=== PATIENT | female | born 1935 | race Caucasian/White ===

== ENCOUNTER → 2017-08-30 | Outpatient (CLI) | payer OTHER ==
[~2017-08-30] MED LIST: ASPI-232 PO; CARV6.25 PO; CHOL100027 PO; CMD5 PO; FAMO20TA11 PO; FRS/40 PO; POTA10TA PO; PRENTAB89 PO; PROB1CAP41 PO; SYN50 PO; WARF2.5T8 PO
--- NOTE | 2017-08-30 12:17 | DIAGNOSTIC IMAGING REPORT ---
ABDOMEN NO IV/ORAL CONT (CT) CT DOSE: 213.81 mGy.cm HISTORY: Renal cyst PT REFUSING IV CONTRAST TECHNIQUE: Multiaxial CT images of the abdomen was performed without contrast. A dose lowering technique was utilized adhering to the principles of ALARA. Patient declined contrast administration. This severely compromises detail of the exam. COMPARISON STUDY: None. FINDINGS: Cardiomegaly. Prior median sternotomy. Nonspecific interstitial change at both lung bases. Overall configuration of liver spleen and pancreas appear unremarkable. Small fixed hiatal hernia. Kidneys are negative for hydronephrosis. Well-defined renal mass or cyst is not seen within the limitations of an unenhanced scan. Bowel pattern is considered nonobstructive. There are degenerative changes of the lumbar and low thoracic spine. IMPRESSION: 1. Limited exam as the patient declined contrast administration. 2. Cardiac megaly. 3. Mild bibasilar interstitial changes most likely chronic. 4. No acute process of the abdomen within limitations of an unenhanced scan. 5. A major renal mass or cyst is not appreciated within these limitations. The above report was generated using voice recognition software. It may contain grammatical, syntax or spelling errors. Electronically signed by: Peter Patterson M.D. 08/30/2017 12:16 PM Dictated Date/Time: 08/30/2017 12:08 PM
== END | disposition home or self-care (01) ==
LOC: C.CTS 11:52
PROVIDERS: ATTEND Urology
DX: N28.1 Cyst of kidney, acquired (principal); I51.7 Cardiomegaly

== ENCOUNTER 2022-02-14 12:05 | Inpatient (IN) ==
--- NOTE | 2022-02-14 12:07 | Emergency Department Note ---
Impression & Plan Subcapital fracture of left femur, Fall, Hypokalemia ED Provider Note NAME: RAOUL MARTINEZ AGE: 86 SEX: F : 1935 ARRIVES VIA: Ambulance INFORMANT: Patient, ED PROVIDER(S): Matt Neri MD Chief Complaint: Fall, hip pain HPI: Patient presents due to concern for fall and hip pain that occurred earlier this morning. The patient states that her daughter's dog which she is walking had slightly bumped her and that she fell to her left side. Patient states that thereafter she was unable to get up for 45 minutes until EMS arrived. Patient does have pain over the left lateral hip and femur. The patient states she is not had any prior orthopedic surgery. Patient states she is currently watching the daughter while her daughter is at the beach. Patient denies any head neck chest back or abdominal pains. The patient does take Coumadin. The patient denies any LOC or head strike. Patient did take her morning medications. The patient did receive fentanyl in route and her pain is much improved. ROS: See HPI for pertinent positives and negatives. A total of 10 systems were reviewed and otherwise negative. Past medical history: See below Surgical history: See below Social history: See below Physical Exam: GENERAL: NAD, wearing a mask, non-toxic. EYE EXAM: Normal conjunctiva. PERRL, no anisocoria and EOM's grossly intact w/o pain. NECK: Supple, no nuchal rigidity, no adenopathy, non-tender. No signs of meningismus. FROM of the neck with good chin to chest and neck extension. No stridor. LUNGS: Clear to auscultation. Normal chest wall mechanics. HEART: NSR, no MRG. ABDOMEN: Abdomen soft, non-tender, normo-active bowel sounds, no masses, no rebound or guarding. BACK: No CVA TTP. SKIN: Small ulcerations to the distal portion of the right and left shins, clean with no surrounding erythema or fluctuance. No drainage. UPPER EXTREMITIES: Upper extremities are grossly normal. LOWER EXTREMITIES: Pain with associated discomfort over the left hip, no obvious sort of shortening or rotation, decreased range of motion of the left leg secondary to pain, sensate with good DP pulse. NEURO EXAM: A&O x3, cranial nerves II-XII grossly intact, normal speech, moves all 4 extremities. Differential diagnoses: Fracture, dislocation, neurovascular compromise, compartment syndrome, soft tissue injury, as well as other pathologies. Course: Patient was seen and evaluated the bedside. Full history physical exam was performed. EKG interpreted by me V paced rhythm, rate of 73, wide QRS, right axis deviation. Imaging Studies: See Below Cardiac monitoring: An order was placed for continuous cardiac monitoring. The monitor shows a rate of 82 with paced rhythm. MDM: Patient presents due to concern for fall and left hip pain. The patient did have blood work completed and was ordered pain medication as needed and chest and left hip and pelvis films. Blood work shows a normal white count H&H and platelet count. The patient's INR is therapeutic at 2.3. Mild hyponatremia and hypokalemia. Patient is COVID-negative. Patient does have a subcapital left femur fracture. Chest x-ray does not show any evidence of consolidation or pleural effusion. I did speak with Sharlene Ward PA-C and the patient was admitted by Dr. Schultz. I did speak with the on-call orthopedist Dr. Delatorre who will evaluate the patient in consult. Past Med/Surg History Medical History Chronic heart failure with preserved ejection fraction (HFpEF) Chronic hyponatremia CKD (chronic kidney disease) stage 3, GFR 30-59 ml/min H/O: HTN (hypertension) HLD (hyperlipidemia) HTN (hypertension) Hx of cardiac pacemaker Hypothyroid Osteoporosis Spinal stenosis Surgical History Hx of mitral valve replacement Hx of tricuspid valve repair S/P cardiac pacemaker procedure Social History Smoking Status: Never smoker Hx Alcohol Use: No Hx Substance Use: No Preferred Language: Yakut Communication Ability: Effective Overlay Operator Required: No Beliefs That Will Affect Care: None Current Living Situation: Alone Feels Safe at Home: Yes Safety Concerns: Feels Safe At This Time Assistive Devices: Cane, Denture - Upper, Denture - Lower and Glasses Assistive Devices Comment: upper denture, lower partial, Allergies Allergies Allergy/AdvReac Type Severity Reaction Status Date / Time Sulfa (Sulfonamide AdvReac Severe GI Unverified 02/18/21 18:43 Antibiotics) SYMPTOMS;kidney function compromised Home Meds Home Medications Medication Instructions Recorded Confirmed alendronate 70 mg tablet 70 mg PO WK 02/18/21 02/14/22 aspirin 81 mg tablet,delayed 81 mg PO QAM 02/18/21 02/14/22 release carvedilol 12.5 mg tablet 12.5 mg PO AMHS 02/18/21 02/14/22 cholecalciferol (vitamin D3) 25 50 mcg PO DAILY 02/18/21 02/14/22 mcg (1,000 unit) tablet (Vitamin D3) gabapentin 100 mg capsule 200 mg PO 02/18/21 02/14/22 multivitamin (Multiple Vitamins) 1 tab PO QA 02/18/21 02/14/22 simvastatin 10 mg tablet 10 mg PO 02/18/21 02/14/22 spironolactone 25 mg tablet 25 mg PO 02/18/21 02/14/22 warfarin 5 mg tablet 2.5 mg PO MOWEFR@1600 02/18/21 02/14/22 levothyroxine 75 mcg capsule 75 mcg PO DAILY 02/14/22 02/14/22 lifitegrast 5 % eye drops in a 1 drp OPB 02/14/22 02/14/22 dropperette (Xiidra) sennosides 8.6 mg tablet (senna) 25.8 mg PO DAILY 02/14/22 02/14/22 torsemide 20 mg tablet 20 mg PO SUTUTHSA 02/14/22 02/14/22 torsemide 20 mg tablet 40 mg PO MOWEFR 02/14/22 02/14/22 warfarin 5 mg tablet 5 mg PO SUTUTHSA@1600 02/14/22 02/14/22 Results & Data (ED) Vital Signs Vital Signs - 24 hr 02/14/22 12:26 02/14/22 13:00 02/14/22 12:36 Temperature 36.8 C Temperature Source Oral Pulse Rate 71 74 Pulse Rate [Right Finger] 77 Pulse Rate from SpO2 Sensor 70 Pulse Rhythm [Right Finger] Regular Pulse Strength [Right Finger] Normal Respiratory Rate 20 18 15 Respiratory Effort / Characteristics Non-Labored Spontaneous Non-Labored Respiratory Depth Normal Normal Respiratory Pattern Regular Regular Blood Pressure 124/70 Blood Pressure [Right Arm] 131/78 Blood Pressure Mean 88 Blood Pressure Mean [Right Arm] 95 Blood Pressure Position Lying Pulse Oximetry 97 97 98 Oxygen Delivery Method Room Air Room Air Sepsis Recent Fever Within 48 Hours No Sepsis New/Unexplained Change in Mental Status No Sepsis Action Taken by Nursing No Action Required 02/14/22 13:00 02/14/22 13:27 02/14/22 13:30 Temperature Temperature Source Pulse Rate 78 75 76 Pulse Rate [Right Finger] Pulse Rate from SpO2 Sensor 68 68 Pulse Rhythm [Right Finger] Pulse Strength [Right Finger] Respiratory Rate 14 20 17 Respiratory Effort / Characteristics Respiratory Depth Respiratory Pattern Blood Pressure 148/79 H Blood Pressure [Right Arm] Blood Pressure Mean 102 Blood Pressure Mean [Right Arm] Blood Pressure Position Pulse Oximetry 98 93 Oxygen Delivery Method Room Air Room Air Sepsis Recent Fever Within 48 Hours Sepsis New/Unexplained Change in Mental Status Sepsis Action Taken by Nursing 02/14/22 14:00 Temperature Temperature Source Pulse Rate 70 Pulse Rate [Right Finger] Pulse Rate from SpO2 Sensor 70 Pulse Rhythm [Right Finger] Pulse Strength [Right Finger] Respiratory Rate 14 Respiratory Effort / Characteristics Respiratory Depth Respiratory Pattern Blood Pressure 132/72 Blood Pressure [Right Arm] Blood Pressure Mean 92 Blood Pressure Mean [Right Arm] Blood Pressure Position Pulse Oximetry 96 Oxygen Delivery Method Room Air Sepsis Recent Fever Within 48 Hours Sepsis New/Unexplained Change in Mental Status Sepsis Action Taken by [facility] Medications Current Medication List: was personally reviewed by me Laboratory Data Attestation: I reviewed the patient's lab results. Result diagrams: 02/14/22 12:22 02/14/22 12:22 Lab Results 02/14/22 02/14/22 02/14/22 Range/Units 12:17 12:22 12:22 WBC 6.19 (4.8-10.8) K/ul RBC 4.17 (3.93-5.22) M/uL Hgb 12.3 (12.0-16.0) g/dl Hct 36.8 (34.1-44.9) % MCV 88.2 (80.0-100.0) fL MCH 29.5 (25.0-34.0) pg MCHC 33.4 (32.0-36.0) g/dL RDW Std Deviation 46.0 (36.4-46.3) fL RDW Coeff of Fabricio 14.5 (11.5-14.5) % Plt Count 223 (130-400) K/uL MPV 9.5 (9.4-12.3) fL Immature Gran % (Auto) 0.5 % Neut % (Auto) 78.6 % Lymph % (Auto) 11.3 % [place] % (Auto) 7.8 % Eos % (Auto) 0.8 % Baso % (Auto) 1.0 % Neut # (Auto) 4.87 (1.4-6.5) K/uL Lymph # (Auto) 0.70 L (1.2-3.4) K/uL [place] # (Auto) 0.48 (0.24-0.82) K/uL Eos # (Auto) 0.05 (0-0.50) K/uL Baso # (Auto) 0.06 (0-0.2) K/uL Immature Gran # (Auto) 0.03 H (0.00-0.02) K/uL PT (9.0-12.0) Seconds INR (0.9-1.1) APTT (21.0-31.0) Seconds PTT Ratio Sodium (136-145) mmol/L Potassium (3.5-5.1) mmol/L Chloride (98-107) mmol/L Carbon Dioxide (21-32) mmol/L Anion Gap (3-11) BUN (6-23) mg/dl Creatinine (0.6-1.2) mg/dl Est Cr Clr Drug Dosing ml/min Est GFR ( Amer) ml/min Est GFR (Non-Af Amer) ml/min BUN/Creatinine Ratio (10-20) Glucose (70-99(Fasting)) mg/dl Calcium (8.5-10.1) mg/dl Total Bilirubin (0.2-1.0) mg/dl AST (13-39) U/L ALT (7-52) U/L Alkaline Phosphatase (34-104) U/L Total Protein (6.0-8.3) gm/dl Albumin (3.4-5.0) gm/dl Globulin (2.5-4.0) gm/dl Albumin/Globulin Ratio (0.9-2) Urine Color Yellow Urine Appearance Clear (Clear) Urine pH 7.0 (4.5-7.5) Ur Specific [place] 1.005 (1.000-1.030) Urine Protein Negative (Negative) Urine Glucose (UA) Negative (Negative) Urine Ketones Negative (Negative) Urine Blood Negative (Negative) Urine Nitrite Negative (Negative) Urine Bilirubin Negative (Negative) Urine Urobilinogen Negative (Negative) Ur Leukocyte Esterase Negative (Negative) SARS-CoV-2, RNA, NAAT (NEGATIVE) Blood Type A Negative Antibody Screen NEGATIVE 02/14/22 02/14/22 02/14/22 Range/Units 12:22 12:22 13:28 WBC (4.8-10.8) K/ul RBC (3.93-5.22) M/uL Hgb (12.0-16.0) g/dl Hct (34.1-44.9) % MCV (80.0-100.0) fL MCH (25.0-34.0) pg MCHC (32.0-36.0) g/dL RDW Std Deviation (36.4-46.3) fL RDW Coeff of Fabricio (11.5-14.5) % Plt Count (130-400) K/uL MPV (9.4-12.3) fL Immature Gran % (Auto) % Neut % (Auto) % Lymph % (Auto) % [place] % (Auto) % Eos % (Auto) % Baso % (Auto) % Neut # (Auto) (1.4-6.5) K/uL Lymph # (Auto) (1.2-3.4) K/uL [place] # (Auto) (0.24-0.82) K/uL Eos # (Auto) (0-0.50) K/uL Baso # (Auto) (0-0.2) K/uL Immature Gran # (Auto) (0.00-0.02) K/uL PT 23.9 H (9.0-12.0) Seconds INR 2.3 H (0.9-1.1) APTT 31.0 (21.0-31.0) Seconds PTT Ratio 1.1 Sodium 129 L (136-145) mmol/L Potassium 3.3 L (3.5-5.1) mmol/L Chloride 93 L (98-107) mmol/L Carbon Dioxide 29 (21-32) mmol/L Anion Gap 7 (3-11) BUN 26 H (6-23) mg/dl Creatinine 0.94 (0.6-1.2) mg/dl Est Cr Clr Drug Dosing 34.6 ml/min Est GFR ( Amer) 64.1 ml/min Est GFR (Non-Af Amer) 55.3 ml/min BUN/Creatinine Ratio 27.7 H (10-20) Glucose 98 (70-99(Fasting)) mg/dl Calcium 8.9 (8.5-10.1) mg/dl Total Bilirubin 1.3 H (0.2-1.0) mg/dl AST 24 (13-39) U/L ALT 13 (7-52) U/L Alkaline Phosphatase 52 (34-104) U/L Total Protein 6.5 (6.0-8.3) gm/dl Albumin 3.7 (3.4-5.0) gm/dl Globulin 2.8 (2.5-4.0) gm/dl Albumin/Globulin Ratio 1.3 (0.9-2) Urine Color Urine Appearance (Clear) Urine pH (4.5-7.5) Ur Specific [place] (1.000-1.030) Urine Protein (Negative) Urine Glucose (UA) (Negative) Urine Ketones (Negative) Urine Blood (Negative) Urine Nitrite (Negative) Urine Bilirubin (Negative) Urine Urobilinogen (Negative) Ur Leukocyte Esterase (Negative) SARS-CoV-2, RNA, NAAT NEGATIVE (NEGATIVE) Blood Type Antibody Screen Administered Medications Morphine Sulfate (Morphine Sulfate 2 Mg/Ml Carp) 2 mg IV Q3H PRN PRN Reason: breakthrough pain, 8-10 Stop: 02/28/22 16:38 Last Admin: 02/14/22 17:02 Dose: 2 mg Documented By: AMPARO Discontinued Medications Phytonadione 5 mg/ Dextrose 50.5 mls @ 101 mls/hr IV 1530 ONE Stop: 02/14/22 15:59 Last Admin: 02/14/22 16:39 Dose: 101 mls/hr Documented By: AMPARO Morphine Sulfate (Morphine Sulfate 2 Mg/Ml Carp) 2 mg IV Q1H PRN PRN Reason: Moderate Pain (Rating 3,4,5,6) Stop: 02/28/22 12:16 Last Admin: 02/14/22 15:49 Dose: 2 mg Documented By: Admin: 02/14/22 13:24 Dose: 2 mg Documented By: [facility] [place] Admin: 02/14/22 13:00 Dose: 2 mg Documented By: AP Potassium Chloride (Potassium Chloride Crtab 20 Meq Tabcr) 40 meq PO NOW STA Stop: 02/14/22 14:18 Last Admin: 02/14/22 14:44 Dose: 40 meq Documented By: [facility] [place] Imaging Data Radiologist's Impression: Chest X-Ray 02/14/22 00:00 SINGLE VIEW CHEST CLINICAL HISTORY: Trauma. Left hip fracture. FINDINGS: An AP, portable, supine chest radiograph is compared to chest x-ray and chest CT dated 02/18/2021. The examination is degraded by portable technique apical lordotic positioning. A 3-lead cardiac AICD is unchanged in position. The heart is markedly enlarged noting atherosclerotic calcification of the thoracic aorta. The pulmonary vasculature is noncongested. Chronic interstitial thickening is similar to previous. Foci of scarring/atelectasis are seen throughout both lungs. No superimposed airspace consolidation or large pleural effusion is identified. No pneumothorax is seen. The skeletal structures are osteopenic. The bony thorax is grossly intact. IMPRESSION: 1. Marked cardiomegaly and AICD with no radiographic evidence of congestive failure. 2. No airspace consolidation or large pleural effusion is identified. ACT 112: Negative or not required by law. Electronically signed by: John Joseph M.D. 02/14/2022 1:34 PM Hip/Pelvis X-Ray 02/14/22 12:17 SINGLE VIEW PELVIS; 2 VIEWS LEFT HIP CLINICAL HISTORY: Fall with left hip injury. FINDINGS: An AP view of the pelvis with AP and crosstable lateral views of the left hip are correlated with pelvic CT dated 02/18/2021. The skeletal structures are osteopenic. There is an impacted and mildly displaced subcapital fracture of the left proximal femur. Overlying soft tissue edema is noted. No additional acute fracture is seen involving the right hip or the bony pelvis. There are subacute to chronic right pubic ring fractures. Sclerotic change is noted in the sacroiliac joints and pubic symphysis. Lumbosacral spondylosis is partially visualized. No bowel obstruction is seen. IMPRESSION: 1. Acute and mildly displaced subcapital fracture of the left proximal femur as above. 2. There are subacute to chronic right pubic ring fractures. These are new from 02/18/2021. Electronically signed by: John Joseph M.D. 02/14/2022 1:30 PM Discharge Plan Visit Data Chief Complaint: Hip Pain Stated Complaint: FALL, L HIP PAIN ED Provider: Matt Neri Discharge Problem: Subcapital fracture of left femur, Fall, Hypokalemia Patient Disposition: Admitted As Inpatient Discharge Instructions Interventions: ED Discharge Assessment Last Done: 02/14/22 16:10
[2022-02-14 12:30] LABS: Basophils # (auto) 0.06 K/uL (0-0.2); Eosinophils # (auto) 0.05 K/uL (0-0.50); Eosinophils % (auto) 0.8 %; Hematocrit (blood only) 36.8 % (34.1-44.9); Hemoglobin 12.3 g/dl (12.0-16.0); Immature Granulocytes # (auto) 0.03 K/uL (0.00-0.02); Immature Granulocytes % (auto) 0.5 %; Lymphocytes % (auto) 11.3 %; Mean Corpuscular Hemoglobin 29.5 pg (25.0-34.0); Mean Corpuscular Hgb Conc 33.4 g/dL (32.0-36.0); Mean Corpuscular Volume 88.2 fL (80.0-100.0); Mean Platelet Volume 9.5 fL (9.4-12.3); Monocytes # (auto) 0.48 K/uL (0.24-0.82); Monocytes % (auto) 7.8 %; Neutrophils # (auto) 4.87 K/uL (1.4-6.5); Neutrophils % (auto) 78.6 %; Platelet Count 223 K/uL (130-400); RDW Coefficient of Variation 14.5 % (11.5-14.5); Red Blood Count 4.17 M/uL (3.93-5.22); White Blood Count 6.19 K/ul (4.8-10.8)
[2022-02-14 12:31] LABS: Appearance Urine Clear (Clear); Bilirubin Urine Negative (Negative); Blood Urine Negative (Negative); Color Urine Yellow; Glucose Urine UA Negative (Negative); Ketones Urine Negative (Negative); Leukocyte Esterase Urine Negative (Negative); Nitrite Urine Negative (Negative); Protein Urine Negative (Negative); Specific Gravity Urine 1.005 (1.000-1.030); Urobilinogen Urine Negative (Negative)
[2022-02-14 12:41] LABS: INR 2.3 (0.9-1.1); Partial Thromboplastin Ratio 1.1; Prothrombin Time 23.9 Seconds (9.0-12.0)
[2022-02-14 12:52] LABS: Albumin Globulin Ratio 1.3 (0.9-2); Albumin Level 3.7 gm/dl (3.4-5.0); BUN Creatinine Ratio 27.7 (10-20); Bilirubin,Total 1.3 mg/dl (0.2-1.0); Calcium 8.9 mg/dl (8.5-10.1); Creatinine Clr Calc Pharmacy 34.6 ml/min; Est GFR (African American) 64.1 ml/min; Est GFR (Non-African American) 55.3 ml/min; Globulin 2.8 gm/dl (2.5-4.0); Potassium 3.3 mmol/L (3.5-5.1); Total Protein 6.5 gm/dl (6.0-8.3)
[2022-02-14] MEDS: MoRPHine SULFATE 2 MG/ML CARP IV PRN ×5 (13:00→23:41)
--- NOTE | 2022-02-14 13:32 | XRay Report ---
SINGLE VIEW PELVIS; 2 VIEWS LEFT HIP CLINICAL HISTORY: Fall with left hip injury. FINDINGS: An AP view of the pelvis with AP and crosstable lateral views of the left hip are correlate d with pelvic CT dated 02/18/2021. The skeletal structures are osteopenic. There is an impacted and mi ldly displaced subcapital fracture of the left proximal femur. Overlying soft tissue edema is noted. No additional acute fracture is seen involving the right hip or the bony pelvis. There are subacute t o chronic right pubic ring fractures. Sclerotic change is noted in the sacroiliac joints and pubic sy mphysis. Lumbosacral spondylosis is partially visualized. No bowel obstruction is seen. IMPRESSION: 1. Acute and mildly displaced subcapital fracture of the left proximal femur as above. 2. There are subacute to chronic right pubic ring fractures. These are new from 02/18/2021. Electronically signed by: John Joseph M.D. 02/14/2022 1:30 PM
--- NOTE | 2022-02-14 13:36 | XRay Report ---
SINGLE VIEW CHEST CLINICAL HISTORY: Trauma. Left hip fracture. FINDINGS: An AP, portable, supine chest radiograph is compared to chest x-ray and chest CT dated 02/18. The examination is degraded by portable technique apical lordotic positioning. A 3-lead cardia c AICD is unchanged in position. The heart is markedly enlarged noting atherosclerotic calcification of the thoracic aorta. The pulmonary vasculature is noncongested. Chronic interstitial thickening is similar to previous. Foci of scarring/atelectasis are seen throughout both lungs. No superimposed air space consolidation or large pleural effusion is identified. No pneumothorax is seen. The skeletal st ructures are osteopenic. The bony thorax is grossly intact. IMPRESSION: 1. Marked cardiomegaly and AICD with no radiographic evidence of congestive failure. 2. No airspace consolidation or large pleural effusion is identified. ACT 112: Negative or not required by law. Electronically signed by: John Joseph M.D. 02/14/2022 1:34 PM
[2022-02-14] MEDS ORDERED: POTASSIUM CHLORIDE CRTAB 20 MEQ TABCR PO STA (14:17)
--- NOTE | 2022-02-14 14:51 | History & Physical Report ---
Date of Service February 14, 2022 Assessment & Plan (1) Subcapital fracture of left femur: (2) Fall: (3) Hypokalemia: (4) Chronic hyponatremia: (5) Permanent atrial fibrillation: (6) retirement current use of anticoagulant: (7) Chronic heart failure with preserved ejection fraction (HFpEF): (8) CKD (chronic kidney disease) stage 3, GFR 30-59 ml/min: (9) HTN (hypertension): Plan This is an 86-year-old female who has a significant past medical history of nonischemic cardiomyopathy, chronic HFpEF, history of SSS status post PPM with upgrade to AICD, permanent afibrillation anticoagulated on warfarin, aortic valve regurg moderate, history of bioprosthetic Replacement in 2014 and tricuspid valve repair by Dr. Alexander, CKD stage III, history of polio, chronic hyponatremia, lumbar spinal stenosis with chronic ambulatory dysfunction who presents to ED after sustaining a fall prior to arrival. Fall Closed mildly displaced subcapital fracture of proximal left femur Admit to [facility] telemetry Consult orthopedics Dr. Delatorre Discussed case with Dr. Delatorre, likely OR in a.m. Will give 5 mg IV vitamin K for therapeutic INR Repeat PT/INR at 2200 Bedrest N.p.o. 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 dose of torsemide given probable surgery, will need reevaluated postoperatively to resume to prevent decompensation Chronic Hyponatremia CKD 3 na 128-131 monitor, likely in setting of diuretic therapy follow closely baseline cr 1.0, cr stable HLD continue statin Hypothyroidism continue synthroid Dispo: Med telemetry PCP: Janna DNR/DNI Patient was seen and examined in collaboration with, Dr. Schultz, please see addendum History of Present Illness Chief Complaint: Fall prior to arrival. Primary Care Provider: Faith Saldivar This is an 86-year-old female who has a significant past medical history of nonischemic cardiomyopathy, chronic HFpEF, history of SSS status post PPM with upgrade to AICD, permanent afibrillation anticoagulated on warfarin, aortic valve regurg moderate, history of bioprosthetic Replacement in 2015 and tricuspid valve repair by Dr. Alexander, CKD stage III, history of polio, chronic hyponatremia, lumbar spinal stenosis with chronic ambulatory dysfunction who presents to ED after sustaining a fall prior to arrival. She states she is watching her daughter's dog [place] the beach. She was outside with the dog when the dog got tangled around her. When she tried to untangle the dog she lost her balance and fell on her left side. She was unable to get up. A bystander driving by heard her yell for help and came to her side. EMS was summoned and she was brought to ED. She was found to have an acute and mildly displaced subcapital fracture of the left proximal femur. There was also osuna bacute to chronic right pubic ring fractures. Orthopedics was consulted who recommended admit to medicine for cardiac clearance and likely to go to OR tomorrow. She is otherwise been in a good state of health. Her weight has been stable at approximately 125 pounds. She feels her lower extremity swelling is under control. She does have mild right lower extremity swelling which is chronic for her. She denies any orthopnea or PND. She denies any recent weight gain. She actually admits to losing weight. She feels that she would be able to ambulate a flight of steps or 1 city block without getting chest pain or shortness of breath; ever, her ambulatory dysfunction and spinal stenosis prevent her from doing so. She denies any prior joint surgeries or following with orthopedic service. In ED patient remained hemodynamically stable. Her lab work was notable for sodium 129, K3.3, chloride 93, BUN 26, INR 2.3. Surgical history: Left knee scope, cataract surgery, ankle arthrodesis, mitral valve replacement and tricuspid valve [place] [address] Alexander at [facility] [place], pacemaker placement by Dr. Gonzalez which was eventually upgraded to include AICD Social history: Patient lives at home alone with her dog, ambulates with assist of a cane, denies smoking or alcohol use Family history Father diabetes Sister at 55; mother with history of hypertension and COPD Allergies Allergy/AdvReac Type Severity Reaction Status Date / Time Sulfa (Sulfonamide AdvReac Severe GI Unverified 02/18/21 18:43 Antibiotics) SYMPTOMS;kidney function compromised Home Medications Medication Instructions Recorded Confirmed Type alendronate 70 mg tablet 70 mg PO WK 02/18/21 02/14/22 History aspirin 81 mg tablet,delayed 81 mg PO QAM 02/18/21 02/14/22 History release carvedilol 12.5 mg tablet 12.5 mg PO [facility] 02/18/21 02/14/22 History cholecalciferol (vitamin D3) 25 50 mcg PO DAILY 02/18/21 02/14/22 History mcg (1,000 unit) tablet (Vitamin D3) gabapentin 100 mg capsule 200 mg PO HS 02/18/21 02/14/22 History multivitamin (Multiple Vitamins) 1 tab PO QAM 02/18/21 02/14/22 History simvastatin 10 mg tablet 10 mg PO HS 02/18/21 02/14/22 History spironolactone 25 mg tablet 25 mg PO HS 02/18/21 02/14/22 History warfarin 5 mg tablet 2.5 mg PO MOWEFR@1600 02/18/21 02/14/22 History levothyroxine 75 mcg capsule 75 mcg PO DAILY 02/14/22 02/14/22 History lifitegrast 5 % eye drops in a 1 drp OPB 02/14/22 02/14/22 History dropperette (Xiidra) sennosides 8.6 mg tablet (senna) 25.8 mg PO DAILY 02/14/22 02/14/22 History torsemide 20 mg tablet 20 mg PO SUTUTHSA 02/14/22 02/14/22 History torsemide 20 mg tablet 40 mg PO MOWEFR 07/23/22 07/23/22 History warfarin 5 mg tablet 5 mg PO SUTUTHSA@1600 02/14/22 02/14/22 History Past Med/Surg History Medical History Chronic heart failure with preserved ejection fraction (HFpEF) Chronic hyponatremia CKD (chronic kidney disease) stage 3, GFR 30-59 ml/min H/O: HTN (hypertension) HLD (hyperlipidemia) HTN (hypertension) Hx of cardiac pacemaker Hypothyroid Osteoporosis Permanent atrial fibrillation Spinal stenosis Surgical History Hx of mitral valve replacement Hx of tricuspid valve repair S/P cardiac pacemaker procedure Social History Smoking Status: Never smoker Hx Alcohol Use: No Hx Substance Use: No Preferred Language: [place] African Communication Ability: Effective Marketing Project Coordinator Required: No Beliefs That Will Affect Care: None Current Living Situation: Alone Feels Safe at Home: Yes Safety Concerns: Feels Safe At This Time Assistive Devices: Cane, Denture - Upper, Denture - Lower and Glasses Assistive Devices Comment: upper denture, lower partial, Review of Systems Review of Systems: All systems reviewed & are unremarkable except as noted in HPI & below Physical Exam Physical Exam: Constitutional: WD/WN, vitals as above, NAD, sitting up in bed, pleasant, conversing easily Head: Normocephalic, Atraumatic Eyes: PERRL, conjunctivae normal, anicteric sclerae ENMT: external ear and nose normal, oropharynx normal Neck: trachea midline, no thyromegaly normal visual inspection Respiratory: normal respiratory effort, lungs clear to auscultation, no wheeze, rales, rhonchi. Normal insp/exp effort, no accessory muscle use Cardiovascular: Irregular rate, irregular rhythm, 2/6 TIKI noted RUSB, no murmur, no edema, chronic bilateral venous stasis changes vessels: no JVD or carotid bruit Chest: normal inspection of chest Abdomen: normal bowel sounds, soft, nontender, no hepatosplenomegaly Musculoskeletal: no cyanosis or clubbing, active range of motion to bilateral upper extremities, left lower extremity shortened and inverted Skin: no rashes, warm and dry normal turgor Neurologic: PERRL, EOMI, accommodation nl, no face palsy, no dysarthria CN's II-XI intact bilaterally and moves all extremities Psychiatric: A+Ox3, euthymic affect Lymphatic: no cervical or axillary lymphadenopathy : Garcia catheter draining yellow urine Results & Data Results & Data ([facility]) Vital Signs (Past 12 Hours) Vital Signs Temp Pulse Pulse Resp BP BP Pulse Ox 02/14/22 14:30 76 17 90 02/14/22 14:00 70 14 132/72 96 02/14/22 13:30 76 17 93 02/14/22 13:27 75 20 148/79 H 98 02/14/22 13:00 78 14 02/14/22 12:36 74 15 98 02/14/22 13:00 77 18 131/78 97 02/14/22 12:26 36.8 C 71 20 124/70 97 O2 Del Method 02/14/22 14:30 Room Air 02/14/22 14:00 Room Air 02/14/22 13:30 Room Air 02/14/22 13:27 Room Air 02/14/22 13:00 02/14/22 12:36 02/14/22 13:00 Room Air 02/14/22 12:26 Room Air Diagnostic Findings Chest X-Ray 02/14/22 00:00 SINGLE VIEW CHEST CLINICAL HISTORY: Trauma. Left hip fracture. FINDINGS: An AP, portable, supine chest radiograph is compared to chest x-ray and chest CT dated 02/18/2021. The examination is degraded by portable technique apical lordotic positioning. A 3-lead cardiac AICD is unchanged in position. The heart is markedly enlarged noting atherosclerotic calcification of the thoracic aorta. The pulmonary vasculature is noncongested. Chronic interstitial thickening is similar to previous. Foci of scarring/atelectasis are seen throughout both lungs. No superimposed airspace consolidation or large pleural effusion is identified. No pneumothorax is seen. The skeletal structures are osteopenic. The bony thorax is grossly intact. IMPRESSION: 1. Marked cardiomegaly and AICD with no radiographic evidence of congestive failure. 2. No airspace consolidation or large pleural effusion is identified. ACT 112: Negative or not required by law. Electronically signed by: John Joseph M.D. 02/14/2022 1:34 PM Hip/Pelvis X-Ray 02/14/22 12:17 SINGLE VIEW PELVIS; 2 VIEWS LEFT HIP CLINICAL HISTORY: Fall with left hip injury. FINDINGS: An AP view of the pelvis with AP and crosstable lateral views of the left hip are correlated with pelvic CT dated 02/18/2021. The skeletal structures are osteopenic. There is an impacted and mildly displaced subcapital fracture of the left proximal femur. Overlying soft tissue edema is noted. No additional acute fracture is seen involving the right hip or the bony pelvis. There are subacute to chronic right pubic ring fractures. Sclerotic change is noted in the sacroiliac joints and pubic symphysis. Lumbosacral spondylosis is partially visualized. No bowel obstruction is seen. IMPRESSION: 1. Acute and mildly displaced subcapital fracture of the left proximal femur as above. 2. There are subacute to chronic right pubic ring fractures. These are new from 02/18/2021. Electronically signed by: John Joseph M.D. 02/14/2022 1:30 PM Medications Administered Medication List Morphine Sulfate (Morphine Sulfate 2 Mg/Ml Carp) 2 mg IV Q1H PRN PRN Reason: Moderate Pain (Rating 3,4,5,6) Stop: 02/28/22 12:16 Last Admin: 02/14/22 15:49 Dose: 2 mg Documented By: Admin: 02/14/22 13:24 Dose: 2 mg Documented By: [facility] Admin: 02/14/22 13:00 Dose: 2 mg Documented By: AP Discontinued Medications Potassium Chloride (Potassium Chloride Crtab 20 Meq Tabcr) 40 meq PO NOW STA Stop: 02/14/22 14:18 Last Admin: 02/14/22 14:44 Dose: 40 meq Documented By: [facility] ECG Rate (beats per minute): 73 Rhythm: atrial fibrillation and other (vpaced) Findings: + prolonged QT COVID-19 Results Results COVID-19 Adm Lab Results: RBC 4.17 M/uL (3.93-5.22) 02/14/22 WBC 6.19 K/ul (4.8-10.8) 02/14/22 Hgb 12.3 g/dl (12.0-16.0) 02/14/22 Hct 36.8 % (34.1-44.9) 02/14/22 Plt Count 223 K/uL (130-400) 02/14/22 Neutrophils (%) (Auto) 78.6 % 02/14/22 Lymphocytes (%) (Auto) 11.3 % 02/14/22 Monocytes # (Auto) 0.48 K/uL (0.24-0.82) 02/14/22 Eosinophils # (Auto) 0.05 K/uL (0-0.50) 02/14/22 Immature Granulocyte % (Auto) 0.5 % 02/14/22 Neutrophils # (Auto) 4.87 K/uL (1.4-6.5) 02/14/22 Lymphocytes # (Auto) 0.70 K/uL (1.2-3.4) L 02/14/22 Monocytes # (Auto) 0.48 K/uL (0.24-0.82) 02/14/22 Eosinophils # (Auto) 0.05 K/uL (0-0.50) 02/14/22 Basophils # (Auto) 0.06 K/uL (0-0.2) 02/14/22 Immature Granulocyte # (Auto) 0.03 K/uL (0.00-0.02) H 02/14 Na 129 mmol/L (136-145) L 02/14/22 K 3.3 mmol/L (3.5-5.1) L 02/14/22 Cl 93 mmol/L (98-107) L 02/14/22 CO2 29 mmol/L (21-32) 02/14/22 Anion Gap 7 (3-11) 02/14/22 BUN 26 mg/dl (6-23) H 02/14/22 Creatinine 0.94 mg/dl (0.6-1.2) 02/14/22 BUN/Creatinine Ratio 27.7 (10-20) H 02/14/22 Glucose Level 98 mg/dl (70-99(Fasting)) 02/14/22 Ca 8.9 mg/dl (8.5-10.1) 02/14/22 Total Bilirubin 1.3 mg/dl (0.2-1.0) H 02/14/22 AST/SGOT 24 U/L (13-39) 02/14/22 ALT/SGPT 13 U/L (7-52) 02/14/22 Alkaline Phosphatase 52 U/L (34-104) 02/14/22 Total Protein 6.5 gm/dl (6.0-8.3) 02/14/22 Albumin 3.7 gm/dl (3.4-5.0) 02/14/22 Globulin 2.8 gm/dl (2.5-4.0) 02/14/22 Albumin/Globulin Ratio 1.3 (0.9-2) 02/14/22 PTT 31.0 Seconds (21.0-31.0) 02/14/22 INR 2.3 (0.9-1.1) H 02/14/22 SARS-CoV-2, RNA, NAAT NEGATIVE (NEGATIVE) 02/14/22 Chest X-Ray 02/14/22 Code Status & VTE Plan Code Status DNR/DNI VTE Prophylaxis Plan VTE Prophylaxis will be ordered: No Supervising Physician Co-Signing Physician Notes Attending addendum: The patient was seen and examined in medical telemetry unit She is a status post fall with subcapital fracture of left femur She complains to have pain in the left hip with movement but denies any other symptoms No chest pain, palpitation or shortness of breath On examination No apparent distress at rest Hemodynamically stable Chest-clear to auscultate bilaterally Heart-S1, S2, 2/6 ESM over precordium Abdomen-benign Extremities-negative for any edema Movement of the left lower extremity produces pain at the hip Her admission labs, EKG and imaging studies reviewed Subcapital fracture of left femur with significant comorbid conditions including significant heart disease and chronic kidney disease Orthopedic consulted and possible surgery tomorrow Cardiology has been consulted for preop evaluation given the significant cardiac history Agree with assessment and plan as outlined above by Sharlene Schultz
[2022-02-14] MEDS ORDERED: PHYTONADIONE 5 MG in DEXTROSE 5% 50 ML IV ONE (15:30)
[2022-02-14] MEDS ORDERED: POLYETHYLENE (MIRALAX) 17 GM PACK PO PRN (16:39)
[2022-02-14] MEDS ORDERED: ALUMINUM/MAGNESIUM SUSP 30 ML UDC PO PRN (16:39)
[2022-02-14] MEDS ORDERED: oxyCODONE HCL IR 5 MG TAB (IMMEDIATE RELEASE) PO PRN (16:39)
[2022-02-14] MEDS ORDERED: bisacodyL 10 MG SUPP PR PRN (16:39)
[2022-02-14] MEDS ORDERED: PROMETHAZINE HCL 6.25 MG in SODIUM CHLORIDE 0.9% 50 ML IV PRN (16:39)
[2022-02-14] MEDS ORDERED: NALOXONE HCL 0.4 MG/1 ML VIAL/CARP IV PRN (16:39)
--- NOTE | 2022-02-14 17:39 | Anesthesiology Consultation ---
Date of Service February 14, 2022 Assessment & Plan (1) Encounter for pre-operative examination: Chart Review Chart Review: Acceptable Risk for Surgery (when INR acceptable) History Surgery Operation Date: 02/15/22 10:00 Proposed Procedures p Bipolar Hip Prosthesis - Octaviano Delatorre MD Height/Weight Height: 5 ft 2 in Weight: 58.9 kg Allergies Allergy/AdvReac Type Severity Reaction Status Date / Time Sulfa (Sulfonamide AdvReac Severe GI Unverified 02/18/21 18:43 Antibiotics) SYMPTOMS;kidney function compromised Medications Home Medications Medication Instructions Recorded Confirmed Last Taken alendronate 70 mg tablet 70 mg PO WK 02/18/21 02/14/22 Unknown aspirin 81 mg tablet,delayed 81 mg PO QAM 02/18/21 02/14/22 Unknown release carvedilol 12.5 mg tablet 12.5 mg PO [facility] 02/18/21 02/14/22 Unknown cholecalciferol (vitamin D3) 25 50 mcg PO DAILY 02/18/21 02/14/22 Unknown mcg (1,000 unit) tablet (Vitamin D3) gabapentin 100 mg capsule 200 mg PO 02/18/21 02/14/22 Unknown multivitamin (Multiple Vitamins) 1 tab PO QAM 02/18/21 02/14/22 Unknown simvastatin 10 mg tablet 10 mg PO 02/18/21 02/14/22 Unknown spironolactone 25 mg tablet 25 mg PO 02/18/21 02/14/22 Unknown warfarin 5 mg tablet 2.5 mg PO MOWEFR@1600 02/18/21 02/14/22 Unknown levothyroxine 75 mcg capsule 75 mcg PO DAILY 02/14/22 02/14/22 Unknown lifitegrast 5 % eye drops in a 1 drp OPB 02/14/22 02/14/22 Unknown dropperette (Xiidra) sennosides 8.6 mg tablet (senna) 25.8 mg PO DAILY 02/14/22 02/14/22 Unknown torsemide 20 mg tablet 20 mg PO SUTUTHSA 02/14/22 02/14/22 Unknown torsemide 20 mg tablet 40 mg PO MOWEFR 02/14/22 02/14/22 Unknown warfarin 5 mg tablet 5 mg PO SUTUTHSA@1600 02/14/22 02/14/22 Unknown Active Medications Generic Name Dose Route Start Last Admin Trade Name Ino PRN Reason Stop Dose Admin Morphine Sulfate 2 mg 02/14/22 16:39 02/14/22 17:02 Morphine Sulfate 2 Mg/Ml Carp IV 02/28/22 16:38 2 mg Q3H PRN Administration breakthrough pain, 8-10 Past Medical History Medical History (Updated 02/14/22 @ 17:39 by Conrad Mahoney MD) Chronic heart failure with preserved ejection fraction (HFpEF) Chronic hyponatremia CKD (chronic kidney disease) stage 3, GFR 30-59 ml/min H/O: HTN (hypertension) HLD (hyperlipidemia) HTN (hypertension) Hx of cardiac pacemaker Hypothyroid Osteoporosis Permanent atrial fibrillation Spinal stenosis Past Surgical History Surgical History Hx of mitral valve replacement Hx of tricuspid valve repair S/P cardiac pacemaker procedure Social History Smoking Status: Never smoker Hx Alcohol Use: No Hx Substance Use: No Physical Exam Vital Signs Last Vital Signs Temp 36.6 C 02/14/22 16:45 Pulse 76 02/14/22 17:07 Resp 20 02/14/22 16:45 BP 142/63 H 02/14/22 16:45 Pulse Ox 93 02/14/22 16:45 O2 Del Method 02/14/22 16:45 Testing Laboratory Results 02/14/22 12:22 02/14/22 12:22 PT 23.9 Seconds (9.0-12.0) H 02/14/22 12:22 INR 2.3 (0.9-1.1) H 02/14/22 12:22 APTT 31.0 Seconds (21.0-31.0) 02/14/22 12:22 Urine Color Yellow 02/14/22 12:17 Urine Appearance Clear (Clear) 02/14/22 12:17 Urine pH 7.0 (4.5-7.5) 02/14/22 12:17 Ur Specific [place] 1.005 (1.000-1.030) 02/14/22 12:17 Urine Protein Negative (Negative) 02/14/22 12:17 Urine Glucose (UA) Negative (Negative) 02/14/22 12:17 Urine Ketones Negative (Negative) 02/14/22 12:17 Urine Nitrite Negative (Negative) 02/14/22 12:17 Ur Leukocyte Esterase Negative (Negative) 02/14/22 12:17 Blood Type A Negative 02/14/22 12:22 Antibody Screen NEGATIVE 02/14/22 12:22 Electrocardiogram Date: 02/14/22 paced at 73 Chest X-Ray Date: 02/14/22 Findings: + cardiomegaly
[2022-02-14] MEDS ORDERED: NSS + 20MEQ KCL 20 MEQ/1,000 ML BAG IV SCH (18:30)
--- NOTE | 2022-02-14 18:32 | Orthopedic Consultation ---
Date of Service February 14, 2022 Assessment & Plan (1) Subcapital fracture of left femur: She has been admitted by the medicine service. Her INR is at 2.3 and will need to give her some vitamin K to reverse that. We talked about treatment options she like to have her hip fixed. We will plan to taken the operating to a left cemented bipolar hip arthroplasty. The risk meant this procedure explained the patient in depth include but not limited to DVT PE infection neurological and vascular bleeding palm pain limb range of motion of the severity of symptoms incomplete relief of symptoms need for further surgery in future fracture leg length inequality nerve palsy etc. Patient understands and desires to proceed. Informed consent was obtained. Will plan DVT prophylax include thigh teds SCDs. She is going to have her Coumadin reversed with 5 mg of vitamin K tonight. We will recheck the INR. She may need additional vitamin K. We will start her on Coumadin postoperatively. She will might need a Lovenox bridge put postoperatively as well. We will hold off on the heparin and Lovenox for now. History of Present Illness Reason for Consultation: . Left hip fracture Requesting Physician: . Attending Physician: Lashell Schultz MD . Patient is an 86-year-old female with multiple medical comorbidities most significant some underlying cardiac disease who presents for evaluation and treatment of her left hip injury. Sustained a fall earlier today. No pre- existing hip pain. She apparently was to take care of her dog and got tangled in the leash and fell on her left side. She had the cute onset of hip pain. She was brought to emergency room where x-rays revealed a displaced femoral neck fracture. She was admitted by the medicine service and were consulted for evaluation. Denies any pre-existing hip pain. He does have a significant cardiac history but 8 currently asymptomatic. Denies any other injuries. Allergies Allergy/AdvReac Type Severity Reaction Status Date / Time Sulfa (Sulfonamide AdvReac Severe GI Unverified 02/18/21 18:43 Antibiotics) SYMPTOMS;kidney function compromised Home Medications Medication Instructions Recorded Confirmed Type alendronate 70 mg tablet 70 mg PO WK 02/18/21 02/14/22 History aspirin 81 mg tablet,delayed 81 mg PO QAM 02/18/21 02/14/22 History release carvedilol 12.5 mg tablet 12.5 mg PO [facility] 02/18/21 02/14/22 History cholecalciferol (vitamin D3) 25 50 mcg PO DAILY 02/18/21 02/14/22 History mcg (1,000 unit) tablet (Vitamin D3) gabapentin 100 mg capsule 200 mg PO HS 02/18/21 02/14/22 History multivitamin (Multiple Vitamins) 1 tab PO QAM 02/18/21 02/14/22 History simvastatin 10 mg tablet 10 mg PO HS 02/18/21 02/14/22 History spironolactone 25 mg tablet 25 mg PO HS 02/18/21 02/14/22 History warfarin 5 mg tablet 2.5 mg PO MOWEFR@1600 02/18/21 02/14/22 History levothyroxine 75 mcg capsule 75 mcg PO DAILY 02/14/22 02/14/22 History lifitegrast 5 % eye drops in a 1 drp OPB 02/14/22 02/14/22 History dropperette (Xiidra) sennosides 8.6 mg tablet (senna) 25.8 mg PO DAILY 02/14/22 02/14/22 History torsemide 20 mg tablet 20 mg PO SUTUTHSA 02/14/22 02/14/22 History torsemide 20 mg tablet 40 mg PO MOWEFR 02/14/22 02/14/22 History warfarin 5 mg tablet 5 mg PO SUTUTHSA@1600 02/14/22 02/14/22 History Past Med/Surg History Medical History Chronic heart failure with preserved ejection fraction (HFpEF) Chronic hyponatremia CKD (chronic kidney disease) stage 3, GFR 30-59 ml/min H/O: HTN (hypertension) HLD (hyperlipidemia) HTN (hypertension) Hx of cardiac pacemaker Hypothyroid Osteoporosis Permanent atrial fibrillation Spinal stenosis Surgical History Hx of mitral valve replacement Hx of tricuspid valve repair S/P cardiac pacemaker procedure Social History Smoking Status: Never smoker Hx Alcohol Use: No Hx Substance Use: No Preferred Language: Guinean Communication Ability: Effective Technology Integration Specialist Required: No Beliefs That Will Affect Care: None Current Living Situation: Alone Feels Safe at Home: Yes Safety Concerns: Feels Safe At This Time Assistive Devices: Cane, Denture - Upper, Denture - Lower and Glasses Assistive Devices Comment: upper denture, lower partial, Review of Systems All systems reviewed & are unremarkable except as noted in HPI & below. Physical Exam . Physical examination reveals a pleasant elderly female. She has she is lying in bed sitting up and was talking on the phone when I visited her initially. Examination left hip reveals to be slightly shortened and externally rotated. She has no knee effusion. Moderate soft tissue envelope. The skin is all intact. She has marked pain with any type of hip motion. She cannot do a straight leg raise. Results & Data Results & Data Laboratory Results . Diagnostic Findings . X-rays of the left hip and pelvis reveal displaced femoral neck fracture. No significant underlying hip arthritis. She looks like she is got healed right the superior and inferior pubic ramus fracture on the right side. PG Care Time/CCT Total # of Minutes Spent Total Time Spent with Patient: Total time spent is greater than 50% in coordination of care (as documented) at patient's floor/unit and/or counseling patient: Coding Level of Care Code 22836 Inpt Consult Level 5 Diagnoses Subcapital fracture of left femur S72.012A
[2022-02-14] MEDS: SPIRONOLACTONE 25 MG TAB PO SCH (20:38)
[2022-02-14] MEDS: GABAPENTIN 100 MG CAP PO SCH (20:39)
[2022-02-14] MEDS: SIMVASTATIN 10 MG TAB PO SCH (20:39)
[2022-02-14] MEDS: carvediloL 12.5 MG TAB PO SCH (20:40)
[2022-02-14 22:12] LABS: INR 1.7 (0.9-1.1)
[2022-02-14] MEDS ORDERED: PHYTONADIONE 2.5 MG in DEXTROSE 5% 50 ML IV STA (22:51)
[2022-02-15] MEDS: oxyCODONE HCL IR 5 MG TAB (IMMEDIATE RELEASE) PO PRN (05:07)
[2022-02-15] MEDS: LEVOTHYROXINE SODIUM 75 MCG TABLET PO SCH (05:08)
[2022-02-15] MEDS ORDERED: ceFAZolin 2000MG 2,000 MG/15 ML SYR IV SCH (06:00)
[2022-02-15 06:02] LABS: Basophils # (auto) 0.06 K/uL (0-0.2); Basophils % (auto) 0.9 %; Eosinophils # (auto) 0.14 K/uL (0-0.50); Eosinophils % (auto) 2.1 %; Hematocrit (blood only) 36.1 % (34.1-44.9); Hemoglobin 11.9 g/dl (12.0-16.0); Immature Granulocytes # (auto) 0.04 K/uL (0.00-0.02); Immature Granulocytes % (auto) 0.6 %; Lymphocytes # (auto) 0.76 K/uL (1.2-3.4); Lymphocytes % (auto) 11.2 %; Mean Corpuscular Hemoglobin 29.2 pg (25.0-34.0); Mean Corpuscular Volume 88.7 fL (80.0-100.0); Mean Platelet Volume 9.9 fL (9.4-12.3); Monocytes # (auto) 0.54 K/uL (0.24-0.82); Neutrophils # (auto) 5.23 K/uL (1.4-6.5); Neutrophils % (auto) 77.2 %; Platelet Count 196 K/uL (130-400); RDW Coefficient of Variation 14.5 % (11.5-14.5); RDW Standard Deviation 46.4 fL (36.4-46.3); Red Blood Count 4.07 M/uL (3.93-5.22); White Blood Count 6.77 K/ul (4.8-10.8)
[2022-02-15 06:12] LABS: INR 1.3 (0.9-1.1); Prothrombin Time 13.9 Seconds (9.0-12.0)
[2022-02-15 06:39] LABS: Albumin Globulin Ratio 1.4 (0.9-2); Albumin Level 3.6 gm/dl (3.4-5.0); BUN Creatinine Ratio 22.6 (10-20); Bilirubin,Total 1.9 mg/dl (0.2-1.0); Calcium 8.6 mg/dl (8.5-10.1); Creatinine Clr Calc Pharmacy 41.8 ml/min; Est GFR (African American) 73.5 ml/min; Est GFR (Non-African American) 63.4 ml/min; Globulin 2.6 gm/dl (2.5-4.0); Magnesium 1.8 mg/dl (1.7-2.4); Potassium 4.2 mmol/L (3.5-5.1); Total Protein 6.2 gm/dl (6.0-8.3)
--- NOTE | 2022-02-15 07:08 | History & Physical Bridge Note ---
Date of Service February 15, 2022 History & Physical Bridge Note I have examined the patient, reviewed the History & Physical and in the interval since the performance of the History & Physical I have noted the following changes of clinical significance: no changes noted
[2022-02-15] MEDS: CHOLECALCIFEROL 1,000 UNITS 25 MCG TAB PO SCH (08:40)
[2022-02-15] MEDS: MULTIVITAMIN TAB PO SCH (08:40)
[2022-02-15] MEDS: SENNA 8.6 MG TAB PO SCH (08:40)
[2022-02-15] MEDS: carvediloL 12.5 MG TAB PO SCH (08:40)
[2022-02-15] MEDS: ASPIRIN 81 MG ECTAB PO SCH (08:40)
[2022-02-15] MEDS: MoRPHine SULFATE 2 MG/ML CARP IV PRN (08:42)
[2022-02-15] MEDS ORDERED: BUPIVACAINE 0.5 % 5 MG/1 ML MPF 30ML VIAL ONE ×2 (09:27→10:28)
[2022-02-15] MEDS ORDERED: BUPIVACAINE/EPINEPHRINE 0.25% 1:200,000 30 ML VIAL ONE (09:27)
[2022-02-15] MEDS ORDERED: THROMBIN FOR SOLN 20000 UNIT KIT ONE (09:27)
[2022-02-15] MEDS ORDERED: EPINEPHrine INJ 1 MG/ML AMP ONE (09:27)
[2022-02-15] MEDS ORDERED: HYDROmorphone INJ 1 MG/ML SYRINGE IV PRN (10:07)
[2022-02-15] MEDS ORDERED: ATROPINE SULFATE 0.1 MG/ML 10ML SYR IV PRN (10:07)
[2022-02-15] MEDS ORDERED: ONDANSETRON INJ 2 MG/ML 2 ML VIAL IV PRN (10:07)
[2022-02-15] MEDS ORDERED: fentaNYL citrate 100 MCG/2 ML VIAL ONE (10:16)
[2022-02-15] MEDS ORDERED: ceFAZolin 330 MG/ML 1 GM VIAL ONE (11:03)
--- NOTE | 2022-02-15 11:28 | Electrocardiogram Report ---
Test Reason : Blood Pressure : / mmHG Vent. Rate : 073 BPM Atrial Rate : 064 BPM P-R Int : 000 ms QRS Dur : 162 ms QT Int : 494 ms P-R-T Axes : 000 086 -56 degrees QTc Int : 544 ms Atrial fibrillation Ventricular-paced rhythm with occasional Premature ventricular complexes Abnormal ECG When compared with ECG of 18-FEB-2021 18:29, Electronic ventricular pacemaker has replaced Atrial flutter Confirmed by Davi Martin ([id number]) on 02/15/2022 11:28:28 AM Referred By: REFERRED SELF Confirmed By:Davi Martin
--- NOTE | 2022-02-15 12:00 | Cardiology Consultation ---
Date of Consultation February 15, 2022 Assessment & Plan (1) Subcapital fracture of left femur: (2) Fall: (3) Permanent atrial fibrillation: (4) HTN (hypertension): (5) CKD (chronic kidney disease) stage 3, GFR 30-59 ml/min: (6) NICM (nonischemic cardiomyopathy): (7) History of mitral valve replacement with bioprosthetic valve: (8) AICD (automatic cardioverter/defibrillator) present: (9) Hx of atrioventricular node ablation: Plan It was my pleasure to see Mrs. Kay in cardiac consultation today. Her INR was reversed prior to surgical intervention and Coumadin should be restarted once bleeding risk is acceptable from Ortho. At her most recent outpatient follow-up her carvedilol was changed to metoprolol succinate to facilitate biventricular pacing Will follow her volume status clinically postoperatively and restart oral spironolactone and torsemide as necessary. Continue to monitor on telemetry History of Present Illness Attending Physician: Harris Taylor MD History of Present Illness It was my pleasure to see Mrs. Kay in cardiac consultation today February 15, 2022. She is a very pleasant 86-year-old woman who follows with Dr. Gamboa and Shobha of our cardiology practice for history of nonischemic cardiomyopathy. She presented to [facility] on 02/14/2022 after mechanical fall after she was tripped by her dog. She was found to have a left femur fracture and was taken to the operating room today for arthroplasty. Currently, she is just returned to her room from the operating theater. She is drowsy and slow to respond to questioning but denies any chest pain or shortness of breath. Problem List: 1. Nonischemic cardiomyopathy, left ventricular ejection fraction of 25-30% per echo in [place] in January,, improved to 45-49% after cardiac resynchronization therapy based on repeat echocardiogram a isinger July,, and then 55-59% in 03/2018, 50% 12/2019 2. History of minimally invasive mitral valve replacement utilizing a [address] Jun Epic bioprosthesis and TV repair with 30 mm Triad ring, 05/27/15 at [facility], Dr Alexander 3. Residual moderate aortic valve regurgitation 4. History of permanent atrial fibrillation, AV junction ablation 2007 5. Permanent pacemaker initially placed in 2006, generator change 2010, upgrade to biventricular AICD May, 6. Stage IIIchronic kidney disease 7. Hypothyroidism Allergies Allergy/AdvReac Type Severity Reaction Status Date / Time Sulfa (Sulfonamide AdvReac Severe GI Unverified 02/18/21 18:43 Antibiotics) SYMPTOMS;kidney function compromised Home Medications Medication Instructions Recorded Confirmed Type alendronate 70 mg tablet 70 mg PO WK 02/18/21 02/14/22 History aspirin 81 mg tablet,delayed 81 mg PO QAM 02/18/21 02/14/22 History release carvedilol 12.5 mg tablet 12.5 mg PO AMHS 02/18/21 02/14/22 History cholecalciferol (vitamin D3) 25 50 mcg PO DAILY 02/18/21 02/14/22 History mcg (1,000 unit) tablet (Vitamin D3) gabapentin 100 mg capsule 200 mg PO HS 02/18/21 02/14/22 History multivitamin (Multiple Vitamins) 1 tab PO QAM 02/18/21 02/14/22 History simvastatin 10 mg tablet 10 mg PO HS 02/18/21 02/14/22 History spironolactone 25 mg tablet 25 mg PO HS 02/18/21 02/14/22 History warfarin 5 mg tablet 2.5 mg PO MOWEFR@1600 02/18/21 02/14/22 History levothyroxine 75 mcg capsule 75 mcg PO DAILY 02/14/22 02/14/22 History lifitegrast 5 % eye drops in a 1 drp OPB 02/14/22 02/14/22 History dropperette (Xiidra) sennosides 8.6 mg tablet (senna) 25.8 mg PO DAILY 02/14/22 02/14/22 History torsemide 20 mg tablet 20 mg PO SUTUTHSA 02/14/22 02/14/22 History torsemide 20 mg tablet 40 mg PO MOWEFR 02/14/22 02/14/22 History warfarin 5 mg tablet 5 mg PO SUTUTHSA@1600 02/14/22 02/14/22 History Patient History Medical History Chronic heart failure with preserved ejection fraction (HFpEF) Chronic hyponatremia CKD (chronic kidney disease) stage 3, GFR 30-59 ml/min H/O: HTN (hypertension) HLD (hyperlipidemia) HTN (hypertension) Hx of cardiac pacemaker Hypothyroid Osteoporosis Permanent atrial fibrillation Spinal stenosis Surgical History Hx of mitral valve replacement Hx of tricuspid valve repair S/P cardiac pacemaker procedure Social History Smoking Status: Never smoker Hx Alcohol Use: No Hx Substance Use: No Preferred Language: Gabonese Communication Ability: Effective Cell Support Operator Required: No Beliefs That Will Affect Care: None Current Living Situation: Alone Feels Safe at Home: Yes Safety Concerns: Feels Safe At This Time Assistive Devices: Cane, Denture - Upper, Denture - Lower and Glasses Assistive Devices Comment: upper denture, lower partial, Review of Systems Review of Systems: Unobtainable due to reduced consciousness Physical Exam Physical Exam: General: Awake, alert and oriented x 3. No acute distress. HEENT: Normocephalic, atraumatic. Pupils equal, round and reactive to light and accommodation. Extraocular muscles are intact. Anicteric sclera. Moist mucous membranes. Neck: No JVD. No bruit. Cardiovascular: Regular. Positive S-4. Normal S-1 and S-2. No S-3. No murmurs or rubs. Pulmonary: Clear to auscultation B/L. No rales, rhonchi or wheezing Abdomen: Bowel sounds x 4, soft. No rebound, guarding or tenderness. No organomegaly. Extremities: No clubbing, cyanosis or edema. +2 pedal pulses bilaterally. Skin: Warm and dry. Results & Data ([facility]) Vital Signs (Past 12 Hours) Vital Signs Temp Pulse Pulse Resp BP Pulse Ox O2 Del Method 02/15/22 08:31 37.1 C 71 18 119/68 90 Room Air 02/15/22 08:00 70 02/15/22 03:09 36.9 C 71 16 130/63 96 Room Air
[2022-02-15] MEDS ORDERED: ONDANSETRON INJ 2 MG/ML 2 ML VIAL ONE (12:28)
[2022-02-15] MEDS ORDERED: ROCURONIUM BROMIDE 10 MG/ML 5 ML VIAL IV ONE (12:29)
[2022-02-15] MEDS ORDERED: NEOSTIGMINE METHYLSULFATE 1 MG/ML 10ML VIAL ONE (12:29)
[2022-02-15] MEDS ORDERED: GLYCOPYRROLATE 0.2 MG/ML VIAL ONE (12:29)
[2022-02-15] MEDS ORDERED: PHENYLEPHRINE 100MCG/ML 5ML SYR ONE (12:29)
[2022-02-15] MEDS ORDERED: PROPOFOL IV EMULSION 10 MG/ML 20 ML VIAL IV ONE (12:29)
--- NOTE | 2022-02-15 12:54 | Operative Report ---
PG Post Operative Report Pre & Post Diagnosis Operation Date: 02/15/22 10:00 Pre-Op Diagnosis: Displaced subcapital fracture of left femur/hip Post-Op Diagnosis: Displaced subcapital fracture of left femur/hip I identified the patient and participated in the time-out.: Yes Procedure Operation Date: 02/15/22 10:00 Actual Procedures p Left cemented bipolar Hip Prosthesis(Left) - Octaviano Delatorre MD Surgeon Octaviano Delatorre MD Surgical Instrument Maker Chin Orta PA-C Estimated Blood Loss 100 Findings Consistent with Post-Op Diagnosis Specimens Left femoral head sent for pathology Anesthesia Type General Complications none Disposition Accompanied Patient To Recovery: No Indications Patient is an 86-year-old frail female who sustained a fall yesterday. She was brought to emergency room where x-rays revealed displaced femoral neck fracture. She has been admitted by the medicine service, medically optimized, and indicated for surgery. She had no pre-existing hip pain. Description of Procedure Operative implants consist of: 1 Kev size 12 LD/fracture hip fracture femoral stem. 2. +3.5/28 mm metal articular ball. 3. 45 mm bipolar shell and liner. 4. Size 11 distal centralizer. 5. Small cement restrictor. The patient was taken the operating, identified, and placed on the operating table supine position protectors were properly padded. IV antibiotics tried by anesthesia team. A general anesthetic was implemented. The patient was then placed in the right lateral decubitus position. An axillary roll was placed. A Stulberg hip positioner was used for positioning. Left hip and leg were then prepped and draped in usual sterile fashion after being scrubbed with Hibiclens. A posterior lateral approach of the left hip was then performed through a curvilinear incision centered over the greater trochanter. Sharp dissection Through subcutaneous tissue down to level the IT band gluteal fascia the IT band gluteal fascia incised longitudinally in line with skin incision. The underlying greater bursa was excised. The piriformis and external rotators were tagged and taken off the posterior aspect hip joint capsule. Great care was taken throughout the procedure protect the sciatic nerve at all times. The hip was internally rotated. Femoral neck osteotomy cut was made just at the base of the fracture site. The femoral neck was removed. The femur was retracted anteriorly. The femoral head was removed. The acetabular was sized to a size 45. Attention drawn the femur. The proximal femur was entered with a cookie cutter followed by canal finder and lateralizing reamer. Then broached begin with size 10 progressing up to a 13. 13 gave a good fit. We then trialed the hip and the +3.5 head seem to create optimal stability and soft tissue tension and it was fully stable in full extension and external rotation and flexion to 9 degrees internal Tatian over [address] I elect to place these implants. All trial implants were removed. A small cement restrictor was placed. A double batch Palacos G cement was mixed and then injected in the canal. A size 12 LD/fracture femoral stem was placed with a distal centralizer. It was held in place until the cement hardened. Final cement check was performed. A +3.5/28 mm metal ball and a 45 mm bipolar shell and liner were placed. Hip was located once again found to be stable. Attention drawn toward closing. The wound was irrigated with copious also pulsatile lavage solution. I did inject locally with 50 cc of half percent Marcaine with epinephrine. The posterior capsule was then repaired with #2 Tycron suture. The external rotators were repaired to the posterior aspect the hip abductors with #2 Tycron suture. The IT band gluteal fascia then closed in 1 PDS suture running fashion for subcutaneous tissues then closed with 2 layers of the deep layer #1 Vicryl suture and subcutaneous tissues with 2-0 Dexon suture in a buried interrupted fashion the skin was closed skin miley. Leg was then cleaned and dried and a sterile dressing was Xeroform, 4 x 4's, sterile ABD pad, foam tape was applied. The patient was then brought out of general esthesia and transferred to the [facility] o[facility] room in stable condition. The patient tolerated procedure well and there were no complications. Chin Whyte, my physician tax assistant, was present for the entire procedure. His assistance was required for proper patient positioning, prepping and draping, surgical exposure, retraction, perform the technical details the operation, placement of the implants, closure of the wound, placement of sterile bandage. I attest to the content of the Intraoperative Record and any orders documented therein. Any exceptions are noted below.
[2022-02-15] MEDS ORDERED: WARFARIN SOD 7.5 MG TAB PO ONE (13:15)
[2022-02-15] MEDS ORDERED: HYDROmorphone INJ 1 MG/ML SYRINGE ONE (13:25)
[2022-02-15] MEDS ORDERED: COUGH DROP (SUGAR FREE) LOZ 24 LOZ/1 BOX BUCCAL PRN (14:13)
[2022-02-15] MEDS: SODIUM CHLORIDE 0.9% 1000ML 1,000 ML IV SCH (14:28)
--- NOTE | 2022-02-15 14:46 | Anesthesiology Progress Note ---
Date of Service February 15, 2022 Anesthesia Post Procedure Vital Signs Vital Signs: Temp Pulse Pulse Pulse Resp BP BP 02/15/22 14:37 36.6 C 72 18 119/69 02/15/22 14:17 36.5 C 79 20 145/75 H 02/15/22 14:02 36.4 C L 75 20 117/66 02/15/22 13:50 70 14 104/57 L 02/15/22 13:40 36.7 C 76 13 134/59 L 02/15/22 13:30 70 14 124/84 02/15/22 13:20 70 15 137/59 L 02/15/22 13:10 76 17 129/83 02/15/22 13:00 73 15 134/70 02/15/22 12:51 36.1 C L 70 16 130/71 02/15/22 08:31 37.1 C 71 18 119/68 02/15/22 08:00 70 02/15/22 03:09 36.9 C 71 16 130/63 02/14/22 22:30 70 02/14/22 23:58 37.0 C 76 18 133/79 02/14/22 23:39 36.4 C L 75 18 148/78 H 02/14/22 23:14 36.5 C 71 16 124/61 02/14/22 19:55 36.9 C 71 16 156/68 H 02/14/22 17:07 76 02/14/22 16:45 36.6 C 87 20 142/63 H 02/14/22 15:30 77 21 02/14/22 15:00 79 14 02/14/22 15:00 159/72 H Pulse Ox O2 Del Method O2 Flow Rate 02/15/22 14:37 94 Nasal Cannula 2 02/15/22 14:17 93 Nasal Cannula 2 02/15/22 14:02 97 Nasal Cannula 2 02/15/22 13:50 93 Nasal Cannula 2 02/15/22 13:40 95 Nasal Cannula 2 02/15/22 13:30 92 Oxymask 2 02/15/22 13:20 99 Oxymask 3 02/15/22 13:10 99 Oxymask 5 02/15/22 13:00 96 Oxymask 9 02/15/22 12:51 96 Oxymask 9 02/15/22 08:31 90 Room Air 02/15/22 08:00 02/15/22 03:09 96 Room Air 02/14/22 22:30 02/14/22 23:58 91 Room Air 02/14/22 23:39 94 Room Air 02/14/22 23:14 93 Room Air 02/14/22 19:55 95 Room Air 02/14/22 17:07 02/14/22 16:45 93 Room Air 02/14/22 15:30 95 02/14/22 15:00 94 02/14/22 15:00 Pain Intensity Left Hip: Pain Intensity: 4 Transfer of Care Handoff Completed per policy Notes Mental Status: alert / awake / arousable Patient Amnestic to Procedure: Yes Nausea / Vomiting: adequately controlled Pain: adequately controlled Airway Patency, RR, SpO2: stable & adequate BP & HR: stable & adequate Hydration State: stable & adequate Anesthetic Complications: no major complications apparent
--- NOTE | 2022-02-15 15:39 | XRay Report ---
XR hip LT min 2V CLINICAL HISTORY: Post-Operative implant position COMPARISON: Pelvis and left hip radiographs February 14, 2022. FINDINGS: Alignment of the left hip arthroplasty is anatomic. No periprosthetic fracture or unexpect ed radiopaque foreign bodies are present. There are skin miley. Soft tissue gas, as expected. IMPRESSION: Expected findings following left hip arthroplasty. ACT 112: Negative or not required by law. Electronically signed by: Philip Huitron M.D. 02/15/2022 3:38 PM
--- NOTE | 2022-02-15 17:56 | Hospitalist Progress Note ---
Date of Service February 15, 2022 Assessment & Plan (1) Subcapital fracture of left femur: (2) Fall: (3) Hypokalemia: (4) Chronic hyponatremia: (5) Permanent atrial fibrillation: (6) residential current use of anticoagulant: (7) Chronic heart failure with preserved ejection fraction (HFpEF): (8) CKD (chronic kidney disease) stage 3, GFR 30-59 ml/min: (9) HTN (hypertension): Plan Per admitting service notes with addendum This is an 86-year-old female who has a significant past medical history of nonischemic cardiomyopathy, chronic HFpEF, history of SSS status post PPM with upgrade to AICD, permanent afibrillation anticoagulated on warfarin, aortic valve regurg moderate, history of bioprosthetic Replacement in 2014 and tricuspid valve repair by Dr. Alexander, CKD stage III, history of polio, chronic hyponatremia, lumbar spinal stenosis with chronic ambulatory dysfunction who presents to ED after sustaining a fall prior to arrival. Fall Closed mildly displaced subcapital fracture of proximal left femur Admit to [facility] telemetry Consult orthopedics Dr. Delatorre Discussed case with Dr. Delatorre, likely OR in a.m. Will give 5 mg IV vitamin K for therapeutic INR Repeat PT/INR at 2200 Bedrest N.p.o. after midnight Garcia catheter in place Oxycodone 2.5 mg for mod pain, 5 mg for severe pain; IV morphine for breakthrough pain Patient with chronic constipation, takes 3 senna tablets daily -will continue 02/15 INR 1.3 Cardiology service consulted No contraindications for orthopedic procedure, patient high risk for cardiopulmonary complications, will monitor closely Hypokalemia Replaced Permanent atrial fibrillation Long-term anticoagulation History of SSS status post PPM with upgrade to AICD/pacer INR 2.3, will give 5 mg IV vitamin K x1 now Repeat INR at 2200 [id number], will bridge with IV heparin with INR < 2 Patient had pacer interrogated on 01/06/2022 which revealed 100% atrial fibrillation burden 02/15 Heart rate control INR reversed with vitamin K, now 1.3 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 dose of torsemide given probable surgery, will need reevaluated postoperatively to resume to prevent decompensation 02/15 Euvolemic Will resume torsemide postsurgery Chronic Hyponatremia CKD 3 na 128-131 monitor, likely in setting of diuretic therapy follow closely baseline cr 1.0, cr stable 02/15 Sodium 128 Creatinine 0.8 HLD continue statin Hypothyroidism continue synthroid Dispo: Pending Will likely need acute rehab versus care home facility PCP: Janna DNR/DNI Admission and Anticipated Discharge Date Admission Date: February 14, 2022 Subjective Follow-up for left hip fracture, etc. Seen resting bed, comfortable Has left hip pain, relieved with pain medications no chest pain, dyspnea, palpitations, dizziness Abdominal pain, nausea vomiting, fevers or chills No other symptoms Review of Systems Review of Systems: all noted and negative except for above Physical Exam Physical Exam: General- oriented x 3, not in distress, speaks in sentences with no effort or accessory muscle use Head- atraumatic Eyes- PERRL, EOMI, anicteric ENT- oropharynx clear Neck- supple, no JVD, no adenopathy, no thyromegaly; carotids +2/2, no bruits appreciated Lungs- clear to auscultation bilaterally, no rales/wheezes Heart- normal rate, regular rhythm; no murmur, no gallop, no rub appreciated Abdomen- normal bowel sounds, nondistended, soft, nontender, no masses or hepatosplenomegaly Extremities- no pretibial edema, no calf tenderness; peripheral pulses intact Left hip, mild tenderness Neuro- alert, oriented x 3; CN 2-12 grossly intact; motor 5/5 bilaterally;sensation 100% on all extremities; no other gross focal neurologic deficits Skin- warm & dry Results & Data Results & Data ([facility]) Vital Signs (Past 12 Hours) Vital Signs Temp Pulse Pulse Pulse Resp BP Pulse Ox 02/15/22 16:30 36.5 C 72 18 124/72 96 02/15/22 15:31 36.7 C 70 18 123/70 97 02/15/22 15:05 73 02/15/22 14:37 36.6 C 72 18 119/69 94 02/15/22 14:17 36.5 C 79 20 145/75 H 93 02/15/22 14:02 36.4 C L 75 20 117/66 97 02/15/22 13:50 70 14 104/57 L 93 02/15/22 13:40 36.7 C 76 13 134/59 L 95 02/15/22 13:30 70 14 124/84 92 02/15/22 13:20 70 15 137/59 L 99 02/15/22 13:10 76 17 129/83 99 02/15/22 13:00 73 15 134/70 96 02/15/22 12:51 36.1 C L 70 16 130/71 96 02/15/22 08:31 37.1 C 71 18 119/68 90 02/15/22 08:00 70 O2 Del Method O2 Flow Rate 02/15/22 16:30 Room Air 02/15/22 15:31 Nasal Cannula 1 02/15/22 15:05 02/15/22 14:37 Nasal Cannula 2 02/15/22 14:17 Nasal Cannula 2 02/15/22 14:02 Nasal Cannula 2 02/15/22 13:50 Nasal Cannula 2 02/15/22 13:40 Nasal Cannula 2 02/15/22 13:30 Oxymask 2 02/15/22 13:20 Oxymask 3 02/15/22 13:10 Oxymask 5 02/15/22 13:00 Oxymask 9 02/15/22 12:51 Oxymask 9 02/15/22 08:31 Room Air 02/15/22 08:00
[2022-02-15] MEDS: GABAPENTIN 100 MG CAP PO SCH (20:28)
[2022-02-15] MEDS: SIMVASTATIN 10 MG TAB PO SCH (20:28)
[2022-02-15] MEDS: ACETAMINOPHEN 325 MG TAB PO PRN (20:28)
[2022-02-15] MEDS: SPIRONOLACTONE 25 MG TAB PO SCH (20:29)
[2022-02-16] MEDS: SODIUM CHLORIDE 0.9% 1000ML 1,000 ML IV SCH (02:48)
[2022-02-16] MEDS: LEVOTHYROXINE SODIUM 75 MCG TABLET PO SCH (05:36)
[2022-02-16] MEDS: oxyCODONE HCL IR 5 MG TAB (IMMEDIATE RELEASE) PO PRN (05:36)
[2022-02-16 07:11] LABS: Basophils # (auto) 0.06 K/uL (0-0.2); Basophils % (auto) 0.6 %; Eosinophils # (auto) 0.03 K/uL (0-0.50); Eosinophils % (auto) 0.3 %; Hematocrit (blood only) 34.3 % (34.1-44.9); Immature Granulocytes # (auto) 0.05 K/uL (0.00-0.02); Immature Granulocytes % (auto) 0.5 %; Lymphocytes # (auto) 0.48 K/uL (1.2-3.4); Mean Corpuscular Hemoglobin 29.3 pg (25.0-34.0); Mean Corpuscular Hgb Conc 32.1 g/dL (32.0-36.0); Mean Corpuscular Volume 91.5 fL (80.0-100.0); Mean Platelet Volume 9.9 fL (9.4-12.3); Monocytes # (auto) 0.74 K/uL (0.24-0.82); Monocytes % (auto) 7.7 %; Neutrophils % (auto) 85.9 %; Platelet Count 166 K/uL (130-400); RDW Coefficient of Variation 14.7 % (11.5-14.5); RDW Standard Deviation 49.7 fL (36.4-46.3); Red Blood Count 3.75 M/uL (3.93-5.22); White Blood Count 9.56 K/ul (4.8-10.8)
[2022-02-16 07:23] LABS: INR 1.5 (0.9-1.1); Prothrombin Time 15.6 Seconds (9.0-12.0)
[2022-02-16 07:46] LABS: Albumin Globulin Ratio 1.3 (0.9-2); Albumin Level 3.2 gm/dl (3.4-5.0); BUN Creatinine Ratio 20.4 (10-20); Bilirubin,Total 1.7 mg/dl (0.2-1.0); Calcium 8.5 mg/dl (8.5-10.1); Globulin 2.5 gm/dl (2.5-4.0); Magnesium 1.9 mg/dl (1.7-2.4); Potassium 4.3 mmol/L (3.5-5.1); Total Protein 5.7 gm/dl (6.0-8.3)
[2022-02-16] MEDS: MULTIVITAMIN TAB PO SCH (10:31)
[2022-02-16] MEDS: SENNA 8.6 MG TAB PO SCH (10:31)
[2022-02-16] MEDS: ASPIRIN 81 MG ECTAB PO SCH (10:33)
[2022-02-16] MEDS: CHOLECALCIFEROL 1,000 UNITS 25 MCG TAB PO SCH (10:33)
[2022-02-16] MEDS: METOPROLOL SUCC 50MG EXT REL TAB PO SCH (10:40)
[2022-02-16 13:53] LABS: BUN Creatinine Ratio 19.4 (10-20); Calcium 8.3 mg/dl (8.5-10.1); Creatinine Clr Calc Pharmacy 33.2 ml/min; Est GFR (Non-African American) 52.6 ml/min; Potassium 4.3 mmol/L (3.5-5.1)
--- NOTE | 2022-02-16 14:33 | Progress Notes ---
DATE OF SERVICE: 02/16/2022. SUBJECTIVE: An 86-year-old female postoperative day 1 from a left cemented bipolar hip arthroplasty for fracture. She is doing pretty well. She not have much pain. She feels like she has been drugge d and sedated. PHYSICAL EXAMINATION: GENERAL: Shows a pleasant, frail, elderly female, sitting up in bed, and looks comfortable. She is awake and alert and oriented, but does seem a bit sedated. EXTREMITIES: Examination of the left hip reveals the dressing to be clean, dry and intact. Leg sanjuanita ths were equal. She can dorsiflex and plantarflex her foot appropriately. She is neurologically int act. LABORATORY DATA: Hemoglobin 11.0. Hematocrit 34.3. Electrolytes are stable. INR 1.5. Her sodium is a bit low. ASSESSMENT: An 86-year-old female postoperative day 1 from a left cemented bipolar hip arthroplasty. Orthopedically, doing well. Pain seems controlled. Hip is located. She is neurologically intact. PLAN: 1. DVT prophylaxis includes thigh-high TEDs, SCDs and back on her Coumadin. I dosed her yesterday. Would prefer the medicine as doctors resume her anticoagulation. Goal will be to keep her INR betwee n 2 and 3. 2. PT, OT, weightbear as tolerated. Left total hip protocol. Does need to obey hip precautions. 3. Pain control. We will try and limit narcotics. I would recommend using Tylenol around the clock . Supplement with tramadol if absolutely necessary, but try and avoid this to avoid sedation. 4. Disposition: She is orthopedically okay for discharge any time if medically stable. She is like ly going to need a rehab or custodial facility stay. I need to see her back two to three weeks out from surgery date. Any orthopedic questions can be directed to me at [phone]. Job ID: [id number]
--- NOTE | 2022-02-16 16:06 | Cardiology Progress Note ---
Date of Service February 16, 2022 Assessment & Plan (1) Subcapital fracture of left femur: (2) Fall: (3) Permanent atrial fibrillation: (4) HTN (hypertension): (5) CKD (chronic kidney disease) stage 3, GFR 30-59 ml/min: (6) NICM (nonischemic cardiomyopathy): (7) History of mitral valve replacement with bioprosthetic valve: (8) AICD (automatic cardioverter/defibrillator) present: (9) Hx of atrioventricular node ablation: Plan It was my pleasure to see Mrs. Kay in cardiac consultation today. Her INR was reversed prior to surgical intervention and Coumadin should be restarted once bleeding risk is acceptable from Ortho. At her most recent outpatient follow-up her carvedilol was changed to metoprolol succinate to facilitate biventricular pacing Will follow her volume status clinically postoperatively and restart oral spironolactone and torsemide as necessary. Continue to monitor on telemetry Admission and Anticipated Discharge Date Admission Date: February 14, 2022 Subjective Patient seen and examined, chart reviewed. States that she feels well today but a little loopy from pain medication. Denies any cardiac complaints of chest pain, shortness of breath, palpitations, lightheadedness, dizziness or syncope. There was some confusion about her beta-erica dose and she did not take her a.m. metoprolol but I reassured her that Dr. Gamboa made that change from carvedilol at her last visit. Telemetry reviewed: Ventricularly paced rhythm Review of Systems Review of Systems: All systems reviewed & are unremarkable except as noted in HPI & below Physical Exam Physical Exam: General: Awake, alert and oriented x 3. No acute distress. HEENT: Normocephalic, atraumatic. Pupils equal, round and reactive to light and accommodation. Extraocular muscles are intact. Anicteric sclera. Moist mucous membranes. Neck: No JVD. No bruit. Cardiovascular: Regular. Positive S-4. Normal S-1 and S-2. No S-3. No murmurs or rubs. Pulmonary: Clear to auscultation B/L. No rales, rhonchi or wheezing Abdomen: Bowel sounds x 4, soft. No rebound, guarding or tenderness. No organomegaly. Extremities: No clubbing, cyanosis or edema. +2 pedal pulses bilaterally. Skin: Warm and dry. Results & Data ([facility]) Vital Signs (Past 12 Hours) Vital Signs Temp Pulse Pulse Resp BP Pulse Ox Pulse Ox 02/16/22 08:00 02/16/22 15:20 73 02/16/22 11:41 94 02/16/22 11:10 36.7 C 66 18 129/75 94 02/16/22 10:59 95 02/16/22 07:43 73 02/16/22 07:00 36.9 C 76 18 107/63 96 Pulse Ox Pulse Ox O2 Del Method O2 Flow Rate O2 Flow Rate O2 Flow Rate O2 Flow Rate 02/16/22 08:00 Nasal Cannula 1 02/16/22 15:20 02/16/22 11:41 02/16/22 11:10 Nasal Cannula 1 02/16/22 10:59 90 88 L 2 0 0 02/16/22 07:43 02/16/22 07:00 Nasal Cannula 1
[2022-02-16] MEDS: ACETAMINOPHEN 325 MG TAB PO PRN (16:18)
[2022-02-16] MEDS: WARFARIN SOD 7.5 MG TAB PO SCH (16:18)
--- NOTE | 2022-02-16 18:05 | Nephrology Consultation ---
Date of Consultation February 16, 2022 Assessment & Plan (1) Chronic hyponatremia: hypervolemic hyponatremia which has worsened w/ holding loop diuretics perioperatively -40 mg torsemide ordered for now; then as per cardiology orders for am pending am labs -recheck bmp 2200 ordered > if sNa continues to decline would give IV lasix low dose and replete K -encourage protein intake History of Present Illness Reason for Consultation: hyponatremia Requesting Physician: Dr Taylor Attending Physician: Harris Taylor MD History of Present Illness 86 y/o F w/ complex medical hx whom I'm asked to see for hyponatremia was admitted here 02/14 with a L femur fracture after a fall. Admission sodium 128; this am 126 adn to 123 by midday today. Femur fracture surgically repaired yesterday. PMH includes nonischemic cardiomyopathy, chronic HFpEF, SSS s/p PPM / AICD, permanent atrial fibrillation on warfarin, history of bioprosthetic mitral valve Replacement in 2014 and tricuspid valve repair by Dr. Alexander, CKD stage III, history of polio, chronic hyponatremia, lumbar spinal stenosis with chronic ambulatory dysfunction, hypothyroid, CKD 3. She takes torsemide most days as OP as below and spironolactone. has had 2 doses spironolactone since arrival. Since arrival she has had no loop diuretics and was receiving NS while NPO for procedure. Torsemide is ordered but she has not yet started/resumed this medication. Pt's postoperative pain is well controlled. She is not particularly hungry / still poor appetite but eating. no sob, no palpitations, some mild LE edema. no voiding sx. Allergies Allergy/AdvReac Type Severity Reaction Status Date / Time Sulfa (Sulfonamide AdvReac Severe GI Unverified 02/18/21 18:43 Antibiotics) SYMPTOMS;kidney function compromised Home Medications Medication Instructions Recorded Confirmed Type alendronate 70 mg tablet 70 mg PO WK 02/18/21 02/14/22 History aspirin 81 mg tablet,delayed 81 mg PO QAM 02/18/21 02/14/22 History release carvedilol 12.5 mg tablet 12.5 mg PO AMHS 02/18/21 02/14/22 History cholecalciferol (vitamin D3) 25 50 mcg PO DAILY 02/18/21 02/14/22 History mcg (1,000 unit) tablet (Vitamin D3) gabapentin 100 mg capsule 200 mg PO HS 02/18/21 02/14/22 History multivitamin (Multiple Vitamins) 1 tab PO QAM 02/18/21 02/14/22 History simvastatin 10 mg tablet 10 mg PO HS 02/18/21 02/14/22 History spironolactone 25 mg tablet 25 mg PO HS 02/18/21 02/14/22 History warfarin 5 mg tablet 2.5 mg PO MOWEFR@1600 02/18/21 02/14/22 History levothyroxine 75 mcg capsule 75 mcg PO DAILY 02/14/22 02/14/22 History lifitegrast 5 % eye drops in a 1 drp OPB 02/14/22 02/14/22 History dropperette (Xiidra) sennosides 8.6 mg tablet (senna) 25.8 mg PO DAILY 02/14/22 02/14/22 History torsemide 20 mg tablet 20 mg PO SUTUTHSA 02/14/22 02/14/22 History torsemide 20 mg tablet 40 mg PO MOWEFR 02/14/22 02/14/22 History warfarin 5 mg tablet 5 mg PO SUTUTHSA@1600 02/14/22 02/14/22 History Patient History Medical History Chronic heart failure with preserved ejection fraction (HFpEF) Chronic hyponatremia CKD (chronic kidney disease) stage 3, GFR 30-59 ml/min H/O: HTN (hypertension) HLD (hyperlipidemia) HTN (hypertension) Hx of cardiac pacemaker Hypothyroid Osteoporosis Permanent atrial fibrillation Spinal stenosis Surgical History Hx of mitral valve replacement Hx of tricuspid valve repair S/P cardiac pacemaker procedure Social History Smoking Status: Never smoker Hx Alcohol Use: No Hx Substance Use: No Preferred Language: Monegasque Communication Ability: Effective Manager Industrial Required: No Beliefs That Will Affect Care: None Current Living Situation: Alone Feels Safe at Home: Yes Safety Concerns: Feels Safe At This Time Assistive Devices: Cane and Glasses Assistive Devices Comment: upper denture, lower partial, Review of Systems Review of Systems: All systems reviewed & are unremarkable except as noted in HPI & below Physical Exam Constitutional: well developed, well nourished and + frail appearing Eyes: EOM intact bilaterally ENMT: Ears: no external ear abnormality Nose: no external nose abnormality Mouth: + dry oral mucous membranes Neck: no nuchal rigidity Respiratory: normal respiratory effort; no respiratory distress and no labored breathing Auscultation: + diminished lung sounds and + crackles (bibasilar) Cardiovascular: Rate/Rhythm: regular rate and regular rhythm Heart Sounds: + murmur Extremities: + edema (trace dependent) Gastrointestinal (Abdomen): Inspection/Auscultation: normal bowel sounds Percussion/Palpation: abdomen soft; abdomen nontender Musculoskeletal: Extremities: strength 5/5 throughout Skin: no rashes, warm and dry Neurologic: palacio, fluent speech, no tremor Psychiatric: Orientation: oriented x 3 Genitourinary: up w/ ample yellow urine Results & Data ([facility]) Vital Signs (Past 12 Hours) Vital Signs Temp Pulse Pulse Resp BP Pulse Ox Pulse Ox 02/16/22 16:08 37.2 C 78 18 125/73 95 02/16/22 08:00 02/16/22 15:20 73 02/16/22 11:41 94 02/16/22 11:10 36.7 C 66 18 129/75 94 02/16/22 10:59 95 02/16/22 07:43 73 02/16/22 07:00 36.9 C 76 18 107/63 96 Pulse Ox Pulse Ox O2 Del Method O2 Flow Rate O2 Flow Rate O2 Flow Rate O2 Flow Rate 02/16/22 16:08 Nasal Cannula 1 02/16/22 08:00 Nasal Cannula 1 02/16/22 15:20 02/16/22 11:41 02/16/22 11:10 Nasal Cannula 1 02/16/22 10:59 90 88 L 2 0 0 02/16/22 07:43 02/16/22 07:00 Nasal Cannula 1 Laboratory Results 02/16/22 06:27 02/16/22 12:33
[2022-02-16] MEDS ORDERED: TORSEMIDE 10 MG TAB PO ONE (18:15)
--- NOTE | 2022-02-16 18:41 | Hospitalist Progress Note ---
Date of Service February 16, 2022 Assessment & Plan (1) Subcapital fracture of left femur: (2) Fall: (3) Hypokalemia: (4) Chronic hyponatremia: (5) Permanent atrial fibrillation: (6) [facility] current use of anticoagulant: (7) Chronic heart failure with preserved ejection fraction (HFpEF): (8) CKD (chronic kidney disease) stage 3, GFR 30-59 ml/min: (9) HTN (hypertension): Plan Per admitting service notes with addendum This is an 86-year-old female who has a significant past medical history of nonischemic cardiomyopathy, chronic HFpEF, history of SSS status post PPM with upgrade to AICD, permanent afibrillation anticoagulated on warfarin, aortic valve regurg moderate, history of bioprosthetic Replacement in 2014 and tricuspid valve repair by Dr. Alexander, CKD stage III, history of polio, chronic hyponatremia, lumbar spinal stenosis with chronic ambulatory dysfunction who presents to ED after sustaining a fall prior to arrival. Fall Closed mildly displaced subcapital fracture of proximal left femur Admit to [facility] telemetry Consult orthopedics Dr. Delatorre Discussed case with Dr. Delatorre, likely OR in a.m. Will give 5 mg IV vitamin K for therapeutic INR Repeat PT/INR at 2200 Bedrest N.p.o. after midnight Garcia catheter in place Oxycodone 2.5 mg for mod pain, 5 mg for severe pain; IV morphine for breakthrough pain Patient with chronic constipation, takes 3 senna tablets daily -will continue 02/16 Positive volume overload, hyponatremia, management per below On Coumadin, INR 1.5 Appreciate Ortho service recommendations Hypokalemia Replaced Permanent atrial fibrillation Long-term anticoagulation History of SSS status post PPM with upgrade to AICD/pacer INR 2.3, will give 5 mg IV vitamin K x1 now Repeat INR at 2200 [id number], will bridge with IV heparin with INR < 2 Patient had pacer interrogated on 01/06/2022 which revealed 100% atrial fibrillation burden 02/16 Heart rate controlled INR reversed with vitamin K, INR 1.5, Coumadin 7.5 mg today 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 dose of torsemide given probable surgery, will need reevaluated postoperatively to resume to prevent decompensation 02/16 Hyponatremic, 123, hypervolemic DC IV fluids Torsemide 40 mg p.o. given today Repeat sodium at 10 PM IV Lasix if sodium continues to trend down Chronic Hyponatremia CKD 3 na 128-131 monitor, likely in setting of diuretic therapy follow closely baseline cr 1.0, cr stable 02/15 Creatinine stable HLD continue statin Hypothyroidism continue synthroid Dispo: Pending Will likely need acute rehab versus longterm facility PCP: Janna DNR/DNI Admission and Anticipated Discharge Date Admission Date: February 14, 2022 Subjective Follow-up for status post hip fracture repair, etc. Seen sitting up in bed, comfortable, not in distress States she feels fine overall Mild left hip discomfort No chest pain, shortness of breath, palpitation, dizziness No other symptoms Review of Systems Review of Systems: all noted and negative except for above Physical Exam Physical Exam: General- oriented x 3, not in distress, speaks in sentences with no effort or accessory muscle use Eyes- anicteric Neck- no JVD Lungs-mild rales at the bases, no wheezing Heart- normal rate, regular rhythm; no murmurs Abdomen- normal bowel sounds, nondistended, soft, nontender Extremities-mild pretibial edema, no calf tenderness Left hip, heavy dressing in place No bleeding or discharge Neuro- alert, oriented x 3; no gross focal neurologic deficits Skin- warm & dry Results & Data Results & Data ([facility]) Vital Signs (Past 12 Hours) Vital Signs Temp Pulse Pulse Resp BP Pulse Ox Pulse Ox 02/16/22 16:08 37.2 C 78 18 125/73 95 02/16/22 08:00 02/16/22 15:20 73 02/16/22 11:41 94 02/16/22 11:10 36.7 C 66 18 129/75 94 02/16/22 10:59 95 02/16/22 07:43 73 02/16/22 07:00 36.9 C 76 18 107/63 96 Pulse Ox Pulse Ox O2 Del Method O2 Flow Rate O2 Flow Rate O2 Flow Rate O2 Flow Rate 02/16/22 16:08 Nasal Cannula 1 02/16/22 08:00 Nasal Cannula 1 02/16/22 15:20 02/16/22 11:41 02/16/22 11:10 Nasal Cannula 1 02/16/22 10:59 90 88 L 2 0 0 02/16/22 07:43 02/16/22 07:00 Nasal Cannula 1
[2022-02-16] MEDS: SIMVASTATIN 10 MG TAB PO SCH (20:37)
[2022-02-16] MEDS: GABAPENTIN 100 MG CAP PO SCH (20:37)
[2022-02-16 23:06] LABS: BUN Creatinine Ratio 21.1 (10-20); Calcium 8.3 mg/dl (8.5-10.1); Creatinine Clr Calc Pharmacy 36.1 ml/min; Est GFR (African American) 67.6 ml/min; Est GFR (Non-African American) 58.3 ml/min; Potassium 4.4 mmol/L (3.5-5.1)
[2022-02-17] MEDS: LEVOTHYROXINE SODIUM 75 MCG TABLET PO SCH (06:30)
[2022-02-17 07:56] LABS: Basophils # (auto) 0.02 K/uL (0-0.2); Basophils % (auto) 0.2 %; Eosinophils # (auto) 0.01 K/uL (0-0.50); Eosinophils % (auto) 0.1 %; Hematocrit (blood only) 32.2 % (34.1-44.9); Hemoglobin 10.7 g/dl (12.0-16.0); Immature Granulocytes # (auto) 0.04 K/uL (0.00-0.02); Immature Granulocytes % (auto) 0.4 %; Lymphocytes # (auto) 0.57 K/uL (1.2-3.4); Lymphocytes % (auto) 5.7 %; Mean Corpuscular Hemoglobin 29.6 pg (25.0-34.0); Mean Corpuscular Hgb Conc 33.2 g/dL (32.0-36.0); Mean Platelet Volume 10.4 fL (9.4-12.3); Monocytes # (auto) 0.95 K/uL (0.24-0.82); Monocytes % (auto) 9.5 %; Neutrophils # (auto) 8.39 K/uL (1.4-6.5); Neutrophils % (auto) 84.1 %; Platelet Count 141 K/uL (130-400); RDW Coefficient of Variation 14.5 % (11.5-14.5); RDW Standard Deviation 47.4 fL (36.4-46.3); Red Blood Count 3.62 M/uL (3.93-5.22); White Blood Count 9.98 K/ul (4.8-10.8)
[2022-02-17] MEDS: SENNA 8.6 MG TAB PO SCH ×2 (08:11→13:19)
[2022-02-17] MEDS: MULTIVITAMIN TAB PO SCH (08:11)
[2022-02-17] MEDS: CHOLECALCIFEROL 1,000 UNITS 25 MCG TAB PO SCH (08:12)
[2022-02-17] MEDS: METOPROLOL SUCC 50MG EXT REL TAB PO SCH (08:12)
[2022-02-17] MEDS: ASPIRIN 81 MG ECTAB PO SCH (08:12)
[2022-02-17] MEDS: ACETAMINOPHEN 325 MG TAB PO PRN (08:13)
[2022-02-17 08:24] LABS: INR 2.4 (0.9-1.1); Prothrombin Time 24.6 Seconds (9.0-12.0)
[2022-02-17 08:26] LABS: Albumin Globulin Ratio 1.1 (0.9-2); BUN Creatinine Ratio 19.8 (10-20); Bilirubin,Total 1.2 mg/dl (0.2-1.0); Calcium 8.1 mg/dl (8.5-10.1); Creatinine Clr Calc Pharmacy 38.7 ml/min; Est GFR (African American) 66.7 ml/min; Est GFR (Non-African American) 57.5 ml/min; Globulin 2.7 gm/dl (2.5-4.0); Magnesium 1.8 mg/dl (1.7-2.4); Potassium 3.9 mmol/L (3.5-5.1); Total Protein 5.7 gm/dl (6.0-8.3)
[2022-02-17] MEDS ORDERED: TORSEMIDE 10 MG TAB PO SCH (09:00)
[2022-02-17] MEDS ORDERED: ARTIFICIAL TEARS OPB PRN (09:30)
--- NOTE | 2022-02-17 10:16 | Progress Notes ---
SUBJECTIVE: An 86-year-old white female postoperative day 2 from a left cemented bipolar hip arthrop lasty for fracture. She is doing reasonably well. Not having really any pain while lying in bed. S till feeling kind of tired, rundown, and sedated. Denies any chest pain or shortness of breath. No other complaints. OBJECTIVE: VITAL SIGNS: Temperature 36.7. Vital signs are stable. GENERAL: Physical examination shows a frail, elderly female. She is sitting up in bed and just fini shed her breakfast. She is awake, alert, and oriented. EXTREMITIES: Examination of the left hip reveals her dressing to be clean, dry and intact. Leg sanjuanita ths are equal. Thigh is soft and supple. She is neurologically intact. LABORATORY DATA: Hemoglobin is 10.7. Hematocrit 32.2. Electrolytes are stable. Still hyponatremic , but slightly improved. ASSESSMENT: An 86-year-old white female postoperative day 2 from a left cemented bipolar hip arthrop lasty for fracture. Orthopedically, she is doing fine. Pain is reasonably controlled. Hip is locat ed. She is neurologically intact. She has been hyponatremic since admission and is slowly improving . PLAN: 1. DVT prophylaxis includes thigh-high TEDs, SCDs, and back on her Coumadin. Medicine is going to m anage her Coumadin dose. 2. PT/OT, weightbear as tolerated. Left total hip protocol. 3. Pain control, doing okay with current pain regimen. I would really avoid narcotics and try and s tick to Tylenol to avoid further confusion. 4. Medical management as per the medicine service. They are managing her hyponatremia. 5. Disposition: She is orthopedically okay for discharge any time medically stable. I need to see her back two to three weeks out from surgery date. Any orthopedic questions can be directed to me at [phone]. Job ID: [id number]
--- NOTE | 2022-02-17 11:06 | Nephrology Progress Note ---
Date of Service February 17, 2022 Assessment & Plan (1) Chronic hyponatremia: Plan: hypervolemic hyponatremia which has worsened w/ holding loop diuretics perioperatively and a bit improved from 123 > 126 after 40 mg torsemide last evening -will give total 40 mg torsemide today this am -will give K 40 mEq po x 1 as well -recheck bmp 1700 and consider another 20 mg torsemide depending on result >goal sNa for am is 132 ->>>OK from kidney standpoint to d/c up -encourage protein intake Admission and Anticipated Discharge Date Admission Date: February 14, 2022 Subjective tired; no uncontrolled musculoskeletal pain or n/v or worsenign dyspnea Review of Systems Review of Systems: All systems reviewed & are unremarkable except as noted in Subjective Physical Exam Constitutional: well developed, well nourished and + frail appearing Eyes: EOM intact bilaterally ENMT: Ears: no external ear abnormality Nose: no external nose abnormality Mouth: + dry oral mucous membranes Neck: no nuchal rigidity Respiratory: normal respiratory effort; no respiratory distress and no labored breathing Auscultation: + diminished lung sounds Cardiovascular: Rate/Rhythm: regular rate and regular rhythm Heart Sounds: + murmur Extremities: + edema (trace dependent) Gastrointestinal (Abdomen): Inspection/Auscultation: normal bowel sounds Percussion/Palpation: abdomen soft; abdomen nontender Musculoskeletal: Extremities: strength 5/5 throughout Skin: no rashes, warm and dry Psychiatric: Orientation: oriented x 3 Genitourinary: up w/ ample light yellow urine Results & Data ([facility]) Vital Signs (Past 12 Hours) Vital Signs Temp Pulse Pulse Resp BP Pulse Ox O2 Del Method 02/17/22 09:00 Nasal Cannula 02/17/22 07:52 73 02/17/22 07:35 36.7 C 75 20 113/68 98 Nasal Cannula 02/17/22 03:47 36.7 C 78 20 115/73 100 02/16/22 23:52 37.0 C 77 20 123/74 99 O2 Flow Rate 02/17/22 09:00 1 02/17/22 07:52 02/17/22 07:35 1 02/17/22 03:47 2 02/16/22 23:52 1 Laboratory Results 02/17/22 07:39 02/17/22 07:39
[2022-02-17] MEDS ORDERED: TORSEMIDE 20 MG TAB PO ONE (11:15)
[2022-02-17] MEDS ORDERED: POTASSIUM CHLORIDE CRTAB 20 MEQ TABCR PO ONE (11:15)
[2022-02-17] MEDS: WARFARIN SOD 7.5 MG TAB PO SCH (16:52)
[2022-02-17] MEDS: POLYETHYLENE (MIRALAX) 17 GM PACK PO SCH ×2 (16:57→23:31)
[2022-02-17 17:46] LABS: BUN Creatinine Ratio 23.4 (10-20); Calcium 8.2 mg/dl (8.5-10.1); Est GFR (African American) 54.8 ml/min; Est GFR (Non-African American) 47.3 ml/min; Potassium 4.3 mmol/L (3.5-5.1)
--- NOTE | 2022-02-17 19:39 | Hospitalist Progress Note ---
Date of Service February 17, 2022 Assessment & Plan (1) Subcapital fracture of left femur: (2) Fall: (3) Hypokalemia: (4) Chronic hyponatremia: (5) Permanent atrial fibrillation: (6) jail current use of anticoagulant: (7) Chronic heart failure with preserved ejection fraction (HFpEF): (8) CKD (chronic kidney disease) stage 3, GFR 30-59 ml/min: (9) HTN (hypertension): Plan Per admitting service notes with addendum This is an 86-year-old female who has a significant past medical history of nonischemic cardiomyopathy, chronic HFpEF, history of SSS status post PPM with upgrade to AICD, permanent afibrillation anticoagulated on warfarin, aortic valve regurg moderate, history of bioprosthetic Replacement in 2014 and tricuspid valve repair by Dr. Alexander, CKD stage III, history of polio, chronic hyponatremia, lumbar spinal stenosis with chronic ambulatory dysfunction who presents to ED after sustaining a fall prior to arrival. Fall Closed mildly displaced subcapital fracture of proximal left femur 02/15: Left cemented bipolar Hip Prosthesis(Left) - Octaviano Delatorre MD 02/17 Postoperatively, patient having mild volume overload, hyponatremia, management per below On Coumadin, INR 2.4 Appreciate Ortho service recommendations Hypokalemia Replaced Permanent atrial fibrillation Long-term anticoagulation History of SSS status post PPM with upgrade to AICD/pacer Patient had pacer interrogated on 01/06/2022 which revealed 100% atrial fibrillation burden 02/17 Heart rate controlled INR reversed with vitamin K, INR 1.5, Coumadin resumed Usually Coumadin 5 mg Wednesday, 2.5 mg Wednesdays Monitor INR 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 given today Continue torsemide 20 mg p.o. daily Sodium improving from 08 17-08 19 Chronic Hyponatremia CKD 3 na 128-131 Management per above 02/15 Creatinine stable HLD continue statin Hypothyroidism continue synthroid Dispo: Pending Will likely need acute rehab versus fdc facility PCP: Janna DNR/DNI Admission and Anticipated Discharge Date Admission Date: February 14, 2022 Subjective Follow-up for left hip fracture, status post surgery, etc. Seen sitting up in bed, eating, in good spirits, alert, oriented x3 States she feels fine overall No shortness of breath, chest pain, dizziness, palpitations Minimal hip discomfort No other symptom Review of Systems Review of Systems: all noted and negative except for above Physical Exam Physical Exam: General- oriented x 3, not in distress, speaks in sentences with no effort or accessory muscle use Eyes- anicteric Neck- no JVD Lungs- clear breath sounds bilaterally, no rales/wheezes Heart- normal rate, irregularly irregular rhythm; no murmurs Abdomen- normal bowel sounds, nondistended, soft, nontender Extremities- no pretibial edema, no calf tenderness Neuro- alert, oriented x 3; no gross focal neurologic deficits Skin- warm & dry Results & Data Results & Data ([facility]) Vital Signs (Past 12 Hours) Vital Signs Temp Pulse Pulse Resp BP Pulse Ox O2 Del Method 02/17/22 16:10 73 02/17/22 11:00 36.6 C 74 18 91/58 L 98 Nasal Cannula 02/17/22 09:00 Nasal Cannula 02/17/22 07:52 73 O2 Flow Rate 02/17/22 16:10 02/17/22 11:00 1 02/17/22 09:00 1 02/17/22 07:52 all noted and reviewed including below
[2022-02-17] MEDS: GABAPENTIN 100 MG CAP PO SCH (20:19)
[2022-02-17] MEDS: SIMVASTATIN 10 MG TAB PO SCH (20:19)
[2022-02-17] MEDS ORDERED: LACTULOSE SYRUP 20 GM/30 ML UDC PO STA (20:31)
[2022-02-17] MEDS: DOCUSATE SODIUM/SENNA 50/8.6MG TAB PO SCH (21:24)
[2022-02-18] MEDS: LEVOTHYROXINE SODIUM 75 MCG TABLET PO SCH (06:07)
[2022-02-18] MEDS: POLYETHYLENE (MIRALAX) 17 GM PACK PO SCH ×4 (06:15→22:44)
[2022-02-18] MEDS: MULTIVITAMIN TAB PO SCH (08:36)
[2022-02-18] MEDS: ASPIRIN 81 MG ECTAB PO SCH (08:37)
[2022-02-18] MEDS: DOCUSATE SODIUM/SENNA 50/8.6MG TAB PO SCH ×2 (08:37→20:29)
[2022-02-18] MEDS: CHOLECALCIFEROL 1,000 UNITS 25 MCG TAB PO SCH (08:37)
[2022-02-18] MEDS: METOPROLOL SUCC 50MG EXT REL TAB PO SCH (08:37)
[2022-02-18] MEDS: MAGNESIUM HYDROXIDE SUSP 30 ML UDC PO PRN (12:10)
[2022-02-18] MEDS: ACETAMINOPHEN 325 MG TAB PO PRN (12:10)
[2022-02-18 13:04] LABS: BUN Creatinine Ratio 28.6 (10-20); Calcium 8.7 mg/dl (8.5-10.1); Creatinine Clr Calc Pharmacy 35.7 ml/min; Est GFR (African American) 66.7 ml/min; Est GFR (Non-African American) 57.5 ml/min; Potassium 4.5 mmol/L (3.5-5.1)
[2022-02-18] MEDS: WARFARIN SOD 2.5 MG TAB PO SCH (15:42)
[2022-02-18] MEDS ORDERED: POTASSIUM CHLORIDE CRTAB 20 MEQ TABCR PO STA (16:39)
--- NOTE | 2022-02-18 16:40 | Nephrology Progress Note ---
Date of Service February 18, 2022 Assessment & Plan (1) Chronic hyponatremia: Plan: hypervolemic hyponatremia which has worsened w/ holding loop diuretics perioperatively and a bit improved from 123 > 34181 after 40 mg torsemide last evening -will give total 40 mg torsemide today this pm -will give K 20 mEq po x 1 as well >goal sNa for am is 132 -encourage protein intake -treat constipation so she can eat Admission and Anticipated Discharge Date Admission Date: February 14, 2022 Subjective c/o dry mouth and can't swallow food/too dry; no sob; pain controlled; c/o constipation Review of Systems Review of Systems: All systems reviewed & are unremarkable except as noted in Subjective Physical Exam Constitutional: well developed, well nourished and + frail appearing Eyes: EOM intact bilaterally ENMT: Ears: no external ear abnormality Nose: no external nose abnormality Mouth: + dry oral mucous membranes Neck: no nuchal rigidity Respiratory: normal respiratory effort; no respiratory distress and no labored breathing Auscultation: + diminished lung sounds and + crackles (1/2 way up posteriorly) Cardiovascular: Rate/Rhythm: regular rate and regular rhythm Heart Sounds: + murmur Extremities: + edema (trace dependent) Gastrointestinal (Abdomen): Inspection/Auscultation: normal bowel sounds Percussion/Palpation: abdomen soft; abdomen nontender Musculoskeletal: Extremities: strength 5/5 throughout Skin: no rashes, warm and dry Neurologic: palacio, fluent speech, no tremor Psychiatric: Orientation: oriented x 3 Results & Data ([facility]) Vital Signs (Past 12 Hours) Vital Signs Temp Pulse Pulse Pulse Resp BP Pulse Ox 02/18/22 16:08 36.5 C 73 18 122/76 95 02/18/22 14:10 73 02/18/22 11:50 36.6 C 73 22 114/63 96 02/18/22 06:11 76 02/18/22 08:05 36.7 C 76 22 104/62 93 O2 Del Method 02/18/22 16:08 Room Air 02/18/22 14:10 02/18/22 11:50 Room Air 02/18/22 06:11 02/18/22 08:05 Room Air Laboratory Results 02/17/22 07:39 02/18/22 12:29
[2022-02-18] MEDS ORDERED: TORSEMIDE 10 MG TAB PO SCH (16:45)
--- NOTE | 2022-02-18 16:51 | Hospitalist Progress Note ---
Date of Service February 18, 2022 Assessment & Plan (1) Subcapital fracture of left femur: (2) Fall: (3) Hypokalemia: (4) Chronic hyponatremia: (5) Permanent atrial fibrillation: (6) skilled nursing current use of anticoagulant: (7) Chronic heart failure with preserved ejection fraction (HFpEF): (8) CKD (chronic kidney disease) stage 3, GFR 30-59 ml/min: (9) HTN (hypertension): Plan 86-year-old female who has a significant past medical history of nonischemic cardiomyopathy, chronic HFpEF, history of SSS status post PPM with upgrade to AICD, permanent afibrillation anticoagulated on warfarin, aortic valve regurg moderate, history of bioprosthetic Replacement in 2014 and tricuspid valve repair by Dr. Alexander, CKD stage III, history of polio, chronic hyponatremia, lumbar spinal stenosis with chronic ambulatory dysfunction who presents to ED 02/14 after sustaining a fall prior to arrival. Fall Closed mildly displaced subcapital fracture of proximal left femur 02/15: Left cemented bipolar Hip Prosthesis(Left) - Octaviano Delatorre MD 02/17-->Postoperatively, patient having mild volume overload, hyponatremia, management per below On Coumadin, INR 2.4 Appreciate Ortho service recommendations, left total hip protocol. Weightbearing as tolerated. Follow-up in 2 to 3 weeks from surgery date. Avoid narcotics, Tylenol for pain management. Permanent atrial fibrillation Long-term anticoagulation History of SSS status post PPM with upgrade to AICD/pacer Patient had pacer interrogated on 01/06/2022 which revealed 100% atrial fibrillation burden Rate controlled, on A. fib. Postoperatively patient received 7.5 MG daily Coumadin for 02/16 and 02/17. 02/17 INR 2.4, will resume home dose of warfarin 02/18. Monitor PT/INR daily. Acute on chronic Hyponatremia CKD 3 Baseline sodium around 128-131 Sodium level down trended likely secondary to mild volume overload postoperatively Nephrology on board, patient receiving diuresis, sodium level improving, NA 126 today. Increase protein intake. 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 Other chronic medical conditions: HLD, hypothyroidism ---> continue with/resume home meds as and when able. Disposition: PT/OT, CM to assist with DC planning, will likely need rehab pending sodium level improvement. PCP: Janna DNR/DNI Admission and Anticipated Discharge Date Admission Date: February 14, 2022 Subjective Patient seen and examined at bedside as a follow-up of fall/closed mildly displaced subcapital fracture of proximal left femur and chronic hyponatremia. Patient was lying in bed, on room air, NAD, no new acute events overnight. Patient reports some pain with movements/physical therapy but under control and gets better quickly with rest. Patient reports having decreased appetite secondary to dry mouth especially during this hospital stay, will order slippery diet. Patient denies bowel movement but moving gas. Patient denies any headache/dizziness/sore throat/cough/belly pain/other review of symptoms. Physical Exam Physical Exam: GENERAL: Alert and oriented x3. NAD, on RA. HEENT: No pallor, no icterus. Pupils equal, round and reactive to light. Oral mucosa moist. NECK: No JVD, no neck masses. HEART: S1 and S2 heard. No murmur, no gallop. RESPIRATORY SYSTEM: Normal AP diameter. No accessory muscle use. No wheezing, no crackles. ABDOMEN: Soft, bowel sounds present, nontender, no distention. CENTRAL NERVOUS SYSTEM: No facial droop. Speech is clear. Obeys simple commands. Moves extremities. EXTREMITIES: No edema, no erythema seen. Left hip with clean dressing without soakage. Results & Data Results & Data ([facility]) Vital Signs (Past 12 Hours) Vital Signs Temp Pulse Pulse Pulse Resp BP Pulse Ox 02/18/22 16:08 36.5 C 73 18 122/76 95 02/18/22 14:10 73 02/18/22 11:50 36.6 C 73 22 114/63 96 02/18/22 06:11 76 02/18/22 08:05 36.7 C 76 22 104/62 93 O2 Del Method 02/18/22 16:08 Room Air 02/18/22 14:10 02/18/22 11:50 Room Air 02/18/22 06:11 02/18/22 08:05 Room Air
[2022-02-18] MEDS ORDERED: TORSEMIDE 20 MG TAB PO ONE (17:00)
[2022-02-18] MEDS: DOCUSATE SODIUM 100 MG CAP PO SCH ×2 (18:13→20:29)
[2022-02-18] MEDS: bisacodyL 10 MG SUPP PR SCH (18:41)
[2022-02-18] MEDS: SIMVASTATIN 10 MG TAB PO SCH (20:29)
[2022-02-18] MEDS: GABAPENTIN 100 MG CAP PO SCH (20:29)
[2022-02-19] MEDS: POLYETHYLENE (MIRALAX) 17 GM PACK PO SCH ×3 (05:05→17:23)
[2022-02-19] MEDS: LEVOTHYROXINE SODIUM 75 MCG TABLET PO SCH (05:05)
[2022-02-19 07:10] LABS: INR 2.8 (0.9-1.1); Prothrombin Time 28.5 Seconds (9.0-12.0)
[2022-02-19 07:16] LABS: BUN Creatinine Ratio 36.1 (10-20); Calcium 8.4 mg/dl (8.5-10.1); Creatinine Clr Calc Pharmacy 39.2 ml/min; Est GFR (African American) 74.5 ml/min; Est GFR (Non-African American) 64.3 ml/min; Potassium 4.3 mmol/L (3.5-5.1)
[2022-02-19] MEDS: TORSEMIDE 10 MG TAB PO SCH (08:56)
[2022-02-19] MEDS: DOCUSATE SODIUM 100 MG CAP PO SCH (08:57)
[2022-02-19] MEDS: ASPIRIN 81 MG ECTAB PO SCH (08:58)
[2022-02-19] MEDS: MULTIVITAMIN TAB PO SCH (08:58)
[2022-02-19] MEDS: DOCUSATE SODIUM/SENNA 50/8.6MG TAB PO SCH ×2 (08:58→22:01)
[2022-02-19] MEDS: CHOLECALCIFEROL 1,000 UNITS 25 MCG TAB PO SCH (08:59)
[2022-02-19] MEDS: bisacodyL 10 MG SUPP PR SCH (08:59)
[2022-02-19] MEDS: METOPROLOL SUCC 50MG EXT REL TAB PO SCH (08:59)
[2022-02-19] MEDS ORDERED: POLYETHYLENE (MIRALAX) 17 GM PACK PO SCH (09:00)
[2022-02-19] MEDS ORDERED: UREA (UREA-NA) 15 GM PACK PO SCH (09:00)
[2022-02-19] MEDS: MAGNESIUM HYDROXIDE SUSP 30 ML UDC PO PRN (09:02)
--- NOTE | 2022-02-19 14:25 | Progress Notes ---
DATE OF SERVICE: 02/19/2022. SUBJECTIVE: An 86-year-old female now postop day 4 from left cemented bipolar hip arthroplasty for f racture. She is doing okay, pain hopkins. Just feels wiped out and tired. Just waiting for placement. No chest pain or shortness of breath. OBJECTIVE: VITAL SIGNS: Temperature 36.7. Vital signs are stable. PHYSICAL EXAMINATION: GENERAL: Shows a pleasant, elderly female. She is sitting up in bed and looks quite comfortable. D oes look a little worn out. EXTREMITIES: Examination of the left hip reveals dressing to be clean, dry and intact. Leg lengths are equal. She can dorsiflex and plantarflex her foot appropriately. ASSESSMENT: An 86-year-old female, now 4 days out from a left bipolar hip arthroplasty for fracture, doing reasonably well. feel tired or wiped out from the surgery and the injury. She appears stable. Pain is controlled. She is neurologically intact. Hip is located. PLAN: 1. DVT prophylaxis includes thigh-high TEDs, SCDs and back on her Coumadin. Medicine is to manage h er Coumadin. 2. PT, OT, weightbear as tolerated. Left total hip protocol. Does need to obey hip precautions. 3. Pain control, doing okay with current pain regimen. 4. Disposition: She is orthopedically okay for discharge any time, arrangements can be made. Penny grace to see her back two to three weeks out from surgery date. Any orthopedic questions can be directed to me at [phone]. Job ID: [id number]
[2022-02-19] MEDS: WARFARIN SOD 5 MG TAB PO SCH (16:09)
[2022-02-19 16:47] LABS: BUN Creatinine Ratio 52.1 (10-20); Calcium 8.7 mg/dl (8.5-10.1); Creatinine Clr Calc Pharmacy 33.9 ml/min; Est GFR (African American) 62.5 ml/min; Est GFR (Non-African American) 53.9 ml/min; Potassium 3.8 mmol/L (3.5-5.1)
--- NOTE | 2022-02-19 17:37 | Nephrology Progress Note ---
Date of Service February 19, 2022 Assessment & Plan (1) Chronic hyponatremia: Plan: hypervolemic hyponatremia which has worsened w/ holding loop diuretics perioperatively and a bit improved from 123 > 126 after 40 mg torsemide this AM for sNa 125, gave 40 mg torsemide this am and started bid urea > sNa to 127; but she dislikes this medication so will use salt tabs instead 1 gm tid -BP on lower side and will lower toprol dose for tomorrow -will give another 20 mg torsemide this evening -will start K 20 mEq po bid as well >goal sNa for am is 131 -continue FR 1.2L -encourage protein intake -treat constipation so she can eat> note senna started Admission and Anticipated Discharge Date Admission Date: February 14, 2022 Subjective had one dose this am urea and really disliked it; wants to try other med if possible. no pain, no n/v, no sob Review of Systems Review of Systems: All systems reviewed & are unremarkable except as noted in Subjective Physical Exam Constitutional: well developed, well nourished and + frail appearing Eyes: EOM intact bilaterally ENMT: Ears: no external ear abnormality Nose: no external nose abnormality Mouth: + dry oral mucous membranes Neck: no nuchal rigidity Respiratory: normal respiratory effort; no respiratory distress and no labored breathing Auscultation: + diminished lung sounds Cardiovascular: Rate/Rhythm: regular rate and regular rhythm Heart Sounds: + murmur Extremities: + edema (trace dependent) Gastrointestinal (Abdomen): Inspection/Auscultation: normal bowel sounds Percussion/Palpation: abdomen soft; abdomen nontender Musculoskeletal: Extremities: strength 5/5 throughout Skin: no rashes, warm and dry Neurologic: palacio, fluent speech/appropriate, no tremor Psychiatric: Orientation: oriented x 3 Results & Data ([facility]) Vital Signs (Past 12 Hours) Vital Signs Temp Pulse Pulse Pulse Resp BP Pulse Ox 02/19/22 15:35 75 02/19/22 15:12 36.8 C 76 18 97/60 L 96 02/19/22 11:00 36.7 C 75 20 107/69 90 02/19/22 07:00 36.9 C 71 18 119/71 95 02/19/22 07:21 74 O2 Del Method 02/19/22 15:35 02/19/22 15:12 Room Air 02/19/22 11:00 Room Air 02/19/22 07:00 Room Air 02/19/22 07:21 Laboratory Results 02/17/22 07:39 02/19/22 15:42
[2022-02-19] MEDS ORDERED: TORSEMIDE 10 MG TAB PO ONE (18:00)
[2022-02-19] MEDS: POTASSIUM CHLORIDE CRTAB 20 MEQ TABCR PO SCH ×2 (18:15→22:02)
--- NOTE | 2022-02-19 19:26 | Hospitalist Progress Note ---
Date of Service February 19, 2022 Assessment & Plan (1) Subcapital fracture of left femur: (2) Fall: (3) Hypokalemia: (4) Chronic hyponatremia: (5) Permanent atrial fibrillation: (6) correction current use of anticoagulant: (7) Chronic heart failure with preserved ejection fraction (HFpEF): (8) CKD (chronic kidney disease) stage 3, GFR 30-59 ml/min: (9) HTN (hypertension): Plan 86-year-old female who has a significant past medical history of nonischemic cardiomyopathy, chronic HFpEF, history of SSS status post PPM with upgrade to AICD, permanent afibrillation anticoagulated on warfarin, aortic valve regurg moderate, history of bioprosthetic Replacement in 2014 and tricuspid valve repair by Dr. Alexander, CKD stage III, history of polio, chronic hyponatremia, lumbar spinal stenosis with chronic ambulatory dysfunction who presents to ED 02/14 after sustaining a fall prior to arrival. Fall Closed mildly displaced subcapital fracture of proximal left femur 02/15: Left cemented bipolar Hip Prosthesis(Left) - Octaviano Delatorre MD 02/17-->Postoperatively, patient having mild volume overload, hyponatremia, management per below On Coumadin, INR 2.4 Appreciate Ortho service recommendations, left total hip protocol. Weightbearing as tolerated. Follow-up in 2 to 3 weeks from surgery date. Avoid narcotics, Tylenol for pain management. Permanent atrial fibrillation Long-term anticoagulation History of SSS status post PPM with upgrade to AICD/pacer Patient had pacer interrogated on 01/06/2022 which revealed 100% atrial fibrillation burden Rate controlled, on A. fib. Postoperatively patient received 7.5 MG daily Coumadin for 02/16 and 02/17. 02/17 INR 2.4, resumed home dose of warfarin 02/18. Monitor PT/INR daily. INR 2.8 today. Acute on chronic Hyponatremia CKD 3 Baseline sodium around 128-131 Sodium level down trended likely secondary to mild volume overload postoperatively Nephrology on board, patient receiving diuresis, sodium level improving, NA 127 today. Increase protein intake. Pt declined urea, on sodium tablet per nephro. Hypokalemia: Monitor and replete. 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 Other chronic medical conditions: HLD, hypothyroidism ---> continue with/resume home meds as and when able. Disposition: PT/OT, CM to assist with DC planning, will likely need rehab pending sodium level improvement. PCP: Janna DNR/DNI Admission and Anticipated Discharge Date Admission Date: February 14, 2022 Subjective Patient seen and examined at bedside as a follow-up of fall/closed mildly displaced subcapital fracture of proximal left femur and chronic hyponatremia. Patient was lying in bed, on room air, NAD, no new acute events overnight. Patient moved bowel yesterday evening, has been refusing multiple bowel regimens, reports taking 3 tablets of senna at home in the night, will make senna/docusate 2 tabs twice daily for now. Patient got urea in the morning as a part of her hyponatremia management but she really disliked it. Per RN patient is eating better. Patient denies any headache/dizziness/sore throat/cough/belly pain/other review of symptoms. Physical Exam Physical Exam: GENERAL: Alert and oriented x3. NAD, on RA. HEENT: No pallor, no icterus. Pupils equal, round and reactive to light. Oral mucosa moist. NECK: No JVD, no neck masses. HEART: S1 and S2 heard. No murmur, no gallop. RESPIRATORY SYSTEM: Normal AP diameter. No accessory muscle use. No wheezing, no crackles. ABDOMEN: Soft, bowel sounds present, nontender, no distention. CENTRAL NERVOUS SYSTEM: No facial droop. Speech is clear. Obeys simple commands. Moves extremities. EXTREMITIES: No edema, no erythema seen. Left hip with clean dressing without soakage. Results & Data Results & Data ([facility]) Vital Signs (Past 12 Hours) Vital Signs Temp Pulse Pulse Pulse Resp BP Pulse Ox 02/19/22 15:35 75 02/19/22 15:12 36.8 C 76 18 97/60 L 96 02/19/22 11:00 36.7 C 75 20 107/69 90 02/19/22 07:21 74 O2 Del Method 02/19/22 15:35 02/19/22 15:12 Room Air 02/19/22 11:00 Room Air 02/19/22 07:21
--- NOTE | 2022-02-19 20:17 | XRay Report ---
XR chest 1V portable CLINICAL HISTORY: check for congestive heart failure/vascular congestion. COMPARISON STUDY: 02/14/2022 TECHNIQUE: 1 view of the chest FINDINGS: Single frontal view of the chest demonstrates the heart to again be grossly enlarged with permanent c ardiac pacer in place. There is no evidence for vascular congestion on the current study. The lungs a re clear of alveolar opacities. There is no evidence for pleural effusion. There is no evidence for v ascular congestion. There is no acute osseous pathology. IMPRESSION: 1. Cardiomegaly and pacer with no evidence for vascular congestion. ACT 112: Negative or not required by law. Electronically signed by: Dru Mora M.D. 02/19/2022 8:15 PM
[2022-02-19] MEDS: GABAPENTIN 100 MG CAP PO SCH (22:00)
[2022-02-19] MEDS: SIMVASTATIN 10 MG TAB PO SCH (22:01)
[2022-02-19] MEDS: SODIUM CHLORIDE 1 GM TABLET PO SCH ×2 (22:02→22:08)
[2022-02-20] MEDS: POLYETHYLENE (MIRALAX) 17 GM PACK PO SCH ×5 (00:31→20:52)
[2022-02-20] MEDS: LEVOTHYROXINE SODIUM 75 MCG TABLET PO SCH (06:17)
[2022-02-20] MEDS: DOCUSATE SODIUM/SENNA 50/8.6MG TAB PO SCH ×2 (07:03→20:49)
[2022-02-20] MEDS: bisacodyL 10 MG SUPP PR SCH (07:03)
[2022-02-20 07:25] LABS: INR 2.2 (0.9-1.1); Prothrombin Time 22.9 Seconds (9.0-12.0)
--- NOTE | 2022-02-20 08:30 | Progress Notes ---
DATE OF SERVICE: 02/20/2022. SUBJECTIVE: An 86-year-old white female now postop day 5 from a left cemented bipolar hip arthroplas ty for fracture. Orthopedically, she is doing well. Denies any significant pain. Still feeling tir ed. OBJECTIVE: VITAL SIGNS: Temperature 36.7. Vital signs are stable. GENERAL: Physical examination shows a pleasant, elderly female. She is sitting up in bed, looks com fortable. EXTREMITIES: Examination of the left hip reveals dressing to be clean, dry and intact. Leg lengths were equal. She is neurologically intact. ASSESSMENT: An 86-year-old white female, 5 days out from a left cemented bipolar hip arthroplasty fo r fracture, doing well. Orthopedically, she is stable. PLAN: 1. DVT prophylaxis includes thigh-high TEDs, SCDs, and back on her Coumadin. 2. PT, OT, weightbear as tolerated. Left total hip protocol. 3. Pain control, doing okay with current pain regimen. 4. Disposition: She is orthopedically okay for discharge any time medically stable. I need to see her back 2-3 weeks out from surgery date. Any orthopedic questions can be directed to me at . Job ID: [id number]
[2022-02-20] MEDS: SODIUM CHLORIDE 1 GM TABLET PO SCH ×3 (09:16→20:48)
[2022-02-20] MEDS: POTASSIUM CHLORIDE CRTAB 20 MEQ TABCR PO SCH ×2 (09:16→20:49)
[2022-02-20] MEDS: TORSEMIDE 10 MG TAB PO SCH (09:16)
[2022-02-20] MEDS: CHOLECALCIFEROL 1,000 UNITS 25 MCG TAB PO SCH (09:17)
[2022-02-20] MEDS: ASPIRIN 81 MG ECTAB PO SCH (09:17)
[2022-02-20] MEDS: METOPROLOL SUCC 25MG EXT REL TAB PO SCH (09:17)
[2022-02-20] MEDS: MULTIVITAMIN TAB PO SCH (09:17)
[2022-02-20 09:24] LABS: BUN Creatinine Ratio 41.8 (10-20); Calcium 9.1 mg/dl (8.5-10.1); Creatinine Clr Calc Pharmacy 33.2 ml/min; Est GFR (Non-African American) 52.6 ml/min; Magnesium 2.4 mg/dl (1.7-2.4); Potassium 4.2 mmol/L (3.5-5.1)
--- NOTE | 2022-02-20 11:55 | Nephrology Progress Note ---
Date of Service February 20, 2022 Assessment & Plan (1) Chronic hyponatremia: Plan: hypervolemic hyponatremia which has worsened w/ holding loop diuretics perioperatively and a bit improved from 123 > 126 after 40 mg torsemide this AM for sNa 131. -will continue torsemide and K 20 mEq po bid -continue FR 1.2L -encourage protein intake -treat constipation so she can eat> note senna started Admission and Anticipated Discharge Date Admission Date: February 14, 2022 Subjective Seen for hyponatremia. No shortness of breath. Main complaint is weakness and exercise intolerance. Was working with PT this morning. Review of Systems Review of Systems: All other systems were reviewed and negative except as noted in HPI Physical Exam Physical Exam: General exam: Appears comfortable, no acute distress HEENT: Pupils are equal and reactive to light Neck: No JVD, neck is supple trachea is midline Respiratory system: Clear breath sounds bilaterally. Gastrointestinal: Abdomen is soft, non distended, non tender, bowel sounds are present CVS: Regular rate and rhythm. No murmurs, rubs or gallops Musculoskeletal: No joint or muscle tenderness Extremities: Non tender, no edema, peripheral pulses are present Neuro: Oriented, no tremors, no focal neurological deficits Skin: No rashes Results & Data ([facility]) Vital Signs (Past 12 Hours) Vital Signs Temp Pulse Pulse Resp BP Pulse Ox O2 Del Method 02/20/22 11:20 36.7 C 75 18 131/73 96 Room Air 02/20/22 08:00 37.2 C 74 18 100/58 L 95 Room Air 02/20/22 07:01 76 02/20/22 03:11 36.7 C 69 18 123/72 95 Room Air 02/20/22 00:43 78 02/20/22 00:10 36.7 C 87 18 129/73 95 Room Air Laboratory Results 02/20/22 06:35
[2022-02-20] MEDS: WARFARIN SOD 2.5 MG TAB PO SCH (15:54)
--- NOTE | 2022-02-20 17:48 | Hospitalist Progress Note ---
Date of Service February 20, 2022 Assessment & Plan (1) Subcapital fracture of left femur: (2) Fall: (3) Hypokalemia: (4) Chronic hyponatremia: (5) Permanent atrial fibrillation: (6) skilled nursing current use of anticoagulant: (7) Chronic heart failure with preserved ejection fraction (HFpEF): (8) CKD (chronic kidney disease) stage 3, GFR 30-59 ml/min: (9) HTN (hypertension): Plan 86-year-old female who has a significant past medical history of nonischemic cardiomyopathy, chronic HFpEF, history of SSS status post PPM with upgrade to AICD, permanent afibrillation anticoagulated on warfarin, aortic valve regurg moderate, history of bioprosthetic Replacement in 2014 and tricuspid valve repair by Dr. Alexander, CKD stage III, history of polio, chronic hyponatremia, lumbar spinal stenosis with chronic ambulatory dysfunction who presents to ED 02/14 after sustaining a fall prior to arrival. She is being managed for the following: Fall Closed mildly displaced subcapital fracture of proximal left femur 02/15: Left cemented bipolar Hip Prosthesis(Left) - Octaviano Delatorre MD 02/17-->Postoperatively, patient having mild volume overload, hyponatremia, management per below On Coumadin, INR 2.4 Appreciate Ortho service recommendations, left total hip protocol. Weightbearing as tolerated. Follow-up in 2 to 3 weeks from surgery date. Avoid narcotics, Tylenol for pain management. Permanent atrial fibrillation Long-term anticoagulation History of SSS status post PPM with upgrade to AICD/pacer Patient had pacer interrogated on 01/06/2022 which revealed 100% atrial fibrillation burden Rate controlled, on A. fib. Postoperatively patient received 7.5 MG daily Coumadin for 02/16 and 02/17. 02/17 INR 2.4, resumed home dose of warfarin 02/18. Monitor PT/INR daily. INR 2.2 today. Acute on chronic Hyponatremia CKD 3 Baseline sodium around 128-131 Sodium level down trended likely secondary to mild volume overload postoperatively Nephrology on board, torsemide 40 mg daily and KCl 20 mEq twice daily, FR 1.2 L, sodium tablet, sodium level improving, NA 131 today. Increase protein intake. Pt declined urea, on sodium tablet per nephro. Hypokalemia: Monitor and replete. 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 Other chronic medical conditions: HLD, hypothyroidism ---> continue with/resume home meds as and when able. Disposition: PT/OT, CM to assist with DC planning. Sodium level back to baseline. Stable for discharge. PCP: Janna DNR/DNI Admission and Anticipated Discharge Date Admission Date: February 14, 2022 Subjective Patient seen and examined at bedside as a follow-up of fall/closed mildly displaced subcapital fracture of proximal left femur and chronic hyponatremia. Patient was lying in bed, on room air, NAD, no new acute events overnight. Patient now moving bowels okay, and reports eating better. Patient reports taking 3 tablets of senna at home in the night. Patient reports feeling little bit better compared to yesterday. Patient denies any headache/dizziness/sore throat/cough/belly pain/other review of symptoms. Physical Exam Physical Exam: GENERAL: Alert and oriented x3. NAD, on RA. HEENT: No pallor, no icterus. Pupils equal, round and reactive to light. Oral mucosa moist. NECK: No JVD, no neck masses. HEART: S1 and S2 heard. No murmur, no gallop. RESPIRATORY SYSTEM: Normal AP diameter. No accessory muscle use. No wheezing, no crackles. ABDOMEN: Soft, bowel sounds present, nontender, no distention. CENTRAL NERVOUS SYSTEM: No facial droop. Speech is clear. Obeys simple commands. Moves extremities. EXTREMITIES: No edema, no erythema seen. Left hip with clean dressing without soakage. Results & Data Results & Data ([facility]) Vital Signs (Past 12 Hours) Vital Signs Temp Pulse Pulse Resp BP Pulse Ox O2 Del Method 02/20/22 15:29 36.6 C 74 18 103/59 L 95 Room Air 02/20/22 14:55 72 02/20/22 11:20 36.7 C 75 18 131/73 96 Room Air 02/20/22 08:00 37.2 C 74 18 100/58 L 95 Room Air 02/20/22 07:01 76
[2022-02-20] MEDS: GABAPENTIN 100 MG CAP PO SCH (20:49)
[2022-02-20] MEDS: SIMVASTATIN 10 MG TAB PO SCH (20:49)
[2022-02-21] MEDS: LEVOTHYROXINE SODIUM 75 MCG TABLET PO SCH (06:36)
[2022-02-21 07:06] LABS: INR 2.2 (0.9-1.1)
[2022-02-21 07:14] LABS: BUN Creatinine Ratio 48.4 (10-20); Calcium 8.7 mg/dl (8.5-10.1); Creatinine Clr Calc Pharmacy 34.2 ml/min; Est GFR (African American) 63.3 ml/min; Est GFR (Non-African American) 54.6 ml/min; Potassium 4.1 mmol/L (3.5-5.1)
[2022-02-21] MEDS: POTASSIUM CHLORIDE CRTAB 20 MEQ TABCR PO SCH ×2 (08:18→21:11)
[2022-02-21] MEDS: METOPROLOL SUCC 25MG EXT REL TAB PO SCH (08:19)
[2022-02-21] MEDS: ASPIRIN 81 MG ECTAB PO SCH (08:19)
[2022-02-21] MEDS: TORSEMIDE 10 MG TAB PO SCH (08:20)
[2022-02-21] MEDS: CHOLECALCIFEROL 1,000 UNITS 25 MCG TAB PO SCH (08:20)
[2022-02-21] MEDS: MULTIVITAMIN TAB PO SCH (08:20)
[2022-02-21] MEDS: DOCUSATE SODIUM/SENNA 50/8.6MG TAB PO SCH (08:21)
[2022-02-21] MEDS: SODIUM CHLORIDE 1 GM TABLET PO SCH ×3 (10:00→21:13)
[2022-02-21] MEDS: POLYETHYLENE (MIRALAX) 17 GM PACK PO SCH (12:30)
--- NOTE | 2022-02-21 14:18 | Nephrology Progress Note ---
Date of Service February 21, 2022 Assessment & Plan (1) Chronic hyponatremia: Plan: SIADH/euvolemic hyponatremia which worsened w/ holding loop diuretics perioperatively and now improved from 123 > 126 after 40 mg torsemide > 131 -will continue torsemide 40 mg daily and K 20 mEq po bid -liveralize FR 1.5L -will d/c up -encourage protein intake -lowered salt tabs to bid -stopped senna as she has multiple bm daily > made it prn Admission and Anticipated Discharge Date Admission Date: February 14, 2022 Subjective no interval events. still w/ such a dry mouth she can't swallow. working at po. no sob ; a bit more pain today; c/o feelign cold - no rigors some chills Review of Systems Review of Systems: All systems reviewed & are unremarkable except as noted in Subjective Physical Exam Constitutional: well developed, well nourished and + frail appearing Eyes: EOM intact bilaterally ENMT: Ears: no external ear abnormality Nose: no external nose abnormality Mouth: + dry oral mucous membranes Neck: no nuchal rigidity Respiratory: normal respiratory effort; no respiratory distress and no labored breathing Auscultation: + diminished lung sounds and + crackles (fine bibasilar) Cardiovascular: Rate/Rhythm: regular rate and regular rhythm Heart Sounds: + murmur Extremities: + edema (trace dependent) Gastrointestinal (Abdomen): Inspection/Auscultation: normal bowel sounds Percussion/Palpation: abdomen soft; abdomen nontender Musculoskeletal: Extremities: strength 5/5 throughout Skin: no rashes, warm and dry Psychiatric: Orientation: oriented x 3 Genitourinary: up w/ ample urine Results & Data ([facility]) Vital Signs (Past 12 Hours) Vital Signs Temp Pulse Resp BP Pulse Ox O2 Del Method 02/21/22 11:57 36.6 C 75 18 103/67 92 Room Air 02/21/22 08:00 36.5 C 74 18 107/70 95 Room Air 02/21/22 06:00 Room Air Laboratory Results 02/17/22 07:39 02/21/22 06:34
[2022-02-21] MEDS ORDERED: POLYETHYLENE (MIRALAX) 17 GM PACK PO PRN (15:40)
--- NOTE | 2022-02-21 15:40 | Hospitalist Progress Note ---
Date of Service February 21, 2022 Assessment & Plan (1) Subcapital fracture of left femur: (2) Fall: (3) Hypokalemia: (4) Chronic hyponatremia: (5) Permanent atrial fibrillation: (6) USP current use of anticoagulant: (7) Chronic heart failure with preserved ejection fraction (HFpEF): (8) CKD (chronic kidney disease) stage 3, GFR 30-59 ml/min: (9) HTN (hypertension): Plan 86-year-old female who has a significant past medical history of nonischemic cardiomyopathy, chronic HFpEF, history of SSS status post PPM with upgrade to AICD, permanent afibrillation anticoagulated on warfarin, aortic valve regurg moderate, history of bioprosthetic Replacement in 2014 and tricuspid valve repair by Dr. Alexander, CKD stage III, history of polio, chronic hyponatremia, lumbar spinal stenosis with chronic ambulatory dysfunction who presents to ED 02/14 after sustaining a fall prior to arrival. She is being managed for the following: Fall Closed mildly displaced subcapital fracture of proximal left femur 02/15: Left cemented bipolar Hip Prosthesis(Left) - Octaviano Delatorre MD 02/17-->Postoperatively, patient having mild volume overload, hyponatremia, management per below On Coumadin, INR 2.4 Appreciate Ortho service recommendations, left total hip protocol. Weightbearing as tolerated. Follow-up in 2 to 3 weeks from surgery date. Avoid narcotics, Tylenol for pain management. Permanent atrial fibrillation Long-term anticoagulation History of SSS status post PPM with upgrade to AICD/pacer Patient had pacer interrogated on 01/06/2022 which revealed 100% atrial fibrillation burden Rate controlled, on A. fib. Postoperatively patient received 7.5 MG daily Coumadin for 02/16 and 02/17. 02/17 INR 2.4, resumed home dose of warfarin 02/18. Monitor PT/INR daily. INR 2.2 today. Acute on chronic Hyponatremia CKD 3 Baseline sodium around 128-131 Sodium level down trended likely secondary to mild volume overload postoperatively Nephrology on board, torsemide 40 mg daily and KCl 20 mEq twice daily, FR 1.5 L, sodium tablet, sodium level improving, NA maintained at 131 today. Increase protein intake. Pt declined urea, on sodium tablet per nephro. Hypokalemia: Monitor and replete. 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 Other chronic medical conditions: HLD, hypothyroidism ---> continue with/resume home meds as and when able. Disposition: PT/OT, CM to assist with DC planning. Sodium level back to baseline. Stable for discharge. Pt to f/u w/ nephro and PCP and Ortho upon DC. PCP: Janna DNR/DNI Admission and Anticipated Discharge Date Admission Date: February 14, 2022 Subjective Patient seen and examined at bedside as a follow-up of fall/closed mildly displaced subcapital fracture of proximal left femur and chronic hyponatremia. Patient was lying in bed, on room air, NAD, no new acute events overnight. Patient now moving bowels okay, and reports eating better.Will make laxatives prn. Patient reports taking 3 tablets of senna at home in the night on regular basis. Patient denies any headache/dizziness/sore throat/cough/belly pain/other review of symptoms. Physical Exam Physical Exam: GENERAL: Alert and oriented x3. NAD, on RA. HEENT: No pallor, no icterus. Pupils equal, round and reactive to light. Oral mucosa moist. NECK: No JVD, no neck masses. HEART: S1 and S2 heard. No murmur, no gallop. RESPIRATORY SYSTEM: Normal AP diameter. No accessory muscle use. No wheezing, no crackles. ABDOMEN: Soft, bowel sounds present, nontender, no distention. CENTRAL NERVOUS SYSTEM: No facial droop. Speech is clear. Obeys simple commands. Moves extremities. EXTREMITIES: No edema, no erythema seen. Left hip with clean dressing without soakage. Results & Data Results & Data ([facility]) Vital Signs (Past 12 Hours) Vital Signs Temp Pulse Resp BP Pulse Ox O2 Del Method 02/21/22 11:57 36.6 C 75 18 103/67 92 Room Air 02/21/22 08:00 36.5 C 74 18 107/70 95 Room Air 02/21/22 06:00 Room Air
[2022-02-21] MEDS: WARFARIN SOD 5 MG TAB PO SCH (16:28)
[2022-02-21] MEDS: ceFAZolin 2000MG 2,000 MG/15 ML SYR IV SCH (19:05)
[2022-02-21] MEDS: GABAPENTIN 100 MG CAP PO SCH (21:11)
[2022-02-21] MEDS: SIMVASTATIN 10 MG TAB PO SCH (21:12)
[2022-02-21] MEDS: ACETAMINOPHEN 325 MG TAB PO PRN (22:17)
[2022-02-22] MEDS: ceFAZolin 2000MG 2,000 MG/15 ML SYR IV SCH ×3 (01:36→17:13)
[2022-02-22] MEDS: LEVOTHYROXINE SODIUM 75 MCG TABLET PO SCH (06:39)
[2022-02-22 07:36] LABS: Hematocrit (blood only) 32.7 % (34.1-44.9); Hemoglobin 10.7 g/dl (12.0-16.0); Mean Corpuscular Hgb Conc 32.7 g/dL (32.0-36.0); Mean Corpuscular Volume 88.6 fL (80.0-100.0); Mean Platelet Volume 10.2 fL (9.4-12.3); Platelet Count 292 K/uL (130-400); RDW Coefficient of Variation 14.4 % (11.5-14.5); RDW Standard Deviation 46.6 fL (36.4-46.3); Red Blood Count 3.69 M/uL (3.93-5.22)
[2022-02-22 07:46] LABS: Prothrombin Time 20.3 Seconds (9.0-12.0)
[2022-02-22 08:04] LABS: BUN Creatinine Ratio 55.3 (10-20); Calcium 8.8 mg/dl (8.5-10.1); Creatinine Clr Calc Pharmacy 34.6 ml/min; Est GFR (African American) 64.1 ml/min; Est GFR (Non-African American) 55.3 ml/min; Magnesium 2.4 mg/dl (1.7-2.4); Potassium 3.5 mmol/L (3.5-5.1)
[2022-02-22] MEDS: POTASSIUM CHLORIDE CRTAB 20 MEQ TABCR PO SCH ×2 (08:09→20:04)
[2022-02-22] MEDS: SODIUM CHLORIDE 1 GM TABLET PO SCH (08:09)
[2022-02-22] MEDS: METOPROLOL SUCC 25MG EXT REL TAB PO SCH (08:10)
[2022-02-22] MEDS: CHOLECALCIFEROL 1,000 UNITS 25 MCG TAB PO SCH (08:10)
[2022-02-22] MEDS: ASPIRIN 81 MG ECTAB PO SCH (08:11)
[2022-02-22] MEDS: TORSEMIDE 20 MG TAB PO SCH (08:11)
[2022-02-22] MEDS: ADVANCED PROBIOTIC 1250 MG CAPSULE PO SCH (08:14)
[2022-02-22] MEDS: MULTIVITAMIN TAB PO SCH (08:14)
[2022-02-22] MEDS: ACETAMINOPHEN 325 MG TAB PO PRN ×2 (08:20→17:13)
[2022-02-22] MEDS ORDERED: POTASSIUM CHLORIDE CRTAB 20 MEQ TABCR PO ONE (10:06)
--- NOTE | 2022-02-22 16:01 | Nephrology Progress Note ---
Date of Service February 22, 2022 Assessment & Plan (1) Chronic hyponatremia: Plan: SIADH/euvolemic hyponatremia which worsened w/ holding loop diuretics perioperatively and now improved from 123 > 126 after 40 mg torsemide > 131; normal sodium today. doubt salt tabs > volume OL/hpyoxia since she is > 5 L negative past 72 hr -will continue torsemide 40 mg daily and K 20 mEq po bid ; gave extra K dose today -liberalize FR 1.5L -ok to d/c up -encourage protein intake -stopped salt tabs -stopped senna as she has multiple bm daily > made it prn will sign off; recommedn checking bmp q Mon/Th x 2 wks at rehab; if ongoing sodium issues pls have her get appt in CKD clinic; else no formal neph follow up Admission and Anticipated Discharge Date Admission Date: February 14, 2022 Subjective sats dropped and on 02nc; no pain, no n/v; still thirsty w/dry mouth Review of Systems Review of Systems: All systems reviewed & are unremarkable except as noted in Subjective Physical Exam Constitutional: well developed, well nourished and + frail appearing Eyes: EOM intact bilaterally ENMT: Ears: no external ear abnormality Nose: no external nose abnormality Mouth: + dry oral mucous membranes Neck: no nuchal rigidity Respiratory: normal respiratory effort; no respiratory distress and no labored breathing Auscultation: + diminished lung sounds and + crackles (L base) Cardiovascular: Rate/Rhythm: regular rate and regular rhythm Heart Sounds: + murmur Extremities: + edema (trace dependent) Gastrointestinal (Abdomen): Inspection/Auscultation: normal bowel sounds Percussion/Palpation: abdomen soft; abdomen nontender Musculoskeletal: Extremities: strength 5/5 throughout Skin: no rashes, warm and dry Psychiatric: Orientation: oriented x 3 Results & Data ([facility]) Vital Signs (Past 12 Hours) Vital Signs Temp Pulse Resp BP Pulse Ox O2 Del Method 02/22/22 08:00 36.6 C 92 H 18 104/61 87 L Room Air 02/22/22 05:26 Room Air Laboratory Results 02/22/22 07:20 02/22/22 07:20
--- NOTE | 2022-02-22 16:28 | Hospitalist Progress Note ---
Date of Service February 22, 2022 Assessment & Plan (1) Subcapital fracture of left femur: (2) Fall: (3) Hypokalemia: (4) Chronic hyponatremia: (5) Permanent atrial fibrillation: (6) MCC current use of anticoagulant: (7) Chronic heart failure with preserved ejection fraction (HFpEF): (8) CKD (chronic kidney disease) stage 3, GFR 30-59 ml/min: (9) HTN (hypertension): Plan 86-year-old female who has a significant past medical history of nonischemic cardiomyopathy, chronic HFpEF, history of SSS status post PPM with upgrade to AICD, permanent afibrillation anticoagulated on warfarin, aortic valve regurg moderate, history of bioprosthetic Replacement in 2014 and tricuspid valve repair by Dr. Alexander, CKD stage III, history of polio, chronic hyponatremia, lumbar spinal stenosis with chronic ambulatory dysfunction who presents to ED 02/14 after sustaining a fall prior to arrival. She is being managed for the following: Fall Closed mildly displaced subcapital fracture of proximal left femur 02/15: Left cemented bipolar Hip Prosthesis(Left) - Octaviano Delatorre MD 02/17-->Postoperatively, patient having mild volume overload, hyponatremia, management per below On Coumadin, INR 2.4 Appreciate Ortho service recommendations, left total hip protocol. Weightbearing as tolerated. Follow-up in 2 to 3 weeks from surgery date. Avoid narcotics, Tylenol for pain management. Permanent atrial fibrillation Long-term anticoagulation History of SSS status post PPM with upgrade to AICD/pacer Patient had pacer interrogated on 01/06/2022 which revealed 100% atrial fibrillation burden Rate controlled, on A. fib. Postoperatively patient received 7.5 MG daily Coumadin for 02/16 and 02/17. 02/17 INR 2.4, resumed home dose of warfarin 02/18. Monitor PT/INR daily. INR 2.0 today. Acute on chronic Hyponatremia CKD 3 Baseline sodium around 128-131 Sodium level down trended likely secondary to mild volume overload postoperatively Nephrology on board, torsemide 40 mg daily and KCl 20 mEq twice daily, FR 1.5 L, sodium tablet --> dc'd, sodium level nl, Na at 136 today. Increase protein intake. Hypokalemia: Monitor and replete. 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 Other chronic medical conditions: HLD, hypothyroidism ---> continue with/resume home meds as and when able. Disposition: PT/OT, CM to assist with DC planning. Sodium level back to baseline. Stable for discharge. Pt to f/u w/ nephro and PCP and Ortho upon DC. PCP: Janna DNR/DNI Admission and Anticipated Discharge Date Admission Date: February 14, 2022 Subjective Patient seen and examined at bedside as a follow-up of fall/closed mildly displaced subcapital fracture of proximal left femur and chronic hyponatremia. Patient was lying in bed, on 2L NC O2, NAD, no new acute events overnight. Patient now moving bowels okay, and reports eating better. laxatives prn. Patient reports taking 3 tablets of senna at home in the night on regular basis. Patient denies any headache/dizziness/sore throat/cough/belly pain/other review of symptoms. Physical Exam Physical Exam: GENERAL: Alert and oriented x3. NAD, on 2L NC O2 HEENT: No pallor, no icterus. Pupils equal, round and reactive to light. Oral mucosa moist. NECK: No JVD, no neck masses. HEART: S1 and S2 heard. No murmur, no gallop. RESPIRATORY SYSTEM: Normal AP diameter. No accessory muscle use. No wheezing, no crackles. ABDOMEN: Soft, bowel sounds present, nontender, no distention. CENTRAL NERVOUS SYSTEM: No facial droop. Speech is clear. Obeys simple commands. Moves extremities. EXTREMITIES: No edema, no erythema seen. Left hip with clean dressing without soakage. Results & Data Results & Data ([facility]) Vital Signs (Past 12 Hours) Vital Signs Temp Pulse Resp BP BP Pulse Ox O2 Del Method 02/22/22 16:00 36.7 C 73 18 123/69 97 Nasal Cannula 02/22/22 08:00 36.6 C 92 H 18 104/61 87 L Room Air 02/22/22 05:26 Room Air O2 Flow Rate 02/22/22 16:00 2 02/22/22 08:00 02/22/22 05:26
[2022-02-22] MEDS: WARFARIN SOD 5 MG TAB PO SCH (17:14)
[2022-02-22] MEDS: SIMVASTATIN 10 MG TAB PO SCH (20:04)
[2022-02-22] MEDS: GABAPENTIN 100 MG CAP PO SCH (20:04)
[2022-02-23] MEDS: ACETAMINOPHEN 325 MG TAB PO PRN (00:30)
[2022-02-23] MEDS: ceFAZolin 2000MG 2,000 MG/15 ML SYR IV SCH ×3 (01:06→18:59)
[2022-02-23] MEDS: LEVOTHYROXINE SODIUM 75 MCG TABLET PO SCH (05:34)
[2022-02-23 06:45] LABS: Hematocrit (blood only) 34.8 % (34.1-44.9); Hemoglobin 11.2 g/dl (12.0-16.0); Mean Corpuscular Hemoglobin 29.8 pg (25.0-34.0); Mean Corpuscular Hgb Conc 32.2 g/dL (32.0-36.0); Mean Corpuscular Volume 92.6 fL (80.0-100.0); Mean Platelet Volume 10.5 fL (9.4-12.3); Platelet Count 351 K/uL (130-400); RDW Coefficient of Variation 14.7 % (11.5-14.5); RDW Standard Deviation 50.1 fL (36.4-46.3); Red Blood Count 3.76 M/uL (3.93-5.22); White Blood Count 8.66 K/ul (4.8-10.8)
[2022-02-23 07:20] LABS: BUN Creatinine Ratio 51.7 (10-20); Calcium 9.2 mg/dl (8.5-10.1); Est GFR (African American) 49.7 ml/min; Est GFR (Non-African American) 42.9 ml/min; Magnesium 2.4 mg/dl (1.7-2.4); Phosphorus 3.7 mg/dl (2.5-4.9); Potassium 4.4 mmol/L (3.5-5.1)
[2022-02-23 07:35] LABS: INR 2.3 (0.9-1.1); Prothrombin Time 23.7 Seconds (9.0-12.0)
[2022-02-23] MEDS: METOPROLOL SUCC 25MG EXT REL TAB PO SCH (08:24)
[2022-02-23] MEDS: ASPIRIN 81 MG ECTAB PO SCH (08:24)
[2022-02-23] MEDS: CHOLECALCIFEROL 1,000 UNITS 25 MCG TAB PO SCH (08:24)
[2022-02-23] MEDS: MULTIVITAMIN TAB PO SCH (08:24)
[2022-02-23] MEDS: ADVANCED PROBIOTIC 1250 MG CAPSULE PO SCH (08:24)
[2022-02-23] MEDS: POTASSIUM CHLORIDE CRTAB 20 MEQ TABCR PO SCH ×2 (08:25→21:19)
[2022-02-23] MEDS: TORSEMIDE 20 MG TAB PO SCH (08:25)
[2022-02-23] MEDS: WARFARIN SOD 2.5 MG TAB PO SCH (16:58)
--- NOTE | 2022-02-23 17:12 | Hospitalist Progress Note ---
Date of Service February 23, 2022 Assessment & Plan (1) Subcapital fracture of left femur: (2) Fall: (3) Hypokalemia: (4) Chronic hyponatremia: (5) Permanent atrial fibrillation: (6) assisted current use of anticoagulant: (7) Chronic heart failure with preserved ejection fraction (HFpEF): (8) CKD (chronic kidney disease) stage 3, GFR 30-59 ml/min: (9) HTN (hypertension): Plan 86-year-old female who has a significant past medical history of nonischemic cardiomyopathy, chronic HFpEF, history of SSS status post PPM with upgrade to AICD, permanent afibrillation anticoagulated on warfarin, aortic valve regurg moderate, history of bioprosthetic Replacement in 2014 and tricuspid valve repair by Dr. Alexander, CKD stage III, history of polio, chronic hyponatremia, lumbar spinal stenosis with chronic ambulatory dysfunction who presents to ED 02/14 after sustaining a fall prior to arrival. She is being managed for the following: Fall Closed mildly displaced subcapital fracture of proximal left femur 02/15: Left cemented bipolar Hip Prosthesis(Left) - Octaviano Delatorre MD 02/17-->Postoperatively, patient having mild volume overload, hyponatremia, management per below On Coumadin, INR 2.4 Appreciate Ortho service recommendations, left total hip protocol. Weightbearing as tolerated. Follow-up in 2 to 3 weeks from surgery date. Avoid narcotics, Tylenol for pain management. Permanent atrial fibrillation Long-term anticoagulation History of SSS status post PPM with upgrade to AICD/pacer Patient had pacer interrogated on 01/06/2022 which revealed 100% atrial fibrillation burden Rate controlled, on A. fib. on home dose warfarin Rt Foot cellulitis: on Cefazolin 02/23, improving erythema, can transition to PO on DC. Acute on chronic Hyponatremia CKD 3 Baseline sodium around 128-131 Sodium level down trended likely secondary to mild volume overload postoperatively Nephrology evaluated, torsemide 40 mg daily and KCl 20 mEq twice daily, FR 1.5 L, sodium tablet --> dc'd, sodium level nl Increase protein intake. Hypokalemia: Monitor and replete. 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 Other chronic medical conditions: HLD, hypothyroidism ---> continue with/resume home meds as and when able. Disposition: PT/OT, CM to assist with DC planning. Sodium level back to baseline. Stable for discharge. BMP in 1 week, Pt to f/u w/ nephro and PCP and Ortho upon DC. PCP: Janna DNR/DNI Admission and Anticipated Discharge Date Admission Date: February 14, 2022 Subjective Patient seen and examined at bedside as a follow-up of fall/closed mildly displaced subcapital fracture of proximal left femur and chronic hyponatremia. Patient was lying in bed, on 2L NC O2, pt is on diuresis, NAD, no new acute events overnight. Patient now moving bowels okay, and reports eating better. laxatives prn. Patient reports taking 3 tablets of senna at home in the night on regular basis. Garcia is out, pt reports not having urge to pass urine, pt advised to regularly try to pass urine every 3-4 hours. Patient denies any headache/dizziness/sore throat/cough/belly pain/other review of symptoms. Physical Exam Physical Exam: GENERAL: Alert and oriented x3. NAD, on 2L NC O2 HEENT: No pallor, no icterus. Pupils equal, round and reactive to light. Oral mucosa moist. NECK: No JVD, no neck masses. HEART: S1 and S2 heard. No murmur, no gallop. RESPIRATORY SYSTEM: Normal AP diameter. No accessory muscle use. No wheezing, no crackles. ABDOMEN: Soft, bowel sounds present, nontender, no distention. CENTRAL NERVOUS SYSTEM: No facial droop. Speech is clear. Obeys simple commands. Moves extremities. EXTREMITIES: No edema, no erythema seen. Left hip with clean dressing without soakage. Rt foot erythema + Results & Data Results & Data ([facility]) Vital Signs (Past 12 Hours) Vital Signs Temp Pulse Resp BP Pulse Ox O2 Del Method O2 Flow Rate 02/23/22 16:01 36.8 C 71 18 116/71 100 Room Air 2 02/23/22 12:30 Room Air 2 02/23/22 07:56 36.5 C 82 19 107/56 L
[2022-02-23] MEDS: GABAPENTIN 100 MG CAP PO SCH (21:20)
[2022-02-23] MEDS: SIMVASTATIN 10 MG TAB PO SCH (21:21)
[2022-02-24] MEDS: ceFAZolin 2000MG 2,000 MG/15 ML SYR IV SCH ×2 (01:12→14:04)
[2022-02-24] MEDS: LEVOTHYROXINE SODIUM 75 MCG TABLET PO SCH (05:37)
[2022-02-24 07:01] LABS: INR 2.5 (0.9-1.1); Prothrombin Time 25.2 Seconds (9.0-12.0)
[2022-02-24] MEDS: CHOLECALCIFEROL 1,000 UNITS 25 MCG TAB PO SCH (08:31)
[2022-02-24] MEDS: MULTIVITAMIN TAB PO SCH (08:31)
[2022-02-24] MEDS: ASPIRIN 81 MG ECTAB PO SCH (08:31)
[2022-02-24] MEDS: ADVANCED PROBIOTIC 1250 MG CAPSULE PO SCH (08:31)
[2022-02-24] MEDS: METOPROLOL SUCC 25MG EXT REL TAB PO SCH (08:31)
[2022-02-24] MEDS: POTASSIUM CHLORIDE CRTAB 20 MEQ TABCR PO SCH ×2 (08:32→20:51)
[2022-02-24] MEDS: TORSEMIDE 20 MG TAB PO SCH (08:32)
[2022-02-24] MEDS: DOCUSATE SODIUM/SENNA 50/8.6MG TAB PO PRN (08:49)
--- NOTE | 2022-02-24 12:27 | Progress Notes ---
DATE OF SERVICE: 02/24/2022. SUBJECTIVE: An 86-year-old female now 7 days out from left cemented bipolar hip arthroplasty for fra cture. She seems to be doing quite a bit better. Currently, we are just waiting for placement. Den ies much in the way of hip pain. No other real complaints. OBJECTIVE: VITAL SIGNS: Temperature 36.7. Vital signs are stable. GENERAL: Shows a frail, elderly female. She is sitting up in bed and looks comfortable. She seems m ore awake, alert today. EXTREMITIES: Examination of the left hip reveals dressing to be clean, dry and intact. Leg lengths are equal. Minimal swelling. She can dorsiflex and plantarflex her foot appropriately. LABORATORY DATA: INR is 2.5. No other labs today. ASSESSMENT: An 86-year-old white female postoperative day 7 from a left cemented bipolar hip arthrop lasty for fracture. Orthopedically, she is doing well. She is to be recovering appropriately. PLAN: 1. DVT prophylaxis includes thigh-high TEDs, SCDs and back on her Coumadin in a therapeutic level. 2. PT/OT. She can fully weightbear on this left leg. Does need to obey hip precautions. 3. Pain control, doing okay with current pain regimen. I will stick to Tylenol as much as possible to avoid side effects of narcotics. 4. Medical management as per the medicine service. 5. Disposition: She is orthopedically okay for discharge any time medically stable. I need to see her back two to three weeks out from surgery date. Any orthopedic questions can be directed to me at [phone]. Job ID: [id number]
[2022-02-24] MEDS ORDERED: COVID-19 VACC, TRIS(PFIZER)/PF 30 MCG/0.3 ML VIAL IM ONE (15:00)
[2022-02-24] MEDS: WARFARIN SOD 5 MG TAB PO SCH (16:06)
[2022-02-24] MEDS: ACETAMINOPHEN 325 MG TAB PO PRN (16:17)
--- NOTE | 2022-02-24 18:23 | Hospitalist Progress Note ---
Date of Service February 24, 2022 Assessment & Plan (1) Subcapital fracture of left femur: (2) Fall: (3) Hypokalemia: (4) Chronic hyponatremia: (5) Permanent atrial fibrillation: (6) snf current use of anticoagulant: (7) Chronic heart failure with preserved ejection fraction (HFpEF): (8) CKD (chronic kidney disease) stage 3, GFR 30-59 ml/min: (9) HTN (hypertension): Plan 86-year-old female who has a significant past medical history of nonischemic cardiomyopathy, chronic HFpEF, history of SSS status post PPM with upgrade to AICD, permanent afibrillation anticoagulated on warfarin, aortic valve regurg moderate, history of bioprosthetic Replacement in 2014 and tricuspid valve repair by Dr. Alexander, CKD stage III, history of polio, chronic hyponatremia, lumbar spinal stenosis with chronic ambulatory dysfunction who presents to ED 02/14 after sustaining a fall prior to arrival. She is being managed for the following: Fall Closed mildly displaced subcapital fracture of proximal left femur 02/15: Left cemented bipolar Hip Prosthesis(Left) - Octaviano Delatorre MD 02/17-->Postoperatively, patient having mild volume overload, hyponatremia, management per below On Coumadin, INR 2.4 Appreciate Ortho service recommendations, left total hip protocol. Weightbearing as tolerated. Follow-up in 2 to 3 weeks from surgery date. Avoid narcotics, Tylenol for pain management. Permanent atrial fibrillation Long-term anticoagulation History of SSS status post PPM with upgrade to AICD/pacer Patient had pacer interrogated on 01/06/2022 which revealed 100% atrial fibrillation burden Rate controlled, on A. fib. on home dose warfarin Rt Foot cellulitis: on Cefazolin 02/23, improving erythema, can transition to PO on DC. Acute on chronic Hyponatremia CKD 3 Baseline sodium around 128-131 Sodium level down trended likely secondary to mild volume overload postoperatively Nephrology evaluated, torsemide 40 mg daily and KCl 20 mEq twice daily, FR 1.5 L, sodium tablet --> dc'd, sodium level nl Increase protein intake. Hypokalemia: Monitor and replete. 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 Other chronic medical conditions: HLD, hypothyroidism ---> continue with/resume home meds as and when able. Disposition: PT/OT, CM to assist with DC planning. Sodium level back to baseline. Stable for discharge. BMP in 1 week, Pt to f/u w/ nephro and PCP and Ortho upon DC. PCP: Janna DNR/DNI Admission and Anticipated Discharge Date Admission Date: February 14, 2022 Subjective Patient seen and examined at bedside as a follow-up of fall/closed mildly displaced subcapital fracture of proximal left femur and chronic hyponatremia. Patient was lying in bed, on RA, NAD, no new acute events overnight. Patient now moving bowels okay, and reports eating better. laxatives prn. Patient reports taking 3 tablets of senna at home in the night on regular basis. Patient denies any headache/dizziness/sore throat/cough/belly pain/other review of symptoms. Physical Exam Physical Exam: GENERAL: Alert and oriented x3. NAD, on RA HEENT: No pallor, no icterus. Pupils equal, round and reactive to light. Oral mucosa moist. NECK: No JVD, no neck masses. HEART: S1 and S2 heard. No murmur, no gallop. RESPIRATORY SYSTEM: Normal AP diameter. No accessory muscle use. No wheezing, no crackles. ABDOMEN: Soft, bowel sounds present, nontender, no distention. CENTRAL NERVOUS SYSTEM: No facial droop. Speech is clear. Obeys simple commands. Moves extremities. EXTREMITIES: No edema, no erythema seen. Left hip with clean dressing without soakage. Rt foot erythema + ---> improving Results & Data Results & Data ([place]) Vital Signs (Past 12 Hours) Vital Signs Temp Pulse Resp BP Pulse Ox O2 Del Method 02/24/22 16:21 36.4 C L 74 18 92/54 L 94 Room Air 02/24/22 06:51 36.7 C 71 18 113/70 91 Room Air
[2022-02-24] MEDS: SIMVASTATIN 10 MG TAB PO SCH (20:51)
[2022-02-24] MEDS: GABAPENTIN 100 MG CAP PO SCH (20:51)
[2022-02-25] MEDS: ceFAZolin 2000MG 2,000 MG/15 ML SYR IV SCH ×2 (02:23→13:44)
[2022-02-25] MEDS: LEVOTHYROXINE SODIUM 75 MCG TABLET PO SCH (05:38)
[2022-02-25 06:30] LABS: INR 2.5 (0.9-1.1); Prothrombin Time 25.8 Seconds (9.0-12.0)
[2022-02-25 06:46] LABS: Creatinine Clr Calc Pharmacy 28.5 ml/min; Est GFR (African American) 50.8 ml/min; Est GFR (Non-African American) 43.8 ml/min
[2022-02-25] MEDS: MULTIVITAMIN TAB PO SCH (07:58)
[2022-02-25] MEDS: TORSEMIDE 20 MG TAB PO SCH (07:58)
[2022-02-25] MEDS: CHOLECALCIFEROL 1,000 UNITS 25 MCG TAB PO SCH (07:58)
[2022-02-25] MEDS: ASPIRIN 81 MG ECTAB PO SCH (07:58)
[2022-02-25] MEDS: METOPROLOL SUCC 25MG EXT REL TAB PO SCH (07:58)
[2022-02-25] MEDS: ADVANCED PROBIOTIC 1250 MG CAPSULE PO SCH (07:59)
[2022-02-25] MEDS: DOCUSATE SODIUM/SENNA 50/8.6MG TAB PO PRN (08:00)
[2022-02-25] MEDS: POTASSIUM CHLORIDE CRTAB 20 MEQ TABCR PO SCH (08:00)
--- NOTE | 2022-02-25 12:09 | Progress Notes ---
DATE OF NOTE: 02/25/2022. SUBJECTIVE: An 86-year-old female, now 8 days out from a left cemented bipolar hip arthroplasty for fracture. Orthopedically, she is doing well. Really denies any significant pain. She is hoping to get out of the hospital. OBJECTIVE: VITAL SIGNS: Temperature 36.6. Vital signs are stable. PHYSICAL EXAMINATION: GENERAL: A frail, elderly female. She is lying in bed, looks pretty comfortable. EXTREMITIES: Examination of the left hip reveals the dressing to be clean, dry and intact. Leg sanjuanita ths were equal. Thigh is soft and supple. She is neurologically intact. LABORATORY DATA: INR 2.5. ASSESSMENT: An 86-year-old female, now 8 days out from a left cemented bipolar hip arthroplasty for fracture. Orthopedically, she is doing well. PLAN: 1. DVT prophylaxis includes thigh-high TEDs, SCDs and back on her Coumadin. She has had a therapeut ic dose. 2. PT, OT, weightbear as tolerated. Left total hip protocol. She does need to obey hip precautions . 3. Pain control, doing okay with current pain regimen. 4. Medical management as per the medicine service. 5. Disposition: She is orthopedically okay for discharge any time medically stable. I need to see her back 2-3 weeks out from surgery date. Any orthopedic questions can be directed to me at . Job ID: [id number]
[2022-02-25] MEDS: MAGNESIUM HYDROXIDE SUSP 30 ML UDC PO PRN (13:52)
--- NOTE | 2022-02-25 16:40 | Discharge Summary ---
Date of Service February 25, 2022 Admission HPI Per Admitting Provider This is an 86-year-old female who has a significant past medical history of nonischemic cardiomyopathy, chronic HFpEF, history of SSS status post PPM with upgrade to AICD, permanent afibrillation anticoagulated on warfarin, aortic valve regurg moderate, history of bioprosthetic Replacement in 2015 and tricuspid valve repair by Dr. Alexander, CKD stage III, history of polio, chronic hyponatremia, lumbar spinal stenosis with chronic ambulatory dysfunction who presents to ED after sustaining a fall prior to arrival. She states she is watching her daughter's dog while [place] the beach. She was outside with the dog when the dog got tangled around her. When she tried to untangle the dog she lost her balance and fell on her left side. She was unable to get up. A bystander driving by heard her yell for help and came to her side. EMS was summoned and she was brought to ED. She was found to have an acute and mildly displaced subcapital fracture of the left proximal femur. There was also subacute to chronic right pubic ring fractures. Orthopedics was consulted who recommended admit to medicine for cardiac clearance and likely to go to OR tomorrow. She is otherwise been in a good state of health. Her weight has been stable at approximately 125 pounds. She feels her lower extremity swelling is under control. She does have mild right lower extremity swelling which is chronic for her. She denies any orthopnea or PND. She denies any recent weight gain. She actually admits to losing weight. She feels that she would be able to ambulate a flight of steps or 1 city block without getting chest pain or shortness of breath; ever, her ambulatory dysfunction and spinal stenosis prevent her from doing so. She denies any prior joint surgeries or following with orthopedic service. In ED patient remained hemodynamically stable. Her lab work was notable for sodium 129, K3.3, chloride 93, BUN 26, INR 2.3. Surgical history: Left knee scope, cataract surgery, ankle arthrodesis, mitral valve replacement and tricuspid valve repair [place] [address] Alexander at [facility], pacemaker placement by Dr. Gonzalez which was eventually upgraded to include AICD Social history: Patient lives at home alone with her dog, ambulates with assist of a cane, denies smoking or alcohol use Family history Father diabetes Sister at 55; mother with history of hypertension and COPD Admission Exam Per Admitting Provider Constitutional: WD/WN, vitals as above, NAD, sitting up in bed, pleasant, conversing easily Head: Normocephalic, Atraumatic Eyes: PERRL, conjunctivae normal, anicteric sclerae ENMT: external ear and nose normal, oropharynx normal Neck: trachea midline, no thyromegaly normal visual inspection Respiratory: normal respiratory effort, lungs clear to auscultation, no wheeze, rales, rhonchi. Normal insp/exp effort, no accessory muscle use Cardiovascular: Irregular rate, irregular rhythm, 2/6 TIKI noted RUSB, no murmur, no edema, chronic bilateral venous stasis changes vessels: no JVD or carotid bruit Chest: normal inspection of chest Abdomen: normal bowel sounds, soft, nontender, no hepatosplenomegaly Musculoskeletal: no cyanosis or clubbing, active range of motion to bilateral upper extremities, left lower extremity shortened and inverted Skin: no rashes, warm and dry normal turgor Neurologic: PERRL, EOMI, accommodation nl, no face palsy, no dysarthria CN's II-XI intact bilaterally and moves all extremities Psychiatric: A+Ox3, euthymic affect Lymphatic: no cervical or axillary lymphadenopathy : Garcia catheter draining yellow urine Principal Diagnosis Closed mildly displaced subcapital fracture of proximal left femur Discharge Exam GENERAL: Alert and oriented x3. NAD, on RA HEENT: No pallor, no icterus. Pupils equal, round and reactive to light. Oral mucosa moist. NECK: No JVD, no neck masses. HEART: S1 and S2 heard. No murmur, no gallop. RESPIRATORY SYSTEM: Normal AP diameter. No accessory muscle use. No wheezing, no crackles. ABDOMEN: Soft, bowel sounds present, nontender, no distention. CENTRAL NERVOUS SYSTEM: No facial droop. Speech is clear. Obeys simple commands. Moves extremities. EXTREMITIES: No edema, no erythema seen. Left hip with clean dressing without soakage. Rt foot erythema + ---> improving Discharge Data Allergies Allergy/AdvReac Type Severity Reaction Status Date / Time Sulfa (Sulfonamide AdvReac Severe GI Unverified 02/18/21 18:43 Antibiotics) SYMPTOMS;kidney function compromised Consultations 02/14/22 13:36 ED Decision to Admit Stat 02/14/22 14:16 Consult Anesthesiology Routine Consult Orthopedic Surgery Routine 02/14/22 14:40 Consult Cardiology Routine 02/16/22 14:34 Consult Nephrology Routine Procedures Performed Operation Date: 02/15/22 10:00 Actual Procedures p Left Bipolar Hip Prosthesis(Left) - Octaviano Delatorre MD Hospital Course (1) Subcapital fracture of left femur: (2) Fall: (3) Hypokalemia: (4) Chronic hyponatremia: (5) Permanent atrial fibrillation: (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 Alexander, CKD stage III, history of polio, chronic hyponatremia, lumbar spinal stenosis with chronic ambulatory dysfunction who presents to ED 02/14 after sustaining a fall prior to arrival. She is being managed for the following: Fall Closed mildly displaced subcapital fracture of proximal left femur 02/15: Left cemented bipolar Hip Prosthesis(Left) - Octaviano Delatorre MD 02/17-->Postoperatively, patient having mild volume overload, hyponatremia, management per below On Coumadin, INR 2.4 Appreciate Ortho service recommendations, left total hip protocol. Weightbearing as tolerated. Follow-up in 2 to 3 weeks from surgery date. Avoid narcotics, Tylenol for pain management. Ok for dc to SNF. Permanent atrial fibrillation Long-term anticoagulation History of SSS status post PPM with upgrade to AICD/pacer Patient had pacer interrogated on 01/06/2022 which revealed 100% atrial fibrillation burden Rate controlled, on A. fib. on home dose warfarin Rt Foot cellulitis: on Cefazolin 02/23, improving erythema, can transition to PO on DC. Acute on chronic Hyponatremia CKD 3 Baseline sodium around 128-131 Sodium level down trended likely secondary to mild volume overload postoperatively Nephrology evaluated, torsemide 40 mg daily and KCl 20 mEq twice daily, FR 1.5 L, sodium tablet --> dc'd, sodium level nl Increase protein intake. Hypokalemia: Monitor and replete. 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 Other chronic medical conditions: HLD, hypothyroidism ---> continue with/resume home meds as and when able. Disposition: PT/OT, CM to assist with DC planning. Sodium level back to baseline. Stable for discharge. BMP in 1 week, Pt to f/u w/ nephro and PCP and Ortho upon DC. PCP: Janna DNR/DNI Total Time Total Time Spent Total Time Spent (In Minutes): 20 Total Time Includes: Examination of the Patient, Discharge Planning and Medication Reconciliation Discharge Plan Discharge Items Patient Disposition: Transfer [facility] Reason For Visit: FALL, L HIP FX, AFIB, CHF Discharge Diagnosis: Left Hip Replacement for Fracture Activity: Per Instructions section Activity Comment: Follow/obey hip precautions at all times. Weightbearing: Full weightbearing Weightbearing Comment: Weightbear as tolerated obeying hip precautions at all times. Non-emergency contact: Primary Care Provider and Surgeon Call non-emergency contact if: you have any medication questions, your symptoms worsen and your pain is worsening Follow-up/Referrals: Faith Saldivar [Primary Care Provider] - Octaviano Delatorre MD [Physician] - (Orthopedic follow-up 2-3 weeks from surgery date.) Diet: Heart Healthy Addtl Attending Provider Instructions: ACTIVITY RECOMMENDATIONS: Physical Therapy: * Aggressive physical therapy is not usually needed. You will learn to take care of yourself safely and walk. * Follow the "Hip Precautions Instructions." * In some cases, the social worker school at the hospital will arrange to have a therapist come to your house for the first couple of weeks to help you learn these s kills. * You need to practice on your own or with the help of a family member as needed. * When you learn these skills, most of the therapy can be done on your own. Home Exercise: * You were shown a series of exercises in the hospital. Do these exercises three to four times each day including the exercises you were shown in physical therapy. Walking: * Get up and walk several times each day. For the first four weeks, try not to stand or walk for more than one hour at a time. If you do stand or walk for more than one hour, you will not hurt anything, but your leg will likely swell. * As you feel comfortable, you may change from the walker or crutches to a cane and then to independent walking. MEDICATIONS: "VERY IMPORTANT TO READ AND REVIEW" Pain: * The immediate post-operative period after hip replacement surgery is often quite painful. * You are given a prescription for pain medicine. You should take it, as directed, when you need it, especially before physical therapy and before going to bed. Pain that interferes with sleep is very common and can last several months. * You will likely need pain medicine for the first two to four weeks. It will not stop all of the pain. The pain will lessen and as you feel better, you may change to milder pain medicine such as Tylenol. * The most common side effects of pain medicine are nausea and constipation, so don't take more than you need. SPECIAL CARE INSTRUCTIONS: TEDs/Elastic Stockings: * The white elastic stockings help limit swelling and prevent blood clots from forming in your legs. The more you wear them, the more they work. * Wear them for six weeks. Incision Site Care: * Remove dressing postoperative day 2 and then shower. Keep direct shower pressure off the incision site. * After showering, cover miley with dry gauze and change daily or more frequently if the dressing is getting saturated with drainage. * May completely stop using bandage if wound is dry and no drainage * Pryor are removed between 2 and 3 weeks post-op. If your follow-up appointment is made before 2 weeks, please have your appointment re- scheduled. It is too early to remove the miley. Prevention of Infection: * Take antibiotics one hour before any dental cleaning, dental work, urological procedure, gastrointestinal procedure or any invasive surgery in order to prevent your new joint from getting infected. * You may get the antibiotics from the doctor performing the procedure or you may call our office at before and we will call in a prescription to the pharmacy of your choice. Things to Watch For: * Drainage from the incision site that occurs more than one week after your surgery. * Severely increased leg pain or swelling. * Increased redness at the incision site. * Fever above 102 degrees Fahrenheit. * Unusual chest pain or shortness of breath. * Unusual pain or burning with urination. Call [facility] at with any of the above problems or if you have any questions about your medicines or recovery. FOLLOW UP VISIT: Make an appointment to see your doctor for approximately two weeks after surgery for a progress check and staple removal by calling the office at . Pending Studies at Discharge: No Stand-Alone Forms: My [facility] Skilled Items Patient informed of condition?: Yes DNR: Yes Discharge Level of Care: Skilled Communicable Disease: No Discharge Prognosis: Stable Lines: None Urinary Catheter: No Medications and DC Order Prescriptions: New acetaminophen 325 mg Tablet 650 mg PO Q4H PRN (Reason: fever or pain) Qty: 30 0RF polyethylene glycol 3350 [Miralax] 17 gram Powder In Packet 17 g PO Q6 PRN (Reason: constipation) Qty: 30 0RF metoprolol succinate 25 mg Tablet Extended Release 24 Hr 25 mg PO QAM Qty: 30 0RF Advanced Probiotic 625 mg (10 billion cell) Capsule 2 cap PO DAILY Qty: 30 0RF Continued alendronate 70 mg tablet 70 mg PO WK warfarin 5 mg tablet 2.5 mg PO MOWEFR@1600 carvedilol 12.5 mg tablet 12.5 mg PO AMHS simvastatin 10 mg tablet 10 mg PO HS aspirin 81 mg Tablet,Delayed Release (Dr/Ec) 81 mg PO QAM spironolactone 25 mg tablet 25 mg PO HS gabapentin 100 mg capsule 200 mg PO HS multivitamin [Multiple Vitamins] Tablet 1 tab PO QAM cholecalciferol (vitamin D3) [Vitamin D3] 25 mcg (1,000 unit) Tablet 50 mcg PO DAILY torsemide 20 mg tablet 20 mg PO SUTUTHSA torsemide 20 mg tablet 40 mg PO MOWEFR levothyroxine 75 mcg capsule 75 mcg PO DAILY Xiidra 5 % dropperette 1 drp OPB HS sennosides [senna] 8.6 mg Tablet 25.8 mg PO DAILY warfarin 5 mg tablet 5 mg PO [id number]@1600 Discharge Orders: Discharge Order (Routine); Ordered 02/25/22 Ordered By: Júnior Thurston Admission Data Admit Date/Time: 02/14/22 14:16 Attending Provider: Júnior Thurston Admit Provider: Lashell Schultz Primary Care Provider: Faith Saldivar Other Providers: Sharlene Ward ; [facility] ; [facility] ; Lashell Schultz ; Conrad Mahoney ; Octaviano Delatorre ; Sebas Merritt Other Interventions: Discharge Summary Assessment (RN) Last Done: 02/25/22 10:14
== END 2022-02-25 15:43 | DRG 522 ==
LOC: ED 12:05 → SUATTDRO 14:16 → 2N 14:16
DX: Z79.890 Hormone replacement therapy; I48.21 Permanent atrial fibrillation; S72.012A Unspecified intracapsular fracture of left femur, initial encounter for closed fracture; L03.115 Cellulitis of right lower limb; Y93.K1 Activity, walking an animal; Z79.01 Long term (current) use of anticoagulants; I13.0 Hypertensive heart and chronic kidney disease with heart failure and stage 1 through stage 4 chronic kidney disease, or unspecified chronic kidney disease; Z66 Do not resuscitate; I50.32 Chronic diastolic (congestive) heart failure; Z79.82 Long term (current) use of aspirin; M81.0 Age-related osteoporosis without current pathological fracture; Z88.2 Allergy status to sulfonamides; N18.30 Chronic kidney disease, stage 3 unspecified; Y92.89 Other specified places as the place of occurrence of the external cause; I42.8 Other cardiomyopathies; Z95.2 Presence of prosthetic heart valve; Z95.810 Presence of automatic (implantable) cardiac defibrillator; E87.1 Hypo-osmolality and hyponatremia; E03.9 Hypothyroidism, unspecified; E87.6 Hypokalemia; E78.5 Hyperlipidemia, unspecified; W18.09XA Striking against other object with subsequent fall, initial encounter

== ENCOUNTER 2023-01-21 22:16 | Inpatient (IN) ==
[2023-01-21] MEDS ORDERED: ACETAMINOPHEN 1,000 MG/100 ML VIAL IV STA (22:26)
--- NOTE | 2023-01-21 22:31 | Emergency Department Note ---
History of Present Illness General Chief complaint: Hip Pain Stated complaint: FALL, HIP PAIN, SHORTENING AND ROTATED History of Present Illness Maximum Pain Intensity: 2 This 87-year-old female presents to the ER complaining of right hip pain after she tripped and fell. She had a left hip replacement. She is on Coumadin. Patient denies head injury, neck pain, chest pain, abdominal pain, numbness, tingling, localized weakness. Tetanus is reported as current. She has an abrasion to the right knee. Home Medications Medication Instructions Recorded Confirmed Type alendronate 70 mg tablet 70 mg PO WK 02/18/21 01/21/23 History aspirin 81 mg tablet,delayed 81 mg PO QAM 02/18/21 01/21/23 History release carvedilol 12.5 mg tablet 12.5 mg PO AMHS 02/18/21 01/21/23 History cholecalciferol (vitamin D3) 25 50 mcg PO DAILY 02/18/21 01/21/23 History mcg (1,000 unit) tablet (Vitamin D3) gabapentin 100 mg capsule 200 mg PO HS 02/18/21 01/21/23 History multivitamin (Multiple Vitamins 1 tab PO QAM 02/18/21 01/21/23 History tablet) simvastatin 10 mg tablet 10 mg PO HS 02/18/21 01/21/23 History spironolactone 25 mg tablet 25 mg PO HS 02/18/21 01/21/23 History warfarin 5 mg tablet 2.5 mg PO SUTUTHSA 02/18/21 01/21/23 History levothyroxine 75 mcg capsule 75 mcg PO DAILY 02/14/22 01/21/23 History lifitegrast 5 % eye drops in a 1 drp OPB 02/14/22 01/21/23 History dropperette (Xiidra) sennosides 8.6 mg tablet (senna) 25.8 mg PO DAILY 02/14/22 01/21/23 History torsemide 20 mg tablet 40 mg PO DAILY 02/14/22 01/21/23 History warfarin 5 mg tablet 5 mg PO MOWEFR 02/14/22 01/21/23 History acetaminophen 325 mg tablet 650 mg PO Q4H PRN fever or pain 02/25/22 01/21/23 Rx #30 tabs polyethylene glycol 3350 17 gram 17 g PO Q6 PRN constipation #30 ea 02/25/22 01/21/23 Rx oral powder packet (Miralax) Allergies Allergy/AdvReac Type Severity Reaction Status Date / Time Sulfa (Sulfonamide AdvReac Severe GI Unverified 01/21/23 23:07 Antibiotics) SYMPTOMS;kidney function compromised ciprofloxacin [From Cipro] AdvReac nausea/vomi Verified 01/21/23 23:07 ting Past Med/Surg History Medical History Chronic heart failure with preserved ejection fraction (HFpEF) Chronic hyponatremia CKD (chronic kidney disease) stage 3, GFR 30-59 ml/min Fall H/O: HTN (hypertension) HLD (hyperlipidemia) HTN (hypertension) Hx of cardiac pacemaker Hypokalemia Hypothyroid Osteoporosis Permanent atrial fibrillation Spinal stenosis Subcapital fracture of left femur Surgical History Hx of atrioventricular node ablation Hx of mitral valve replacement Hx of tricuspid valve repair S/P cardiac pacemaker procedure Social History Smoking Status: Never smoker Hx Alcohol Use: No Hx Substance Use: No Preferred Language: Wallisian Communication Ability: Effective 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 Beliefs That Will Affect Care: None Current Living Situation: Alone Feels Safe at Home: Yes Assistive Devices: Cane and Glasses Review of Systems A total of 10 systems reviewed and were otherwise negative Physical Exam Vital Signs Vital Signs - 24 hr 01/21/23 22:21 01/21/23 22:26 01/21/23 22:32 Temperature 36.8 C Temperature Source Oral Pulse Rate 70 73 70 Pulse Rate from SpO2 Sensor 71 Respiratory Rate 18 25 H Respiratory Effort / Characteristics Non-Labored Spontaneous Respiratory Depth Normal Blood Pressure 170/99 H 174/94 H Blood Pressure Mean 122 120 Blood Pressure Position Lying Pulse Oximetry 98 99 Oxygen Delivery Method Room Air Room Air Sepsis Recent Fever Within 48 Hours No Sepsis New/Unexplained Change in Mental Status No Sepsis Action Taken by Nursing No Action Required 01/21/23 22:45 01/21/23 23:00 01/21/23 23:30 Temperature Temperature Source Pulse Rate 72 71 73 Pulse Rate from SpO2 Sensor 69 70 72 Respiratory Rate 22 23 19 Respiratory Effort / Characteristics Respiratory Depth Blood Pressure 172/97 H 158/112 H Blood Pressure Mean 122 127 Blood Pressure Position Pulse Oximetry 98 99 97 Oxygen Delivery Method Room Air Room Air Room Air Sepsis Recent Fever Within 48 Hours Sepsis New/Unexplained Change in Mental Status Sepsis Action Taken by Nursing PHYSICAL EXAM: VITALS: Vitals are noted on the nurse's note and reviewed by myself. Vital signs stable. GENERAL: Pleasant elderly female, in no acute distress, nondiaphoretic, well-developed well-nourished. SKIN: Abrasion to the right knee, the rest of the skin was without obvious lac erations or abrasions. Capillary reflex less than 2 seconds. HEAD: Normocephalic atraumatic. EARS: External auditory canals clear, tympanic membranes pearly savage without erythema or effusion bilaterally. No hemotympanums. No fuller sign. No mastoid tenderness. EYES: Pupils equal round and reactive to light and accommodation. Conjunctivae without injection, sclerae without icterus. Extraocular movements intact. NOSE: Patent, turbinates without inflammation or discharge. No sinus tendern ess. No septal hematoma or bleeding. FACE: No facial bone tenderness. Full range of motion of the jaw without tenderness. MOUTH: Mucous membranes moist. Pharynx without erythema or exudate. Uvula midline. Airway patent. Tongue does not deviate. NECK: Supple without nuchal rigidity. Cervical spine is nontender. Full range of motion of the neck without tenderness. No JVD. HEART: Regular rate and rhythm LUNGS: Clear to auscultation bilaterally without wheezes, rales or rhonchi. No dullness to percussion. No retractions or accessory muscle use. No chest wall tenderness. ABDOMEN: Positive bowel sounds x 4. Normal tympanic percussion. Soft, nontender, without masses or organomegaly. No guarding or rebound tenderness. MUSCULOSKELETAL: No tenderness of the thoracic or lumbar spine. Right hip tender to palpation shortened and externally rotated concerning for fracture, no pelvis instability. Full range of motion without tenderness to palpation in all other extremities. Peripheral pulses 2+. NEURO: Patient was alert and oriented to person place and time. Normal Mini-Men vick status exam. Normal sensation to light and sharp touch. No focal neurological deficits. Course Administered Medications Discontinued Medications Acetaminophen (Ofirmev) 1,000 mg in 100 mls @ 400 mls/hr IV NOW STA Stop: 01/21/23 22:40 Last Infusion: 01/21/23 22:56 Dose: 0 mls/hr Documented By: Admin: 01/21/23 22:41 Dose: 400 mls/hr Documented By: EVELIN Medical Decision Making Medical Records Attestation: I reviewed the patient's medical records. Home Medications Current Medication List: was personally reviewed by me Laboratory Data Attestation: I reviewed the patient's lab results. 01/21/23 22:47 01/21/23 22:47 Lab Results 01/21/23 01/21/23 01/21/23 Range/Units 22:33 22:47 22:47 WBC 6.93 (4.8-10.8) K/ul RBC 4.10 L (4.20-5.40) M/uL Hgb 12.1 (12.0-16.0) g/dl Hct 36.6 L (37.0-47.0) % MCV 89.3 (80.0-100.0) fL MCH 29.5 (25.0-34.0) pg MCHC 33.1 (32.0-36.0) g/dL RDW Std Deviation 42.8 (36.4-46.3) fL RDW Coeff of Fabricio 13.2 (11.5-14.5) % Plt Count 223 (130-400) K/uL MPV 9.9 (9.4-12.4) fL Immature Gran % (Auto) 0.7 % Neut % (Auto) 86.4 % Lymph % (Auto) 7.1 % [place] % (Auto) 5.5 % Eos % (Auto) 0.0 % Baso % (Auto) 0.3 % Neut # (Auto) 5.99 (1.40-6.50) K/uL Lymph # (Auto) 0.49 L (1.2-3.4) K/uL [place] # (Auto) 0.38 (0.11-0.59) K/uL Eos # (Auto) 0.00 (0-0.50) K/uL Baso # (Auto) 0.02 (0-0.2) K/uL Immature Gran # (Auto) 0.05 (0.01-0.20) K/uL Sodium 131 L (136-145) mmol/L Potassium 3.6 (3.5-5.1) mmol/L Chloride 95 L (98-107) mmol/L Carbon Dioxide 29 (21-32) mmol/L Anion Gap 7 (3-11) BUN 30 H (6-23) mg/dl Creatinine 1.16 (0.6-1.2) mg/dl Est Cr Clr Drug Dosing 28.6 ml/min Est GFR ( Amer) 49.4 ml/min Est GFR (Non-Af Amer) 42.6 ml/min BUN/Creatinine Ratio 25.9 H (10-20) Glucose 144 H (70-99(Fasting)) mg/dl Calcium 9.8 (8.6-10.3) mg/dl Total Bilirubin 0.6 (0.2-1.0) mg/dl AST 25 (13-39) U/L ALT 13 (7-52) U/L Alkaline Phosphatase 71 (34-104) U/L Total Protein 6.9 (6.0-8.3) gm/dl Albumin 4.3 (3.4-5.0) gm/dl Globulin 2.6 (2.5-4.0) gm/dl Albumin/Globulin Ratio 1.7 (0.9-2) Urine Color Urine Appearance (Clear) Urine pH (4.5-7.5) Ur Specific [place] (1.000-1.030) Urine Protein (Negative) Urine Glucose (UA) (Negative) Urine Ketones (Negative) Urine Blood (Negative) Urine Nitrite (Negative) Urine Bilirubin (Negative) Urine Urobilinogen (Negative) Ur Leukocyte Esterase (Negative) SARS-CoV-2, RNA, NAAT NEGATIVE (NEGATIVE) 01/21/23 Range/Units 23:19 WBC (4.8-10.8) K/ul RBC (4.20-5.40) M/uL Hgb (12.0-16.0) g/dl Hct (37.0-47.0) % MCV (80.0-100.0) fL MCH (25.0-34.0) pg MCHC (32.0-36.0) g/dL RDW Std Deviation (36.4-46.3) fL RDW Coeff of Fabricio (11.5-14.5) % Plt Count (130-400) K/uL MPV (9.4-12.4) fL Immature Gran % (Auto) % Neut % (Auto) % Lymph % (Auto) % [place] % (Auto) % Eos % (Auto) % Baso % (Auto) % Neut # (Auto) (1.40-6.50) K/uL Lymph # (Auto) (1.2-3.4) K/uL [place] # (Auto) (0.11-0.59) K/uL Eos # (Auto) (0-0.50) K/uL Baso # (Auto) (0-0.2) K/uL Immature Gran # (Auto) (0.01-0.20) K/uL Sodium (136-145) mmol/L Potassium (3.5-5.1) mmol/L Chloride (98-107) mmol/L Carbon Dioxide (21-32) mmol/L Anion Gap (3-11) BUN (6-23) mg/dl Creatinine (0.6-1.2) mg/dl Est Cr Clr Drug Dosing ml/min Est GFR ( Amer) ml/min Est GFR (Non-Af Amer) ml/min BUN/Creatinine Ratio (10-20) Glucose (70-99(Fasting)) mg/dl Calcium (8.6-10.3) mg/dl Total Bilirubin (0.2-1.0) mg/dl AST (13-39) U/L ALT (7-52) U/L Alkaline Phosphatase (34-104) U/L Total Protein (6.0-8.3) gm/dl Albumin (3.4-5.0) gm/dl Globulin (2.5-4.0) gm/dl Albumin/Globulin Ratio (0.9-2) Urine Color Yellow Urine Appearance Clear (Clear) Urine pH 6.0 (4.5-7.5) Ur Specific [place] 1.011 (1.000-1.030) Urine Protein Negative (Negative) Urine Glucose (UA) Negative (Negative) Urine Ketones Negative (Negative) Urine Blood Negative (Negative) Urine Nitrite Negative (Negative) Urine Bilirubin Negative (Negative) Urine Urobilinogen Negative (Negative) Ur Leukocyte Esterase Negative (Negative) SARS-CoV-2, RNA, NAAT (NEGATIVE) Imaging Data Attestation: I personally reviewed and interpreted this imaging study as follows: MDM Narrative Prior records reviewed and summarized above. Triage Nursing notes reviewed. Additional history obtained from nursing. The patient's history was concerning for hip pain. Differential diagnosis: Etiologies such as fracture, dislocation, neurovascular compromise, compartment syndrome, soft tissue injury, as well as others were entertained. Physical examination: Consistent with an isolated hip injury. ER treatment provided: IV lock Tylenol Garcia catheter ordered, morphine was ordered NPO Bedrest On reassessment the patient felt better. Diagnostics interpreted by me: ECG: Ordered for preop EKG: Paced rhythm with no Sgarbossa. Rate of 70. Impression paced ventricular rhythm rate of 70 independent interpreted by myself The labs Independently Interpreted by myself revealed no worrisome leukocytosis, stable H&H, mild hyperglycemia without DKA. Negative COVID Imaging studies: Xrays of the hip concerning for hip fracture per my independent interpretation Chest x-ray with no acute consolidation, pneumothorax or free air per my independent interpretation The patient has an isolated hip fracture and will need admission to the hospital. Labs and diagnostics were independently interpreted by myself. Medicine is consulted and the case is discussed. Patient was admitted to the medical service for hip fracture. Consultation: A consultation was placed with the hospitalist. The case was discussed and diagnostics were reviewed. The patient was evaluated in the ER for further treatment. The chart was completed utilizing [employer] voice recognition software. Grammatical errors, random word insertions, pronoun errors, and incomplete sentences are an occassional consequence of this system due to software limitations, ambient noise, and hardware issues. Any formal questions or concerns about the content, text, or information contained within the body of this dictation should be directly addressed to the physician fiscal assistant for clarification. Impression & Plan Hip fracture Discharge Plan Visit Data Chief Complaint: Hip Pain Stated Complaint: FALL, HIP PAIN, SHORTENING AND ROTATED ED Provider: Jonathon Swift ED Midlevel Provider: Mitzi Martínez Discharge Problem: Hip fracture Patient Disposition: Admitted As Inpatient Condition: Good Forms Stand Alone Forms: My [employer] Prescriptions Prescriptions: No Action alendronate 70 mg tablet 70 mg PO WK warfarin 5 mg tablet 2.5 mg PO SUTUTHSA carvedilol 12.5 mg tablet 12.5 mg PO AMHS simvastatin 10 mg tablet 10 mg PO HS aspirin 81 mg Tablet,Delayed Release (Dr/Ec) 81 mg PO QAM spironolactone 25 mg tablet 25 mg PO HS gabapentin 100 mg capsule 200 mg PO HS multivitamin [Multiple Vitamins] Tablet 1 tab PO QAM cholecalciferol (vitamin D3) [Vitamin D3] 25 mcg (1,000 unit) Tablet 50 mcg PO DAILY torsemide 20 mg tablet 40 mg PO DAILY Rx Instructions: This dose was stated by patient levothyroxine 75 mcg capsule 75 mcg PO DAILY Xiidra 5 % dropperette 1 drp OPB HS sennosides [senna] 8.6 mg Tablet 25.8 mg PO DAILY warfarin 5 mg tablet 5 mg PO MOWEFR acetaminophen 325 mg Tablet 650 mg PO Q4H PRN (Reason: fever or pain) Qty: 30 0RF polyethylene glycol 3350 [Miralax] 17 gram Powder In Packet 17 g PO Q6 PRN (Reason: constipation) Qty: 30 0RF Referrals Referrals: Faith Saldivar [Primary Care Provider] - Hip fracture Qualifiers: Encounter type: initial encounter Fracture type: closed Laterality: right Qualified Code(s): S72.001A - Fracture of unspecified part of neck of right femur, initial encounter for closed fracture
[2023-01-21 23:05] LABS: Basophils # (auto) 0.02 K/uL (0-0.2); Basophils % (auto) 0.3 %; Hematocrit (blood only) 36.6 % (37.0-47.0); Hemoglobin 12.1 g/dl (12.0-16.0); Immature Granulocytes # (auto) 0.05 K/uL (0.01-0.20); Immature Granulocytes % (auto) 0.7 %; Lymphocytes # (auto) 0.49 K/uL (1.2-3.4); Lymphocytes % (auto) 7.1 %; Mean Corpuscular Hemoglobin 29.5 pg (25.0-34.0); Mean Corpuscular Hgb Conc 33.1 g/dL (32.0-36.0); Mean Corpuscular Volume 89.3 fL (80.0-100.0); Mean Platelet Volume 9.9 fL (9.4-12.4); Monocytes # (auto) 0.38 K/uL (0.11-0.59); Monocytes % (auto) 5.5 %; Neutrophils # (auto) 5.99 K/uL (1.40-6.50); Neutrophils % (auto) 86.4 %; Platelet Count 223 K/uL (130-400); RDW Coefficient of Variation 13.2 % (11.5-14.5); RDW Standard Deviation 42.8 fL (36.4-46.3); White Blood Count 6.93 K/ul (4.8-10.8)
[2023-01-21 23:15] LABS: Albumin Globulin Ratio 1.7 (0.9-2); Albumin Level 4.3 gm/dl (3.4-5.0); BUN Creatinine Ratio 25.9 (10-20); Bilirubin,Total 0.6 mg/dl (0.2-1.0); Calcium 9.8 mg/dl (8.6-10.3); Creatinine Clr Calc Pharmacy 28.6 ml/min; Est GFR (African American) 49.4 ml/min; Est GFR (Non-African American) 42.6 ml/min; Globulin 2.6 gm/dl (2.5-4.0); Potassium 3.6 mmol/L (3.5-5.1); Total Protein 6.9 gm/dl (6.0-8.3)
[2023-01-21 23:29] LABS: Appearance Urine Clear (Clear); Bilirubin Urine Negative (Negative); Blood Urine Negative (Negative); Color Urine Yellow; Glucose Urine UA Negative (Negative); Ketones Urine Negative (Negative); Leukocyte Esterase Urine Negative (Negative); Nitrite Urine Negative (Negative); Protein Urine Negative (Negative); Specific Gravity Urine 1.011 (1.000-1.030); Urobilinogen Urine Negative (Negative)
[2023-01-21] MEDS ORDERED: ALBUMIN 25% 25 GM/100 ML VIAL IV STA (23:34)
[2023-01-21] MEDS ORDERED: MoRPHine SULFATE 4 MG/ML 1 ML CARP\\VIAL IV STA (23:35)
[2023-01-21 23:48] LABS: INR 2.3 (0.9-1.1); Partial Thromboplastin Ratio 1.2; Partial Thromboplastin Time 33.6 Seconds (21.0-31.0); Prothrombin Time 23.9 Seconds (9.0-12.0)
[2023-01-21 23:54] LABS: Magnesium 2.2 mg/dl (1.7-2.4)
[2023-01-22] MEDS ORDERED: carvediloL 3.125 MG TAB PO STA (00:25)
[2023-01-22] MEDS ORDERED: PHYTONADIONE 5 MG TAB PO STA (00:25)
--- NOTE | 2023-01-22 00:28 | History & Physical Report ---
Date of Service January 22, 2023 Assessment & Plan (1) Hip fracture: Plan: Traumatic right hip fracture chronic diastolic heart failure (EF 50-54%, TTE 2020), some congestion on CXR although patient without SOB complaints hx nonischemic cardiomyopathy status post [employer]T WORK[employer] SSS sp PPM/ICD upgrade on Coumadin, INR therapeutic valvular heart disease (moderate AR, mild TR) history of bioprosthetic MVR/TR repair pulmonary hypertension hypertension, slightly elevated hyperlipidemia on statin Rx hx PVD CRI, creatinine at baseline chronic hyponatremia hypothyroidism, euthyroid as of today's TSH Hyperglycemia likely prediabetes with A1c of 5.8 from 2017 Medical telemetry given hyponatremia and cardiac issues Orthopedics consult Re: Traumatic right hip fracture (Patient known to [facility] N.p.o. until patient seen by orthopedics in a.m. Patient agreeable to surgery if recommended. Hold Coumadin, Vitamin K 1 dose now to reverse Coumadin coagulopathy in anticipation of procedure. Cardiology consult Re: Preop eval Monitor sodium inpatient, patient averse to fluid restriction. Adamantly does not want to see [facility] nephrology if need arises due to unpleasant experience as per patient account. Update hemoglobin A1c DVT prophylaxis. SCDs while Coumadin on hold if INR less than 2 DNR Patient daughter requesting updates providers. Ms. Allie Ramachandran, contact #[phone]. Text document was generated using [employer] voice recognition software. It may contain grammatical or spelling errors. Kindly contact undersigned for clarification of any documentation item in question. History of Present Illness Chief Complaint: Right hip pain, fall Primary Care Provider: Faith Saldivar History obtained from patient, family, and records. 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 Last confinement February 2022 for left femoral fracture status post surgery. Mild volume overload postop. Worsening hyponatremia during confinement. Patient unhappy with nephrology recommendations for fluid restrictions. Patient tripped at home last night. Achy right hip pain, patient unable to get up. No head trauma. No headache, no syncope, no LOC, no chest pain, no SOB. Patient brought to the ER for evaluation. 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 Allergies Allergy/AdvReac Type Severity Reaction Status Date / Time Sulfa (Sulfonamide AdvReac Severe GI Unverified 01/21/23 23:07 Antibiotics) SYMPTOMS;kidney function compromised ciprofloxacin [From Cipro] AdvReac nausea/vomi Verified 01/21/23 23:07 ting Home Medications Medication Instructions Recorded Confirmed Type alendronate 70 mg tablet 70 mg PO WK 02/18/21 01/21/23 History aspirin 81 mg tablet,delayed 81 mg PO QA 02/18/21 01/21/23 History release carvedilol 12.5 mg tablet 12.5 mg PO [facility] 02/18/21 01/21/23 History cholecalciferol (vitamin D3) 25 50 mcg PO DAILY 02/18/21 01/21/23 History mcg (1,000 unit) tablet (Vitamin D3) gabapentin 100 mg capsule 200 mg PO 02/18/21 01/21/23 History multivitamin (Multiple Vitamins 1 tab PO QAM 02/18/21 01/21/23 History tablet) simvastatin 10 mg tablet 10 mg PO 02/18/21 01/21/23 History spironolactone 25 mg tablet 25 mg PO 02/18/21 01/21/23 History warfarin 5 mg tablet 2.5 mg PO SUTUTHSA 02/18/21 01/21/23 History levothyroxine 75 mcg capsule 75 mcg PO DAILY 02/14/22 01/21/23 History lifitegrast 5 % eye drops in a 1 drp OPB 02/14/22 01/21/23 History dropperette (Xiidra) sennosides 8.6 mg tablet (senna) 25.8 mg PO DAILY 02/14/22 01/21/23 History torsemide 20 mg tablet 40 mg PO DAILY 02/14/22 01/21/23 History warfarin 5 mg tablet 5 mg PO MOWEFR 02/14/22 01/21/23 History acetaminophen 325 mg tablet 650 mg PO Q4H PRN fever or pain 02/25/22 01/21/23 Rx #30 tabs polyethylene glycol 3350 17 gram 17 g PO Q6 PRN constipation #30 ea 02/25/22 01/21/23 Rx oral powder packet (Miralax) Past Med/Surg History Medical History Chronic heart failure with preserved ejection fraction (HFpEF) Chronic hyponatremia CKD (chronic kidney disease) stage 3, GFR 30-59 ml/min Fall H/O: HTN (hypertension) HLD (hyperlipidemia) HTN (hypertension) Hx of cardiac pacemaker Hypokalemia Hypothyroid Osteoporosis Permanent atrial fibrillation Spinal stenosis Subcapital fracture of left femur Surgical History Hx of atrioventricular node ablation Hx of mitral valve replacement Hx of tricuspid valve repair S/P cardiac pacemaker procedure Social History Smoking Status: Never smoker Hx Alcohol Use: No Hx Substance Use: No Preferred Language: Malay Communication Ability: Effective Photo Intern Required: No Beliefs That Will Affect Care: None Current Living Situation: Alone Feels Safe at Home: Yes Safety Concerns: Feels Safe At This Time Assistive Devices: Cane, Denture - Upper, Denture - Lower and Hearing Aid - Bilateral Review of Systems Review of Systems: As per HPI, all other systems reviewed and negative Physical Exam Physical Exam: GENERAL: Comfortable, slightly anxious, looks younger than stated age, no respiratory distress SKIN: Normal color, warm HEENT: [place] palpebral conjunctivae, no ptosis, dry buccal mucosa NECK : Supple, no tenderness CHEST : CTA, no tenderness HEART : RRR, systolic murmur ABDOMEN: Some distention, nontender EXTREMITIES : RLE swelling (chronic as per patient, right hip tenderness, no other conspicuous deformities noted NEUROLOGIC : Coherent, no facial asymmetry, gait and stance not assessed Results & Data Results & Data Vital Signs (Past 12 Hours) Vital Signs Temp Pulse Pulse Resp BP BP Pulse Ox 01/22/23 00:00 69 18 157/76 H 98 01/21/23 23:50 71 21 160/103 H 97 01/21/23 23:30 163/77 H 01/21/23 23:50 36.6 C 70 18 160/103 H 94 01/21/23 23:30 73 19 97 01/21/23 23:00 71 23 158/112 H 99 01/21/23 22:45 72 22 172/97 H 98 01/21/23 22:32 70 25 H 174/94 H 99 01/21/23 22:26 73 01/21/23 22:21 36.8 C 70 18 170/99 H 98 O2 Del Method 01/22/23 00:00 Room Air 01/21/23 23:50 Room Air 01/21/23 23:30 01/21/23 23:50 Room Air 01/21/23 23:30 Room Air 01/21/23 23:00 Room Air 01/21/23 22:45 Room Air 01/21/23 22:32 Room Air 01/21/23 22:26 01/21/23 22:21 Room Air Laboratory Results Laboratory Results WBC 6.93 K/ul (4.8-10.8) 01/21/23 22:47 RBC 4.10 M/uL (4.20-5.40) L 01/21/23 22:47 Hgb 12.1 g/dl (12.0-16.0) 01/21/23 22:47 Hct 36.6 % (37.0-47.0) L 01/21/23 22:47 MCV 89.3 fL (80.0-100.0) 01/21/23 22:47 MCH 29.5 pg (25.0-34.0) 01/21/23 22:47 MCHC 33.1 g/dL (32.0-36.0) 01/21/23 22:47 RDW Std Deviation 42.8 fL (36.4-46.3) 01/21/23 22:47 RDW Coeff of Fabricio 13.2 % (11.5-14.5) 01/21/23 22:47 Plt Count 223 K/uL (130-400) 01/21/23 22:47 MPV 9.9 fL (9.4-12.4) 01/21/23 22:47 Immature Gran % (Auto) 0.7 % 01/21/23 22:47 Neut % (Auto) 86.4 % 01/21/23 22:47 Lymph % (Auto) 7.1 % 01/21/23 22:47 [place] % (Auto) 5.5 % 01/21/23 22:47 Eos % (Auto) 0.0 % 01/21/23 22:47 Baso % (Auto) 0.3 % 01/21/23 22:47 Neut # (Auto) 5.99 K/uL (1.40-6.50) 01/21/23 22:47 Lymph # (Auto) 0.49 K/uL (1.2-3.4) L 01/21/23 22:47 [place] # (Auto) 0.38 K/uL (0.11-0.59) 01/21/23 22:47 Eos # (Auto) 0.00 K/uL (0-0.50) 01/21/23 22:47 Baso # (Auto) 0.02 K/uL (0-0.2) 01/21/23 22:47 Immature Gran # (Auto) 0.05 K/uL (0.01-0.20) 01/21/23 22:47 PT 23.9 Seconds (9.0-12.0) H 01/21/23 22:47 INR 2.3 (0.9-1.1) H 01/21/23 22:47 APTT 33.6 Seconds (21.0-31.0) H 01/21/23 22:47 PTT Ratio 1.2 01/21/23 22:47 Sodium 131 mmol/L (136-145) L 01/21/23 22:47 Potassium 3.6 mmol/L (3.5-5.1) 01/21/23 22:47 Chloride 95 mmol/L (98-107) L 01/21/23 22:47 Carbon Dioxide 29 mmol/L (21-32) 01/21/23 22:47 Anion Gap 7 (3-11) 01/21/23 22:47 BUN 30 mg/dl (6-23) H 01/21/23 22:47 Creatinine 1.16 mg/dl (0.6-1.2) 01/21/23 22:47 Est Cr Clr Drug Dosing 28.6 ml/min 01/21/23 22:47 Est GFR ( Amer) 49.4 ml/min 01/21/23 22:47 Est GFR (Non-Af Amer) 42.6 ml/min 01/21/23 22:47 BUN/Creatinine Ratio 25.9 (10-20) H 01/21/23 22:47 Glucose 144 mg/dl (70-99(Fasting)) H 01/21/23 22:47 Osmolality 287 mOsm/kg (280-300) 01/21/23 23:33 Calcium 9.8 mg/dl (8.6-10.3) 01/21/23 22:47 Magnesium 2.2 mg/dl (1.7-2.4) 01/21/23 22:47 Total Bilirubin 0.6 mg/dl (0.2-1.0) 01/21/23 22:47 AST 25 U/L (13-39) 01/21/23 22:47 ALT 13 U/L (7-52) 01/21/23 22:47 Alkaline Phosphatase 71 U/L (34-104) 01/21/23 22:47 Total Protein 6.9 gm/dl (6.0-8.3) 01/21/23 22:47 Albumin 4.3 gm/dl (3.4-5.0) 01/21/23 22:47 Globulin 2.6 gm/dl (2.5-4.0) 01/21/23 22:47 Albumin/Globulin Ratio 1.7 (0.9-2) 01/21/23 22:47 TSH 2.227 uIu/ml (0.300-4.500) 01/21/23 23:33 Urine Color Yellow 01/21/23 23:19 Urine Appearance Clear (Clear) 01/21/23 23:19 Urine pH 6.0 (4.5-7.5) 01/21/23 23:19 Ur Specific [place] 1.011 (1.000-1.030) 01/21/23 23:19 Urine Protein Negative (Negative) 01/21/23 23:19 Urine Glucose (UA) Negative (Negative) 01/21/23 23:19 Urine Ketones Negative (Negative) 01/21/23 23:19 Urine Blood Negative (Negative) 01/21/23 23:19 Urine Nitrite Negative (Negative) 01/21/23 23:19 Urine Bilirubin Negative (Negative) 01/21/23 23:19 Urine Urobilinogen Negative (Negative) 01/21/23 23:19 Ur Leukocyte Esterase Negative (Negative) 01/21/23 23:19 SARS-CoV-2, RNA, NAAT NEGATIVE (NEGATIVE) 01/21/23 22:33 Blood Type A Negative 01/21/23 22:47 Antibody Screen NEGATIVE 01/21/23 22:47 Diagnostic Findings Chest x-ray as per them interpretation cardiomegaly, congestion, ICD Right hip x-ray as per my interpretation displaced right femoral fracture EKG as per my interpretation : Rate 70, paced rhythm (1) Hip fracture Encounter type: initial encounter Fracture type: closed Laterality: right Qualified Code(s): S72.001A - Fracture of unspecified part of neck of right femur, initial encounter for closed fracture
[2023-01-22] MEDS ORDERED: PHYTONADIONE 5 MG in DEXTROSE 5% 50 ML IV STA (00:30)
[2023-01-22] MEDS ORDERED: MoRPHine SULFATE 2 MG/ML CARP IV PRN (00:35)
[2023-01-22] MEDS ORDERED: PROMETHAZINE HCL 6.25 MG in SODIUM CHLORIDE 0.9% 50 ML IV PRN (00:35)
[2023-01-22] MEDS ORDERED: NALOXONE HCL 0.4 MG/1 ML VIAL/CARP IV PRN (01:39)
[2023-01-22] MEDS ORDERED: carvediloL 3.125 MG TAB PO ONE (02:45)
[2023-01-22] MEDS: SIMVASTATIN 10 MG TAB PO SCH ×2 (03:02→20:20)
[2023-01-22] MEDS: LEVOTHYROXINE SODIUM 75 MCG TABLET PO SCH (05:38)
--- NOTE | 2023-01-22 06:47 | XRay Report ---
XR chest 1V portable CLINICAL HISTORY: Preoperative evaluation. COMPARISON STUDY: Chest CT February 18, 2021 chest radiograph May 17, 2022. FINDINGS: A left subclavian biventricular pacer/AICD is in place. Linear right midlung opacity favors scarring or atelectasis. Cardiomegaly is unchanged. Mild interstitial thickening remains unchanged. There is no consolidation to suggest pneumonia. There is no pneumothorax or pleural effusion. IMPRESSION: Cardiomegaly with pulmonary vascular congestion, similar to prior study. ACT 112: Negative or not required by law. Electronically signed by: Philip Huitron M.D. 01/22/2023 6:45 AM
--- NOTE | 2023-01-22 06:48 | XRay Report ---
XR hip RT 2V w pelvis CLINICAL HISTORY: fall, pain COMPARISON: Pelvis radiograph February 14, 2022. FINDINGS: There is an acute comminuted mildly displaced intertrochanteric fracture of the right femu r with slight subtrochanteric extension. Old right pubic ring fractures are incidentally noted. Left hip arthroplasty appears intact. Sacroiliac joints and symphysis pubis are intact. IMPRESSION: Acute comminuted mildly displaced intertrochanteric fracture of the right femur with slig ht subtrochanteric extension. ACT 112: Negative or not required by law. Electronically signed by: Philip Huitron M.D. 01/22/2023 6:47 AM
[2023-01-22 07:27] LABS: Estimated Average Glucose 117 mg/dl; Hemoglobin A1C 5.7 % (4.5-5.6)
[2023-01-22 07:46] LABS: Basophils # (auto) 0.01 K/uL (0-0.2); Basophils % (auto) 0.1 %; Hematocrit (blood only) 30.4 % (37.0-47.0); Hemoglobin 10.1 g/dl (12.0-16.0); Immature Granulocytes # (auto) 0.06 K/uL (0.01-0.20); Immature Granulocytes % (auto) 0.6 %; Lymphocytes # (auto) 0.51 K/uL (1.2-3.4); Lymphocytes % (auto) 5.5 %; Mean Corpuscular Hemoglobin 29.7 pg (25.0-34.0); Mean Corpuscular Hgb Conc 33.2 g/dL (32.0-36.0); Mean Corpuscular Volume 89.4 fL (80.0-100.0); Monocytes % (auto) 6.5 %; Neutrophils # (auto) 8.08 K/uL (1.40-6.50); Neutrophils % (auto) 87.3 %; Platelet Count 195 K/uL (130-400); RDW Coefficient of Variation 13.3 % (11.5-14.5); RDW Standard Deviation 43.3 fL (36.4-46.3); White Blood Count 9.26 K/ul (4.8-10.8)
[2023-01-22 08:00] LABS: BUN Creatinine Ratio 27.8 (10-20); Calcium 9.3 mg/dl (8.6-10.3); Creatinine Clr Calc Pharmacy 34.5 ml/min; Est GFR (African American) 61.3 ml/min; Est GFR (Non-African American) 52.9 ml/min; Potassium 3.8 mmol/L (3.5-5.1)
[2023-01-22 08:06] LABS: INR 1.8 (0.9-1.1); Prothrombin Time 19.3 Seconds (9.0-12.0)
[2023-01-22] MEDS: ASPIRIN 81 MG ECTAB PO SCH (08:10)
[2023-01-22] MEDS: MULTIVITAMIN TAB PO SCH (08:10)
[2023-01-22] MEDS: carvediloL 12.5 MG TAB PO SCH ×2 (08:10→20:19)
[2023-01-22] MEDS: SENNA 8.6 MG TAB PO SCH (08:11)
[2023-01-22] MEDS: CHOLECALCIFEROL 1,000 UNITS 25 MCG TAB PO SCH (08:11)
--- NOTE | 2023-01-22 08:25 | Cardiology Consultation ---
Date of Consultation January 22, 2023 Assessment & Plan (1) NICM (nonischemic cardiomyopathy): (2) Biventricular cardiac pacemaker in situ: (3) AICD (automatic cardioverter/defibrillator) present: (4) Permanent atrial fibrillation: (5) Encounter for pre-operative examination: Plan IMPRESSION: Medically complex 87-year-old female with history of nonischemic cardiomyopathy status post biventricular ICD in 2015, most recent LVEF 50 to 54 cm per echo 03/2021, normally invasive mitral valve replacement and tricuspid repair 2014. She also has a history of permanent atrial fibrillation and is anticoagulated with Coumadin. Unfortunately patient suffered a fall last evening and fractured her right hip. Preop risk stratification being requested. PLAN: Patient was educated that she would be placed at an elevated risk for surgery given her underlying cardiac comorbidities. However, she appears well compensated from a cardiac standpoint. Okay to proceed with right hip repair from a cardiac standpoint. Patient verbalized understanding of the risks and wishes to proceed. Currently Coumadin is on hold- recommend resuming once clinically stable from a surgical standpoint. As an FYI- During her last surgery on the left femur she did experience some mild hypervolemia post op. Caution IV fluid use. Case discussed with Dr. Gomez. Supervising Physician Co-Signing Physician Notes Patient was seen and examined, chart and medications reviewed. Full assessment and plan as above 87-year-old female with complex but stable cardiac history who suffered a mechan ical fall and subsequent right hip fracture. No cardiac contraindications to proceeding with indicated surgery. Anticoagulation has been reversed. Agree with prompt intervention History of Present Illness Reason for Consultation: Preop Requesting Physician: [facility] Attending Physician: Gutierrez Trevino MD History of Present Illness Medically complex 87-year-old female who suffered a mechanical fall yesterday evening and fractured her right hip. Past medical history as stated below under problem list. Patient anticoagulated on Coumadin and was reversed with x1 dose of vitamin K. INR this morning was 1.8. Last confinement in February 2022 for left femoral fracture status post surgery. Patient experiencing ongoing postop. Upon entrance into the room patient resting supine in bed. Having pain in the right leg. Denies cardiac complaints. No chest pain, shortness of breath, lightheadedness. No orthopnea or PND. No increased lower extremity edema. Compression socks in place. Problem List: 1. Nonischemic cardiomyopathy, left ventricular ejection fraction of 25-30% per echo in [place] in January,, improved to 45-49% after cardiac resynchronization therapy based on repeat echocardiogram a [facility] July,, and then 55-59% in 03/2018, 50% 12/2019, 50% 2020 2. History of minimally invasive mitral valve replacement utilizing a [address] Jun Epic bioprosthesis and TV repair with 30 mm Triad ring, 05/27/15 at [facility] [place] [facility], Dr Alexander 3. Residual moderate aortic valve regurgitation 4. History of permanent atrial fibrillation, AV junction ablation 2007 5. Permanent pacemaker initially placed in 2006, generator change 2010, upgrade to biventricular AICD May, 6. Stage IIIchronic kidney disease 7. Hypothyroidism Allergies Allergy/AdvReac Type Severity Reaction Status Date / Time Sulfa (Sulfonamide AdvReac Severe GI Unverified 01/21/23 23:07 Antibiotics) SYMPTOMS;kidney function compromised ciprofloxacin [From Cipro] AdvReac nausea/vomi Verified 01/21/23 23:07 ting Home Medications Medication Instructions Recorded Confirmed Type alendronate 70 mg tablet 70 mg PO WK 02/18/21 01/21/23 History aspirin 81 mg tablet,delayed 81 mg PO QAM 02/18/21 01/21/23 History release carvedilol 12.5 mg tablet 12.5 mg PO [facility] 02/18/21 01/21/23 History cholecalciferol (vitamin D3) 25 50 mcg PO DAILY 02/18/21 01/21/23 History mcg (1,000 unit) tablet (Vitamin D3) gabapentin 100 mg capsule 200 mg PO HS 02/18/21 01/21/23 History multivitamin (Multiple Vitamins 1 tab PO QAM 02/18/21 01/21/23 History tablet) simvastatin 10 mg tablet 10 mg PO HS 02/18/21 01/21/23 History spironolactone 25 mg tablet 25 mg PO 02/18/21 01/21/23 History warfarin 5 mg tablet 2.5 mg PO SUTUTHSA 02/18/21 01/21/23 History levothyroxine 75 mcg capsule 75 mcg PO DAILY 02/14/22 01/21/23 History lifitegrast 5 % eye drops in a 1 drp OPB 02/14/22 01/21/23 History dropperette (Xiidra) sennosides 8.6 mg tablet (senna) 25.8 mg PO DAILY 02/14/22 01/21/23 History torsemide 20 mg tablet 40 mg PO DAILY 02/14/22 01/21/23 History warfarin 5 mg tablet 5 mg PO MOWEFR 02/14/22 01/21/23 History acetaminophen 325 mg tablet 650 mg PO Q4H PRN fever or pain 02/25/22 01/21/23 Rx #30 tabs polyethylene glycol 3350 17 gram 17 g PO Q6 PRN constipation #30 ea 02/25/22 01/21/23 Rx oral powder packet (Miralax) Patient History Medical History Chronic heart failure with preserved ejection fraction (HFpEF) Chronic hyponatremia CKD (chronic kidney disease) stage 3, GFR 30-59 ml/min Fall H/O: HTN (hypertension) HLD (hyperlipidemia) HTN (hypertension) Hx of cardiac pacemaker Hypokalemia Hypothyroid Osteoporosis Permanent atrial fibrillation Spinal stenosis Subcapital fracture of left femur Surgical History Hx of atrioventricular node ablation Hx of mitral valve replacement Hx of tricuspid valve repair S/P cardiac pacemaker procedure Social History Smoking Status: Never smoker Hx Alcohol Use: No Hx Substance Use: No Preferred Language: Canadian Communication Ability: Effective Belt Conveyor Drier Required: No Beliefs That Will Affect Care: None Current Living Situation: Alone Feels Safe at Home: Yes Safety Concerns: Feels Safe At This Time Assistive Devices: Cane, Denture - Upper, Denture - Lower and Hearing Aid - Bilateral Review of Systems Review of Systems: All systems reviewed & are unremarkable except as noted in HPI & below Physical Exam Constitutional: WD/WN, vitals as above no acute distress Eyes: PERRL, conjunctivae normal, anicteric sclerae ENMT: external ear and nose normal, oropharynx normal Neck: normal visual inspection and trachea midline Respiratory: normal respiratory effort, lungs clear to auscultation Cardiovascular: Rate/Rhythm: regular rate and + irregularly irregular Heart Sounds: normal S1, normal S2 and + murmur Extremities: + edema (trace BL, compression socks in place ) Gastrointestinal (Abdomen): normal bowel sounds, soft, nontender, no hepatosplenomegaly Skin: no rashes, warm and dry Psychiatric: A+Ox3, euthymic affect Results & Data Vital Signs (Past 12 Hours) Vital Signs Temp Pulse Pulse Resp BP BP Pulse Ox 01/22/23 01:45 72 01/22/23 01:39 36.7 C 71 16 183/91 H 95 01/22/23 03:49 36.7 C 79 18 155/69 H 95 01/22/23 00:30 71 24 158/76 H 95 01/22/23 00:00 69 18 157/76 H 98 01/21/23 23:50 71 21 160/103 H 97 01/21/23 23:30 163/77 H 01/21/23 23:50 36.6 C 70 18 160/103 H 94 01/21/23 23:30 73 19 97 01/21/23 23:00 71 23 158/112 H 99 01/21/23 22:45 72 22 172/97 H 98 01/21/23 22:32 70 25 H 174/94 H 99 01/21/23 22:26 73 01/21/23 22:21 36.8 C 70 18 170/99 H 98 O2 Del Method 01/22/23 01:45 01/22/23 01:39 Room Air 01/22/23 03:49 Room Air 01/22/23 00:30 Room Air 01/22/23 00:00 Room Air 01/21/23 23:50 Room Air 01/21/23 23:30 01/21/23 23:50 Room Air 01/21/23 23:30 Room Air 01/21/23 23:00 Room Air 01/21/23 22:45 Room Air 01/21/23 22:32 Room Air 01/21/23 22:26 01/21/23 22:21 Room Air Laboratory Results Cardiac Enzymes 01/21/23 Range/Units 22:47 AST 25 (13-39) U/L Coagulation 01/21/23 01/22/23 Range/Units 22:47 06:53 PT 23.9 H 19.3 H (9.0-12.0) Seconds APTT 33.6 H (21.0-31.0) Seconds CBC 01/21/23 01/22/23 Range/Units 22:47 06:53 WBC 6.93 9.26 (4.8-10.8) K/ul RBC 4.10 L 3.40 L (4.20-5.40) M/uL Hgb 12.1 10.1 L (12.0-16.0) g/dl Hct 36.6 L 30.4 L (37.0-47.0) % Plt Count 223 195 (130-400) K/uL Neut # (Auto) 5.99 8.08 H (1.40-6.50) K/uL Lymph # (Auto) 0.49 L 0.51 L (1.2-3.4) K/uL [place] # (Auto) 0.38 0.60 H (0.11-0.59) K/uL Eos # (Auto) 0.00 0.00 (0-0.50) K/uL Baso # (Auto) 0.02 0.01 (0-0.2) K/uL Comprehensive Metabolic Panel 01/21/23 01/22/23 Range/Units 22:47 06:53 Sodium 131 L 133 L (136-145) mmol/L Potassium 3.6 3.8 (3.5-5.1) mmol/L Chloride 95 L 98 (98-107) mmol/L Carbon Dioxide 29 30 (21-32) mmol/L BUN 30 H 27 H (6-23) mg/dl Creatinine 1.16 0.97 (0.6-1.2) mg/dl Glucose 144 H 116 H (70-99(Fasting)) mg/dl Calcium 9.8 9.3 (8.6-10.3) mg/dl AST 25 (13-39) U/L ALT 13 (7-52) U/L Alkaline Phosphatase 71 (34-104) U/L Total Protein 6.9 (6.0-8.3) gm/dl Albumin 4.3 (3.4-5.0) gm/dl Intake and Output 01/21/23 01/22/23 01/22/23 22:59 06:59 14:59 Intake Total 100 / 250.5 150.5 / 250.5 Output Total 750 / 750 Balance 100 / -499.5 -599.5 / -499.5 Intake: IV 100 / 250.5 150.5 / 250.5 Acetaminophen 1,000 mg In 100 100 / 100 ml @ 400 mls/hr IV NOW STA Rx#: [id number] Albumin 25% 25 gm In 100 ml @ 100 / 100 50 mls/hr IV ONE STA Rx#: [id number] Phytonadione 5 mg In Dextrose 5 50.5 / 50.5 % 50 ml @ 101 mls/hr IV ONE STA Rx#:[id number] Output: Urine Amount (Catheter) 750 / 750 Garcia/Indwelling 750 / 750 Other: Weight 58.2 kg 59.7 kg Weight Measurement Method Built in [facility] Built in [facility]
[2023-01-22] MEDS: oxyCODONE HCL IR 5 MG TAB (IMMEDIATE RELEASE) PO PRN ×3 (09:15→23:09)
--- NOTE | 2023-01-22 10:15 | Orthopedic Consultation ---
Date of Service January 22, 2023 Assessment & Plan (1) Hip fracture: 1. continue NPO 2. Hold coumadin 3. Discussed surgical options with patient. Recommend IM nail of right hip. Discussed the risks, benefits with patient. Questions were answered. Decision for surgery was made. Dr. Diaz with meet with patient in pre op. History of Present Illness Reason for Consultation: . Requesting Physician: . Attending Physician: Gutierrez Trevino MD Dafne is an 87 y/o female who fell last night at her home. She states that she lost her balance and fell hard on her right side. She had a lot of pain and could not bear weight on her hip. She was taken to [facility] ER for evaluation. Xrays show a displaced intertrochanteric hip fracture. She was admitted for pain control and orthopedic consultation. Patient is ambulates independently and lives alone. She has a hx of afib and is on coumidin. Recent INR at 1.6. Allergies Allergy/AdvReac Type Severity Reaction Status Date / Time Sulfa (Sulfonamide AdvReac Severe GI Unverified 01/21/23 23:07 Antibiotics) SYMPTOMS;kidney function compromised ciprofloxacin [From Cipro] AdvReac nausea/vomi Verified 01/21/23 23:07 ting Home Medications Medication Instructions Recorded Confirmed Type alendronate 70 mg tablet 70 mg PO WK 02/18/21 01/21/23 History aspirin 81 mg tablet,delayed 81 mg PO QAM 02/18/21 01/21/23 History release carvedilol 12.5 mg tablet 12.5 mg PO [facility] 02/18/21 01/21/23 History cholecalciferol (vitamin D3) 25 50 mcg PO DAILY 02/18/21 01/21/23 History mcg (1,000 unit) tablet (Vitamin D3) gabapentin 100 mg capsule 200 mg PO HS 02/18/21 01/21/23 History multivitamin (Multiple Vitamins 1 tab PO QAM 02/18/21 01/21/23 History tablet) simvastatin 10 mg tablet 10 mg PO HS 02/18/21 01/21/23 History spironolactone 25 mg tablet 25 mg PO HS 02/18/21 01/21/23 History warfarin 5 mg tablet 2.5 mg PO SUTUTHSA 02/18/21 01/21/23 History levothyroxine 75 mcg capsule 75 mcg PO DAILY 02/14/22 01/21/23 History lifitegrast 5 % eye drops in a 1 drp OPB HS 02/14/22 01/21/23 History dropperette (Xiidra) sennosides 8.6 mg tablet (senna) 25.8 mg PO DAILY 02/14/22 01/21/23 History torsemide 20 mg tablet 40 mg PO DAILY 02/14/22 01/21/23 History warfarin 5 mg tablet 5 mg PO MOWEFR 02/14/22 01/21/23 History acetaminophen 325 mg tablet 650 mg PO Q4H PRN fever or pain 02/25/22 01/21/23 Rx #30 tabs polyethylene glycol 3350 17 gram 17 g PO Q6 PRN constipation #30 ea 02/25/22 01/21/23 Rx oral powder packet (Miralax) Past Med/Surg History Medical History Chronic heart failure with preserved ejection fraction (HFpEF) Chronic hyponatremia CKD (chronic kidney disease) stage 3, GFR 30-59 ml/min Fall H/O: HTN (hypertension) HLD (hyperlipidemia) HTN (hypertension) Hx of cardiac pacemaker Hypokalemia Hypothyroid Osteoporosis Permanent atrial fibrillation Spinal stenosis Subcapital fracture of left femur Surgical History Hx of atrioventricular node ablation Hx of mitral valve replacement Hx of tricuspid valve repair S/P cardiac pacemaker procedure Social History Smoking Status: Never smoker Hx Alcohol Use: No Hx Substance Use: No Preferred Language: Malagasy Communication Ability: Effective Automation Analyst Required: No Beliefs That Will Affect Care: None Current Living Situation: Alone Feels Safe at Home: Yes Safety Concerns: Feels Safe At This Time Assistive Devices: Cane, Denture - Upper, Denture - Lower and Hearing Aid - Bilateral Review of Systems All systems reviewed & are unremarkable except as noted in HPI & below. Physical Exam Patient resting comfortably in bed. Alert and oriented x3. Right leg shortened and externally rotated. Pain with log roll RLE. Results & Data Results & Data Laboratory Results . Diagnostic Findings . PG Care Time/CCT Total # of Minutes Spent Total Time Spent with Patient: Total time spent is greater than 50% in coordination of care (as documented) at patient's floor/unit and/or counseling patient: Coding Level of Care Code 04089 IN/OBS CONSULT LVL 3,45M Diagnoses Hip fracture S72.001A Encounter type: initial encounter Fracture type: closed Laterality: right (1) Hip fracture Encounter type: initial encounter Fracture type: closed Laterality: right Qualified Code(s): S72.001A - Fracture of unspecified part of neck of right femur, initial encounter for closed fracture
--- NOTE | 2023-01-22 11:40 | Anesthesiology Consultation ---
Date of Service January 22, 2023 Assessment & Plan (1) Encounter for pre-operative examination: Chart Review Chart Review: Acceptable Risk for Surgery and Patient NOT seen in Pre Admission Testing Consults Requested none Additional Notes Patient INR elevated, plan for [place] History Surgery Operation Date: 01/22/23 12:10 Proposed Procedures p Right Intramedullary Nail - Otis Diaz, DO Height/Weight Height: 5 ft 1 in Weight: 59.7 kg Allergies Allergy/AdvReac Type Severity Reaction Status Date / Time Sulfa (Sulfonamide AdvReac Severe GI Unverified 01/21/23 23:07 Antibiotics) SYMPTOMS;kidney function compromised ciprofloxacin [From Cipro] AdvReac nausea/vomi Verified 01/21/23 23:07 ting Medications Home Medications Medication Instructions Recorded Confirmed Last Taken alendronate 70 mg tablet 70 mg PO WK 02/18/21 01/21/23 01/15/23 aspirin 81 mg tablet,delayed 81 mg PO QAM 02/18/21 01/21/23 Unknown release carvedilol 12.5 mg tablet 12.5 mg PO [facility] 02/18/21 01/21/23 Unknown cholecalciferol (vitamin D3) 25 50 mcg PO DAILY 02/18/21 01/21/23 Unknown mcg (1,000 unit) tablet (Vitamin D3) gabapentin 100 mg capsule 200 mg PO HS 02/18/21 01/21/23 Unknown multivitamin (Multiple Vitamins 1 tab PO QAM 02/18/21 01/21/23 Unknown tablet) simvastatin 10 mg tablet 10 mg PO HS 02/18/21 01/21/23 Unknown spironolactone 25 mg tablet 25 mg PO 02/18/21 01/21/23 Unknown warfarin 5 mg tablet 2.5 mg PO SUTUTHSA 02/18/21 01/21/23 Unknown levothyroxine 75 mcg capsule 75 mcg PO DAILY 02/14/22 01/21/23 Unknown lifitegrast 5 % eye drops in a 1 drp OPB 02/14/22 01/21/23 Unknown dropperette (Xiidra) sennosides 8.6 mg tablet (senna) 25.8 mg PO DAILY 02/14/22 01/21/23 Unknown torsemide 20 mg tablet 40 mg PO DAILY 02/14/22 01/21/23 Unknown warfarin 5 mg tablet 5 mg PO MOWEFR 02/14/22 01/21/23 01/20/23 acetaminophen 325 mg tablet 650 mg PO Q4H PRN fever or pain 02/25/22 01/21/23 Unknown #30 tabs polyethylene glycol 3350 17 gram 17 g PO Q6 PRN constipation #30 ea 02/25/22 01/21/23 Unknown oral powder packet (Miralax) Active Medications Generic Name Dose Route Start Last Admin Trade Name Freq PRN Reason Stop Dose Admin Aspirin 81 mg 01/22/23 09:00 01/22/23 08:10 Aspirin 81 Mg Ectab PO 02/21/23 08:59 Not Given QAM [place] Carvedilol 12.5 mg 01/22/23 09:00 01/22/23 08:10 Carvedilol 12.5 Mg Tab PO 02/21/23 08:59 12.5 mg AMHS [place] Administration Levothyroxine Sodium 75 mcg 01/22/23 06:30 01/22/23 05:38 Levothyroxine Sodium 75 Mcg Tablet PO 02/21/23 06:29 75 mcg DAILYBB [place] Administration Morphine Sulfate 2 mg 01/22/23 00:35 01/22/23 02:15 Morphine Sulfate 2 Mg/Ml Carp IV 02/05/23 00:34 2 mg Q3H PRN Administration Pain Multivitamins 1 tab 01/22/23 09:00 01/22/23 08:10 Multivitamin Tab PO 02/21/23 08:59 Not Given QAM [facility] Oxycodone HCl 5 mg 01/22/23 00:35 01/22/23 09:15 Oxycodone Hcl Ir 5 Mg Tab (Immediate Release) PO 02/05/23 00:34 5 mg Q4H PRN Administration Pain Sennosides 25.8 mg 01/22/23 09:00 01/22/23 08:11 Senna 8.6 Mg Tab PO 02/21/23 08:59 25.8 mg DAILY [place] Administration Simvastatin 10 mg 01/22/23 01:39 01/22/23 03:02 Simvastatin 10 Mg Tab PO 02/21/23 01:38 10 mg HS [place] Administration Vitamin D 2,000 units 01/22/23 09:00 01/22/23 08:11 Cholecalciferol 1,000 Units 25 Mcg Tab PO 02/21/23 08:59 2,000 units DAILY [place] Administration Past Medical History Medical History Chronic heart failure with preserved ejection fraction (HFpEF) Chronic hyponatremia CKD (chronic kidney disease) stage 3, GFR 30-59 ml/min Fall H/O: HTN (hypertension) HLD (hyperlipidemia) HTN (hypertension) Hx of cardiac pacemaker Hypokalemia Hypothyroid Osteoporosis Permanent atrial fibrillation Spinal stenosis Subcapital fracture of left femur Past Surgical History Surgical History Hx of atrioventricular node ablation Hx of mitral valve replacement Hx of tricuspid valve repair S/P cardiac pacemaker procedure Social History Smoking Status: Never smoker Hx Alcohol Use: No Hx Substance Use: No substance use type: does not use Physical Exam Vital Signs Last Vital Signs Temp 97.9 F 01/22/23 08:28 Pulse 68 01/22/23 08:28 Resp 18 01/22/23 08:28 BP 167/75 H 01/22/23 08:28 Pulse Ox 93 01/22/23 08:28 O2 Del Method Room Air 01/22/23 11:05 Testing Laboratory Results 01/22/23 06:53 01/22/23 06:53 PT 19.3 Seconds (9.0-12.0) H 01/22/23 06:53 INR 1.8 (0.9-1.1) H 01/22/23 06:53 APTT 33.6 Seconds (21.0-31.0) H 01/21/23 22:47 Hemoglobin A1c 5.7 % (4.5-5.6) H 01/21/23 22:47 Urine Color Yellow 01/21/23 23:19 Urine Appearance Clear (Clear) 01/21/23 23:19 Urine pH 6.0 (4.5-7.5) 01/21/23 23:19 Ur Specific [place] 1.011 (1.000-1.030) 01/21/23 23:19 Urine Protein Negative (Negative) 01/21/23 23:19 Urine Glucose (UA) Negative (Negative) 01/21/23 23:19 Urine Ketones Negative (Negative) 01/21/23 23:19 Urine Nitrite Negative (Negative) 01/21/23 23:19 Ur Leukocyte Esterase Negative (Negative) 01/21/23 23:19 Blood Type A Negative 01/21/23 22:47 Antibody Screen NEGATIVE 01/21/23 22:47 Electrocardiogram Date: 01/21/23 V-Paced 70 Chest X-Ray Date: 01/21/23 Findings: + cardiomegaly and + pulmonary vascular congestion Echocardiogram Date: 02/15/22 EF: 50-55 LV Function: dysfunctional (basal post wall akinesis) Other Findings: + atrial enlargement (b/l) bioprosthetic mitral valve
[2023-01-22] MEDS ORDERED: LIDOCAINE 2% 2 ML VIAL/AMP(20MG/ML) INFIL ONE (11:58)
[2023-01-22] MEDS ORDERED: PROPOFOL IV EMULSION 10 MG/ML 20 ML VIAL IV ONE (11:58)
[2023-01-22] MEDS ORDERED: ePHEDrine sulfate 50 MG/ML AMP IV PRN (12:40)
[2023-01-22] MEDS ORDERED: ATROPINE SULFATE 0.1 MG/ML 10ML SYR IV PRN (12:40)
[2023-01-22] MEDS ORDERED: ONDANSETRON INJ 2 MG/ML 2 ML VIAL IV PRN (12:40)
[2023-01-22] MEDS ORDERED: fentaNYL citrate PF 100 MCG/2 ML VIAL IV PRN (12:40)
--- NOTE | 2023-01-22 12:48 | History & Physical Bridge Note ---
Date of Service January 22, 2023 History & Physical Bridge Note I have examined the patient, reviewed the History & Physical and in the interval since the performance of the History & Physical I have noted the following changes of clinical significance: no changes noted
[2023-01-22] MEDS ORDERED: ceFAZolin 2000MG 2,000 MG/15 ML SYR IV ONE (12:54)
[2023-01-22] MEDS ORDERED: ceFAZolin 2,000 MG/15 ML IV PUSH IV ONE (12:56)
[2023-01-22] MEDS ORDERED: BUPIVACAINE/EPINEPHRINE 0.25% 1:200,000 30 ML VIAL ONE (13:33)
--- NOTE | 2023-01-22 14:20 | Hospitalist Progress Note ---
Date of Service January 22, 2023 Assessment & Plan (1) Hip fracture: Plan: Acute comminuted mildly displaced intertrochanteric fracture of Right femur Secondary to mechanical fall --Hip X ray:Acute comminuted mildly displaced intertrochanteric fracture of the right femur with slight subtrochanteric extension. Fall precautions Bowel regimen to prevent constipation Pain control Appreciate orthopedics input Will consult PT OT when appropriate Continue to hold Coumadin Plan for IM nail of right hip per Ortho Nonischemic cardiomyopathy SSS S/P Biventricular ICD Last EF 50 to 54% Pulmonary hypertension S/P mitral valve replacement, tricuspid repair 2014 Appears compensated Monitor volume status Appreciate cardiology input Resume torsemide as able Also on spironolactone, beta-erica Hypertension Continue carvedilol Monitor BP Hyperlipidemia Continue simvastatin Peripheral vascular disease Continue aspirin, statin Chronic atrial fibrillation Continue carvedilol Hold Coumadin for surgery Received vitamin K Monitor INR CKD stage III Cr at baseline Monitor renal function Avoid nephrotoxic agents as able Chronic hyponatremia Likely secondary to diuretics Sodium 133 today Monitor sodium levels Hypothyroidism Continue levothyroxine Prediabetes HbA1c 5.7 DVT prophylaxis SCDs for now Resume Coumadin as able CODE STATUS DNR/DNI Disposition To be determined Admission and Anticipated Discharge Date Admission Date: January 22, 2023 Subjective Patient is seen and examined at bedside States having right hip pain with movement but otherwise offers no other complaints Denies any chest pain, dyspnea, dizziness, nausea, abdominal pain Planned for right hip surgery today Review of Systems Review of Systems: All systems reviewed & are unremarkable except as noted in Subjective Physical Exam Physical Exam: Physical Exam: Vitals signs as noted above General Appearance:Moderately built and nourished, no apparent distress, Elderly Head: normocephalic, Atraumatic Eyes: normal inspection, EOMI Neck: supple, Trachea midline Respiratory/Chest: Normal breath sounds, CTA, No accessory muscle use, +Pacer Cardiovascular: Irregularly irregular, + murmur Abdomen/GI:Soft, Non tender, Bowel sounds present Extremities/Musculoskeletal:normal inspection, R hip pain, RLE swelling, decreased ROM due to pain Neurologic/Psych:AAOX3, grossly no focal neurological deficits Skin: normal color, warm, +Ecchymosis Results & Data Results & Data Vital Signs (Past 12 Hours) Vital Signs Temp Pulse Pulse Resp BP Pulse Ox O2 Del Method 01/22/23 12:20 36.8 C 76 18 156/78 H 95 Room Air 01/22/23 11:43 72 01/22/23 11:05 Room Air 01/22/23 08:28 36.6 C 68 18 167/75 H 93 Room Air 01/22/23 03:49 36.7 C 79 18 155/69 H 95 Room Air Laboratory Results Short CBC 01/21/23 01/22/23 Range/Units 22:47 06:53 WBC 6.93 9.26 (4.8-10.8) K/ul Hgb 12.1 10.1 L (12.0-16.0) g/dl Hct 36.6 L 30.4 L (37.0-47.0) % Plt Count 223 195 (130-400) K/uL BMP 01/21/23 01/22/23 22:47 06:53 Sodium 131 L 133 L Potassium 3.6 3.8 Chloride 95 L 98 Carbon Dioxide 29 30 BUN 30 H 27 H Creatinine 1.16 0.97 Glucose 144 H 116 H Calcium 9.8 9.3 Liver Function 01/21/23 Range/Units 22:47 Total Bilirubin 0.6 (0.2-1.0) mg/dl AST 25 (13-39) U/L ALT 13 (7-52) U/L Alkaline Phosphatase 71 (34-104) U/L Albumin 4.3 (3.4-5.0) gm/dl Urine 01/21/23 Range/Units 23:19 Urine Color Yellow Urine Appearance Clear (Clear) Urine pH 6.0 (4.5-7.5) Ur Specific [place] 1.011 (1.000-1.030) Urine Protein Negative (Negative) Urine Glucose (UA) Negative (Negative) (1) Hip fracture Encounter type: initial encounter Fracture type: closed Laterality: right Qualified Code(s): S72.001A - Fracture of unspecified part of neck of right femur, initial encounter for closed fracture
[2023-01-22] MEDS ORDERED: ONDANSETRON INJ 2 MG/ML 2 ML VIAL ONE (14:30)
[2023-01-22] MEDS ORDERED: fentaNYL citrate PF 100 MCG/2 ML VIAL ONE (14:30)
--- NOTE | 2023-01-22 16:00 | Operative Report ---
PG Post Operative Report Pre & Post Diagnosis Operation Date: 01/22/23 12:10 Pre-Op Diagnosis: Reverse oblique right intertrochanteric hip fracture Post-Op Diagnosis: Reverse oblique right intertrochanteric hip fracture I identified the patient and participated in the time-out.: Yes Procedure Operation Date: 01/22/23 12:10 Actual Procedures p Right hip intramedullary Nail(Right) - Otis Diaz DO Surgeon Otis Diaz DO Direct Sales Professional Otis Linda PA-C Estimated Blood Loss 100 Findings Consistent with Post-Op Diagnosis Specimens None Description of Procedure On January 22, 2023 Geena arrived from her hospital room to the preoperative holding area. The operative extremity identified and signed. She was given a preopera tive antibiotic. She was taken back the operating room and put under general anesthesia on the bed. She was then transferred to a fracture table. The right hip was brought out to traction. Fluoroscopic images were used to ensure alignment of the fracture. The right hip was then prepped and draped in sterile fashion. A timeout was done. The patient and the operative extremity was properly identified. A longitudinal incision was made just superior to the greater trochanter. Dissection was taken down through the fascia. A guidepin was placed at the tip of the greater troches. It was advanced down the femoral canal. Appropriate placement was checked on orthogonal fluoroscopic images. A 17 mm opening reamer was then used. A 380 mm x 11 mm Synthes TFN nail was then impacted into place. Appropriate placement was checked on fluoroscopy. A small lateral incision was made and the cannula was advanced for the helical blade. A guidepin was placed into the center center position of the femoral head. The lateral cortex was drilled. The helical blade was then drilled and impacted in the place. The helical blade was then locked. A distal locking screw was then placed using the perfect shingle springs technique. Final fluoroscopic images showed good alignment of the fracture. The wounds were irrigated. The deep layers were closed with #1 Vicryl. Skin was closed with 2-0 Vicryl and miley. She was placed in a soft dressing. She was then extubated and transferred back to the hospital bed. She was taken to the postanesthesia care unit in stable condition. She tolerated the procedure well. Otis Linda PA-C, was present for the entire procedure. He was critical for patient positioning, prepping, draping, retraction exposure, wound closure and application of sterile dressing. I attest to the content of the Intraoperative Record and any orders documented therein. Any exceptions are noted below.
--- NOTE | 2023-01-22 16:10 | Fluoroscopy Report ---
FL hip RT 2-3V CLINICAL HISTORY: RIGHT IM NAIL COMPARISON STUDY: Pelvis and right hip radiographs January 21, 2023. FLUOROSCOPY TIME: 1 minute and 2 seconds. Ka, r: 10.98 mGy FLUOROSCOPIC IMAGES: 3 FINDINGS: Fluoroscopy was provided during open reduction and internal fixation of the intertrochanter ic fracture of the right femur with trochanteric nail. Fracture alignment has improved. Fracture is m ildly displaced. Hardware is intact. IMPRESSION: Fluoroscopy provided during open reduction and internal fixation of the intertrochanteri c fracture of the right femur. ACT 112: Negative or not required by law. Electronically signed by: Philip Huitron M.D. 01/22/2023 4:09 PM
--- NOTE | 2023-01-22 16:51 | Anesthesiology Progress Note ---
Date of Service January 22, 2023 Anesthesia Post Procedure Vital Signs Vital Signs: Temp Pulse Pulse Resp BP BP Pulse Ox 01/22/23 16:40 73 18 158/79 H 99 01/22/23 16:30 74 18 150/82 H 96 01/22/23 16:20 71 18 155/79 H 97 01/22/23 16:18 36.9 C 73 18 160/87 H 97 01/22/23 12:20 36.8 C 76 18 156/78 H 95 01/22/23 11:43 72 01/22/23 11:05 01/22/23 08:28 36.6 C 68 18 167/75 H 93 01/22/23 01:45 72 01/22/23 01:39 36.7 C 71 16 183/91 H 95 01/22/23 03:49 36.7 C 79 18 155/69 H 95 01/22/23 00:30 71 24 158/76 H 95 01/22/23 00:00 69 18 157/76 H 98 01/21/23 23:50 71 21 160/103 H 97 01/21/23 23:30 163/77 H 01/21/23 23:50 36.6 C 70 18 160/103 H 94 01/21/23 23:30 73 19 97 01/21/23 23:00 71 23 158/112 H 99 01/21/23 22:45 72 22 172/97 H 98 01/21/23 22:32 70 25 H 174/94 H 99 01/21/23 22:26 73 01/21/23 22:21 36.8 C 70 18 170/99 H 98 O2 Del Method O2 Flow Rate 01/22/23 16:40 Nasal Cannula 2 01/22/23 16:30 Nasal Cannula 2 01/22/23 16:20 Oxymask 6 01/22/23 16:18 Oxymask 6 01/22/23 12:20 Room Air 01/22/23 11:43 01/22/23 11:05 Room Air 01/22/23 08:28 Room Air 01/22/23 01:45 01/22/23 01:39 Room Air 01/22/23 03:49 Room Air 01/22/23 00:30 Room Air 01/22/23 00:00 Room Air 01/21/23 23:50 Room Air 01/21/23 23:30 01/21/23 23:50 Room Air 01/21/23 23:30 Room Air 01/21/23 23:00 Room Air 01/21/23 22:45 Room Air 01/21/23 22:32 Room Air 01/21/23 22:26 01/21/23 22:21 Room Air Pain Intensity Right Hip: Pain Intensity: 7 Transfer of Care Handoff Completed per policy Notes Mental Status: alert / awake / arousable and participated in evaluation Patient Amnestic to Procedure: Yes Nausea / Vomiting: adequately controlled Pain: adequately controlled Airway Patency, RR, SpO2: stable & adequate BP & HR: stable & adequate Hydration State: stable & adequate Neuraxial Anesthesia: was administered and sensory block is resolving Anesthetic Complications: no major complications apparent and Pt Satisfied with anesthetic care
[2023-01-22] MEDS: WARFARIN SOD 5 MG TAB PO SCH (18:47)
[2023-01-22] MEDS: GABAPENTIN 100 MG CAP PO SCH (20:19)
[2023-01-22] MEDS ORDERED: ARTIFICIAL TEARS OP PRN (21:00)
[2023-01-22] MEDS ORDERED: SPIRONOLACTONE 25 MG TAB PO SCH (21:00)
--- NOTE | 2023-01-22 22:02 | XRay Report ---
RIGHT HIP 2 VIEWS CLINICAL HISTORY: Postoperative examination. FINDINGS: AP and crosstable lateral views of the right hip are compared to study dated 01/21/2023. The skeletal structures are osteopenic. Intertrochanteric and intramedullary nails have been placed alarcon sfixing a comminuted fracture of the intertrochanteric/subtrochanteric right femur. Hardware appears intact. There is persistent offset of the largest fragments by approximately 1 cm. A single cortical lag screw transfixes the distal end of the intramedullary nail. Skin clips, subcutaneous gas, and sof t tissue swelling overlying the right proximal femur are expected postsurgical changes. There are chr onic right pubic ring fractures. Mild/moderate arthritic change and joint space narrowing seen in the right hip. There is degenerative sclerosis of the right sacroiliac joint. IMPRESSION: Expected postoperative findings status post open reduction and internal fixation of the r ight proximal femur. See above. Electronically signed by: John Joseph M.D. 01/22/2023 10:01 PM
[2023-01-22] MEDS: ceFAZolin 2000MG 2,000 MG/15 ML SYR IV SCH (22:14)
[2023-01-23] MEDS: LEVOTHYROXINE SODIUM 75 MCG TABLET PO SCH (06:09)
[2023-01-23] MEDS: ceFAZolin 2000MG 2,000 MG/15 ML SYR IV SCH (06:10)
[2023-01-23] MEDS ORDERED: ALENDRONATE SODIUM 70 MG TAB PO SCH (06:30)
[2023-01-23 07:12] LABS: Basophils # (auto) 0.01 K/uL (0-0.2); Basophils % (auto) 0.1 %; Hematocrit (blood only) 25.5 % (37.0-47.0); Hemoglobin 8.3 g/dl (12.0-16.0); Immature Granulocytes # (auto) 0.03 K/uL (0.01-0.20); Immature Granulocytes % (auto) 0.3 %; Lymphocytes # (auto) 0.59 K/uL (1.2-3.4); Lymphocytes % (auto) 6.6 %; Mean Corpuscular Hemoglobin 29.3 pg (25.0-34.0); Mean Corpuscular Hgb Conc 32.5 g/dL (32.0-36.0); Mean Corpuscular Volume 90.1 fL (80.0-100.0); Mean Platelet Volume 10.3 fL (9.4-12.4); Monocytes # (auto) 1.03 K/uL (0.11-0.59); Monocytes % (auto) 11.5 %; Neutrophils # (auto) 7.32 K/uL (1.40-6.50); Neutrophils % (auto) 81.5 %; Platelet Count 173 K/uL (130-400); RDW Coefficient of Variation 13.4 % (11.5-14.5); RDW Standard Deviation 44.2 fL (36.4-46.3); Red Blood Count 2.83 M/uL (4.20-5.40); White Blood Count 8.98 K/ul (4.8-10.8)
[2023-01-23 07:34] LABS: BUN Creatinine Ratio 20.7 (10-20); Calcium 8.8 mg/dl (8.6-10.3); Creatinine Clr Calc Pharmacy 24.5 ml/min; Est GFR (African American) 39.3 ml/min; Est GFR (Non-African American) 33.9 ml/min; Potassium 4.1 mmol/L (3.5-5.1)
[2023-01-23 07:44] LABS: INR 1.2 (0.9-1.1); Prothrombin Time 13.1 Seconds (9.0-12.0)
[2023-01-23] MEDS: oxyCODONE HCL IR 5 MG TAB (IMMEDIATE RELEASE) PO PRN ×2 (08:45→23:21)
[2023-01-23] MEDS: ASPIRIN 81 MG ECTAB PO SCH (08:46)
[2023-01-23] MEDS: carvediloL 12.5 MG TAB PO SCH (08:47)
[2023-01-23] MEDS: CHOLECALCIFEROL 1,000 UNITS 25 MCG TAB PO SCH (08:47)
[2023-01-23] MEDS: MULTIVITAMIN TAB PO SCH (08:48)
[2023-01-23] MEDS: SENNA 8.6 MG TAB PO SCH (08:48)
[2023-01-23] MEDS ORDERED: TORSEMIDE 20 MG TAB PO SCH (09:00)
--- NOTE | 2023-01-23 09:21 | Orthopedic Progress Note ---
Date of Service January 23, 2023 Assessment & Plan (1) Hip fracture: Overall she is doing as well as expected. She is not having too much pain in the right hip. She is back on her Coumadin for DVT prophylaxis. She will be seen by physical therapy today for ambulation and range of motion exercises. She can be weightbearing as tolerated on the right hip. She is orthopedically stable for discharge when medically ready. Full orthopedic discharge instructions were placed in the discharge summary. Howie Seay was seen and examined at bedside this morning. Overall she is doing fairly well. She is not having too much pain in the right hip. She has not been up and ambulating yet. She has no new complaints.. Review of Systems All systems reviewed & are unremarkable except as noted in HPI & below. Physical Exam On physical examination of the right hip, the dressings are clean and dry. Her leg is out full extension. She has active dorsiflexion plantarflexion of her right ankle.. Results & Data Results & Data Laboratory Results . Diagnostic Findings . PG Care Time/CCT Total # of Minutes Spent Total Time Spent with Patient: Total time spent is greater than 50% in coordination of care (as documented) at patient's floor/unit and/or counseling patient: Coding Level of Care Code 80371 Post Operative Follow-Up Diagnoses Hip fracture S72.001A Encounter type: initial encounter Fracture type: closed Laterality: right (1) Hip fracture Encounter type: initial encounter Fracture type: closed Laterality: right Qualified Code(s): S72.001A - Fracture of unspecified part of neck of right femur, initial encounter for closed fracture
--- NOTE | 2023-01-23 12:10 | Cardiology Progress Note ---
Date of Service January 23, 2023 Assessment & Plan (1) NICM (nonischemic cardiomyopathy): (2) Biventricular cardiac pacemaker in situ: (3) AICD (automatic cardioverter/defibrillator) present: (4) Permanent atrial fibrillation: (5) Encounter for pre-operative examination: Plan Medically complex 87-year-old female with history of nonischemic cardiomyopathy status post biventricular ICD in 2016, most recent LVEF 50-54 cm per echo 03/2021, mitral valve replacement and tricuspid repair 2014. Permanent atrial fibrillation and is anticoagulated with Coumadin. Right-sided hip surgery performed 01/22/2023 without complication. Postoperative anemia noted. Monitor daily hemoglobin and hematocrit. Restart oral anticoagulation with warfarin. Orthostatic lightheadedness noted today in the setting of postoperative anemia. Mild renal insufficiency noted on suggestive of volume depletion. Continue to hold torsemide and spironolactone today. Review labs in a.m. 01/24/2023. Continue carvedilol as ordered. Admission and Anticipated Discharge Date Admission Date: January 22, 2023 Subjective Patient seen examined the bedside. Notes feeling fatigued and lightheaded with positional change. Denies chest pain or shortness of breath. Telemetry reveals atrial fibrillation in the 70s. Review of Systems 2 Review of Systems: All systems reviewed & are unremarkable except as noted in Subjective Physical Exam Constitutional: well nourished; no acute distress Respiratory: Auscultation: no crackles, no rales, no rhonchi and no wheezes Cardiovascular: Rate/Rhythm: regular rate and regular rhythm Heart Sounds: normal S1, normal S2 and + murmur (1/6 systolic ejection murmur) Vessels: radial pulses present; no JVD and no carotid bruit Extremities: + edema (Trace bilateral pedal edema) Gastrointestinal (Abdomen): Inspection/Auscultation: abdomen normal to inspection; abdomen not distended Percussion/Palpation: abdomen soft; abdomen nontender, no guarding and abdomen not rigid Neurologic: CN's II-XI intact bilaterally and moves all extremities; no focal motor deficits Results & Data Vital Signs (Past 12 Hours) Vital Signs Temp Pulse Pulse Resp BP BP Pulse Ox 01/23/23 07:39 01/23/23 07:35 36.8 C 75 18 97/61 L 95 01/23/23 05:58 75 01/23/23 04:30 36.6 C 73 16 104/53 L 93 O2 Del Method 01/23/23 07:39 Room Air 01/23/23 07:35 Room Air 01/23/23 05:58 01/23/23 04:30 Room Air Laboratory Results Coagulation 01/23/23 Range/Units 06:15 PT 13.1 H (9.0-12.0) Seconds CBC 01/23/23 Range/Units 06:15 WBC 8.98 (4.8-10.8) K/ul RBC 2.83 L (4.20-5.40) M/uL Hgb 8.3 L (12.0-16.0) g/dl Hct 25.5 L (37.0-47.0) % Plt Count 173 (130-400) K/uL Neut # (Auto) 7.32 H (1.40-6.50) K/uL Lymph # (Auto) 0.59 L (1.2-3.4) K/uL [place] # (Auto) 1.03 H (0.11-0.59) K/uL Eos # (Auto) 0.00 (0-0.50) K/uL Baso # (Auto) 0.01 (0-0.2) K/uL Comprehensive Metabolic Panel 01/23/23 Range/Units 06:15 Sodium 135 L (136-145) mmol/L Potassium 4.1 (3.5-5.1) mmol/L Chloride 99 (98-107) mmol/L Carbon Dioxide 31 (21-32) mmol/L BUN 29 H (6-23) mg/dl Creatinine 1.40 H D (0.6-1.2) mg/dl Glucose 114 H (70-99(Fasting)) mg/dl Calcium 8.8 (8.6-10.3) mg/dl Intake and Output 01/22/23 01/23/23 01/23/23 22:59 06:59 14:59 Intake Total 725 / 875 150 / 875 Output Total 700 / 900 200 / 900 Balance 25 / -25 -50 / -25 Intake: IV Perioperative 500 / 500 Oral 225 / 375 150 / 375 Output: Estimated Blood Loss 100 / 100 Urine Amount (Catheter) 600 / 800 200 / 800 Garcia/Indwelling 600 / 800 200 / 800 Other: Weight 62.8 kg Weight Measurement Method Built in [facility]
--- NOTE | 2023-01-23 12:28 | Electrocardiogram Report ---
Test Reason : Blood Pressure : / mmHG Vent. Rate : 070 BPM Atrial Rate : 071 BPM P-R Int : 000 ms QRS Dur : 158 ms QT Int : 480 ms P-R-T Axes : 000 106 -27 degrees QTc Int : 518 ms Ventricular-paced rhythm Abnormal ECG When compared with ECG of 17-MAY-2022 11:27, Vent. rate has decreased BY 2 BPM Confirmed by Tomy Obrien ([id number]) on 01/23/2023 12:28:33 PM Referred By: REFERRED SELF Confirmed By:Tomy Obrien
[2023-01-23] MEDS: WARFARIN SOD 2.5 MG TAB PO SCH (16:45)
[2023-01-23] MEDS: ACETAMINOPHEN 325 MG TAB PO PRN (16:46)
--- NOTE | 2023-01-23 16:51 | Hospitalist Progress Note ---
Date of Service January 23, 2023 Assessment & Plan (1) Hip fracture: Plan: Acute comminuted mildly displaced intertrochanteric fracture of Right femur Secondary to mechanical fall Postoperative acute blood loss anemia --Hip X ray:Acute comminuted mildly displaced intertrochanteric fracture of the right femur with slight subtrochanteric extension. --S/P Right hip intramedullary Nail(Right) by Dr. Diaz on 01/22/2023 Fall precautions Bowel regimen to prevent constipation Pain control Appreciate orthopedics input Will consult PT OT when appropriate Resumed Coumadin Needs follow-up with orthopedics upon discharge Monitor CBC, transfuse PRBCs as needed Weightbearing as tolerated on right hip Nonischemic cardiomyopathy SSS S/P Biventricular ICD Last EF 50 to 54% Pulmonary hypertension S/P mitral valve replacement, tricuspid repair 2014 Appears compensated Monitor volume status Appreciate cardiology input Resume torsemide as able Also on spironolactone, beta-erica Hypertension Orthostatic hypotension postsurgery Hold torsemide, Aldactone for now Continue carvedilol at lower dose We will transfuse PRBCs as needed BRYANNA on CKD stage III Hold diuretics for now Avoid nephrotoxic agents as able Monitor volume status Consider IV fluids if needed Monitor for any bladder retention Hyperlipidemia Continue simvastatin Peripheral vascular disease Continue aspirin, statin Chronic atrial fibrillation Continue carvedilol Resumed Coumadin Received vitamin K for surgery Monitor INR:1.2 today Chronic hyponatremia Likely secondary to diuretics Sodium 135 today Monitor sodium levels Hypothyroidism Continue levothyroxine Prediabetes HbA1c 5.7 DVT prophylaxis Coumadin CODE STATUS DNR/DNI Disposition Likely will need rehab Admission and Anticipated Discharge Date Admission Date: January 22, 2023 Subjective Patient is seen and examined at bedside Right hip pain is controlled Had orthostatic hypotension associated with dizziness this morning while with PT OT Denies any chest pain, dyspnea, dizziness, nausea, abdominal pain Family at bedside Review of Systems Review of Systems: All systems reviewed & are unremarkable except as noted in Subjective Physical Exam Physical Exam: Physical Exam: Vitals signs as noted above General Appearance:Moderately built and nourished, no apparent distress, Elderly Head: normocephalic, Atraumatic Eyes: normal inspection, EOMI Neck: supple, Trachea midline Respiratory/Chest: Normal breath sounds, CTA, No accessory muscle use, +Pacer Cardiovascular: Irregularly irregular, + murmur Abdomen/GI:Soft, Non tender, Bowel sounds present Extremities/Musculoskeletal:normal inspection, R hip surgical site in dressing Neurologic/Psych:AAOX3, grossly no focal neurological deficits Skin: normal color, warm, +Ecchymosis Results & Data Results & Data Vital Signs (Past 12 Hours) Vital Signs Temp Pulse Pulse Resp BP BP Pulse Ox 01/23/23 14:11 73 01/23/23 15:13 36.7 C 75 18 127/73 95 01/23/23 07:39 01/23/23 07:35 36.8 C 75 18 97/61 L 95 01/23/23 05:58 75 O2 Del Method 01/23/23 14:11 01/23/23 15:13 Room Air 01/23/23 07:39 Room Air 01/23/23 07:35 Room Air 01/23/23 05:58 Laboratory Results Short CBC 01/23/23 Range/Units 06:15 WBC 8.98 (4.8-10.8) K/ul Hgb 8.3 L (12.0-16.0) g/dl Hct 25.5 L (37.0-47.0) % Plt Count 173 (130-400) K/uL BMP 01/23/23 06:15 Sodium 135 L Potassium 4.1 Chloride 99 Carbon Dioxide 31 BUN 29 H Creatinine 1.40 H D Glucose 114 H Calcium 8.8 (1) Hip fracture Encounter type: initial encounter Fracture type: closed Laterality: right Qualified Code(s): S72.001A - Fracture of unspecified part of neck of right femur, initial encounter for closed fracture
[2023-01-23] MEDS ORDERED: carvediloL 6.25 MG TAB PO ONE (17:38)
[2023-01-23] MEDS: carvediloL 6.25 MG TAB PO SCH (17:55)
[2023-01-23] MEDS: SIMVASTATIN 10 MG TAB PO SCH (20:34)
[2023-01-23] MEDS: GABAPENTIN 100 MG CAP PO SCH (20:34)
[2023-01-24] MEDS: LEVOTHYROXINE SODIUM 75 MCG TABLET PO SCH (05:37)
[2023-01-24 08:33] LABS: Hematocrit (blood only) 25.8 % (37.0-47.0); Hemoglobin 8.4 g/dl (12.0-16.0); Mean Corpuscular Hemoglobin 29.6 pg (25.0-34.0); Mean Corpuscular Hgb Conc 32.6 g/dL (32.0-36.0); Mean Corpuscular Volume 90.8 fL (80.0-100.0); Mean Platelet Volume 10.2 fL (9.4-12.4); Platelet Count 174 K/uL (130-400); RDW Coefficient of Variation 13.1 % (11.5-14.5); RDW Standard Deviation 43.1 fL (36.4-46.3); Red Blood Count 2.84 M/uL (4.20-5.40); White Blood Count 11.15 K/ul (4.8-10.8)
--- NOTE | 2023-01-24 08:38 | Orthopedic Progress Note ---
Date of Service January 24, 2023 Assessment & Plan (1) Hip fracture: Overall she is doing fairly well. She is not having too much pain in the right hip. She can be weightbearing as tolerated with physical therapy. She is on Coumadin for DVT prophylaxis. She is orthopedically stable for discharge when medically ready. Full orthopedic discharge instructions were placed in the discharge summary. Howie Seay was seen and examined at bedside this morning. Overall she is doing fairly well. She is not having too much pain in the right hip. She was able to sit up yesterday with physical therapy. She has no new complaints.. Review of Systems All systems reviewed & are unremarkable except as noted in HPI & below. Physical Exam On physical examination of the right hip, the dressing is mostly clean and dry. Her leg is out full extension.. Results & Data Results & Data Laboratory Results . Diagnostic Findings . PG Care Time/CCT Total # of Minutes Spent Total Time Spent with Patient: Total time spent is greater than 50% in coordination of care (as documented) at patient's floor/unit and/or counseling patient: Coding Level of Care Code 45695 Post Operative Follow-Up Diagnoses Hip fracture S72.001A Encounter type: initial encounter Fracture type: closed Laterality: right (1) Hip fracture Encounter type: initial encounter Fracture type: closed Laterality: right Qualified Code(s): S72.001A - Fracture of unspecified part of neck of right femur, initial encounter for closed fracture
[2023-01-24 08:44] LABS: BUN Creatinine Ratio 32.4 (10-20); Calcium 8.5 mg/dl (8.6-10.3); Creatinine Clr Calc Pharmacy 24.2 ml/min; Est GFR (African American) 39.7 ml/min; Est GFR (Non-African American) 34.2 ml/min; Potassium 4.3 mmol/L (3.5-5.1)
[2023-01-24 08:54] LABS: INR 1.4 (0.9-1.1); Prothrombin Time 15.4 Seconds (9.0-12.0)
[2023-01-24] MEDS: oxyCODONE HCL IR 5 MG TAB (IMMEDIATE RELEASE) PO PRN ×2 (09:14→21:45)
[2023-01-24] MEDS: ASPIRIN 81 MG ECTAB PO SCH (09:15)
[2023-01-24] MEDS: carvediloL 6.25 MG TAB PO SCH ×2 (09:15→20:16)
[2023-01-24] MEDS: SENNA 8.6 MG TAB PO SCH (09:16)
[2023-01-24] MEDS: MULTIVITAMIN TAB PO SCH (09:16)
[2023-01-24] MEDS: CHOLECALCIFEROL 1,000 UNITS 25 MCG TAB PO SCH (09:16)
--- NOTE | 2023-01-24 11:47 | Cardiology Progress Note ---
Date of Service January 24, 2023 Assessment & Plan (1) NICM (nonischemic cardiomyopathy): (2) Biventricular cardiac pacemaker in situ: (3) AICD (automatic cardioverter/defibrillator) present: (4) Permanent atrial fibrillation: (5) Encounter for pre-operative examination: Plan Medically complex 87-year-old female with history of nonischemic cardiomyopathy status post biventricular ICD in 2016, most recent LVEF 50-54 cm per echo 03/2021, mitral valve replacement and tricuspid repair 2014. Permanent atrial fibrillation and is anticoagulated with Coumadin. Right-sided hip surgery performed 01/22/2023 without complication. Postoperative day #2 hip repair. Postoperative anemia with stable hemoglobin today. Monitor daily hemoglobin and hematocrit. Continue oral anticoagulation with warfarin. Orthostatic hypotension noted in the setting of postoperative anemia and renal insufficiency. Continue to hold torsemide and spironolactone today. Reassess in a.m. Continue carvedilol as ordered. Admission and Anticipated Discharge Date Admission Date: January 22, 2023 Subjective Patient seen examined the bedside. Feeling better today. Blood pressure improved. Hemoglobin remained stable. Notes hip discomfort otherwise no complaints telemetry reveals atrial fibrillation in the 70s with BiV paced rhythm. Review of Systems Review of Systems: All systems reviewed & are unremarkable except as noted in Subjective Physical Exam Constitutional: well nourished; no acute distress Respiratory: Auscultation: no crackles, no rales, no rhonchi and no wheezes Cardiovascular: Rate/Rhythm: regular rate and regular rhythm Heart Sounds: normal S1, normal S2 and + murmur (1/6 systolic ejection murmur) Vessels: radial pulses present; no JVD and no carotid bruit Extremities: + edema (Trace bilateral pedal edema) Gastrointestinal (Abdomen): Inspection/Auscultation: abdomen normal to inspection; abdomen not distended Percussion/Palpation: abdomen soft; abdomen nontender, no guarding and abdomen not rigid Neurologic: CN's II-XI intact bilaterally and moves all extremities; no focal motor deficits Results & Data Vital Signs (Past 12 Hours) Vital Signs Temp Pulse Pulse Resp BP BP Pulse Ox 01/24/23 11:06 36.4 C L 71 18 124/73 98 01/24/23 05:59 72 01/24/23 07:13 36.7 C 76 18 110/70 97 01/24/23 02:44 36.7 C 73 18 110/65 94 01/24/23 00:17 70 O2 Del Method 01/24/23 11:06 Room Air 01/24/23 05:59 01/24/23 07:13 Room Air 01/24/23 02:44 Room Air 01/24/23 00:17
--- NOTE | 2023-01-24 15:37 | Hospitalist Progress Note ---
Date of Service January 24, 2023 Assessment & Plan (1) Hip fracture: Plan: Acute comminuted mildly displaced intertrochanteric fracture of Right femur Secondary to mechanical fall Postoperative acute blood loss anemia --Hip X ray:Acute comminuted mildly displaced intertrochanteric fracture of the right femur with slight subtrochanteric extension. --S/P Right hip intramedullary Nail(Right) by Dr. Diaz on 01/22/2023 Fall precautions Bowel regimen to prevent constipation Pain control Appreciate orthopedics input Continue PT OT Resumed Coumadin Needs follow-up with orthopedics upon discharge Monitor CBC, transfuse PRBCs as needed Weightbearing as tolerated on right hip Plan to discharge to rehab facility as able Nonischemic cardiomyopathy SSS S/P Biventricular ICD Last EF 50 to 54% Pulmonary hypertension S/P mitral valve replacement, tricuspid repair 2014 Appears compensated Monitor volume status Appreciate cardiology input Resume torsemide and Aldactone as able Continue beta-erica Hypertension Orthostatic hypotension postsurgery Hold torsemide, Aldactone for now Continue carvedilol at lower dose Monitor BP BRYANNA on CKD stage III Hold diuretics for now Avoid nephrotoxic agents as able Monitor volume status Consider IV fluids if needed Monitor for any bladder retention Cr 1.39 today Hyperlipidemia Continue simvastatin Peripheral vascular disease Continue aspirin, statin Chronic atrial fibrillation Continue carvedilol Resumed Coumadin Received vitamin K for surgery Monitor INR:1.4 today Chronic hyponatremia Likely secondary to diuretics Sodium 131 today Monitor sodium levels Hypothyroidism Continue levothyroxine Prediabetes HbA1c 5.7 DVT prophylaxis Coumadin CODE STATUS DNR/DNI Disposition Acute rehab as able Admission and Anticipated Discharge Date Admission Date: January 22, 2023 Subjective Patient is seen and examined at bedside No new complaints Right hip at surgical site is controlled Had PT this morning Denies any chest pain, dyspnea, dizziness, nausea, abdominal pain Review of Systems Review of Systems: All systems reviewed & are unremarkable except as noted in Subjective Physical Exam Physical Exam: Physical Exam: Vitals signs as noted above General Appearance:Moderately built and nourished, no apparent distress, Elderly Head: normocephalic, Atraumatic Eyes: normal inspection, EOMI Neck: supple, Trachea midline Respiratory/Chest: Normal breath sounds, CTA, No accessory muscle use, +Pacer Cardiovascular: Irregularly irregular, + murmur Abdomen/GI:Soft, Non tender, Bowel sounds present Extremities/Musculoskeletal:normal inspection, R hip surgical site in dressing Neurologic/Psych:AAOX3, grossly no focal neurological deficits Skin: normal color, warm, +Ecchymosis Results & Data Results & Data Vital Signs (Past 12 Hours) Vital Signs Temp Pulse Pulse Resp BP Pulse Ox O2 Del Method 01/24/23 09:30 Room Air 01/24/23 11:06 36.4 C L 71 18 124/73 98 Room Air 01/24/23 05:59 72 01/24/23 07:13 36.7 C 76 18 110/70 97 Room Air Laboratory Results Short CBC 01/24/23 Range/Units 08:00 WBC 11.15 H (4.8-10.8) K/ul Hgb 8.4 L (12.0-16.0) g/dl Hct 25.8 L (37.0-47.0) % Plt Count 174 (130-400) K/uL BMP 01/24/23 08:00 Sodium 131 L Potassium 4.3 Chloride 96 L Carbon Dioxide 30 BUN 45 H Creatinine 1.39 H Glucose 120 H Calcium 8.5 L (1) Hip fracture Encounter type: initial encounter Fracture type: closed Laterality: right Qualified Code(s): S72.001A - Fracture of unspecified part of neck of right femur, initial encounter for closed fracture
[2023-01-24] MEDS: ACETAMINOPHEN 325 MG TAB PO PRN (16:11)
[2023-01-24] MEDS: WARFARIN SOD 2.5 MG TAB PO SCH (16:11)
[2023-01-24] MEDS: GABAPENTIN 100 MG CAP PO SCH (20:16)
[2023-01-24] MEDS: SIMVASTATIN 10 MG TAB PO SCH (20:16)
[2023-01-25] MEDS: LEVOTHYROXINE SODIUM 75 MCG TABLET PO SCH (05:44)
[2023-01-25 08:18] LABS: Hematocrit (blood only) 25.8 % (37.0-47.0); Hemoglobin 8.6 g/dl (12.0-16.0); Mean Corpuscular Hemoglobin 29.9 pg (25.0-34.0); Mean Corpuscular Hgb Conc 33.3 g/dL (32.0-36.0); Mean Corpuscular Volume 89.6 fL (80.0-100.0); Mean Platelet Volume 10.7 fL (9.4-12.4); Platelet Count 185 K/uL (130-400); RDW Coefficient of Variation 13.2 % (11.5-14.5); RDW Standard Deviation 43.3 fL (36.4-46.3); Red Blood Count 2.88 M/uL (4.20-5.40); White Blood Count 8.62 K/ul (4.8-10.8)
[2023-01-25 08:23] LABS: Calcium 8.8 mg/dl (8.6-10.3); Creatinine Clr Calc Pharmacy 31.1 ml/min; Est GFR (African American) 53.8 ml/min; Est GFR (Non-African American) 46.4 ml/min; Potassium 4.6 mmol/L (3.5-5.1)
[2023-01-25] MEDS: oxyCODONE HCL IR 5 MG TAB (IMMEDIATE RELEASE) PO PRN ×3 (08:35→21:24)
[2023-01-25] MEDS: ASPIRIN 81 MG ECTAB PO SCH (08:36)
[2023-01-25] MEDS: carvediloL 6.25 MG TAB PO SCH ×2 (08:36→20:27)
[2023-01-25] MEDS: MULTIVITAMIN TAB PO SCH (08:36)
[2023-01-25] MEDS: CHOLECALCIFEROL 1,000 UNITS 25 MCG TAB PO SCH (08:37)
[2023-01-25] MEDS: SENNA 8.6 MG TAB PO SCH (08:37)
[2023-01-25] MEDS: POLYETHYLENE (MIRALAX) 17 GM PACK PO PRN (08:38)
[2023-01-25 08:55] LABS: INR 1.4 (0.9-1.1); Prothrombin Time 15.3 Seconds (9.0-12.0)
--- NOTE | 2023-01-25 10:39 | Cardiology Progress Note ---
Date of Service January 25, 2023 Assessment & Plan (1) NICM (nonischemic cardiomyopathy): (2) Biventricular cardiac pacemaker in situ: (3) AICD (automatic cardioverter/defibrillator) present: (4) Permanent atrial fibrillation: Plan Medically complex 87-year-old female with history of nonischemic cardiomyopathy status post biventricular ICD in 2016, most recent LVEF 50-54 cm per echo 03/2021, mitral valve replacement and tricuspid repair 2014. Permanent atrial fibrillation and is anticoagulated with Coumadin. Right-sided hip surgery performed 01/22/2023 without complication. Postoperative day #3 hip repair. Postoperative anemia noted, Hbg slowly improving. Monitor daily hemoglobin and hematocrit. Continue oral anticoagulation with warfarin. Orthostatic hypotension noted in the setting of postoperative anemia and renal insufficiency. Renal function improved today. Still had mild orthostatic symptoms this morning getting out of bed. However, patient does admit this is a long standing issue in the morning and not "new". Appears euvolemic. Continue to hold torsemide and spironolactone today. Continue to monitor fluid status. PT/OT. will likely need rehab? Case discussed with Dr. Blankenship I spent a total of 30 minutes on the date of service in preparation, delivery, and documentation of the care provided to this patient, excluding any time spent in the performance of separately billed services. Shobha Rascon PA-C Department of Cardiology, [facility] This chart was completed in part utilizing Speech Voice Recognition Software. Grammatical errors, random word insertions, pronoun errors, and incomplete sentences are an occasional consequence of this system due to software limitations, ambient noise, and hardware issues. Any formal questions or concerns about the content, text, or information contained within the body of this dictation should be directly addressed to the provider for clarification. Admission and Anticipated Discharge Date Admission Date: January 22, 2023 Supervising Physician Co-Signing Physician Notes Supervising Physician Attestation: I have personally performed a history and physical examination on the patient. I agree with the physician licensed sales assistant's findings and plan as documented with the following additions. Subjective: Patient feeling well at present. She states that her hip fracture came as a result of a trip and fall rather than a syncopal event. Telemetry reveals rate controlled atrial fibrillation, biventricular paced rhythm. Exam: Cardiovascular: Irregular rhythm, no murmurs, no edema Data: INR 1.4 Assessment and Plan: -Problems as noted above -Patient's volume status is stable, her baseline right greater than left lower extremity edema is absent at present. -Continue hold diuretics. Continue cautious Coumadin loading with regards to permanent atrial fibrillation, and postoperative anemia. DVT prophylaxis: Coumadin I spent a total of 20 minutes on the date of service in preparation, delivery, and documentation of the care provided to this patient, excluding any time spent in the performance of separately billed services. Octaviano Blankenship, Subjective Patient resting in bed comfortably. Hip pain controlled. Notes mild dizziness when getting up out of bed but she reports this is a chronic problem/issue at home as well. Long history of orthostatic hypotension. Currently without complaints. Denies chest pain or SOB. Review of Systems Review of Systems: All systems reviewed & are unremarkable except as noted in HPI & below Physical Exam Constitutional: well nourished; no acute distress Respiratory: normal respiratory effort Auscultation: no crackles, no rales, no rhonchi and no wheezes Cardiovascular: Rate/Rhythm: regular rate and regular rhythm Heart Sounds: normal S1 and normal S2 Vessels: no JVD Extremities: no edema Gastrointestinal (Abdomen): normal bowel sounds, soft, nontender, no hepatosplenomegaly Skin: no rashes, warm and dry Psychiatric: A+Ox3, euthymic affect Results & Data Vital Signs (Past 12 Hours) Vital Signs Temp Pulse Pulse Resp BP BP Pulse Ox 01/25/23 07:40 01/25/23 06:36 73 01/25/23 07:28 36.6 C 69 18 134/62 95 01/25/23 05:01 36.6 C 74 16 103/68 96 01/24/23 22:39 36.6 C 73 18 106/67 97 O2 Del Method 01/25/23 07:40 Room Air 01/25/23 06:36 01/25/23 07:28 Room Air 01/25/23 05:01 Room Air 01/24/23 22:39 Room Air Laboratory Results Coagulation 01/25/23 Range/Units 07:01 PT 15.3 H (9.0-12.0) Seconds CBC 01/25/23 Range/Units 07:01 WBC 8.62 (4.8-10.8) K/ul RBC 2.88 L (4.20-5.40) M/uL Hgb 8.6 L (12.0-16.0) g/dl Hct 25.8 L (37.0-47.0) % Plt Count 185 (130-400) K/uL Comprehensive Metabolic Panel 01/25/23 Range/Units 07:01 Sodium 130 L (136-145) mmol/L Potassium 4.6 (3.5-5.1) mmol/L Chloride 96 L (98-107) mmol/L Carbon Dioxide 30 (21-32) mmol/L BUN 40 H (6-23) mg/dl Creatinine 1.08 D (0.6-1.2) mg/dl Glucose 117 H (70-99(Fasting)) mg/dl Calcium 8.8 (8.6-10.3) mg/dl Intake and Output 01/24/23 01/25/23 01/25/23 22:59 06:59 14:59 Intake Total 240 / 665 100 / 665 Output Total 350 / 1353 600 / 1353 Balance -110 / -688 -500 / -688 Intake: Oral 240 / 665 100 / 665 Output: Urine Amount (Catheter) 350 / 1350 600 / 1350 Garcia/Indwelling 350 / 1350 600 / 1350 Other: Weight 60.2 kg Weight Measurement Method Built in [facility] Diagnostic Findings telemetry reviewed: Atrial sensed, ventricular paced rhythm in the 's. Medications Administered Current Inpatient Medications Acetaminophen (Acetaminophen 325 Mg Tab) 650 mg PO Q6H PRN PRN Reason: Fever/Pain Stop: 02/21/23 00:35 Last Admin: 01/24/23 16:11 Dose: 650 mg Acetaminophen (Acetaminophen 325 Mg Tab) 650 mg PO Q4H PRN PRN Reason: fever or pain Stop: 02/21/23 17:23 Last Admin: 01/23/23 16:46 Dose: 650 mg Alendronate Sodium (Alendronate Sodium 70 Mg Tab) 70 mg PO @629 [facility] Stop: 02/22/23 06:29 Last Admin: 01/23/23 06:09 Dose: 70 mg Artificial Tears (Artificial Tears) 1 drops OP QID PRN PRN Reason: DRY EYES Stop: 02/21/23 20:59 Aspirin (Aspirin 81 Mg Ectab) [facility] [place] Stop: 02/21/23 08:59 Last Admin: 01/25/23 08:36 Dose: 81 mg Carvedilol (Carvedilol 6.25 Mg Tab) 6.25 mg PO AMHS [facility] Stop: 02/22/23 20:59 Last Admin: 01/25/23 08:36 Dose: 6.25 mg Gabapentin (Gabapentin 100 Mg Cap) 200 mg PO HS [place] Stop: 02/21/23 20:59 Last Admin: 01/24/23 20:16 Dose: 200 mg Levothyroxine Sodium (Levothyroxine Sodium 75 Mcg Tablet) 75 mcg PO DAILYBB [place] Stop: 02/21/23 06:29 Last Admin: 01/25/23 05:44 Dose: 75 mcg Multivitamins (Multivitamin Tab) 1 tab PO QAM [facility] Stop: 02/21/23 08:59 Last Admin: 01/25/23 08:36 Dose: 1 tab Naloxone HCl (Naloxone Hcl 0.4 Mg/1 Ml Vial/Carp) 0.1 mg IV UD PRN PRN Reason: Opiate Overdose Stop: 02/21/23 01:38 Oxycodone HCl (Oxycodone Hcl Ir 5 Mg Tab (Immediate Release)) 5 mg PO Q4H PRN PRN Reason: Pain Stop: 02/05/23 00:34 Last Admin: 01/25/23 08:35 Dose: 5 mg Polyethylene Glycol (Polyethylene (Miralax) 17 Gm Pack) 17 gm PO Q6 PRN PRN Reason: constipation Stop: 02/21/23 01:38 Last Admin: 01/25/23 08:38 Dose: 17 gm Sennosides (Senna 8.6 Mg Tab) 25.8 mg PO DAILY [place] Stop: 02/21/23 08:59 Last Admin: 01/25/23 08:37 Dose: Not Given Simvastatin (Simvastatin 10 Mg Tab) 10 mg PO HS [facility] Stop: 02/21/23 01:38 Last Admin: 01/24/23 20:16 Dose: 10 mg Spironolactone (Spironolactone 25 Mg Tab) 25 mg PO HS [facility] Stop: 02/21/23 20:59 Last Admin: 01/22/23 20:20 Dose: 25 mg Torsemide (Torsemide 20 Mg Tab) 40 mg PO DAILY [place] Stop: 02/22/23 08:59 Last Admin: 01/23/23 08:49 Dose: 40 mg Vitamin D (Cholecalciferol 1,000 Units 25 Mcg Tab) 2,000 units PO DAILY [facility] Stop: 02/21/23 08:59 Last Admin: 01/25/23 08:37 Dose: 2,000 units Warfarin Sodium (Warfarin Sod 2.5 Mg Tab) 2.5 mg PO [email or web address]@1600 [facility] Stop: 02/22/23 15:59 Last Admin: 01/24/23 16:11 Dose: 2.5 mg Warfarin Sodium (Warfarin Sod 5 Mg Tab) 5 mg PO [email or web address]@1600 [facility] Stop: 02/21/23 17:23 Last Admin: 01/22/23 18:47 Dose: 5 mg
[2023-01-25] MEDS: WARFARIN SOD 5 MG TAB PO SCH (16:01)
--- NOTE | 2023-01-25 18:39 | Hospitalist Progress Note ---
Date of Service January 25, 2023 Assessment & Plan (1) Hip fracture: Plan: Acute comminuted mildly displaced intertrochanteric fracture of Right femur Secondary to mechanical fall Postoperative acute blood loss anemia --Hip X ray:Acute comminuted mildly displaced intertrochanteric fracture of the right femur with slight subtrochanteric extension. --S/P Right hip intramedullary Nail(Right) by Dr. Diaz on 01/22/2023 Fall precautions Bowel regimen to prevent constipation Pain control Appreciate orthopedics input Continue PT OT Resumed Coumadin Needs follow-up with orthopedics upon discharge Monitor CBC, transfuse PRBCs as needed Weightbearing as tolerated on right hip Waiting for rehab placement Nonischemic cardiomyopathy SSS S/P Biventricular ICD Last EF 50 to 54% Pulmonary hypertension S/P mitral valve replacement, tricuspid repair 2014 Appears compensated Monitor volume status Appreciate cardiology input Resume torsemide and Aldactone as able Continue beta-erica Hypertension Orthostatic hypotension postsurgery Hold torsemide, Aldactone for now Continue carvedilol at lower dose Monitor BP BRYANNA on CKD stage III Hold diuretics for now Avoid nephrotoxic agents as able Monitor volume status Consider IV fluids if needed Monitor for any bladder retention Cr improved to 1.08 today Hyperlipidemia Continue simvastatin Peripheral vascular disease Continue aspirin, statin Chronic atrial fibrillation Continue carvedilol Resumed Coumadin Received vitamin K for surgery Monitor INR:1.4 today Chronic hyponatremia Likely secondary to diuretics Sodium 131 today Monitor sodium levels Hypothyroidism Continue levothyroxine Prediabetes HbA1c 5.7 DVT prophylaxis Coumadin CODE STATUS DNR/DNI Disposition Waiting for rehab placement Admission and Anticipated Discharge Date Admission Date: January 22, 2023 Subjective Patient is seen and examined at bedside Dizziness much improved No other complaints No significant right hip pain at rest but painful with PT this morning Denies any chest pain, dyspnea, dizziness, nausea, abdominal pain Waiting for rehab placement Review of Systems Review of Systems: All systems reviewed & are unremarkable except as noted in Subjective Physical Exam Physical Exam: Physical Exam: Vitals signs as noted above General Appearance:Moderately built and nourished, no apparent distress, Elderly Head: normocephalic, Atraumatic Eyes: normal inspection, EOMI Neck: supple, Trachea midline Respiratory/Chest: Normal breath sounds, CTA, No accessory muscle use, +Pacer Cardiovascular: Irregularly irregular, + murmur Abdomen/GI:Soft, Non tender, Bowel sounds present Extremities/Musculoskeletal:normal inspection, R hip surgical site in dressing Neurologic/Psych:AAOX3, grossly no focal neurological deficits Skin: normal color, warm, +Ecchymosis Results & Data Results & Data Vital Signs (Past 12 Hours) Vital Signs Temp Pulse Pulse Resp BP Pulse Ox O2 Del Method 01/25/23 15:21 36.7 C 82 18 116/73 95 Room Air 01/25/23 14:05 76 01/25/23 11:06 36.7 C 77 18 125/73 97 Room Air 01/25/23 07:40 Room Air 01/25/23 07:28 36.6 C 69 18 134/62 95 Room Air Laboratory Results Short CBC 01/25/23 Range/Units 07:01 WBC 8.62 (4.8-10.8) K/ul Hgb 8.6 L (12.0-16.0) g/dl Hct 25.8 L (37.0-47.0) % Plt Count 185 (130-400) K/uL BMP 01/25/23 07:01 Sodium 130 L Potassium 4.6 Chloride 96 L Carbon Dioxide 30 BUN 40 H Creatinine 1.08 D Glucose 117 H Calcium 8.8 (1) Hip fracture Encounter type: initial encounter Fracture type: closed Laterality: right Qualified Code(s): S72.001A - Fracture of unspecified part of neck of right femur, initial encounter for closed fracture
[2023-01-25] MEDS: SIMVASTATIN 10 MG TAB PO SCH (20:27)
[2023-01-25] MEDS: GABAPENTIN 100 MG CAP PO SCH (20:27)
[2023-01-26] MEDS: LEVOTHYROXINE SODIUM 75 MCG TABLET PO SCH (05:41)
[2023-01-26 06:31] LABS: Hematocrit (blood only) 24.7 % (37.0-47.0); Hemoglobin 8.2 g/dl (12.0-16.0)
[2023-01-26 06:44] LABS: BUN Creatinine Ratio 42.1 (10-20); Calcium 8.6 mg/dl (8.6-10.3); Creatinine Clr Calc Pharmacy 35.6 ml/min; Est GFR (African American) 62.9 ml/min; Est GFR (Non-African American) 54.2 ml/min; Potassium 4.7 mmol/L (3.5-5.1)
[2023-01-26 07:56] LABS: INR 1.5 (0.9-1.1); Prothrombin Time 15.6 Seconds (9.0-12.0)
[2023-01-26] MEDS: MULTIVITAMIN TAB PO SCH (08:11)
[2023-01-26] MEDS: carvediloL 6.25 MG TAB PO SCH ×2 (08:11→20:47)
[2023-01-26] MEDS: CHOLECALCIFEROL 1,000 UNITS 25 MCG TAB PO SCH (08:12)
[2023-01-26] MEDS: ASPIRIN 81 MG ECTAB PO SCH (08:12)
[2023-01-26] MEDS: SENNA 8.6 MG TAB PO SCH (08:12)
[2023-01-26] MEDS: oxyCODONE HCL IR 5 MG TAB (IMMEDIATE RELEASE) PO PRN ×2 (09:19→20:48)
--- NOTE | 2023-01-26 16:17 | Hospitalist Progress Note ---
Date of Service January 26, 2023 Assessment & Plan (1) Hip fracture: Plan: Acute comminuted mildly displaced intertrochanteric fracture of Right femur Secondary to mechanical fall Postoperative acute blood loss anemia --Hip X ray:Acute comminuted mildly displaced intertrochanteric fracture of the right femur with slight subtrochanteric extension. --S/P Right hip intramedullary Nail(Right) by Dr. Diaz on 01/22/2023 Fall precautions Bowel regimen to prevent constipation Pain control Appreciate orthopedics input Continue PT OT Resumed Coumadin Needs follow-up with orthopedics upon discharge Monitor CBC, transfuse PRBCs as needed Weightbearing as tolerated on right hip Waiting for rehab placement Continue current management Nonischemic cardiomyopathy SSS S/P Biventricular ICD Last EF 50 to 54% Pulmonary hypertension S/P mitral valve replacement, tricuspid repair 2014 Appears compensated Monitor volume status Appreciate cardiology input Resume torsemide and Aldactone as able Continue carvedilol Hypertension Orthostatic hypotension postsurgery Hold torsemide, Aldactone for now Continue carvedilol at lower dose Monitor BP BRYANNA on CKD stage III Hold diuretics for now Avoid nephrotoxic agents as able Monitor volume status Consider IV fluids if needed Monitor for any bladder retention Cr improved to 0.95 today Hyperlipidemia Continue simvastatin Peripheral vascular disease Continue aspirin, statin Chronic atrial fibrillation Continue carvedilol Resumed Coumadin Received vitamin K for surgery Monitor INR:1.4 today Chronic hyponatremia Likely secondary to diuretics Sodium 128 today Monitor sodium levels No mental status change Hypothyroidism Continue levothyroxine Prediabetes HbA1c 5.7 DVT prophylaxis Coumadin CODE STATUS DNR/DNI Disposition Waiting for rehab placement Admission and Anticipated Discharge Date Admission Date: January 22, 2023 Subjective Patient is seen and examined at bedside States feeling well today No new complaints Right hip pain at surgical site is controlled Denies any chest pain, dyspnea, dizziness, nausea, abdominal pain Waiting for rehab placement Review of Systems Review of Systems: All systems reviewed & are unremarkable except as noted in Subjective Physical Exam Physical Exam: Physical Exam: Vitals signs as noted above General Appearance:Moderately built and nourished, no apparent distress, Elderly Head: normocephalic, Atraumatic Eyes: normal inspection, EOMI Neck: supple, Trachea midline Respiratory/Chest: Normal breath sounds, CTA, No accessory muscle use, +Pacer Cardiovascular: Irregularly irregular, + murmur Abdomen/GI:Soft, Non tender, Bowel sounds present Extremities/Musculoskeletal:normal inspection, R hip surgical site in dressing Neurologic/Psych:AAOX3, grossly no focal neurological deficits Skin: normal color, warm, +Ecchymosis Results & Data Results & Data Vital Signs (Past 12 Hours) Vital Signs Temp Pulse Pulse Resp BP Pulse Ox O2 Del Method 01/26/23 15:40 81 01/26/23 15:28 36.9 C 74 16 122/70 96 Room Air 01/26/23 11:50 36.6 C 84 16 145/73 H 98 Room Air 01/26/23 07:54 36.5 C 73 16 135/76 98 Room Air 01/26/23 07:10 73 Laboratory Results Short CBC 01/26/23 Range/Units 05:59 Hgb 8.2 L (12.0-16.0) g/dl Hct 24.7 L (37.0-47.0) % BMP 01/26/23 05:59 Sodium 128 L Potassium 4.7 Chloride 95 L Carbon Dioxide 29 BUN 40 H Creatinine 0.95 Glucose 117 H Calcium 8.6 (1) Hip fracture Encounter type: initial encounter Fracture type: closed Laterality: right Qualified Code(s): S72.001A - Fracture of unspecified part of neck of right femur, initial encounter for closed fracture
[2023-01-26] MEDS: WARFARIN SOD 2.5 MG TAB PO SCH (16:41)
[2023-01-26] MEDS: GABAPENTIN 100 MG CAP PO SCH (20:47)
[2023-01-26] MEDS: SIMVASTATIN 10 MG TAB PO SCH (20:48)
[2023-01-27] MEDS: LEVOTHYROXINE SODIUM 75 MCG TABLET PO SCH (06:24)
[2023-01-27 06:36] LABS: Hematocrit (blood only) 23.6 % (37.0-47.0); Hemoglobin 7.9 g/dl (12.0-16.0); Mean Corpuscular Hgb Conc 33.5 g/dL (32.0-36.0); Mean Corpuscular Volume 89.7 fL (80.0-100.0); Mean Platelet Volume 9.9 fL (9.4-12.4); Platelet Count 217 K/uL (130-400); RDW Coefficient of Variation 13.3 % (11.5-14.5); RDW Standard Deviation 43.3 fL (36.4-46.3); Red Blood Count 2.63 M/uL (4.20-5.40); White Blood Count 9.01 K/ul (4.8-10.8)
[2023-01-27 06:49] LABS: BUN Creatinine Ratio 42.6 (10-20); Calcium 8.6 mg/dl (8.6-10.3); Creatinine Clr Calc Pharmacy 35.8 ml/min; Est GFR (African American) 63.7 ml/min; Est GFR (Non-African American) 54.9 ml/min; Potassium 5.2 mmol/L (3.5-5.1)
[2023-01-27 06:57] LABS: INR 1.8 (0.9-1.1); Prothrombin Time 19.2 Seconds (9.0-12.0)
[2023-01-27] MEDS: ASPIRIN 81 MG ECTAB PO SCH (08:46)
[2023-01-27] MEDS: carvediloL 6.25 MG TAB PO SCH ×2 (08:46→21:38)
[2023-01-27] MEDS: CHOLECALCIFEROL 1,000 UNITS 25 MCG TAB PO SCH (08:47)
[2023-01-27] MEDS: SENNA 8.6 MG TAB PO SCH (08:47)
[2023-01-27] MEDS: MULTIVITAMIN TAB PO SCH (08:47)
[2023-01-27] MEDS: ACETAMINOPHEN 325 MG TAB PO PRN (09:47)
--- NOTE | 2023-01-27 11:26 | Cardiology Progress Note ---
Date of Service January 27, 2023 Assessment & Plan (1) NICM (nonischemic cardiomyopathy): (2) Biventricular cardiac pacemaker in situ: (3) AICD (automatic cardioverter/defibrillator) present: (4) Permanent atrial fibrillation: (5) Hip fracture: Plan Medically complex 87-year-old female with history of nonischemic cardiomyopathy status post biventricular ICD in 2016, most recent LVEF 50-54 cm per echo 03/2021, mitral valve replacement and tricuspid repair 2014. Permanent atrial fibrillation and is anticoagulated with Coumadin. Right-sided hip surgery performed 01/22/2023 without complication. Postoperative day #4 hip repair. Postoperative anemia noted, Hbg slightly lower today. Monitor. she is currently asymptomatic. Monitor daily hemoglobin and hematocrit. Continue oral anticoagulation with warfarin. INR trending upward. Orthostatic hypotension noted in the setting of postoperative anemia and renal insufficiency. Improved. Appears euvolemic. We discussed resuming diuretic today, but patient concerned with frequent urination and limited mobility post hip. Will continue to hold torsemide and spironolactone today. Need to monitor potassium given borderline elevated levels this morning. Patient awaiting rehab bed. Stable from cardiac perspective when bed available. Resume diuretics at that time. Continue all other home cardiac medications. Case discussed with Dr. Blankenship I spent a total of 30 minutes on the date of service in preparation, delivery, and documentation of the care provided to this patient, excluding any time spent in the performance of separately billed services. Shobha Rascon PA-C Department of Cardiology, [facility] This chart was completed in part utilizing Speech Voice Recognition Software. Grammatical errors, random word insertions, pronoun errors, and incomplete sentences are an occasional consequence of this system due to software limitations, ambient noise, and hardware issues. Any formal questions or concerns about the content, text, or information contained within the body of this dictation should be directly addressed to the provider for clarification. Admission and Anticipated Discharge Date Admission Date: January 22, 2023 Supervising Physician Co-Signing Physician Notes Supervising Physician Attestation: I have personally performed a history and physical examination on the patient. I agree with the physician acquisitions assistant's findings and plan as documented with the following additions. Subjective: Patient subjectively improved Exam: Trace right lower extremity edema, no significant left lower extremity edema Data: Hemoglobin 7.9 INR 1.8 Potassium 5.2 BUN 40 Creatinine 0.94 Assessment and Plan: -Impression as noted above -Continue cautious Coumadin. -We will consider resuming torsemide tomorrow, 01/28. Hold multivitamin due to mild hyperkalemia. Continue to hold spironolactone. Physical therapy as tolerated I spent a total of 20 minutes on the date of service in preparation, delivery, and documentation of the care provided to this patient, excluding any time spent in the performance of separately billed services. Octaviano Blankenship, DO Subjective Patient resting in chair quietly. Feeling well. denies acute complaints. Awaiting bed for rehab. Denies chest pain, SOB. Feels her edema is "better than ever". BP controlled. Dizziness and orthostasis improved. Diuretics remain on hold for now. No orthopnea, PND or edema. Review of Systems Review of Systems: All systems reviewed & are unremarkable except as noted in HPI & below Physical Exam Constitutional: well nourished; no acute distress Respiratory: normal respiratory effort Auscultation: no crackles, no rales, no rhonchi and no wheezes Cardiovascular: Rate/Rhythm: regular rate and regular rhythm Heart Sounds: normal S1 and normal S2 Vessels: no JVD Extremities: + edema (trace pretibial edema on right leg. No edema on left) Gastrointestinal (Abdomen): normal bowel sounds, soft, nontender, no hepatosplenomegaly Skin: no rashes, warm and dry Psychiatric: A+Ox3, euthymic affect Results & Data Vital Signs (Past 12 Hours) Vital Signs Temp Pulse Pulse Pulse Resp BP BP 01/27/23 09:00 01/27/23 07:04 36.9 C 73 18 131/65 01/27/23 07:25 73 01/27/23 03:23 36.8 C 71 18 167/78 H 01/26/23 23:36 73 Pulse Ox O2 Del Method 01/27/23 09:00 Room Air 01/27/23 07:04 99 Room Air 01/27/23 07:25 01/27/23 03:23 98 Room Air 01/26/23 23:36 Laboratory Results Coagulation 01/27/23 Range/Units 06:02 PT 19.2 H (9.0-12.0) Seconds CBC 01/27/23 Range/Units 06:02 WBC 9.01 (4.8-10.8) K/ul RBC 2.63 L (4.20-5.40) M/uL Hgb 7.9 L (12.0-16.0) g/dl Hct 23.6 L (37.0-47.0) % Plt Count 217 (130-400) K/uL Comprehensive Metabolic Panel 01/27/23 Range/Units 06:02 Sodium 130 L (136-145) mmol/L Potassium 5.2 H (3.5-5.1) mmol/L Chloride 98 (98-107) mmol/L Carbon Dioxide 28 (21-32) mmol/L BUN 40 H (6-23) mg/dl Creatinine 0.94 (0.6-1.2) mg/dl Glucose 107 H (70-99(Fasting)) mg/dl Calcium 8.6 (8.6-10.3) mg/dl Intake and Output 01/26/23 01/27/23 01/27/23 22:59 06:59 14:59 Intake Total 280 / 480 Output Total 350 / 1200 550 / 1200 Balance -70 / -720 -550 / -720 Intake: Oral 280 / 480 Output: Urine 350 / 1200 550 / 1200 Other: # Unmeasured Voids 1 Weight 60.4 kg Weight Measurement Method Built in [facility] Diagnostic Findings Telemetry reviewed: chronic afib with intermittent ventricular pacing. HR's in the 's Medications Administered Current Inpatient Medications Acetaminophen (Acetaminophen 325 Mg Tab) 650 mg PO Q6H PRN PRN Reason: Fever/Pain Stop: 02/21/23 00:35 Last Admin: 01/27/23 09:47 Dose: 650 mg Acetaminophen (Acetaminophen 325 Mg Tab) 650 mg PO Q4H PRN PRN Reason: fever or pain Stop: 02/21/23 17:23 Last Admin: 01/23/23 16:46 Dose: 650 mg Alendronate Sodium (Alendronate Sodium 70 Mg Tab) 70 mg PO Sa@0630 COUNT INCLUDES THE [facility] Stop: 02/22/23 06:29 Last Admin: 01/23/23 06:09 Dose: 70 mg Artificial Tears (Artificial Tears) 1 drops OP QID PRN PRN Reason: DRY EYES Stop: 02/21/23 20:59 Last Admin: 01/25/23 16:01 Dose: 1 drops Aspirin (Aspirin 81 Mg Ectab) 81 mg PO QAM COUNT INCLUDES THE [facility] Stop: 02/21/23 08:59 Last Admin: 01/27/23 08:46 Dose: 81 mg Carvedilol (Carvedilol 6.25 Mg Tab) 6.25 mg PO [facility] [place] Stop: 02/22/23 20:59 Last Admin: 01/27/23 08:46 Dose: 6.25 mg Gabapentin (Gabapentin 100 Mg Cap) 200 mg PO HS [place] Stop: 02/21/23 20:59 Last Admin: 01/26/23 20:47 Dose: 200 mg Levothyroxine Sodium (Levothyroxine Sodium 75 Mcg Tablet) 75 mcg PO DAILYBB [place] Stop: 02/21/23 06:29 Last Admin: 01/27/23 06:24 Dose: 75 mcg Multivitamins (Multivitamin Tab) 1 tab PO QAM COUNT INCLUDES THE [facility] Stop: 02/21/23 08:59 Last Admin: 01/27/23 08:47 Dose: 1 tab Naloxone HCl (Naloxone Hcl 0.4 Mg/1 Ml Vial/Carp) 0.1 mg IV UD PRN PRN Reason: Opiate Overdose Stop: 02/21/23 01:38 Oxycodone HCl (Oxycodone Hcl Ir 5 Mg Tab (Immediate Release)) 5 mg PO Q4H PRN PRN Reason: Pain Stop: 02/05/23 00:34 Last Admin: 01/26/23 20:48 Dose: 5 mg Polyethylene Glycol (Polyethylene (Miralax) 17 Gm Pack) 17 gm PO Q6 PRN PRN Reason: constipation Stop: 02/21/23 01:38 Last Admin: 01/25/23 08:38 Dose: 17 gm Sennosides (Senna 8.6 Mg Tab) 25.8 mg PO DAILY [place] Stop: 02/21/23 08:59 Last Admin: 01/27/23 08:47 Dose: 25.8 mg Simvastatin (Simvastatin 10 Mg Tab) 10 mg PO HS [place] Stop: 02/21/23 01:38 Last Admin: 01/26/23 20:48 Dose: 10 mg Spironolactone (Spironolactone 25 Mg Tab) 25 mg PO HS COUNT INCLUDES THE [facility] Stop: 02/21/23 20:59 Last Admin: 01/22/23 20:20 Dose: 25 mg Torsemide (Torsemide 20 Mg Tab) 40 mg PO DAILY [place] Stop: 02/22/23 08:59 Last Admin: 01/23/23 08:49 Dose: 40 mg Vitamin D (Cholecalciferol 1,000 Units 25 Mcg Tab) 2,000 units PO DAILY COUNT INCLUDES THE [facility] Stop: 02/21/23 08:59 Last Admin: 01/27/23 08:47 Dose: 2,000 units Warfarin Sodium (Warfarin Sod 2.5 Mg Tab) 2.5 mg PO SuTuThSa@1600 COUNT INCLUDES THE [facility] Stop: 02/22/23 15:59 Last Admin: 01/26/23 16:41 Dose: 2.5 mg Warfarin Sodium (Warfarin Sod 5 Mg Tab) 5 mg PO MoWeFr@1600 COUNT INCLUDES THE [facility] Stop: 02/21/23 17:23 Last Admin: 01/25/23 16:01 Dose: 5 mg (5) Hip fracture Encounter type: initial encounter Fracture type: closed Laterality: right Qualified Code(s): S72.001A - Fracture of unspecified part of neck of right femur, initial encounter for closed fracture
[2023-01-27] MEDS: oxyCODONE HCL IR 5 MG TAB (IMMEDIATE RELEASE) PO PRN ×2 (14:36→21:40)
[2023-01-27] MEDS: WARFARIN SOD 5 MG TAB PO SCH (15:52)
--- NOTE | 2023-01-27 16:10 | Hospitalist Progress Note ---
Date of Service January 27, 2023 Assessment & Plan (1) Hip fracture: Plan: Acute comminuted mildly displaced intertrochanteric fracture of Right femur Secondary to mechanical fall Postoperative acute blood loss anemia --Hip X ray:Acute comminuted mildly displaced intertrochanteric fracture of the right femur with slight subtrochanteric extension. --S/P Right hip intramedullary Nail(Right) by Dr. Diaz on 01/22/2023 Fall precautions Bowel regimen to prevent constipation Pain control Appreciate orthopedics input Continue PT OT Resumed Coumadin Needs follow-up with orthopedics upon discharge Monitor CBC, transfuse PRBCs as needed Weightbearing as tolerated on right hip Waiting for rehab placement Continue current management Nonischemic cardiomyopathy SSS S/P Biventricular ICD Last EF 50 to 54% Pulmonary hypertension S/P mitral valve replacement, tricuspid repair 2014 Appears compensated Monitor volume status Appreciate cardiology input Resume torsemide and Aldactone as able - likely to resume torsemide tmrw Continue carvedilol Hypertension Orthostatic hypotension postsurgery Hold torsemide, Aldactone for now Continue carvedilol at lower dose Monitor BP BRYANNA on CKD stage III Hold diuretics for now Avoid nephrotoxic agents as able Monitor volume status Consider IV fluids if needed Monitor for any bladder retention Cr improved to 0.9 today Hyperlipidemia Continue simvastatin Peripheral vascular disease Continue aspirin, statin Chronic atrial fibrillation Continue carvedilol Resumed Coumadin Received vitamin K for surgery Monitor INR:1.8 today Chronic hyponatremia Likely secondary to diuretics Sodium 130 today Monitor sodium levels No mental status change Hypothyroidism Continue levothyroxine Prediabetes HbA1c 5.7 DVT prophylaxis Coumadin CODE STATUS DNR/DNI Disposition Waiting for rehab placement Admission and Anticipated Discharge Date Admission Date: January 22, 2023 Subjective Patient is seen in follow up of hip fx States feeling well today No new complaints Right hip pain at surgical site with movement Denies any chest pain, dyspnea, dizziness, nausea, abdominal pain Waiting for rehab placement Cardiology following Review of Systems Review of Systems: All systems reviewed & are unremarkable except as noted in Subjective Physical Exam Physical Exam: General Appearance:Moderately built and nourished, no apparent distress, Elderly Head: normocephalic, Atraumatic Eyes: normal inspection, EOMI Neck: supple Respiratory/Chest: Normal breath sounds, CTA, No accessory muscle use, +Pacer Cardiovascular: Irregularly irregular, + murmur Abdomen/GI:Soft, Non tender, Bowel sounds present Extremities/Musculoskeletal:normal inspection, R hip surgical site w/ dressings Neurologic/Psych: AAOX3, grossly no focal neurological deficits Skin: normal color, warm, +Ecchymosis Results & Data Results & Data Vital Signs (Past 12 Hours) Vital Signs Temp Pulse Pulse Resp BP BP Pulse Ox 01/27/23 15:39 79 01/27/23 15:12 36.8 C 74 18 113/68 94 01/27/23 11:20 36.8 C 72 18 104/57 L 99 01/27/23 09:00 01/27/23 07:04 36.9 C 73 18 131/65 99 01/27/23 07:25 73 O2 Del Method 01/27/23 15:39 01/27/23 15:12 Room Air 01/27/23 11:20 Room Air 01/27/23 09:00 Room Air 01/27/23 07:04 Room Air 01/27/23 07:25 Laboratory Results 01/27/23 01/27/23 01/27/23 Range/Units 06:02 06:02 06:02 WBC 9.01 (4.8-10.8) K/ul RBC 2.63 L (4.20-5.40) M/uL Hgb 7.9 L (12.0-16.0) g/dl Hct 23.6 L (37.0-47.0) % MCV 89.7 (80.0-100.0) fL MCH 30.0 (25.0-34.0) pg MCHC 33.5 (32.0-36.0) g/dL RDW Std Deviation 43.3 (36.4-46.3) fL RDW Coeff of Fabricio 13.3 (11.5-14.5) % Plt Count 217 (130-400) K/uL MPV 9.9 (9.4-12.4) fL PT 19.2 H (9.0-12.0) Seconds INR 1.8 H (0.9-1.1) Sodium 130 L (136-145) mmol/L Potassium 5.2 H (3.5-5.1) mmol/L Chloride 98 (98-107) mmol/L Carbon Dioxide 28 (21-32) mmol/L Anion Gap 4 (3-11) BUN 40 H (6-23) mg/dl Creatinine 0.94 (0.6-1.2) mg/dl Est Cr Clr Drug Dosing 35.8 ml/min Est GFR ( Amer) 63.7 ml/min Est GFR (Non-Af Amer) 54.9 ml/min BUN/Creatinine Ratio 42.6 H (10-20) Glucose 107 H (70-99(Fasting)) mg/dl Calcium 8.6 (8.6-10.3) mg/dl Medications Administered Current Inpatient Medications Acetaminophen (Acetaminophen 325 Mg Tab) 650 mg PO Q6H PRN PRN Reason: Fever/Pain Stop: 02/21/23 00:35 Last Admin: 01/27/23 09:47 Dose: 650 mg Acetaminophen (Acetaminophen 325 Mg Tab) 650 mg PO Q4H PRN PRN Reason: fever or pain Stop: 02/21/23 17:23 Last Admin: 01/23/23 16:46 Dose: 650 mg Alendronate Sodium (Alendronate Sodium 70 Mg Tab) 70 mg PO Sa@0630 [facility] Stop: 02/22/23 06:29 Last Admin: 01/23/23 06:09 Dose: 70 mg Artificial Tears (Artificial Tears) 1 drops OP QID PRN PRN Reason: DRY EYES Stop: 02/21/23 20:59 Last Admin: 01/25/23 16:01 Dose: 1 drops Aspirin (Aspirin 81 Mg Ectab) 81 mg PO QAM [facility] Stop: 02/21/23 08:59 Last Admin: 01/27/23 08:46 Dose: 81 mg Carvedilol (Carvedilol 6.25 Mg Tab) 6.25 mg PO [facility] Stop: 02/22/23 20:59 Last Admin: 01/27/23 08:46 Dose: 6.25 mg Gabapentin (Gabapentin 100 Mg Cap) 200 mg PO HS [facility] Stop: 02/21/23 20:59 Last Admin: 01/26/23 20:47 Dose: 200 mg Levothyroxine Sodium (Levothyroxine Sodium 75 Mcg Tablet) 75 mcg PO DAILYBB [facility] Stop: 02/21/23 06:29 Last Admin: 01/27/23 06:24 Dose: 75 mcg Multivitamins (Multivitamin Tab) 1 tab PO QAM [facility] Stop: 02/21/23 08:59 Last Admin: 01/27/23 08:47 Dose: 1 tab Naloxone HCl (Naloxone Hcl 0.4 Mg/1 Ml Vial/Carp) 0.1 mg IV UD PRN PRN Reason: Opiate Overdose Stop: 02/21/23 01:38 Oxycodone HCl (Oxycodone Hcl Ir 5 Mg Tab (Immediate Release)) 5 mg PO Q4H PRN PRN Reason: Pain Stop: 02/05/23 00:34 Last Admin: 01/27/23 14:36 Dose: 5 mg Polyethylene Glycol (Polyethylene (Miralax) 17 Gm Pack) 17 gm PO Q6 PRN PRN Reason: constipation Stop: 02/21/23 01:38 Last Admin: 01/25/23 08:38 Dose: 17 gm Sennosides (Senna 8.6 Mg Tab) 25.8 mg PO DAILY [facility] Stop: 02/21/23 08:59 Last Admin: 01/27/23 08:47 Dose: 25.8 mg Simvastatin (Simvastatin 10 Mg Tab) 10 mg PO HS [facility] Stop: 02/21/23 01:38 Last Admin: 01/26/23 20:48 Dose: 10 mg Spironolactone (Spironolactone 25 Mg Tab) 25 mg PO HS [facility] Stop: 02/21/23 20:59 Last Admin: 01/22/23 20:20 Dose: 25 mg Torsemide (Torsemide 20 Mg Tab) 40 mg PO DAILY [facility] Stop: 02/22/23 08:59 Last Admin: 01/23/23 08:49 Dose: 40 mg Vitamin D (Cholecalciferol 1,000 Units 25 Mcg Tab) 2,000 units PO DAILY [facility] Stop: 02/21/23 08:59 Last Admin: 01/27/23 08:47 Dose: 2,000 units Warfarin Sodium (Warfarin Sod 2.5 Mg Tab) 2.5 mg PO SuTuThSa@1600 [facility] Stop: 02/22/23 15:59 Last Admin: 01/26/23 16:41 Dose: 2.5 mg Warfarin Sodium (Warfarin Sod 5 Mg Tab) 5 mg PO MoWeFr@1600 [facility] Stop: 02/21/23 17:23 Last Admin: 01/27/23 15:52 Dose: 5 mg (1) Hip fracture Encounter type: initial encounter Fracture type: closed Laterality: right Qualified Code(s): S72.001A - Fracture of unspecified part of neck of right femur, initial encounter for closed fracture
[2023-01-27] MEDS: GABAPENTIN 100 MG CAP PO SCH (21:37)
[2023-01-27] MEDS: SIMVASTATIN 10 MG TAB PO SCH (21:38)
[2023-01-28] MEDS: LEVOTHYROXINE SODIUM 75 MCG TABLET PO SCH (06:14)
[2023-01-28] MEDS: ACETAMINOPHEN 325 MG TAB PO PRN ×2 (07:59→15:03)
[2023-01-28] MEDS: CHOLECALCIFEROL 1,000 UNITS 25 MCG TAB PO SCH (08:00)
[2023-01-28] MEDS: carvediloL 6.25 MG TAB PO SCH ×2 (08:00→21:14)
[2023-01-28] MEDS: ASPIRIN 81 MG ECTAB PO SCH (08:00)
[2023-01-28] MEDS: SENNA 8.6 MG TAB PO SCH (08:01)
[2023-01-28 08:29] LABS: Hematocrit (blood only) 24.5 % (37.0-47.0); Hemoglobin 7.9 g/dl (12.0-16.0)
[2023-01-28 08:45] LABS: BUN Creatinine Ratio 44.4 (10-20); Calcium 8.7 mg/dl (8.6-10.3); Creatinine Clr Calc Pharmacy 37.4 ml/min; Est GFR (African American) 67.1 ml/min; Est GFR (Non-African American) 57.9 ml/min; Magnesium 2.3 mg/dl (1.7-2.4); Phosphorus 3.5 mg/dl (2.5-4.9); Potassium 4.8 mmol/L (3.5-5.1)
[2023-01-28 08:52] LABS: INR 1.9 (0.9-1.1); Prothrombin Time 19.8 Seconds (9.0-12.0)
--- NOTE | 2023-01-28 11:21 | Cardiology Progress Note ---
Date of Service January 28, 2023 Assessment & Plan (1) NICM (nonischemic cardiomyopathy): (2) Biventricular cardiac pacemaker in situ: (3) AICD (automatic cardioverter/defibrillator) present: (4) Permanent atrial fibrillation: (5) Hip fracture: Plan Medically complex 87-year-old female with history of nonischemic cardiomyopathy status post biventricular ICD in 2016, most recent LVEF 50-54 cm per echo 03/2021, mitral valve replacement and tricuspid repair 2014. Permanent atrial fibrillation and is anticoagulated with Coumadin. Right-sided hip surgery performed 01/22/2023 without complication. Postoperative day #5 hip repair. Postoperative anemia noted, Hbg remains low but stable. Monitor. she is currently asymptomatic. possible increased incisional drainage? No pain. appears serous drainage by coloring of bandage. Patient reports this is new. Previously dry. Message sent to hospitalist. Continue oral anticoagulation with warfarin. INR trending upward. 1.9 this morning. Orthostatic hypotension noted in the setting of postoperative anemia and renal insufficiency. Improved. Appears euvolemic. Patient reports increased bloating? Will resume torsemide 20 mg (home dose is 40 mg). Continue to hold spironolactone. Potassium remains upper limit of normal. Patient awaiting rehab bed. Stable from cardiac perspective when bed available. Resume diuretics at that time. Continue all other home cardiac medications. Case discussed with Dr. Blankenship I spent a total of 30 minutes on the date of service in preparation, delivery, and documentation of the care provided to this patient, excluding any time spent in the performance of separately billed services. Shobha Rascon PA-C Department of Cardiology, [facility] This chart was completed in part utilizing Speech Voice Recognition Software. Grammatical errors, random word insertions, pronoun errors, and incomplete sentences are an occasional consequence of this system due to software limitations, ambient noise, and hardware issues. Any formal questions or concerns about the content, text, or information contained within the body of this dictation should be directly addressed to the provider for clarification. Admission and Anticipated Discharge Date Admission Date: January 22, 2023 Supervising Physician Co-Signing Physician Notes Supervising Physician Attestation: I have personally performed a history and physical examination on the patient. I agree with the physician assistant merchandise manager's findings and plan as documented with the following additions. Subjective: Patient denies subjective complaint from a cardiac perspective. Notes drainage from surgical wound, with serosanguineous drainage. Telemetry reveals rate controlled atrial fibrillation with biventricular pacing as per her usual rhythm. Exam: Cardiovascular: Irregular rhythm, no murmur, 1+ right lower extremity edema, no significant left lower extremity edema Data: INR 1.9 Potassium 4.8 Assessment and Plan: -Chronic heart failure with reduced ejection fraction -Volume status is euvolemic --Continue cautious Coumadin given history of atrial fibrillation, low ejection fraction, valvular heart disease. --Resume torsemide 20 mg daily, home dose 40 mg daily. Continue to hold spironolactone. Proceed with physical therapy as tolerated. DVT prophylaxis: on coumadin I spent a total of 15 minutes on the date of service in preparation, delivery, and documentation of the care provided to this patient, excluding any time spent in the performance of separately billed services. Octaviano Blankenship, DO Subjective Patient resting in bed. Feels "bloated" but admits to no BM for several days. No worsening edema, SOB, orthopnea, PND or cough. She does not feel this is fluid. She is concerned with "draining" incision. Bandages were changed overnight per patient with yellow drainage. she reports this was previously dry. No fever or chills. no worsening hip pain. Review of Systems Review of Systems: All systems reviewed & are unremarkable except as noted in HPI & below Physical Exam Constitutional: well nourished; no acute distress Respiratory: normal respiratory effort Auscultation: no crackles, no rales, no rhonchi and no wheezes Cardiovascular: Rate/Rhythm: regular rate and regular rhythm Heart Sounds: normal S1 and normal S2 Vessels: no JVD Extremities: + edema (trace pretibial edema on right leg. No edema on left) Gastrointestinal (Abdomen): normal bowel sounds, soft, nontender, no hepatosplenomegaly Skin: no rashes, warm and dry Psychiatric: A+Ox3, euthymic affect Results & Data Vital Signs (Past 12 Hours) Vital Signs Temp Pulse Pulse Resp BP Pulse Ox O2 Del Method 01/28/23 08:00 Room Air 01/28/23 07:05 36.7 C 76 18 147/77 H 97 Room Air 01/28/23 07:13 73 01/28/23 03:35 37 C 70 16 122/63 96 Room Air 01/28/23 00:00 77 Laboratory Results Coagulation 01/28/23 Range/Units 07:43 PT 19.8 H (9.0-12.0) Seconds CBC 01/28/23 Range/Units 07:43 Hgb 7.9 L (12.0-16.0) g/dl Hct 24.5 L (37.0-47.0) % Comprehensive Metabolic Panel 01/28/23 Range/Units 07:43 Sodium 131 L (136-145) mmol/L Potassium 4.8 (3.5-5.1) mmol/L Chloride 99 (98-107) mmol/L Carbon Dioxide 29 (21-32) mmol/L BUN 40 H (6-23) mg/dl Creatinine 0.90 (0.6-1.2) mg/dl Glucose 101 H (70-99(Fasting)) mg/dl Calcium 8.7 (8.6-10.3) mg/dl Intake and Output 01/27/23 01/28/23 01/28/23 22:59 06:59 14:59 Intake Total 440 / 840 Output Total 350 / 1200 500 / 1200 Balance 90 / -360 -500 / -360 Intake: Oral 440 / 840 Output: Urine 350 / 1200 500 / 1200 Other: Weight 60.4 kg 60.2 kg Weight Measurement Method Built in [facility] Diagnostic Findings Telemetry reviewed: atrial fib with intermittent pacing in the 's. Medications Administered Current Inpatient Medications Acetaminophen (Acetaminophen 325 Mg Tab) 650 mg PO Q6H PRN PRN Reason: Fever/Pain Stop: 02/21/23 00:35 Last Admin: 01/28/23 07:59 Dose: 650 mg Acetaminophen (Acetaminophen 325 Mg Tab) 650 mg PO Q4H PRN PRN Reason: fever or pain Stop: 02/21/23 17:23 Last Admin: 01/23/23 16:46 Dose: 650 mg Alendronate Sodium (Alendronate Sodium 70 Mg Tab) 70 mg PO Sa@30 [facility] Stop: 02/22/23 06:29 Last Admin: 01/23/23 06:09 Dose: 70 mg Artificial Tears (Artificial Tears) 1 drops OP QID PRN PRN Reason: DRY EYES Stop: 02/21/23 20:59 Last Admin: 01/25/23 16:01 Dose: 1 drops Aspirin (Aspirin 81 Mg Ectab) 81 mg PO QAM [facility] Stop: 02/21/23 08:59 Last Admin: 01/28/23 08:00 Dose: 81 mg Carvedilol (Carvedilol 6.25 Mg Tab) 6.25 mg PO [facility] Stop: 02/22/23 20:59 Last Admin: 01/28/23 08:00 Dose: 6.25 mg Gabapentin (Gabapentin 100 Mg Cap) 200 mg PO HS [facility] Stop: 02/21/23 20:59 Last Admin: 01/27/23 21:37 Dose: 200 mg Levothyroxine Sodium (Levothyroxine Sodium 75 Mcg Tablet) 75 mcg PO DAILYBB [place] Stop: 02/21/23 06:29 Last Admin: 01/28/23 06:14 Dose: 75 mcg Multivitamins (Multivitamin Tab) 1 tab PO QAM [facility] Stop: 02/21/23 08:59 Last Admin: 01/27/23 08:47 Dose: 1 tab Naloxone HCl (Naloxone Hcl 0.4 Mg/1 Ml Vial/Carp) 0.1 mg IV UD PRN PRN Reason: Opiate Overdose Stop: 02/21/23 01:38 Oxycodone HCl (Oxycodone Hcl Ir 5 Mg Tab (Immediate Release)) 5 mg PO Q4H PRN PRN Reason: Pain Stop: 02/05/23 00:34 Last Admin: 01/27/23 21:40 Dose: 5 mg Polyethylene Glycol (Polyethylene (Miralax) 17 Gm Pack) 17 gm PO Q6 PRN PRN Reason: constipation Stop: 02/21/23 01:38 Last Admin: 01/25/23 08:38 Dose: 17 gm Sennosides (Senna 8.6 Mg Tab) 25.8 mg PO DAILY [facility] Stop: 02/21/23 08:59 Last Admin: 01/28/23 08:01 Dose: 25.8 mg Simvastatin (Simvastatin 10 Mg Tab) 10 mg PO HS [facility] Stop: 02/21/23 01:38 Last Admin: 01/27/23 21:38 Dose: 10 mg Spironolactone (Spironolactone 25 Mg Tab) 25 mg PO HS [place] Stop: 02/21/23 20:59 Last Admin: 01/22/23 20:20 Dose: 25 mg Torsemide (Torsemide 20 Mg Tab) 40 mg PO DAILY [facility] Stop: 02/22/23 08:59 Last Admin: 01/23/23 08:49 Dose: 40 mg Vitamin D (Cholecalciferol 1,000 Units 25 Mcg Tab) 2,000 units PO DAILY [facility] Stop: 02/21/23 08:59 Last Admin: 01/28/23 08:00 Dose: 2,000 units Warfarin Sodium (Warfarin Sod 2.5 Mg Tab) 2.5 mg PO SuTuThSa@1600 [facility] Stop: 02/22/23 15:59 Last Admin: 01/26/23 16:41 Dose: 2.5 mg Warfarin Sodium (Warfarin Sod 5 Mg Tab) 5 mg PO MoWeFr@1600 [facility] Stop: 02/21/23 17:23 Last Admin: 01/27/23 15:52 Dose: 5 mg (5) Hip fracture Encounter type: initial encounter Fracture type: closed Laterality: right Qualified Code(s): S72.001A - Fracture of unspecified part of neck of right femur, initial encounter for closed fracture
--- NOTE | 2023-01-28 11:56 | Orthopedic Progress Note ---
Date of Service January 28, 2023 Assessment & Plan (1) Hip fracture: I looked at her wounds closely and they look okay. She does have some swelling and erythema in the area. She has mostly serosanguineous drainage. She is on Coumadin. She has been slow to work with physical therapy which is not uncommon at this time. She is currently medically stable for discharge and is awaiting a bed at a rehab facility. She will follow-up with orthopedics in 2 weeks. She can do daily dry dressing changes. I do not see a need for any antibiotics or further treatment of the incisions at this time. Full orthopedic discharge instructions were placed in the discharge summary. Howie Seay was seen and examined at bedside this morning. Overall she is doing okay. She is having a lot of pain in the right hip. She has been to max assist with physical therapy. She was having a little bit more drainage from her wounds over the last 24 hours. She is on Coumadin.. Review of Systems All systems reviewed & are unremarkable except as noted in HPI & below. Physical Exam On physical examination of the right hip, the dressing was taken down some. The incisions look fine. There is no erythema or signs of infection. It is mostly bloody and serous drainage from the wounds.. Results & Data Results & Data Laboratory Results . Diagnostic Findings . PG Care Time/CCT Total # of Minutes Spent Total Time Spent with Patient: Total time spent is greater than 50% in coordination of care (as documented) at patient's floor/unit and/or counseling patient: Coding Level of Care Code 29258 Post Operative Follow-Up Diagnoses Hip fracture S72.001A Encounter type: initial encounter Fracture type: closed Laterality: right (1) Hip fracture Encounter type: initial encounter Fracture type: closed Laterality: right Qualified Code(s): S72.001A - Fracture of unspecified part of neck of right femur, initial encounter for closed fracture
[2023-01-28] MEDS: TORSEMIDE 20 MG TAB PO SCH (15:04)
[2023-01-28] MEDS ORDERED: bisacodyL 10 MG SUPP PR STA (15:05)
[2023-01-28] MEDS ORDERED: POLYETHYLENE (MIRALAX) 17 GM PACK PO ONE (15:07)
--- NOTE | 2023-01-28 15:08 | Hospitalist Progress Note ---
Date of Service January 28, 2023 Assessment & Plan (1) Hip fracture: Plan: Acute comminuted mildly displaced intertrochanteric fracture of Right femur Secondary to mechanical fall Postoperative acute blood loss anemia --Hip X ray:Acute comminuted mildly displaced intertrochanteric fracture of the right femur with slight subtrochanteric extension. --S/P Right hip intramedullary Nail(Right) by Dr. Diaz on 01/22/2023 Fall precautions Bowel regimen to prevent constipation Pain control Appreciate orthopedics input Continue PT OT Resumed Coumadin Needs follow-up with orthopedics upon discharge Monitor CBC, transfuse PRBCs as needed Weightbearing as tolerated on right hip Waiting for rehab placement Continue current management Nonischemic cardiomyopathy SSS S/P Biventricular ICD Last EF 50 to 54% Pulmonary hypertension S/P mitral valve replacement, tricuspid repair 2014 Appears compensated Monitor volume status Appreciate cardiology input Resume torsemide and Aldactone as able -> resumed torsemide today (01/28) at lower dose 20 mg daily Continue carvedilol at lower dose Hypertension Orthostatic hypotension postsurgery Hold torsemide, Aldactone for now Continue carvedilol at lower dose Monitor BP BRYANNA on CKD stage III diuretics on hold, deborah resumed torsemide at lower dose Avoid nephrotoxic agents as able Monitor volume status Consider IV fluids if needed Monitor for any bladder retention Cr improved to 0.9 Hyperlipidemia Continue simvastatin Peripheral vascular disease Continue aspirin, statin Chronic atrial fibrillation Continue carvedilol Resumed Coumadin Received vitamin K for surgery Monitor INR:1.9 today Chronic hyponatremia Likely secondary to diuretics Sodium 131 today Monitor sodium levels No mental status change Hypothyroidism Continue levothyroxine Prediabetes HbA1c 5.7 DVT prophylaxis Coumadin CODE STATUS DNR/DNI Disposition Waiting for rehab placement Admission and Anticipated Discharge Date Admission Date: January 22, 2023 Subjective Patient is seen in follow up of hip fx States feeling well today Right hip pain at surgical site with movement - also noted increased drainage and so orthopedics contacted to re-check incision Denies any chest pain, dyspnea, dizziness, nausea, abdominal pain Waiting for rehab placement Cardiology following Review of Systems Review of Systems: All systems reviewed & are unremarkable except as noted in Subjective Physical Exam Physical Exam: General Appearance:Moderately built and nourished, no apparent distress, Elderly Head: normocephalic, Atraumatic Eyes: normal inspection, EOMI Neck: supple Respiratory/Chest: Normal breath sounds, CTA, No accessory muscle use, +Pacer Cardiovascular: Irregularly irregular, + murmur Abdomen/GI:Soft, Non tender, Bowel sounds present Extremities/Musculoskeletal:normal inspection, R hip surgical site w/ dressings Neurologic/Psych: AAOX3, grossly no focal neurological deficits Skin: normal color, warm, +Ecchymosis Results & Data Results & Data Vital Signs (Past 12 Hours) Vital Signs Temp Pulse Pulse Resp BP BP Pulse Ox 01/28/23 11:26 36.6 C 73 15 107/70 96 01/28/23 08:00 01/28/23 07:05 36.7 C 76 18 147/77 H 97 01/28/23 07:13 73 01/28/23 03:35 37 C 70 16 122/63 96 O2 Del Method 01/28/23 11:26 Room Air 01/28/23 08:00 Room Air 01/28/23 07:05 Room Air 01/28/23 07:13 01/28/23 03:35 Room Air Laboratory Results 01/28/23 01/28/23 01/28/23 Range/Units 07:43 07:43 07:43 Hgb 7.9 L (12.0-16.0) g/dl Hct 24.5 L (37.0-47.0) % PT 19.8 H (9.0-12.0) Seconds INR 1.9 H (0.9-1.1) Sodium 131 L (136-145) mmol/L Potassium 4.8 (3.5-5.1) mmol/L Chloride 99 (98-107) mmol/L Carbon Dioxide 29 (21-32) mmol/L Anion Gap 3 (3-11) BUN 40 H (6-23) mg/dl Creatinine 0.90 (0.6-1.2) mg/dl Est Cr Clr Drug Dosing 37.4 ml/min Est GFR ( Amer) 67.1 ml/min Est GFR (Non-Af Amer) 57.9 ml/min BUN/Creatinine Ratio 44.4 H (10-20) Glucose 101 H (70-99(Fasting)) mg/dl Calcium 8.7 (8.6-10.3) mg/dl Phosphorus 3.5 (2.5-4.9) mg/dl Magnesium 2.3 (1.7-2.4) mg/dl Medications Administered Current Inpatient Medications Acetaminophen (Acetaminophen 325 Mg Tab) 650 mg PO Q6H PRN PRN Reason: Fever/Pain Stop: 02/21/23 00:35 Last Admin: 01/28/23 15:03 Dose: 650 mg Acetaminophen (Acetaminophen 325 Mg Tab) 650 mg PO Q4H PRN PRN Reason: fever or pain Stop: 02/21/23 17:23 Last Admin: 01/23/23 16:46 Dose: 650 mg Alendronate Sodium (Alendronate Sodium 70 Mg Tab) 70 mg PO Sa@30 [facility] Stop: 02/22/23 06:29 Last Admin: 01/23/23 06:09 Dose: 70 mg Artificial Tears (Artificial Tears) 1 drops OP QID PRN PRN Reason: DRY EYES Stop: 02/21/23 20:59 Last Admin: 01/25/23 16:01 Dose: 1 drops Aspirin (Aspirin 81 Mg Ectab) 81 mg PO QAM [facility] Stop: 02/21/23 08:59 Last Admin: 01/28/23 08:00 Dose: 81 mg Carvedilol (Carvedilol 6.25 Mg Tab) 6.25 mg PO [facility] Stop: 02/22/23 20:59 Last Admin: 01/28/23 08:00 Dose: 6.25 mg Gabapentin (Gabapentin 100 Mg Cap) 200 mg PO HS [facility] Stop: 02/21/23 20:59 Last Admin: 01/27/23 21:37 Dose: 200 mg Levothyroxine Sodium (Levothyroxine Sodium 75 Mcg Tablet) 75 mcg PO DAILYBB [facility] Stop: 02/21/23 06:29 Last Admin: 01/28/23 06:14 Dose: 75 mcg Multivitamins (Multivitamin Tab) 1 tab PO QAM [facility] Stop: 02/21/23 08:59 Last Admin: 01/27/23 08:47 Dose: 1 tab Naloxone HCl (Naloxone Hcl 0.4 Mg/1 Ml Vial/Carp) 0.1 mg IV UD PRN PRN Reason: Opiate Overdose Stop: 02/21/23 01:38 Oxycodone HCl (Oxycodone Hcl Ir 5 Mg Tab (Immediate Release)) 5 mg PO Q4H PRN PRN Reason: Pain Stop: 02/05/23 00:34 Last Admin: 01/27/23 21:40 Dose: 5 mg Polyethylene Glycol (Polyethylene (Miralax) 17 Gm Pack) 17 gm PO Q6 PRN PRN Reason: constipation Stop: 02/21/23 01:38 Last Admin: 01/25/23 08:38 Dose: 17 gm Polyethylene Glycol (Polyethylene (Miralax) 17 Gm Pack) 17 gm PO ONE ONE Stop: 01/28/23 15:08 Sennosides (Senna 8.6 Mg Tab) 25.8 mg PO DAILY [facility] Stop: 02/21/23 08:59 Last Admin: 01/28/23 08:01 Dose: 25.8 mg Simvastatin (Simvastatin 10 Mg Tab) 10 mg PO HS [facility] Stop: 02/21/23 01:38 Last Admin: 01/27/23 21:38 Dose: 10 mg Spironolactone (Spironolactone 25 Mg Tab) 25 mg PO HS [facility] Stop: 02/21/23 20:59 Last Admin: 01/22/23 20:20 Dose: 25 mg Torsemide (Torsemide 20 Mg Tab) 40 mg PO DAILY [facility] Stop: 02/22/23 08:59 Last Admin: 01/23/23 08:49 Dose: 40 mg Torsemide (Torsemide 20 Mg Tab) 20 mg PO QAM [facility] Stop: 02/27/23 11:44 Last Admin: 01/28/23 15:04 Dose: 20 mg Vitamin D (Cholecalciferol 1,000 Units 25 Mcg Tab) 2,000 units PO DAILY [facility] Stop: 02/21/23 08:59 Last Admin: 01/28/23 08:00 Dose: 2,000 units Warfarin Sodium (Warfarin Sod 2.5 Mg Tab) 2.5 mg PO SuTuThSa@1600 [facility] Stop: 02/22/23 15:59 Last Admin: 01/26/23 16:41 Dose: 2.5 mg Warfarin Sodium (Warfarin Sod 5 Mg Tab) 5 mg PO MoWeFr@1600 [facility] Stop: 02/21/23 17:23 Last Admin: 01/27/23 15:52 Dose: 5 mg (1) Hip fracture Encounter type: initial encounter Fracture type: closed Laterality: right Qualified Code(s): S72.001A - Fracture of unspecified part of neck of right femur, initial encounter for closed fracture
[2023-01-28] MEDS: POLYETHYLENE (MIRALAX) 17 GM PACK PO PRN (15:39)
[2023-01-28] MEDS: WARFARIN SOD 2.5 MG TAB PO SCH (15:39)
[2023-01-28] MEDS: oxyCODONE HCL IR 5 MG TAB (IMMEDIATE RELEASE) PO PRN (21:13)
[2023-01-28] MEDS: SIMVASTATIN 10 MG TAB PO SCH (21:14)
[2023-01-28] MEDS: GABAPENTIN 100 MG CAP PO SCH (21:15)
[2023-01-29] MEDS: ACETAMINOPHEN 325 MG TAB PO PRN ×3 (00:22→11:14)
[2023-01-29] MEDS: LEVOTHYROXINE SODIUM 75 MCG TABLET PO SCH (05:20)
[2023-01-29 07:09] LABS: Hematocrit (blood only) 24.3 % (37.0-47.0)
[2023-01-29 07:22] LABS: BUN Creatinine Ratio 42.9 (10-20); Calcium 8.2 mg/dl (8.6-10.3); Est GFR (African American) 51.5 ml/min; Est GFR (Non-African American) 44.4 ml/min; Potassium 4.5 mmol/L (3.5-5.1)
[2023-01-29 07:39] LABS: INR 2.2 (0.9-1.1)
[2023-01-29] MEDS: ASPIRIN 81 MG ECTAB PO SCH (09:01)
[2023-01-29] MEDS: CHOLECALCIFEROL 1,000 UNITS 25 MCG TAB PO SCH (09:02)
[2023-01-29] MEDS: SENNA 8.6 MG TAB PO SCH (09:02)
[2023-01-29] MEDS: TORSEMIDE 20 MG TAB PO SCH (09:03)
[2023-01-29] MEDS: carvediloL 6.25 MG TAB PO SCH (09:04)
[2023-01-29] MEDS: POLYETHYLENE (MIRALAX) 17 GM PACK PO PRN (09:07)
[2023-01-29] MEDS ORDERED: bisacodyL 10 MG SUPP PR STA (10:16)
--- NOTE | 2023-01-29 10:23 | Hospitalist Progress Note ---
Date of Service January 29, 2023 Assessment & Plan (1) Hip fracture: Plan: Acute comminuted mildly displaced intertrochanteric fracture of Right femur Secondary to mechanical fall Postoperative acute blood loss anemia --Hip X ray:Acute comminuted mildly displaced intertrochanteric fracture of the right femur with slight subtrochanteric extension. --S/P Right hip intramedullary Nail(Right) by Dr. Diaz on 01/22/2023 Fall precautions Bowel regimen to prevent constipation Pain control Appreciate orthopedics input Continue PT OT Resumed Coumadin Needs follow-up with orthopedics upon discharge Monitor CBC, transfuse PRBCs as needed Weightbearing as tolerated on right hip Waiting for rehab placement Continue current management 01/28/2023 - more soaking through dressings noted and orthopedics was called to re-check. Per orthopedics - She is currently medically stable for discharge and is awaiting a bed at a rehab facility. She will follow-up with orthopedics in 2 weeks. She can do daily dry dressing changes. I do not see a need for any antibiotics or further treatment of the incisions at this time. Full orthopedic discharge instructions were placed in the discharge summary. Constipation cont. bowel regimen KUB unremarkable Nonischemic cardiomyopathy SSS S/P Biventricular ICD Last EF 50 to 54% Pulmonary hypertension S/P mitral valve replacement, tricuspid repair 2014 Appears compensated Monitor volume status Appreciate cardiology input Resume torsemide and Aldactone as able -> resumed torsemide on (01/28) at lower dose 20 mg daily- discharge on this dose Continue carvedilol at lower dose 6.25 mg bid Cont. to hold spironolactone on discharge Hypertension Orthostatic hypotension postsurgery Held torsemide, Aldactone initially - as above Continue carvedilol at lower dose Monitor BP BRYANNA on CKD stage III diuretics on hold initially, now resumed torsemide at lower dose Avoid nephrotoxic agents as able Monitor volume status Cr improved to 0.9 Hyperlipidemia Continue simvastatin Peripheral vascular disease Continue aspirin, statin Chronic atrial fibrillation Continue carvedilol Resumed Coumadin Received vitamin K for surgery Monitor INR: 2.2 today -it is important that INR is monitored, and stays around 2 to prevent excessive drainage from incision. Chronic hyponatremia Likely secondary to diuretics Sodium 131 today Monitor sodium levels No mental status change Hypothyroidism Continue levothyroxine Prediabetes HbA1c 5.7 DVT prophylaxis; Coumadin CODE STATUS DNR/DNI Disposition - plan to discharge to [facility] Admission and Anticipated Discharge Date Admission Date: January 22, 2023 Subjective Patient is seen in follow up of hip fx States feeling well today , she is sitting up in chair in NAD Right hip pain at surgical site with movement - also noted increased drainage and so orthopedics contacted yesterday to re-check incision Denies any chest pain, dyspnea, dizziness, nausea, abdominal pain Waiting for rehab placement - plan to DC to [facility] - peer to peer obtained and pt approved Cardiology following Review of Systems Review of Systems: All systems reviewed & are unremarkable except as noted in Subjective Physical Exam Physical Exam: General Appearance: Moderately built and nourished, no apparent distress, Elderly Head: normocephalic, Atraumatic Eyes: normal inspection, EOMI Neck: supple Respiratory/Chest: Normal breath sounds, CTA, No accessory muscle use, +Pacer Cardiovascular: Irregularly irregular, + murmur Abdomen/GI: Soft, Non tender, Bowel sounds present Extremities/Musculoskeletal:normal inspection, R hip surgical site w/ dressings Neurologic/Psych: AAOX3, grossly no focal neurological deficits Skin: normal color, warm, +Ecchymosis Results & Data Results & Data Vital Signs (Past 12 Hours) Vital Signs Temp Pulse Pulse Resp BP BP Pulse Ox 01/29/23 08:01 36.7 C 57 L 16 133/74 96 01/29/23 06:00 74 01/29/23 03:29 36.6 C 62 16 127/72 98 01/29/23 00:00 74 01/28/23 23:16 36.6 C 62 16 137/64 98 O2 Del Method 01/29/23 08:01 Room Air 01/29/23 06:00 01/29/23 03:29 Room Air 01/29/23 00:00 01/28/23 23:16 Room Air Laboratory Results 01/29/23 01/29/23 01/29/23 Range/Units 06:14 06:14 06:14 Hgb 8.0 L (12.0-16.0) g/dl Hct 24.3 L (37.0-47.0) % PT 23.0 H (9.0-12.0) Seconds INR 2.2 H (0.9-1.1) Sodium 131 L (136-145) mmol/L Potassium 4.5 (3.5-5.1) mmol/L Chloride 99 (98-107) mmol/L Carbon Dioxide 30 (21-32) mmol/L Anion Gap 2 L (3-11) BUN 48 H (6-23) mg/dl Creatinine 1.12 (0.6-1.2) mg/dl Est Cr Clr Drug Dosing 30.0 ml/min Est GFR ( Amer) 51.5 ml/min Est GFR (Non-Af Amer) 44.4 ml/min BUN/Creatinine Ratio 42.9 H (10-20) Glucose 101 H (70-99(Fasting)) mg/dl Calcium 8.2 L (8.6-10.3) mg/dl Medications Administered Current Inpatient Medications Acetaminophen (Acetaminophen 325 Mg Tab) 650 mg PO Q6H PRN PRN Reason: Fever/Pain Stop: 02/21/23 00:35 Last Admin: 01/29/23 05:21 Dose: 650 mg Acetaminophen (Acetaminophen 325 Mg Tab) 650 mg PO Q4H PRN PRN Reason: fever or pain Stop: 02/21/23 17:23 Last Admin: 01/29/23 00:22 Dose: 650 mg Alendronate Sodium (Alendronate Sodium 70 Mg Tab) 70 mg PO Sa@0630 [place] Stop: 02/22/23 06:29 Last Admin: 01/23/23 06:09 Dose: 70 mg Artificial Tears (Artificial Tears) 1 drops OP QID PRN PRN Reason: DRY EYES Stop: 02/21/23 20:59 Last Admin: 01/25/23 16:01 Dose: 1 drops Aspirin (Aspirin 81 Mg Ectab) 81 mg PO QAM [place] Stop: 02/21/23 08:59 Last Admin: 01/29/23 09:01 Dose: 81 mg Bisacodyl (Bisacodyl 10 Mg Supp) 10 mg [place] [facility] Stop: 01/29/23 10:17 Carvedilol (Carvedilol 6.25 Mg Tab) 6.25 mg PO AMHS [place] Stop: 02/22/23 20:59 Last Admin: 01/29/23 09:04 Dose: 6.25 mg Gabapentin (Gabapentin 100 Mg Cap) 200 mg PO HS [place] Stop: 02/21/23 20:59 Last Admin: 01/28/23 21:15 Dose: 200 mg Levothyroxine Sodium (Levothyroxine Sodium 75 Mcg Tablet) 75 mcg PO DAILYBB [facility] Stop: 02/21/23 06:29 Last Admin: 01/29/23 05:20 Dose: 75 mcg Multivitamins (Multivitamin Tab) 1 tab PO QAM [facility] Stop: 02/21/23 08:59 Last Admin: 01/27/23 08:47 Dose: 1 tab Naloxone HCl (Naloxone Hcl 0.4 Mg/1 Ml Vial/Carp) 0.1 mg IV UD PRN PRN Reason: Opiate Overdose Stop: 02/21/23 01:38 Oxycodone HCl (Oxycodone Hcl Ir 5 Mg Tab (Immediate Release)) 5 mg PO Q4H PRN PRN Reason: Pain Stop: 02/05/23 00:34 Last Admin: 01/28/23 21:13 Dose: 5 mg Polyethylene Glycol (Polyethylene (Miralax) 17 Gm Pack) 17 gm PO Q6 PRN PRN Reason: constipation Stop: 02/21/23 01:38 Last Admin: 01/29/23 09:07 Dose: 17 gm Sennosides (Senna 8.6 Mg Tab) 25.8 mg PO DAILY [facility] Stop: 02/21/23 08:59 Last Admin: 01/29/23 09:02 Dose: 25.8 mg Simvastatin (Simvastatin 10 Mg Tab) 10 mg PO [facility] Stop: 02/21/23 01:38 Last Admin: 01/28/23 21:14 Dose: 10 mg Spironolactone (Spironolactone 25 Mg Tab) 25 mg PO HS [facility] Stop: 02/21/23 20:59 Last Admin: 01/22/23 20:20 Dose: 25 mg Torsemide (Torsemide 20 Mg Tab) 40 mg PO DAILY [facility] Stop: 02/22/23 08:59 Last Admin: 01/23/23 08:49 Dose: 40 mg Torsemide (Torsemide 20 Mg Tab) 20 mg PO QAM [facility] Stop: 02/27/23 11:44 Last Admin: 01/29/23 09:03 Dose: 20 mg Vitamin D (Cholecalciferol 1,000 Units 25 Mcg Tab) 2,000 units PO DAILY [facility] Stop: 02/21/23 08:59 Last Admin: 01/29/23 09:02 Dose: 2,000 units Warfarin Sodium (Warfarin Sod 2.5 Mg Tab) 2.5 mg PO SuTuThSa@1600 [facility] Stop: 02/22/23 15:59 Last Admin: 01/28/23 15:39 Dose: 2.5 mg Warfarin Sodium (Warfarin Sod 5 Mg Tab) 5 mg PO MoWeFr@1600 [facility] Stop: 02/21/23 17:23 Last Admin: 01/27/23 15:52 Dose: 5 mg (1) Hip fracture Encounter type: initial encounter Fracture type: closed Laterality: right Qualified Code(s): S72.001A - Fracture of unspecified part of neck of right femur, initial encounter for closed fracture
--- NOTE | 2023-01-29 11:09 | Cardiology Progress Note ---
Date of Service January 29, 2023 Assessment & Plan (1) NICM (nonischemic cardiomyopathy): (2) Biventricular cardiac pacemaker in situ: (3) AICD (automatic cardioverter/defibrillator) present: (4) Permanent atrial fibrillation: (5) Hip fracture: Plan Medically complex 87-year-old female with history of nonischemic cardiomyopathy status post biventricular ICD in 2016, most recent LVEF 50-54 cm per echo 03/2021, bioprosthetic mitral valve replacement and tricuspid repair 2014. Permanent atrial fibrillation and is anticoagulated with Coumadin. Right-sided hip surgery performed 01/22/2023 without complication. Postoperative day #6 hip repair. Postoperative anemia noted, Hbg remains low but stable. Monitor. she is currently asymptomatic. Continue oral anticoagulation with warfarin. INR trending upward. Currently therapeutic at 2.2. Orthostatic hypotension noted in the setting of postoperative anemia and renal insufficiency. Improved. Appears euvolemic. To maintain volume status and risk of CHF, low dose torsemide resumed at 20 mg daily. (Home dose was 40 mg) Continue to hold spironolactone. Potassium remains upper limit of normal. Patient awaiting rehab bed. Stable from cardiac perspective when bed available. Continue all other home cardiac medications. Case discussed with Dr. Blankenship I spent a total of 30 minutes on the date of service in preparation, delivery, and documentation of the care provided to this patient, excluding any time spent in the performance of separately billed services. Shobha Rascon PA-C Department of Cardiology, [facility] This chart was completed in part utilizing Speech Voice Recognition Software. Grammatical errors, random word insertions, pronoun errors, and incomplete sentences are an occasional consequence of this system due to software limitations, ambient noise, and hardware issues. Any formal questions or concerns about the content, text, or information contained within the body of this dictation should be directly addressed to the provider for clarification. Admission and Anticipated Discharge Date Admission Date: January 22, 2023 Supervising Physician Co-Signing Physician Notes Supervising Physician Attestation: I have personally performed a history and physical examination on the patient. I agree with the physician review assistant's findings and plan as documented with the following additions. Subjective: Patient feeling well without complaints from a cardiac perspective. Progressing with physical therapy. Pending rehab bed. Exam: Cardiovascular: Regular rhythm, no murmurs, trace right lower extremity edema, no significant left lower extremity edema, edema is actually improved compared to her usual outpatient baseline at present Assessment and Plan: -As noted above -Continue Coumadin for stroke prophylaxis, DVT prophylaxis -Continue torsemide 20 mg daily, her home dose is 40 mg daily. Spironolactone remains on on hold as her potassium is at the upper limit of normal. -Stable from cardiac perspective for rehab. -Cardiology to sign off. Dr. Ugalde is rounding this weekend and Dr Chamorro is rounding on 02/01. Call with questions or concerns. I spent a total of 20 minutes on the date of service in preparation, delivery, and documentation of the care provided to this patient, excluding any time spent in the performance of separately billed services. Octaviano Blankenship, DO Subjective Patient feeling well. Denies chest pain or dyspnea. No increased edema. Hip pain improving. Primary concern is constipation. Awaiting rehab bed. Review of Systems Review of Systems: All systems reviewed & are unremarkable except as noted in HPI & below Physical Exam Constitutional: well nourished; no acute distress Respiratory: normal respiratory effort Auscultation: no crackles, no rales, no rhonchi and no wheezes Cardiovascular: Rate/Rhythm: regular rate and regular rhythm Heart Sounds: normal S1 and normal S2 Vessels: no JVD Extremities: + edema (trace pretibial edema on right leg. No edema on left) Gastrointestinal (Abdomen): normal bowel sounds, soft, nontender, no hepatosplenomegaly Skin: no rashes, warm and dry Psychiatric: A+Ox3, euthymic affect Results & Data Vital Signs (Past 12 Hours) Vital Signs Temp Pulse Pulse Resp BP BP Pulse Ox 01/29/23 08:01 36.7 C 57 L 16 133/74 96 01/29/23 06:00 74 01/29/23 03:29 36.6 C 62 16 127/72 98 01/29/23 00:00 74 01/28/23 23:16 36.6 C 62 16 137/64 98 O2 Del Method 01/29/23 08:01 Room Air 01/29/23 06:00 01/29/23 03:29 Room Air 01/29/23 00:00 01/28/23 23:16 Room Air Laboratory Results Coagulation 01/29/23 Range/Units 06:14 PT 23.0 H (9.0-12.0) Seconds CBC 01/29/23 Range/Units 06:14 Hgb 8.0 L (12.0-16.0) g/dl Hct 24.3 L (37.0-47.0) % Comprehensive Metabolic Panel 01/29/23 Range/Units 06:14 Sodium 131 L (136-145) mmol/L Potassium 4.5 (3.5-5.1) mmol/L Chloride 99 (98-107) mmol/L Carbon Dioxide 30 (21-32) mmol/L BUN 48 H (6-23) mg/dl Creatinine 1.12 (0.6-1.2) mg/dl Glucose 101 H (70-99(Fasting)) mg/dl Calcium 8.2 L (8.6-10.3) mg/dl Intake and Output 01/28/23 01/29/23 01/29/23 22:59 06:59 14:59 Intake Total 200 / 760 Output Total 550 / 1775 900 / 1775 Balance -350 / -1015 -900 / -1015 Intake: Oral 200 / 760 Output: Urine 550 / 1775 900 / 1775 Other: Weight 60 kg Weight Measurement Method Built in [facility] Diagnostic Findings Telemetry reviewed paced in the 's. Medications Administered Current Inpatient Medications Acetaminophen (Acetaminophen 325 Mg Tab) 650 mg PO Q6H PRN PRN Reason: Fever/Pain Stop: 02/21/23 00:35 Last Admin: 01/29/23 05:21 Dose: 650 mg Acetaminophen (Acetaminophen 325 Mg Tab) 650 mg PO Q4H PRN PRN Reason: fever or pain Stop: 02/21/23 17:23 Last Admin: 01/29/23 00:22 Dose: 650 mg Alendronate Sodium (Alendronate Sodium 70 Mg Tab) 70 mg PO Sa@0630 [facility] Stop: 02/22/23 06:29 Last Admin: 01/23/23 06:09 Dose: 70 mg Artificial Tears (Artificial Tears) 1 drops OP QID PRN PRN Reason: DRY EYES Stop: 02/21/23 20:59 Last Admin: 01/25/23 16:01 Dose: 1 drops Aspirin (Aspirin 81 Mg Ectab) 81 mg PO QAM [facility] Stop: 02/21/23 08:59 Last Admin: 01/29/23 09:01 Dose: 81 mg Carvedilol (Carvedilol 6.25 Mg Tab) 6.25 mg PO [facility]HS [place] Stop: 02/22/23 20:59 Last Admin: 01/29/23 09:04 Dose: 6.25 mg Gabapentin (Gabapentin 100 Mg Cap) 200 mg PO HS [place] Stop: 02/21/23 20:59 Last Admin: 01/28/23 21:15 Dose: 200 mg Levothyroxine Sodium (Levothyroxine Sodium 75 Mcg Tablet) 75 mcg PO DAILYBB [place] Stop: 02/21/23 06:29 Last Admin: 01/29/23 05:20 Dose: 75 mcg Multivitamins (Multivitamin Tab) 1 tab PO QAM [place] Stop: 02/21/23 08:59 Last Admin: 01/27/23 08:47 Dose: 1 tab Naloxone HCl (Naloxone Hcl 0.4 Mg/1 Ml Vial/Carp) 0.1 mg IV UD PRN PRN Reason: Opiate Overdose Stop: 02/21/23 01:38 Oxycodone HCl (Oxycodone Hcl Ir 5 Mg Tab (Immediate Release)) 5 mg PO Q4H PRN PRN Reason: Pain Stop: 02/05/23 00:34 Last Admin: 01/28/23 21:13 Dose: 5 mg Polyethylene Glycol (Polyethylene (Miralax) 17 Gm Pack) 17 gm PO Q6 PRN PRN Reason: constipation Stop: 02/21/23 01:38 Last Admin: 01/29/23 09:07 Dose: 17 gm Sennosides (Senna 8.6 Mg Tab) 25.8 mg PO DAILY [place] Stop: 02/21/23 08:59 Last Admin: 01/29/23 09:02 Dose: 25.8 mg Simvastatin (Simvastatin 10 Mg Tab) 10 mg PO HS [place] Stop: 02/21/23 01:38 Last Admin: 01/28/23 21:14 Dose: 10 mg Spironolactone (Spironolactone 25 Mg Tab) 25 mg PO HS [facility] Stop: 02/21/23 20:59 Last Admin: 01/22/23 20:20 Dose: 25 mg Torsemide (Torsemide 20 Mg Tab) 40 mg PO DAILY [place] Stop: 02/22/23 08:59 Last Admin: 01/23/23 08:49 Dose: 40 mg Torsemide (Torsemide 20 Mg Tab) 20 mg PO QAM [facility] Stop: 02/27/23 11:44 Last Admin: 01/29/23 09:03 Dose: 20 mg Vitamin D (Cholecalciferol 1,000 Units 25 Mcg Tab) 2,000 units PO DAILY [facility] Stop: 02/21/23 08:59 Last Admin: 01/29/23 09:02 Dose: 2,000 units Warfarin Sodium (Warfarin Sod 2.5 Mg Tab) 2.5 mg PO SuTuThSa@1600 [facility] Stop: 02/22/23 15:59 Last Admin: 01/28/23 15:39 Dose: 2.5 mg Warfarin Sodium (Warfarin Sod 5 Mg Tab) 5 mg PO MoWeFr@1600 [facility] Stop: 02/21/23 17:23 Last Admin: 01/27/23 15:52 Dose: 5 mg (5) Hip fracture Encounter type: initial encounter Fracture type: closed Laterality: right Qualified Code(s): S72.001A - Fracture of unspecified part of neck of right fem ur, initial encounter for closed fracture
--- NOTE | 2023-01-29 12:44 | XRay Report ---
KUB HISTORY: constipation COMPARISON: Abdomen and pelvis CT 02/18/2021. FINDINGS: Mild to moderate gaseous distention of the stomach. No dilated loops of small or large donald l to suggest an obstruction. [id number] fecal retention is noted. Postoperative changes within the hips levoscoliosis and degenerative changes within the lumbar spine. Pacemaker wires are partiall y visualized. No renal calculi. No ureteral calculi. No pneumoperitoneum or pneumatosis. IMPRESSION: 1. [id number] fecal retention. 2. Nonobstructive bowel gas pattern. 3. Mild to moderate gaseous distention of the stomach. ACT 112: Negative or not required by law. Electronically signed by: Jerel Villar M.D. 01/29/2023 12:43 PM
[2023-01-29] MEDS ORDERED: bisacodyL 10 MG SUPP PR ONE (13:00)
--- NOTE | 2023-01-29 15:12 | Discharge Summary ---
Date of Service January 29, 2023 Admission HPI Per Admitting Provider History obtained from patient, family, and records. 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 Last confinement February 2022 for left femoral fracture status post surgery. Mild volume overload postop. Worsening hyponatremia during confinement. Patient unhappy with nephrology recommendations for fluid restrictions. Patient tripped at home last night. Achy right hip pain, patient unable to get up. No head trauma. No headache, no syncope, no LOC, no chest pain, no SOB. Patient brought to the ER for evaluation. 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 Exam Per Admitting Provider GENERAL: Comfortable, slightly anxious, looks younger than stated age, no respiratory distress SKIN: Normal color, warm HEENT: [place] palpebral conjunctivae, no ptosis, dry buccal mucosa NECK : Supple, no tenderness CHEST : CTA, no tenderness HEART : RRR, systolic murmur ABDOMEN: Some distention, nontender EXTREMITIES : RLE swelling (chronic as per patient, right hip tenderness, no other conspicuous deformities noted NEUROLOGIC : Coherent, no facial asymmetry, gait and stance not assessed Principal Diagnosis Fracture of Right femur Postoperative acute blood loss anemia Discharge Exam General Appearance: Moderately built and nourished, no apparent distress, Elderly Head: normocephalic, Atraumatic Eyes: normal inspection, EOMI Neck: supple Respiratory/Chest: Normal breath sounds, CTA, No accessory muscle use, +Pacer Cardiovascular: Irregularly irregular, + murmur Abdomen/GI: Soft, Non tender, Bowel sounds present Extremities/Musculoskeletal:normal inspection, R hip surgical site w/ dressings Neurologic/Psych: AAOX3, grossly no focal neurological deficits Skin: normal color, warm, +Ecchymosis Discharge Data Allergies Allergy/AdvReac Type Severity Reaction Status Date / Time Sulfa (Sulfonamide AdvReac Severe GI Unverified 01/21/23 23:07 Antibiotics) SYMPTOMS;kidney function compromised ciprofloxacin [From Cipro] AdvReac nausea/vomi Verified 01/21/23 23:07 ting Consultations 01/22/23 01:39 Consult Cardiology Routine Procedures Performed Operation Date: 01/22/23 12:10 Actual Procedures p Right Intramedullary Nail(Right) - Otis Diaz, Ordered Studies 01/22/23 [place] hip RT 2-3V Routine Hospital Course (1) Hip fracture: Acute comminuted mildly displaced intertrochanteric fracture of Right femur Secondary to mechanical fall Postoperative acute blood loss anemia --Hip X ray:Acute comminuted mildly displaced intertrochanteric fracture of the right femur with slight subtrochanteric extension. --S/P Right hip intramedullary Nail(Right) by Dr. Diaz on 01/22/2023 Fall precautions Bowel regimen to prevent constipation Pain control Appreciate orthopedics input Continue PT OT Resumed Coumadin Needs follow-up with orthopedics upon discharge Monitor CBC, transfuse PRBCs as needed Weightbearing as tolerated on right hip Waiting for rehab placement Continue current management 01/28/2023 - more soaking through dressings noted and orthopedics was called to re-check. Per orthopedics - She is currently medically stable for discharge and is awaiting a bed at a rehab facility. She will follow-up with orthopedics in 2 weeks. She can do daily dry dressing changes. I do not see a need for any antibiotics or further treatment of the incisions at this time. Full orthopedic discharge instructions were placed in the discharge summary. Constipation cont. bowel regimen KUB unremarkable Nonischemic cardiomyopathy SSS S/P Biventricular ICD Last EF 50 to 54% Pulmonary hypertension S/P mitral valve replacement, tricuspid repair 2014 Appears compensated Monitor volume status Appreciate cardiology input Resume torsemide and Aldactone as able -> resumed torsemide on (01/28) at lower dose 20 mg daily- discharge on this dose Continue carvedilol at lower dose 6.25 mg bid Cont. to hold spironolactone on discharge Hypertension Orthostatic hypotension postsurgery Held torsemide, Aldactone initially - as above Continue carvedilol at lower dose Monitor BP BRYANNA on CKD stage III diuretics on hold initially, now resumed torsemide at lower dose Avoid nephrotoxic agents as able Monitor volume status Cr improved to 0.9 Hyperlipidemia Continue simvastatin Peripheral vascular disease Continue aspirin, statin Chronic atrial fibrillation Continue carvedilol Resumed Coumadin Received vitamin K for surgery Monitor INR: 2.2 today -it is important that INR is monitored, and stays around 2 to prevent excessive drainage from incision. Chronic hyponatremia Likely secondary to diuretics Sodium 131 today Monitor sodium levels No mental status change Hypothyroidism Continue levothyroxine Prediabetes HbA1c 5.7 DVT prophylaxis; Coumadin CODE STATUS DNR/DNI Disposition - plan to discharge to [facility] Total Time Total Time Spent Total Time Spent (In Minutes): 40 Discharge Plan Discharge Items Patient Disposition: Transfer Inpatient Rehab Fac Reason For Visit: R HIP FX, ELEVATED BP, HYPONAT Discharge Diagnosis: Fracture of Right femur Postoperative acute blood loss anemia Condition on Discharge: Good Activity: Per Instructions section Non-emergency contact: Primary Care Provider and Surgeon Call non-emergency contact if: you have any medication questions and your symptoms worsen Follow-up/Referrals: Faith Saldivar [Primary Care Provider] - Diet: Heart Healthy Add Attending Provider Instructions: Follow-up with primary care doctor, and orthopedic surgeon, as below. Your torsemide was decreased to 20 mg daily, and your carvedilol was decreased to 6.25 twice daily. Your spironolactone was stopped at this time. You may need to resume this in the future, this will need to be discussed further with your primary care doctor or camera assembler. Continue warfarin, and monitor INR closely, ideally INR is close to 2 to prevent excessive drainage from your incision. For pain, take Tylenol 1000 mg 3 times a day, max daily dose 3000 mg. For more severe pain, take oxycodone, as prescribed. It is important that you take senna and MiraLAX daily to prevent constipation. Addtl Delivery Mgr Provider Instructions: ORTHOPEDIC INSTRUCTIONS Hip Fracture Activity and Therapy Recommendations: 1. You were shown a series of exercises in the hospital. Do these exercises three times each day if you are able. 2. Get up and walk several times each day if you are capable. Make sure you have assistance is needed. For the first four weeks, try not to stand or walk for more than one hour at a time. If you do stand or walk for more than o ne hour, you will not hurt anything, but your leg will likely swell. 3. As you feel comfortable, you may change from the walker or crutches to a cane and then to independent walking if you are able. Please be safe. Medications: 1. Narcotic You will likely be sent from the hospital with the narcotic pain medication that worked best throughout your stay. 2. Coumadin -continue your Coumadin as prescribed. 3. Other medications may be given for specific circumstances. If you have any questions, please call the office at [phone]. 4. Resume previous home medications unless otherwise instructed TEDs/Elastic Stockings: The white elastic stockings help limit swelling and prevent blood clots from forming in your legs. The more you wear them, the more they work. Wear them for six weeks. Dressing Care: [place] can be open to air as long as the incisions are not draining. If the incisions are draining or if the miley are getting caught on your clothes then please cover the miley with dry gauze. Change the dressings as necessary to keep the incision as dry as possible Showering: You may shower 5 days from the day of surgery as long as the incisions are not draining. Do not soak the incision. Let soapy water run over the miley and pat them dry. Things To Watch For: 1. Drainage from the incision site that occurs more than one week after your surgery. 2. Increased redness at the incision site. 3. Fever above 102 degrees Fahrenheit. 4. Unusual chest pain or shortness of breath. 5. Call [facility] at with any of the above problems Follow-Up Visit: Follow-up with Dr. Diaz's PA (Otis Linda) 2-3 weeks after your day of surgery. He will remove your miley and answer any questions. If you have any additional questions or concerns, Dr Diaz is usually in the office at the same time and will be available Please call the office to set up an appointment for a time that works for you. Pending Studies at Discharge: No Stand-Alone Forms: [facility] Skilled Items Patient informed of condition?: Yes DNR: Yes Discharge Level of Care: Acute rehab Communicable Disease: No Discharge Prognosis: Stable Lines: None Urinary Catheter: No Medications and DC Order Prescriptions: New carvedilol 6.25 mg Tablet 6.25 mg PO AMHS Qty: 60 0RF torsemide 20 mg Tablet 20 mg PO QAM Qty: 30 0RF polyethylene glycol 3350 [Miralax] 17 gram/dose powder 17 g PO DAILY Qty: 119 0RF oxycodone 5 mg Tablet 5 mg PO Q4H PRN (Reason: pain) Qty: 7 0RF Continued alendronate 70 mg tablet 70 mg PO WK warfarin 5 mg tablet 2.5 mg PO SUTUTHSA simvastatin 10 mg tablet 10 mg PO HS aspirin 81 mg Tablet,Delayed Release (Dr/Ec) 81 mg PO QAM gabapentin 100 mg capsule 200 mg PO HS multivitamin [Multiple Vitamins] Tablet 1 tab PO QAM cholecalciferol (vitamin D3) [Vitamin D3] 25 mcg (1,000 unit) Tablet 50 mcg PO DAILY levothyroxine 75 mcg capsule 75 mcg PO DAILY Xiidra 5 % dropperette 1 drp OPB HS sennosides [senna] 8.6 mg Tablet 25.8 mg PO DAILY warfarin 5 mg tablet 5 mg PO MOWEFR acetaminophen 325 mg Tablet 650 mg PO Q4H PRN (Reason: fever or pain) Qty: 30 0RF polyethylene glycol 3350 [Miralax] 17 gram Powder In Packet 17 g PO Q6 PRN (Reason: constipation) Qty: 30 0RF Discontinued carvedilol 12.5 mg tablet 12.5 mg PO AMHS spironolactone 25 mg tablet 25 mg PO HS torsemide 20 mg tablet 40 mg PO DAILY Rx Instructions: This dose was stated by patient Discharge Orders: Discharge Order (Routine); Ordered 01/29/23 Ordered By: Anup Chauhan Admission Data Admit Date/Time: 01/22/23 00:32 Attending Provider: Anup Chauhan Admit Provider: Atul Goss Primary Care Provider: Faith Saldivar Other Providers: Teresa Vidal ; Octaviano Blankenship ; Aldo Gomez ; Alberto Chamorro ; Devin Ugalde ; Peter Moreno ; Shobha Rascon ; Arabella Carvajal ; Teresa Ayala ; Andrzej Patel ; Henry Randall ; [facility] ; [facility] ; Gutierrez Trevino ; Oswaldo Leslie,Rehab ; Tony,[facility]
== END 2023-01-29 15:40 | DRG 481 ==
LOC: ED 22:16 → 2N 01-22 00:32 → SUATTDRO 01-22 00:32 → 2N 01-22 01:01

== ENCOUNTER 2023-07-14 08:52 | Inpatient (IN) ==
--- NOTE | 2023-07-14 09:20 | Emergency Department Note ---
Impression & Plan Acute hyponatremia, Weakness, Elevated troponin I level ED Provider Note NAME: MARV MARTINEZ AGE: 87 SEX: F : 1935 ARRIVES VIA: Ambulance INFORMANT: Patient, EMS ED PROVIDER(S): Keith Gardner DO CHIEF COMPLAINT: Fall HPI: The patient is an 87-year-old female who presented to the emergency department after a fall. The patient states that she was walking in her home using her walker. She been having problems with hypotension recently. She has been noticing her blood pressures been dropping especially when she goes from sitting to standing. The patient denies having any headache or nausea or vomiting. She denies having any chest pain or difficulty breathing. She has had no abdominal pain. She went to see her family doctor yesterday. Home health was ordered but has not been to her house yet. The patient had an episode today where she became very dizzy and weak when she was walking. She fell to the floor but states initially she had back pain and left shoulder pain. She does take blood thinners. She is unsure if she hit her head. The patient states she has no back pain at this time does not complain of shoulder pain. ROS: See above HPI for pertinent positives & negatives. A total of 10 systems reviewed and were otherwise negative. PAST MEDICAL HISTORY: See Below PAST SURGICAL HISTORY: See Below FAMILY HISTORY: See Below SOCIAL HISTORY: See Below HOME MEDICATIONS: See Below ALLERGIES: See Below VITALS: See Below PHYSICAL EXAMINATION: GENERAL: The patient is awake and alert. She is somewhat frail appearing. EYES: The conjunctivae are clear. The pupils are round and reactive. EARS, NOSE, MOUTH AND THROAT: The nose is without any evidence of any deformity. NECK: The neck is nontender and supple. RESPIRATORY: Normal respiratory effort is noted there is no evidence of wheezing rhonchi or rales CARDIOVASCULAR: Regular rate and rhythm noted there no murmurs rubs or gallops normal S1 normal S2. GASTROINTESTINAL: The abdomen is soft. Abdomen is nontender. MUSCULOSKELETAL/EXTREMITIES: There is no evidence of gross deformity full range of motion is noted in the hips and shoulders. SKIN: Pedal edema was noted bilaterally. NEUROLOGIC: Patient is awake alert and oriented x 3. Strength is symmetric but diminished. The patient is able to hold each leg off the bed for greater than 5 seconds. MEDICAL DECISION MAKING: The patient is an 87-year-old female who presented to the emergency department for an evaluation of weakness. The patient has been experiencing generalized weakness but also notices when she goes from sitting to standing or walks across the room she becomes very weak. The patient was evaluated in the emergency department. I discussed the patient's laboratory and radiographic studies with her. She appears to have hyponatremia which she has had in the past but it is low compared to her baseline. The patient was evaluated for signs of infection. I do not feel that she has any significant infection at this time. [facility] I do not feel the patient would be safe for discharge at this time given her past medical history age and comorbidities. She may be a fall risk. Triage Nursing notes reviewed. Prior medical records reviewed Vital Signs: reviewed and remarkable for elevated blood pressure. Differential diagnosis: Infection, dehydration, metabolic abnormality, hypo/hyperglycemia, electrolyte disturbance, anemia, hypoxia, cardiac sources, intracerebral event, toxicologic, neurologic, as well as other pathologies. ER treatment provided: See below Diagnostics interpreted by me: ECG: EKG was obtained in the emergency department. My interpretation is ventricular paced rhythm at 71 bpm. PVCs were noted. A left bundle branch block pattern was noted. This was compared to a tracing from January 21, 2023. No changes were noted Cardiac Monitoring: An order was placed for continuous cardiac monitoring. The monitor shows a rate of 82 bpm with paced rhythm. Laboratory studies: As stated above and show below. Imaging studies: See below. Radiographic imaging was reviewed by myself Consultation(s): I discussed this case with Sharlene who is [facility] Past Med/Surg History Medical History Spinal stenosis HTN (hypertension) CKD (chronic kidney disease) stage 3, GFR 30-59 ml/min Chronic heart failure with preserved ejection fraction (HFpEF) Permanent atrial fibrillation Chronic hyponatremia Hypokalemia Fall Subcapital fracture of left femur Hx of cardiac pacemaker HLD (hyperlipidemia) H/O: HTN (hypertension) Hypothyroid Osteoporosis Surgical History Hx of atrioventricular node ablation Hx of tricuspid valve repair Hx of mitral valve replacement S/P cardiac pacemaker procedure Social History (Reviewed 07/14/23 @ 09:18 by WILNER Magaña Smoking Status: Never smoker Hx Alcohol Use: No Hx Substance Use: No Preferred Language: Sinhala Communication Ability: Effective Secure Software Assessor Required: No Beliefs That Will Affect Care: None Current Living Situation: Alone Feels Safe at Home: Yes Assistive Devices: Cane Allergies Allergies Allergy/AdvReac Type Severity Reaction Status Date / Time Sulfa (Sulfonamide AdvReac Severe GI Unverified 01/21/23 23:07 Antibiotics) SYMPTOMS;kidney function compromised ciprofloxacin [From Cipro] AdvReac nausea/vomi Verified 01/21/23 23:07 ting Home Meds Home Medications Medication Instructions Recorded Confirmed alendronate 70 mg tablet 0 mg PO WK 02/18/21 07/14/23 aspirin 81 mg tablet,delayed 81 mg PO QAM 02/18/21 07/14/23 release cholecalciferol (vitamin D3) 25 2,000 unit PO DAILY 02/18/21 07/14/23 mcg (1,000 unit) tablet (Vitamin D3) gabapentin 100 mg capsule 100 mg PO HS 02/18/21 07/14/23 multivitamin (Multiple Vitamins 1 tab PO QAM 02/18/21 07/14/23 tablet) simvastatin 10 mg tablet 10 mg PO HS 02/18/21 07/14/23 warfarin 5 mg tablet 2.5 mg PO . MONWEDTHURFRISUN 02/18/21 07/14/23 levothyroxine 75 mcg capsule 75 mcg PO DAILY 02/14/22 07/14/23 lifitegrast 5 % eye drops in a 1 drp OPB HS 02/14/22 07/14/23 dropperette (Xiidra) sennosides 8.6 mg tablet (senna) 25.8 mg PO DAILY 02/14/22 07/14/23 warfarin 5 mg tablet 5 mg PO .Wednesday02/14/22 07/14/23 carvedilol 3.125 mg tablet 3.125 mg PO DAILY 07/14/23 07/14/23 cyclosporine 0.05 % eye drops in a 1 drp ophthalmic (eye) BID PRN 07/14/23 07/14/23 dropperette (Restasis) .uses sometimes raloxifene 60 mg tablet 0 mg PO DIRECTED 07/14/23 07/14/23 Previous Rx's Medication Instructions Recorded acetaminophen 325 mg tablet 650 mg (2 x 325 mg) PO Q4H PRN 02/25/22 fever or pain #30 tabs polyethylene glycol 3350 17 gram 17 g PO Q6 PRN constipation #30 ea 02/25/22 oral powder packet (Miralax) torsemide 20 mg tablet 20 mg PO QAM #30 tabs 01/29/23 Results & Data (ED) Vital Signs Vital Signs - 24 hr 07/14/23 08:54 07/14/23 09:04 07/14/23 09:15 Temperature 36.5 C Temperature Source Oral Pulse Rate 73 73 Pulse Rate [Apical] Respiratory Rate 16 Respiratory Effort / Characteristics Non-Labored Spontaneous Respiratory Depth Normal Respiratory Pattern Regular Blood Pressure 110/71 Blood Pressure [Right Arm] Blood Pressure Mean 84 Blood Pressure Mean [Right Arm] Pulse Oximetry 96 Oxygen Delivery Method Room Air Room Air Sepsis Recent Fever Within 48 Hours No Sepsis New/Unexplained Change in Mental Status No Sepsis Action Taken by Nursing No Action Required 07/14/23 11:30 Temperature Temperature Source Pulse Rate Pulse Rate [Apical] 74 Respiratory Rate 26 H Respiratory Effort / Characteristics Non-Labored Spontaneous Respiratory Depth Normal Respiratory Pattern Blood Pressure Blood Pressure [Right Arm] 152/85 H Blood Pressure Mean Blood Pressure Mean [Right Arm] 107 Pulse Oximetry 94 Oxygen Delivery Method Room Air Sepsis Recent Fever Within 48 Hours Sepsis New/Unexplained Change in Mental Status Sepsis Action Taken by Long-Term Medications Current Medication List: was personally reviewed by me Laboratory Data Attestation: I reviewed the patient's lab results. 07/14/23 10:05 07/14/23 10:05 Lab Results 07/14/23 07/14/23 Range/Units 10:05 10:39 WBC 6.12 (4.8-10.8) K/ul RBC 4.10 L (4.20-5.40) M/uL Hgb 11.3 L (12.0-16.0) g/dl Hct 34.3 L (37.0-47.0) % MCV 83.7 (80.0-100.0) fL MCH 27.6 (25.0-34.0) pg MCHC 32.9 (32.0-36.0) g/dL RDW Std Deviation 48.8 H (36.4-46.3) fL RDW Coeff of Fabricio 16.0 H (11.5-14.5) % Plt Count 193 (130-400) K/uL MPV 10.8 (9.4-12.4) fL Immature Gran % (Auto) 0.5 % Neut % (Auto) 86.6 % Lymph % (Auto) 7.8 % [place] % (Auto) 3.8 % Eos % (Auto) 0.5 % Baso % (Auto) 0.8 % Neut # (Auto) 5.30 (1.40-6.50) K/uL Lymph # (Auto) 0.48 L (1.20-3.40) K/uL [place] # (Auto) 0.23 (0.11-0.59) K/uL Eos # (Auto) 0.03 (0.00-0.50) K/uL Baso # (Auto) 0.05 (0.00-0.20) K/uL Immature Gran # (Auto) 0.03 (0.01-0.20) K/uL PT 44.2 H (9.0-12.0) Seconds INR 4.4 H (0.9-1.1) APTT 42 H (21-31) Seconds PTT Ratio 1.5 Sodium 129 L (136-145) mmol/L Potassium 3.8 (3.5-5.1) mmol/L Chloride 95 L (98-107) mmol/L Carbon Dioxide 27 (21-32) mmol/L Anion Gap 7 (3-11) BUN 27 H (6-23) mg/dl Creatinine 0.97 (0.6-1.2) mg/dl Est Cr Clr Drug Dosing 34.6 ml/min Est GFR ( Amer) 61.3 ml/min Est GFR (Non-Af Amer) 52.9 ml/min BUN/Creatinine Ratio 27.8 H (10-20) Glucose 98 (70-99(Fasting)) mg/dl Calcium 10.1 (8.6-10.3) mg/dl Magnesium 2.1 (1.7-2.4) mg/dl Total Bilirubin 1.2 H (0.2-1.0) mg/dl AST 55 H (13-39) U/L ALT 34 (7-52) U/L Alkaline Phosphatase 132 H (34-104) U/L Total Creatine Kinase 18 L (26-192) U/L Troponin I High Sens 17.8 H (0-14) pg/ml B-Natriuretic Peptide 397 H (0-100) pg/ml Total Protein 6.3 (6.0-8.3) gm/dl Albumin 3.5 (3.4-5.0) gm/dl Globulin 2.8 (2.5-4.0) gm/dl Albumin/Globulin Ratio 1.3 (0.9-2) Lipase 15 (11-82) U/L TSH 4.633 H (0.300-4.500) uIu/ml Random Cortisol 23.98 mcg/dl Administered Medications Discontinued Medications Acetaminophen (Acetaminophen 325 Mg Tab) 650 mg PO NOW STA Stop: 07/14/23 11:27 Last Admin: 07/14/23 11:35 Dose: 650 mg Documented By: DERRICK Imaging Data Attestation: I personally reviewed and interpreted this imaging study as follows: My Impression: 1 view chest x-ray was obtained in the emergency department. My interpretation is no free air or definite infiltrate, final report below. CT the brain was obtained in the emergency department. My interpretation is no intracranial hemorrhage or mass effect, final report below. X-ray of the pelvis was obtained in the emergency department. My interpretation is no definite fracture, final report below Radiologist's Impression: Chest X-Ray 07/14/23 09:15 XR chest 1V portable HISTORY: fall COMPARISON: Chest 01/21/2023. FINDINGS: No pneumothorax. No pleural effusions. The heart remains enlarged. There is a left-sided pacemaker/defibrillator again noted. Stable linear scarlike density within the right midlung zone. No new focal lung consolidations to suggest a pneumonia. Mild interstitial thickening is again noted. No evidence for pulmonary edema. Scoliosis, unchanged. No acute fractures identified. IMPRESSION: No significant change compared to the prior study. No acute process. ACT 112: Negative or not required by law. Electronically signed by: Jerel Villar M.D. 07/14/2023 9:45 AM Pelvis X-Ray 07/14/23 09:15 XR pelvis 1-2V routine CLINICAL HISTORY: fall COMPARISON: Right hip radiographs January 22, 2023. Pelvis and right hip radiographs January 21, 2023. FINDINGS: Sacroiliac joints and symphysis pubis are intact. There is no acute fracture within the pelvis or hips. Partial interval healing of the intertrochanteric fracture of the right femur is noted status post internal fixation. Visualized portions of the hardware are intact. Alignment is unchanged. Left hip arthroplasty is noted. Old right pubic ring fractures are present. IMPRESSION: 1. No acute fracture within the pelvis or hips. 2. Status post internal fixation of the intertrochanteric fracture of the right femur. No change in alignment with partial interval healing. 3. Visualized portions of the left hip arthroplasty intact. ACT 112: Negative or not required by law. Electronically signed by: Philip Huitron M.D. 07/14/2023 9:[address] 07/14/23 09:[address] DOSE: 1085.32 mGy.cm HISTORY: fall TECHNIQUE: Multiaxial CT images of the cervical spine were performed and reformatted in the sagittal and coronal plane without the use of contrast. A dose lowering technique was utilized adhering to the principles of ALARA. COMPARISON: Cervical spine CT 02/18/2021. FINDINGS: No fractures. No subluxation. Prevertebral soft tissues and the C1-C2 interval are intact. No pneumothorax. Straightening the cervical spine. Moderate to severe disc space narrowing and endplate osteophytes seen throughout the cervical spine. IMPRESSION: No fractures within the cervical spine. ACT 112: Negative or not required by law. Electronically signed by: Jerel Villar M.D. 07/14/2023 10:[address] 07/14/23 09:16 CT OF THE HEAD WITHOUT CONTRAST CLINICAL HISTORY: Syncope. COMPARISON STUDY: Head CT May 17, 2022. TECHNIQUE: Helical axial images of the head were obtained without IV contrast. Automated exposure control was utilized for the study. A dose lowering technique was utilized adhering to the principles of ALARA. FINDINGS: No acute intracranial hemorrhage, midline shift or mass effect is present. White matter hypodensities are unchanged and favor small vessel disease. The ventricular system is unremarkable. The basal cisterns are patent. No extra-axial collections are present. There are no findings to suggest acute dural sinus thrombosis or acute territorial infarct. No significant calvarial abnormalities are present. Visualized portions of the sinuses and mastoid air cells are clear. IMPRESSION: No acute intracranial findings. No change in appearance of the brain. ACT 112: Negative or not required by law. Electronically signed by: Philip Huitron M.D. 07/14/2023 10:05 AM Discharge Plan Visit Data Chief Complaint: Fall Stated Complaint: LEG WEAKNESS, FALLS ED Provider: Keith Gardner Discharge Problem: Acute hyponatremia, Weakness, Elevated troponin I level Patient Disposition: Being Evaluated by Hospitalist Forms Stand Alone Forms: My [facility] Prescriptions Prescriptions: No Action alendronate 70 mg tablet 0 mg PO WK Rx Instructions: Per pt she takes the raloxifene. Fosamax filled 07/04/23 warfarin 5 mg tablet 2.5 mg PO . MONWEDTHURFRISUN simvastatin 10 mg tablet 10 mg PO HS aspirin 81 mg Tablet,Delayed Release (Dr/Ec) 81 mg PO QAM gabapentin 100 mg capsule 100 mg PO HS multivitamin [Multiple Vitamins] Tablet 1 tab PO QAM cholecalciferol (vitamin D3) [Vitamin D3] 25 mcg (1,000 unit) Tablet 2,000 unit PO DAILY torsemide 20 mg Tablet 20 mg PO QAM Qty: 30 0RF levothyroxine 75 mcg capsule 75 mcg PO DAILY Xiidra 5 % dropperette 1 drp OPB HS sennosides [senna] 8.6 mg Tablet 25.8 mg PO DAILY warfarin 5 mg tablet 5 mg PO .Wednesday acetaminophen 325 mg Tablet 650 mg PO Q4H PRN (Reason: fever or pain) Qty: 30 0RF polyethylene glycol 3350 [Miralax] 17 gram Powder In Packet 17 g PO Q6 PRN (Reason: constipation) Qty: 30 0RF carvedilol 3.125 mg tablet 3.125 mg PO DAILY Rx Instructions: hasn't started yet raloxifene 60 mg tablet 0 mg PO DIRECTED Rx Instructions: Filled 06/28/23-Per pt she takes this one. Has this and Fosamax cyclosporine [Restasis] 0.05 % dropperette 1 drp ophthalmic (eye) BID PRN (Reason: .uses sometimes) Referrals Referrals: Faith Saldivar [Primary Care Provider] -
--- NOTE | 2023-07-14 09:44 | XRay Report ---
XR pelvis 1-2V routine CLINICAL HISTORY: fall COMPARISON: Right hip radiographs January 22, 2023. Pelvis and right hip radiographs January 21, 2023. FINDINGS: Sacroiliac joints and symphysis pubis are intact. There is no acute fracture within the pe lvis or hips. Partial interval healing of the intertrochanteric fracture of the right femur is noted status post internal fixation. Visualized portions of the hardware are intact. Alignment is unchanged . Left hip arthroplasty is noted. Old right pubic ring fractures are present. IMPRESSION: 1. No acute fracture within the pelvis or hips. 2. Status post internal fixation of the intertrochanteric fracture of the right femur. No change in a lignment with partial interval healing. 3. Visualized portions of the left hip arthroplasty intact. ACT 112: Negative or not required by law. Electronically signed by: Philip Huitron M.D. 07/14/2023 9:43 AM
--- NOTE | 2023-07-14 09:46 | XRay Report ---
XR chest 1V portable HISTORY: fall COMPARISON: Chest 01/21/2023. FINDINGS: No pneumothorax. No pleural effusions. The heart remains enlarged. There is a left-sided pa cemaker/defibrillator again noted. Stable linear scarlike density within the right midlung zone. No n ew focal lung consolidations to suggest a pneumonia. Mild interstitial thickening is again noted. No evidence for pulmonary edema. Scoliosis, unchanged. No acute fractures identified. IMPRESSION: No significant change compared to the prior study. No acute process. ACT 112: Negative or not required by law. Electronically signed by: Jerel Villar M.D. 07/14/2023 9:45 AM
--- OUTSIDE RECORDS SUMMARY | 2023-07-14 10:00 | External Medical Summary | Summary of Care ---
Author Name Unknown Organization [facility] [address] [facility] [address] Phone [phone] Care Team Providers Care Corrections Nurse Name Role Phone Loida Saldivar MD Primary Care Provider [phone] Reason for Visit * Reason Comments Defibrillator Clinic Encounter Details Date Type Department Care Team (Latest Contact Info) Description 06/09/2023 1:15 PM EST Cardiac Studies Cardiology [address] [place] [address] [place] [address] [place] [address] Nonischemic cardiomyopathy (HCC)*; Biventricular implantable cardioverter-defibrill ator in situ; Chronic atrial fibrillation (HCC) Allergies Active Allergy Reactions Criticality Noted Date Comments Sulfamethoxazole-Trimetho prim 05/22/2015 Kidney function/ nausea Sulfa based medications Cefaclor 04/08/2021 Generally did not feel well. documented as of this encounter (statuses as of 06/19/2023) Medications Medication Sig Dispensed Refills Start Date End Date Status SIMVASTATIN 10 MG PO TABS one tab by mouth daily 30 Tab 0 10/26/2012 Active Acetaminophen ER 650 MG Oral Tablet Extended Release 1 Tablet every 8 hours as needed. 0 Active aspirin 81 MG chewable tablet Take 1 Tab by mouth daily. 31 Tab 3 06/01/2015 Active warfarin sodium (COUMADIN) 5 MG Tablet Adjust dose as directed 30 Tab 0 06/01/2015 Active Diclofenac Sodium 1 % gel Apply 2 g topically to affected area every 4 hours as needed. 1 12/18/2015 Active Cholecalciferol (VITAMIN D) 2000 UNITS Capsule Take 2,000 Units by mouth daily. 0 Active spironolactone (ALDACTONE) 25 MG Tablet Take 1 Tablet by mouth in the morning. 0 Active HYDROcodone-acetami nophen 5-325 mg per tab 5-325 MG per tablet TAKE ONE HALF (1/2) TO 1 TABLET BY MOUTH 3 TIMES A DAY NEEDED FOR PAIN 0 06/11/2017 Active Alendronate Sodium (BINOSTO) 70 MG TBEFIndications:Sen ile osteoporosis Take 70 mg by mouth once a week. 4 Tab 12 01/17/2018 Active gabapentin (NEURONTIN) 100 MG Capsule Take 1 Capsule by mouth at bedtime. 0 Active cycloSPORINE 0.05 % Ophthalmic Emulsion (RESTASIS) 1 Drop in the morning and 1 Drop before bedtime. 0 Active One-A-Day Womens 50+ Advantage Oral Tablet Take 1 Tablet by mouth in the morning. 0 Active Torsemide 20 MG Oral Tablet (Demadex) Take 1 tablet daily. Take 2 tablets on Wednesday, Wednesday, and Wednesday 120 Tablet 3 08/14/2021 Active Gentamicin Sulfate 0.1 % External Ointment Apply ointment to wound under unna boot at office visit (this coming Wednesday04/29/22) 30 g 2 04/27/2022 Active Additional Information Patient not taking.Reported on 12/10/2022 Carvedilol 25 MG Oral Tablet (Coreg) Take 1 Tablet by mouth 2 times a day with morning and evening meals. 0 Active Levothyroxine Sodium 75 MCG Oral Capsule (Tirosint) Take 75 mcg by mouth every morning. 0 12/07/2022 Active documented as of this encounter (statuses as of 06/19/2023) Active Problems Problem Noted Date Diagnosed Date Hyponatremia 08/14/2021 Nonrheumatic aortic valve insufficiency 04/08/20 21 Senile osteoporosis 11/18/2018 Asymptomatic bilateral carotid artery stenosis 0 02/23/2017 H/O tricuspid valve repair 07/15/2016 Chronic atrial fibrillation 07/15/2016 Biventricular implantable ca rdioverter-defibrillator in situ 07/01/2016 Nonischemic cardiomyopathy 07/01/2016 Chronic systolic heart failure 06/24/2016 S/P mitral valve replacement with bioprosthetic valve 05/31/2015 CKD (chronic kidney disease) stage 3, GFR 30-59 ml/min 03/05/2015 Personal history of other malignant neoplasm of skin 02/20/2015 Overview: squamous cell carcinoma (R lateral calf 09/2018, L pretibial region 12/2019, L upper arm 03/2020, R anterior thigh 04/17), nonmelanoma skin cancers (L chest and L anterior thigh), basal cell carcinoma (R central mid back 10/15), squamous cell carcinoma in situ (R medial patella, R lateral calf, L lateral cheek 03/2020) AK (actinic keratosis) 11/01/2013 Overview: HAKs, AKs (Efudex-face 05/07, lower lip 02/2017, face/chest/forearms/hands- 10/10, face 01/2020, face/nose 04/2020) ADVANCE DIRECTIVE INFORMATION 04/23/2006 Overview: No, Advance Directive brochure given to patient. LUMB-LUMBOSAC DISC DEGEN 08/10/2002 GENERAL OSTEOARTHROSIS 08/08/2002 Essential hypertension with goal blood pressure less than 130/80 08/08/2002 Mitral valve regurgitation 08/08/2002 POLIO [id number] 08/08/2002 Spinal stenosis documented as of this encounter (statuses as of 06/19/2023) Resolved Problems Problem Noted Date Diagnosed Date Resolved Date SCC (squamous cell carcinoma), leg, right 10/26/2018 09/27/2019 Osteoporosis 08/08/2002 11/18/2018 documented as of this encounter (statuses as of 06/19/2023) Social History Tobacco Use Types Packs/Day Years Used Date Smoking Tobacco: Never Smokeless Tobacco: Never Alcohol Use Standard Drinks/Week Comments No 0 (1 standard drink = 0.6 oz pur e alcohol) Sex and Gender Information Value Date Recorded Sex Assigned at Not on file Gender Identity Not on file Sexual Orientation Not on file Job Start Date Occupation Industry Not on file Not on file Not on file documented as of this encounter Nursing Notes * Teresa Fontenot RN - 06/10/2023 3:05 PM EST Patient and implanted device were evaluated today in the [facility]. Providers please see scanned report in the Scans tab. documented in this encounter Plan of Treatment Upcoming Encounters Date Type Department Care Team (Late st Contact Info) Description 08/19/2023 10:30 AM EST Office Visit Cardiology [address] [place] [address] Shobha Rascon PA-C [address] [place] [address] 11/03/2023 11:20 AM EDT Office Visit Dermatology [address] [place] [address] Ofelia Grider PA-C [address] [place] [address] [place] [address] 12/21/2023 11:30 AM EDT Cardiac Studies Cardiology [address] [place] [address] [place] [address] [facility] [place] [address] Scheduled Orders Name Type Priority Associated Diagnoses Orde r Schedule MULTI-LEAD DEFIBRILLATOR + REPROGRAM Procedures Routine Nonischemic cardiomyopathy (HCC) Biventricular implantable cardioverter-defibrillat or in situ Chronic atrial fibrillation (HCC) Ordered: 06/10/2023 Health Maintenance Due Date Last Done Comments Depression Screening 1947 Albumin/Creatinine Ratio 1953 CKD PHOS USE SMARTSET 36920 1954 DTaP,Tdap,and Td Vaccines (1 - Tdap) 1955 Zoster Vaccines (1 of 2) 1986 Hepatitis B (2 of 3 - 19+ 3-dose series) 07/04/2004 06/06/2004 Pneumococcal Vaccine: 65+ Years (2 - PCV) 06/18/2015 06/18/2014 DXA Scan 07/04/2021 07/04/2019, 12/12/2016, 08/01/2014, Additional history exists COVID-19 Vaccine ( - season) 2023 02/24/2022, 06/22/2021, 09/19/2020, Additional history exists Influenza Vaccine (FLU shot) (#1) 2023 05/06/2015 CKD HGB USE SMARTSET 08799 06/09/202406/09, 05/17/2023, 02/08/2023, Additional history exists TSH 06/09/2024 06/09/2023, 01/23, 08/11/2022, Additional history exists VITAMIN D LEVEL ONCE IN A LIFETIME-USE SMARTSET# 95063 Completed 06/09/2023, 06/22/2022, 03/09/2022, Additional history exists GARDASIL-HPV IMMUNIZATION SERIES Aged Out No longer eligible based on patient's age to complete this topic MENINGOCOCCAL (MENACTRA/MENVEO) Aged Out No longer eligible based on patient's age to complete this topic documented as of this encounter Medical Devices Implanted Type Area Hourly Sign Language Interpreter Device Identifier Shelf Expiration Date Model / Serial / Lot Ring Triad [id number] - [id number] Implanted:Qty: 1 on 05/27/2015 by Morro Alexander MD at OR [facility] [place] N/A: Heart Medtrol 10/24/2019 [id number] / / [id number] documented as of this encounter Visit Diagnoses Diagnosis Nonischemic cardiomyopathy (HCC)- Primary Other primary cardiomyopathies Biventricular implantable cardioverter-defibrillator in situ Chronic atrial fibrillation (HCC) Atrial fibrillation documented in this encounter Advance Directives Latest Code Status on File Code Status Date Activated Date Inactivated Comments Full Code 05/27/2015 8:33 PM 06/01/2015 4:29 PM This order reflects the patients wishes and were consensually agreed upon. Care Teams Corrections Nurse Relationship Specialty Start Date End Date Loida Saldivar MD [address] [place] [address] [place] [address] PCP - General Internal Medicine 10/01/22 documented as of this encounter
--- OUTSIDE RECORDS SUMMARY | 2023-07-14 10:00 | External Medical Summary | Summary of Care ---
Author Name Unknown Organization [facility] Address [address] [place] [address] Phone [phone] Care Team Providers Care Manager Wastewater Name Role Phone Loida Saldivar MD Primary Care Provider [phone] Reason for Visit * Reason Comments Outpatient Testing Encounter Details Date Type Department Care Team (Late st Contact Info) Description 06/09/2023 1:50 PM EST Laboratory Laboratory [address] [place] [phone] [place] [address] Chronic atrial fibrillation (HCC); Heart valve transplanted; Anemia; Transfusion associated circulatory overload; Vitamin D deficiency; Kidney disease, chronic, stage III (GFR 30-59 ml/min) ([facility]) Allergies Active Allergy Reactions Criticality Noted Date Comments Sulfamethoxazole-Trimetho prim 05/22/2015 Kidney function/ nausea Sulfa based medications Cefaclor 04/08/2021 Generally did not feel well. documented as of this encounter (statuses as of 06/09/2023) Medications Medication Sig Dispensed Refills Start Date [...] as of this encounter (statuses as of 06/09/2023) Active Problems Problem Noted Date Diagnosed Date Hyponatremia 08/14/2021 Nonrheumatic aortic valve insufficiency 04/08/20 Senile osteoporosis 11/18/2018 Asymptomatic bilateral carotid artery [...] 130/80 08/08/2002 Mitral valve regurgitation 08/08/2002 POLIO [id number] 08/08/2002 Spinal stenosis documented as of this encounter (statuses as of 06/09/2023) Resolved Problems Problem Noted Date Diagnosed Date Resolved Date SCC (squamous cell carcinoma), leg, right 10/26/2018 09/27/2019 Osteoporosis 08/08/2002 11/18/2018 documented as of this encounter (statuses as of 06/09/2023) Social History Tobacco Use Types Packs/Day Years [...] on file documented as of this encounter Plan of Treatment Upcoming Encounters Date Type Department Care Team (Late st Contact Info) Description 08/19/2023 10:30 AM EST Office Visit Cardiology [address] [place] [address] Shobha Rascon PA-C [address] [place] [address] 11/03/2023 11:20 AM EDT Office Visit Dermatology [address] [place] [address] Ofelia Grider PA-C [address] [place] [address] [place] [address] 12/21/2023 11:30 AM EDT Cardiac Studies Cardiology [address] [place] [address] Janette Jaime [facility] [address] [place] [address] Pending Results Name Type Priority Associated Diagnoses Date /Time PT INR Lab Routine Chronic atrial fibrillation ([facility]) Heart valve transplanted 06/09/2023 1:53 PM EST CBC Lab Routine Anemia Transfusion associated circulatory overload Vitamin D deficiency Kidney disease, chronic, stage III (GFR 30-59 ml/min) ([facility]) 06/09/2023 1:53 PM EST COMPREHENSIVE METABOLIC PANEL Lab Routine Anemia Transfusion associated circulatory overload Vitamin D deficiency Kidney disease, chronic, stage III (GFR 30-59 ml/min) ([facility]) 06/09/2023 1:53 PM EST TSH Lab Routine Anemia Transfusion associated circulatory overload Vitamin D deficiency Kidney disease, chronic, stage III (GFR 30-59 ml/min) ([facility]) 06/09/2023 1:53 PM EST T3, FREE Lab Routine Anemia Transfusion associated circulatory overload Vitamin D deficiency Kidney disease, chronic, stage III (GFR 30-59 ml/min) ([facility]) 06/09/2023 1:53 PM EST T4, FREE Lab Routine Anemia Transfusion associated circulatory overload Vitamin D deficiency Kidney disease, chronic, stage III (GFR 30-59 ml/min) ([facility]) 06/09/2023 1:53 PM EST 25-HYDROXY VITAMIN D Lab Routine Anemia Transfusion associated circulatory overload Vitamin D deficiency Kidney disease, chronic, stage III (GFR 30-59 ml/min) ([facility]) 06/09/2023 1:53 PM EST Health Maintenance Due Date Last Done Comments Depression Screening 1947 Albumin/Creatinine Ratio 1954 CKD PHOS USE SMARTSET 54220 1954 DTaP,Tdap,and Td Vaccines (1 - Tdap) 1955 Zoster Vaccines (1 of 2) 1986 Hepatitis B (2 of 3 - 19+ 3-dose series) 07/04/2004 06/06/2004 Pneumococcal Vaccine: 65+ Years (2 - PCV) 06/18/2015 06/18/2014 DXA Scan 07/04/2021 07/04/2019, 12/2016, 08/01/2014, Additional history exists COVID-19 Vaccine ( season) 2023 02/24/2022, 06/22/2021, 09/19/2020, Additional history exists Influenza Vaccine (FLU shot) (#1) 2023 05/06/2015 TSH 02/06/2024 02/05/2023, 07/26, 01/29/2022, Additional history exists CKD HGB USE SMARTSET 19856 05/17/202405/17, 02/08/2023, 02/06/2023, Additional history exists VITAMIN D LEVEL ONCE IN A LIFETIME-USE SMARTSET# 61947 Completed 06/22/2022, 03/09/2022, 08/06/2021, Additional history exists GARDASIL-HPV IMMUNIZATION SERIES Aged Out No longer eligible based on patient's age to complete this topic MENINGOCOCCAL (MENACTRA/MENVEO) Aged Out No longer eligible based on patient's age to complete this topic documented as of this encounter Medical Devices Implanted Type Area Technologies Division Chair Device Identifier Shelf Expiration Date Model / Serial / Lot Ring Triad [id number] - [id number] Implanted:Qty: 1 on 05/27/2015 by Morro Alexander MD at [place] [facility] [place]/A: Heart Medtrol 10/24/2019 [id number] / / [id number] documented as of this encounter Visit Diagnoses Diagnosis Chronic atrial fibrillation (HCC) Atrial fibrillation Heart valve transplanted Heart valve replaced by transplant Anemia Anemia, unspecified Transfusion associated circulatory overload Vitamin D deficiency Unspecified vitamin D deficiency Kidney disease, chronic, stage III (GFR 30-59 ml/min) (HCC) Chronic kidney disease, Stage III (moderate) documented in this encounter Advance Directives Latest Code Status on File Code Status Date Activated Date Inactivated Comments Full Code 05/27/2015 8:33 PM 06/01/2015 4:29 PM This order reflects the patients wishes and were consensually agreed upon. Care Teams Manager Wastewater Relationship Specialty Start Date End Date Loida Saldivar MD [address] [place] [address] [place] [address] PCP - General Internal Medicine 10/01/22 documented as of this encounter
--- OUTSIDE RECORDS SUMMARY | 2023-07-14 10:00 | External Medical Summary | Summary of Care ---
Author Name Unknown Organization [facility] Address [address] [place] [facility] [place] [place] [address] Phone [phone] Care Team Providers Care Music Internship Name Role Phone Loida Saldivar MD Primary Care Provider [phone] Reason for Visit * Reason Comments Outpatient Testing Encounter Details Date Type Department Care Team (Late st Contact Info) Description 07/01/2023 1:40 PM EST Laboratory Laboratory [address] [place] [phone] [place] [address] Chronic atrial fibrillation (HCC); Heart valve transplanted Allergies Active Allergy Reactions Criticality Noted Date Comments Sulfamethoxazole-Trimetho prim 05/22/2015 Kidney function/ nausea Sulfa based medications Cefaclor 04/08/2021 Generally did not feel well. documented as of this encounter (statuses as of 07/01/2023) Medications Medication Sig Dispensed Refills Start Date [...] as of this encounter (statuses as of 07/01/2023) Active Problems Problem Noted Date Diagnosed Date [...] 130/80 08/08/2002 Mitral valve regurgitation 08/08/2002 POLIO [id number] 08/08/2002 Spinal stenosis documented as of this encounter (statuses as of 07/01/2023) Resolved Problems Problem Noted Date Diagnosed Date Resolved Date SCC (squamous cell carcinoma), leg, right 10/26/2018 09/27/2019 Osteoporosis 08/08/2002 11/18/2018 documented as of this encounter (statuses as of 07/01/2023) Social History Tobacco Use Types Packs/Day Years [...] 08/19/2023 10:30 AM EST Office Visit Cardiology [address] [place] [address] Shobha Rascon PA-C [address] [place] [address] 11/03/2023 11:20 AM EDT Office Visit Dermatology [address] [place] [address] Ofelia Grider PA-C [address] [place] [address] [place] [address] 12/21/2023 11:30 AM EDT Cardiac Studies Cardiology [address] [place] [address] [place], [facility] [address] [place] [address] Pending Results Name Type Priority Associated Diagnoses Date /Time PT INR Lab Routine Chronic atrial fibrillation (HCC) Heart valve transplanted 07/01/2023 1:39 PM EST Health Maintenance Due Date Last Done Comments Depression Screening 1947 Albumin/Creatinine Ratio 1954 CKD PHOS USE SMARTSET 91418 1954 DTaP,Tdap,and Td Vaccines (1 - Tdap) 1955 Zoster Vaccines (1 of 2) 1986 Hepatitis B (2 of 3 - 19+ 3-dose series) 07/04/2004 06/06/2004 Pneumococcal Vaccine: 65+ Years (2 - PCV) 06/18/2015 06/18/2014 DXA Scan 07/04/2021 07/04/2019, 12/12/2016, 08/01/2014, Additional history exists COVID-19 Vaccine (5 - 2022- season) 2023 02/24/2022, 06/22/2021, 09/19/2020, Additional history exists Influenza Vaccine (FLU shot) (#1) 2023 05/06/2015 CKD HGB USE SMARTSET 94641 06/09/202406/09, 05/17/2023, 02/08/2023, Additional history exists TSH 06/09/2024 06/09/2023, 01/23, 08/11/2022, Additional history exists VITAMIN D LEVEL ONCE IN A LIFETIME-USE SMARTSET# 05253 Completed 06/09/2023, 06/22/2022, 03/09/2022, Additional history exists GARDASIL-HPV IMMUNIZATION SERIES Aged Out No longer eligible based on patient's age to complete this topic MENINGOCOCCAL (MENACTRA/MENVEO) Aged Out No longer eligible based on patient's age to complete this topic documented as of this encounter Medical Devices Implanted Type Area Transcribing Machine Mechanic Device Identifier Shelf Expiration Date Model / Serial / Lot Ring Triad [id number] - [id number] Implanted:Qty: 1 on 05/27/2015 by Morro Alexander MD at OR [facility] [place] N/A: Heart Medtrol 10/24/2019 [id number] / / [id number] documented as of this encounter Visit Diagnoses Diagnosis Chronic atrial fibrillation (HCC) Atrial fibrillation Heart valve transplanted Heart valve replaced by transplant documented in this encounter Advance Directives Latest Code Status on File Code Status Date Activated Date Inactivated Comments Full Code 05/27/2015 8:33 PM 06/01/2015 4:29 PM This order reflects the patients wishes and were consensually agreed upon. Care Teams Music Internship Relationship Specialty Start Date End Date Loida Saldivar MD [address] [place] [address] [place] [address] PCP - General Internal Medicine 10/01/22 documented as of this encounter
--- OUTSIDE RECORDS SUMMARY | 2023-07-14 10:00 | External Medical Summary | Summary of Care ---
Author Name Unknown Organization [facility] Address [address] [facility] [place] [address] Phone [phone] Care Team Providers Care Tipple Mechanic Name Role Phone Loida Saldivar MD Primary Care Provider [phone] Encounter Details Date Type Department Care Team (Late st Contact Info) Description 06/24/2023 Result Scan Unspecified Department Octaviano Blankenship, DO [address] [place] [address] <No scans attached> Allergies Active Allergy Reactions Criticality Noted Date Comments Sulfamethoxazole-Trimetho prim 05/22/2015 Kidney function/ nausea Sulfa based medications Cefaclor 04/08/2021 Generally did not feel well. documented as of this encounter (statuses as of 06/24/2023) Medications Medication Sig Dispensed Refills Start Date [...] as of this encounter (statuses as of 06/24/2023) Active Problems Problem Noted Date Diagnosed Date [...] 130/80 08/08/2002 Mitral valve regurgitation 08/08/2002 POLIO [id number] 08/08/2002 Spinal stenosis documented as of this encounter (statuses as of 06/24/2023) Resolved Problems Problem Noted Date Diagnosed Date Resolved Date SCC (squamous cell carcinoma), leg, right 10/26/2018 09/27/2019 Osteoporosis 08/08/2002 11/18/2018 documented as of this encounter (statuses as of 06/24/2023) Social History Tobacco Use Types Packs/Day Years [...] 08/19/2023 10:30 AM EST Office Visit Cardiology [address] [place] [address] Shobha Rascon PA-C [address] [place] [address] 11/03/2023 11:20 AM EDT Office Visit Dermatology [address] [place] [address] Ofelia Grider PA-C [address] [place] [address] [place] [address] 12/21/2023 11:30 AM EDT Cardiac Studies Cardiology [address] [place] [address] [facility], [facility] [address] [place] [address] Health Maintenance Due Date Last Done Comments Depression Screening 1947 Albumin/Creatinine Ratio 1954 CKD PHOS USE SMARTSET 67429 1954 DTaP,Tdap,and Td Vaccines (1 - Tdap) 1955 Zoster Vaccines (1 of 2) 1986 Hepatitis B (2 of 3 - 19+ 3-dose series) 07/04/2004 06/06/2004 Pneumococcal Vaccine: 65+ Years (2 - PCV) 06/18/2015 06/18/2014 DXA Scan 07/04/2021 07/04/2019, 12/0 12/2016, 08/01/2014, Additional history exists COVID-19 Vaccine ( season) 2023 02/24/2022, 06/22/2021, 09/19/2020, Additional history exists Influenza Vaccine (FLU shot) (#1) 2023 05/06/2015 CKD HGB USE SMARTSET 74308 06/09/202406/09, 05/17/2023, 02/08/2023, Additional history exists TSH 06/09/2024 06/09/2023, 01/23, 08/11/2022, Additional history exists VITAMIN D LEVEL ONCE IN A LIFETIME-USE SMARTSET# 28130 Completed 06/09/2023, 06/22/2022, 03/09/2022, Additional history exists GARDASIL-HPV IMMUNIZATION SERIES Aged Out No longer eligible based on patient's age to complete this topic MENINGOCOCCAL (MENACTRA/MENVEO) Aged Out No longer eligible based on patient's age to complete this topic documented as of this encounter Medical Devices Implanted Type Area Solar Photovoltaic Designer Device Identifier Shelf Expiration Date Model / Serial / Lot Ring Triad [id number] - [id number] Implanted:Qty: 1 on 05/27/2015 by Morro Alexander MD at [place] [facility] [place]/A: Heart Medtrol 10/24/2019 [id number] / / [id number] documented as of this encounter Procedures Procedure Name Priority Date/Time Associated Diagnosis Comments CARDIOLOGY SCANNED RESULT 06/24/2023 documented in this encounter Results * CARDIOLOGY SCANNED RESULT (06/24/2023) 06/24/2023 Octaviano WYMAN documented in this encounter Advance Directives Latest Code Status on File Code Status Date Activated Date Inactivated Comments Full Code 05/27/2015 8:33 PM 06/01/2015 4:29 PM This order reflects the patients wishes and were consensually agreed upon. Care Teams Tipple Mechanic Relationship Specialty Start Date End Date Loida Saldivar MD [address] [place] [address] [place] [address] PCP - General Internal Medicine 10/01/22 documented as of this encounter
--- OUTSIDE RECORDS SUMMARY | 2023-07-14 10:00 | External Medical Summary ---
Author Name Unknown Address Unknown Organization K01:[facility] - [address] [facility] [address] Laboratory Report Ordering Provider Test Date Status MONIKA GIBBS 07/01/2023 13:39:10 Final Warfarin Therapy
INR: 2 .0-3.0 conventional anticoagulation
INR: 2.5- 3.5 high intensity anticoagulation Observation Date Value Abnormality Reference (Units ) Status PT 07/01/2023 13:39:10 18.0 Above high normal 11 .6-15.2 (seconds) Final INR 07/01/2023 13:39:10 1.5 Above high normal 0. 8-1.2 Final Performing Location [facility] [address] [facility] [address]
--- OUTSIDE RECORDS SUMMARY | 2023-07-14 10:00 | External Medical Summary | Summary of Care ---
Author Name Unknown Organization [facility] Address [address] [place] [address] Phone [phone] Care Team Providers Care Facing Cutting Machine Operator Name Role Phone Loida Saldivar MD Primary Care Provider [phone] Reason for Visit * Reason Comments Outpatient Testing Encounter Details Date Type Department Care Team (Late st Contact Info) Description 06/09/2023 1:50 PM EST Laboratory Laboratory [address] [place] [phone] [place] [address] Chronic atrial fibrillation (HCC); Heart valve transplanted; Anemia; Transfusion associated circulatory overload; Vitamin D deficiency; Kidney disease, chronic, stage III (GFR 30-59 ml/min) ([facility]) Allergies Active Allergy Reactions Criticality Noted Date [...] 130/80 08/08/2002 Mitral valve regurgitation 08/08/2002 POLIO [id number] 08/08/2002 Spinal stenosis documented as of this [...] 08/19/2023 10:30 AM EST Office Visit Cardiology [address] [place] [address] Shobha Rascon PA-C [address] [place] [address] 11/03/2023 11:20 AM EDT Office Visit Dermatology [address] [place] [address] Ofelia Grider PA-C [address] [place] [address] [place] [address] 12/21/2023 11:30 AM EDT Cardiac Studies Cardiology [address] [place] [address] Janette Jaime [facility] [address] [place] [address] Pending Results Name Type Priority Associated Diagnoses Date /Time PT INR Lab Routine Chronic atrial fibrillation ([facility]) Heart valve transplanted 06/09/2023 1:53 PM EST CBC Lab Routine Anemia Transfusion associated circulatory overload Vitamin D deficiency Kidney disease, chronic, stage III (GFR 30-59 ml/min) ([facility]) 06/09/2023 1:53 PM EST COMPREHENSIVE METABOLIC PANEL Lab Routine Anemia Transfusion associated circulatory overload Vitamin D deficiency Kidney disease, chronic, stage III (GFR 30-59 ml/min) ([facility]) 06/09/2023 1:53 PM EST TSH Lab Routine Anemia Transfusion associated circulatory overload Vitamin D deficiency Kidney disease, chronic, stage III (GFR 30-59 ml/min) ([facility]) 06/09/2023 1:53 PM EST T3, FREE Lab Routine Anemia Transfusion associated circulatory overload Vitamin D deficiency Kidney disease, chronic, stage III (GFR 30-59 ml/min) ([facility]) 06/09/2023 1:53 PM EST T4, FREE Lab Routine Anemia Transfusion associated circulatory overload Vitamin D deficiency Kidney disease, chronic, stage III (GFR 30-59 ml/min) ([facility]) 06/09/2023 1:53 PM EST 25-HYDROXY VITAMIN D Lab Routine Anemia Transfusion associated circulatory overload Vitamin D deficiency Kidney disease, chronic, stage III (GFR 30-59 ml/min) ([facility]) 06/09/2023 1:53 PM EST Health Maintenance Due Date Last Done Comments Depression Screening 1947 Albumin/Creatinine Ratio 1954 CKD PHOS USE SMARTSET 29213 1954 DTaP,Tdap,and Td Vaccines (1 - Tdap) [...] Additional history exists CKD HGB USE SMARTSET 02731 05/17/202405/17, 02/08/2023, 02/06/2023, Additional history exists VITAMIN D LEVEL ONCE IN A LIFETIME-USE SMARTSET# 14159 Completed 06/22/2022, 03/09/2022, 08/06/2021, Additional history exists GARDASIL-HPV IMMUNIZATION SERIES Aged Out No longer eligible based on patient's age to complete this topic MENINGOCOCCAL (MENACTRA/MENVEO) Aged Out No longer eligible based on patient's age to complete this topic documented as of this encounter Medical Devices Implanted Type Area Guest Relations Receptionist Device Identifier Shelf Expiration Date Model / Serial / Lot Ring Triad [id number] - [id number] Implanted:Qty: 1 on 05/27/2015 by Morro Alexander MD at OR [facility] [place] N/A: Heart Medtrol 10/24/2019 [id number] / / [id number] documented as of this encounter Visit Diagnoses [...] and were consensually agreed upon. Care Teams Facing Cutting Machine Operator Relationship Specialty Start Date End Date Loida Saldivar MD [address] [place] [address] [place] [address] PCP - General Internal Medicine 10/01/22 documented as of this encounter
--- OUTSIDE RECORDS SUMMARY | 2023-07-14 10:00 | External Medical Summary | Summary of Care ---
Author Name Unknown Organization [facility] Address [address] [place] [address] Phone [phone] Care Team Providers Care Heavy Duty Mechanic Farm Equipment Name Role Phone Loida Saldivar MD Primary Care Provider [phone] Reason for Visit * Reason Comments Outpatient Testing Encounter Details Date Type Department Care Team (Late st Contact Info) Description 06/09/2023 1:50 PM EST Laboratory Laboratory [address] [place] [phone] [place] [address] Chronic atrial fibrillation (HCC); Heart valve transplanted; Anemia; Transfusion associated circulatory overload; Vitamin D deficiency; Kidney disease, chronic, stage III (GFR 30-59 ml/min) ([facility]) Allergies Active Allergy Reactions Criticality Noted Date [...] 130/80 08/08/2002 Mitral valve regurgitation 08/08/2002 POLIO [id number] 08/08/2002 Spinal stenosis documented as of this [...] 10:30 AM EST Office Visit Cardiology [address] [place] [address] Shobha Rascon PA-C [address] [place] [address] 11/03/2023 11:20 AM EDT Office Visit Dermatology [address] [place] [address] Ofelia Grider PA-C [address] [place] [address] [place] [address] 12/21/2023 11:30 AM EDT Cardiac Studies Cardiology [address] [place] [address] Janette Jaime [facility] [address] [place] [address] Pending Results Name Type Priority Associated Diagnoses Date /Time PT INR Lab Routine Chronic atrial fibrillation ([facility]) Heart valve transplanted 06/09/2023 1:53 PM EST CBC Lab Routine Anemia Transfusion associated circulatory overload Vitamin D deficiency Kidney disease, chronic, stage III (GFR 30-59 ml/min) ([facility]) 06/09/2023 1:53 PM EST COMPREHENSIVE METABOLIC PANEL Lab Routine Anemia Transfusion associated circulatory overload Vitamin D deficiency Kidney disease, chronic, stage III (GFR 30-59 ml/min) ([facility]) 06/09/2023 1:53 PM EST TSH Lab Routine Anemia Transfusion associated circulatory overload Vitamin D deficiency Kidney disease, chronic, stage III (GFR 30-59 ml/min) ([facility]) 06/09/2023 1:53 PM EST T3, FREE Lab Routine Anemia Transfusion associated circulatory overload Vitamin D deficiency Kidney disease, chronic, stage III (GFR 30-59 ml/min) ([facility]) 06/09/2023 1:53 PM EST T4, FREE Lab Routine Anemia Transfusion associated circulatory overload Vitamin D deficiency Kidney disease, chronic, stage III (GFR 30-59 ml/min) ([facility]) 06/09/2023 1:53 PM EST 25-HYDROXY VITAMIN D Lab Routine Anemia Transfusion associated circulatory overload Vitamin D deficiency Kidney disease, chronic, stage III (GFR 30-59 ml/min) ([facility]) 06/09/2023 1:53 PM EST Health Maintenance Due Date Last Done Comments Depression Screening 1948 Albumin/Creatinine Ratio 1954 CKD PHOS USE SMARTSET 73572 1954 DTaP,Tdap,and Td Vaccines (1 - Tdap) [...] Additional history exists CKD HGB USE SMARTSET 14444 05/17/202405/17, 02/08/2023, 02/06/2023, Additional history exists VITAMIN D LEVEL ONCE IN A LIFETIME-USE SMARTSET# 08042 Completed 06/22/2022, 03/09/2022, 08/06/2021, Additional history exists GARDASIL-HPV IMMUNIZATION SERIES Aged Out No longer eligible based on patient's age to complete this topic MENINGOCOCCAL (MENACTRA/MENVEO) Aged Out No longer eligible based on patient's age to complete this topic documented as of this encounter Medical Devices Implanted Type Area Acoustical Tile Drill Press Operator Device Identifier Shelf Expiration Date Model / Serial / Lot Ring Triad [id number] - [id number] Implanted:Qty: 1 on 05/27/2015 by Morro Alexander MD at [place] [facility] [place] N/A: Heart Medtrol 10/24/2019 [id number] / / [id number] documented as of this encounter Visit Diagnoses [...] and were consensually agreed upon. Care Teams Heavy Duty Mechanic Farm Equipment Relationship Specialty Start Date End Date Loida Saldivar MD [address] [place] [address] [place] [address] PCP - General Internal Medicine 10/01/22 documented as of this encounter
--- OUTSIDE RECORDS SUMMARY | 2023-07-14 10:00 | External Medical Summary ---
Author Name Unknown Address Unknown Organization [id number][place] [facility] [place] [address] [place] [address] Laboratory Report Ordering Provider Test Date Status MONIKA GIBBS 06/09/2023 13:53:41 Final Observation Date Value Abnormality Reference (Units ) Status T4, Free 06/09/2023 13:53:41 2.0 Above high normal 0. 9-1.7 (ng/dL) Final Performing Location [facility] - [address] [place] [address]
--- OUTSIDE RECORDS SUMMARY | 2023-07-14 10:01 | External Medical Summary ---
Author Name Unknown Address Unknown Organization [id number]:[facility] [place] [address] [place] [address] Laboratory Report Ordering Provider Test Date Status MONIKA GIBBS 05/17/2023 14:21:09 Final Warfarin Therapy
INR: 2 .0-3.0 conventional anticoagulation
INR: 2.5- 3.5 high intensity anticoagulation Observation Date Value Abnormality Reference (Units ) Status PT 05/17/2023 14:21:09 24.0 Above high normal 11 .6-15.2 (seconds) Final INR 05/17/2023 14:21:09 2.1 Above high normal 0. 8-1.2 Final Performing Location LAB[facility]ATORY [facility] [place] - [address] [place] [address]
--- OUTSIDE RECORDS SUMMARY | 2023-07-14 10:01 | External Medical Summary ---
Author Name Unknown Address Unknown Organization [id number]:LABORATORY [facility] [place] - [address] [place] [address] Laboratory Report Ordering Provider Test Date Status MONIKA GIBBS 06/09/2023 13:53:41 Final Deficient: <20 ng/mL
Ins ufficient: 20-29 ng/mL
Recommended/Optimum:30-50 ng/mL

Vitamin D intoxication is rare. If suspicious of Vitamin D toxicity, evaluation of serum Calcium and PTH is recommended. Observation Date Value Abnormality Reference (Units ) Status 25-OH Vitamin D total 06/09/2023 13:53:41 51 >19 (ng/mL) Final Performing Location LAB[facility]ATORY [facility] - [address] [place] [address]
--- OUTSIDE RECORDS SUMMARY | 2023-07-14 10:01 | External Medical Summary | Summary of Care ---
Author Name Unknown Organization [facility] Address [address] [place] [facility] [place] [address] Phone [phone] Care Team Providers Care Plating Operator Name Role Phone Loida Saldivar MD Primary Care Provider [phone] Reason for Visit * Reason Comments Outpatient Testing Encounter Details Date Type Department Care Team Description 04/29/2023 Laboratory Laboratory [address] [place] [phone] [place] [phone] Kidney disease, chronic, stage III (GFR 30-59 ml/min) ([facility]; Chronic atrial fibrillation (HCC); Heart valve transplanted Allergies Active Allergy Reactions Severity Noted Date Comments Sulfamethoxazole-Trimethop rim 05/22/2015 Kidney function/ nausea Sulfa based medications Cefaclor 04/08/2021 Generally did not feel well. documented as of this encounter (statuses as of 04/29/2023) Medications Medication Sig Dispensed Refills Start Date [...] as of this encounter (statuses as of 04/29/2023) Active Problems Problem Noted Date Hyponatremia 08/14/2021 Nonrheumatic aortic valve insufficiency 04/08/2021 Senile osteoporosis 11/18/2018 Asymptomatic bilateral carotid artery st enosis 02/23/2017 H/O tricuspid valve repair 07/15/2016 Chronic atrial fibrillation 07/15/2016 Biventricular implantable cardioverter-d efibrillator in situ 07/01/2016 Nonischemic cardiomyopathy 07/01/2016 Chronic systolic heart failure 6 S/P mitral valve replacement with biopro sthetic valve 05/31/2015 CKD (chronic kidney disease) stage 3, GF R 30-59 ml/min 03/05/2015 Personal history of other malignant neop lasm of skin 02/20/2015 Overview: squamous cell carcinoma [...] OSTEOARTHROSIS 08/08/2002 Essential hypertension with goal blood p ressure less than 130/80 08/08/2002 Mitral valve regurgitation 08/08/2002 POLIO [id number] 08/08/2002 Spinal stenosis documented as of this encounter (statuses as of 04/29/2023) Resolved Problems Problem Noted Date Resolved Date SCC (squamous cell carcinoma), leg, right 201809/27/2019 Osteoporosis 08/08/2002 11/18/2018 documented as of this encounter (statuses as of 04/29/2023) Social History Tobacco Use Types Packs/Day Years Used Date Smoking Tobacco: Never Smokeless Tobacco: Never Alcohol Use Standard Drinks/Week Comments No 0 (1 standard drink = 0.6 oz pur e alcohol) Sex Assigned at Date Recorded Not on file Job Start Date Occupation Industry Not on file Not on file Not on file documented as of this encounter Plan of Treatment Upcoming Encounters Date Type Specialty Care Team Description 05/06/2023 Office Visit Dermatology Valeriano Schroeder MD [address] [place] [address] 06/08/2023 Cardiac Studies Cardiology [facility], Pacer [facility] [address] [place] [address] 08/19/2023 Office Visit Cardiology Shobha Rascon PA-C [address] [place] [address] 11/03/2023 Office Visit Dermatology Ofelia Grider PA-C [address] [place] [address] [place] [address] Pending Results Name Type Priority Associated Diagnoses Date /Time BASIC METABOLIC PANEL Lab Routine Kidney disease, chronic, stage III (GFR 30-59 ml/min) ([facility]) 04/29/2023 12:13 PM EDT PT INR Lab Routine Chronic atrial fibrillation ([facility]) Heart valve transplanted 04/29/2023 12:21 PM EDT Scheduled Orders Name Type Priority Associated Diagnoses Orde r Schedule BASIC METABOLIC PANEL Lab Routine Kidney disease, chronic, stage III (GFR 30-59 ml/min) ([facility]) Expected: 04/29/2023, Expires: 04/29/2024 Health Maintenance Due Date Last Done Comments Pneumococcal Vaccine: 65+ Years (1 - PCV) 1941 Depression Screening 1947 Albumin/Creatinine Ratio 1954 CKD PHOS USE SMARTSET 13118 1954 DTaP,Tdap,and Td Vaccines (1 - Tdap) 1955 Zoster Vaccines (1 of 2) 1986 DXA Scan 07/04/2021 07/04/2019, 12/0 12/2016, 08/01/2014, Additional history exists COVID-19 Vaccine ( - 2022- season) 2023 02/24/2022, 06/22/2021, 09/19/2020, Additional history exists Influenza Vaccine (FLU shot) (#1) 2023 05/06/2015 TSH 02/06/2024 02/05/2023, 07/26, 01/29/2022, Additional history exists CKD HGB USE SMARTSET 96461 02/09/202402/08, 02/06/2023, 02/05/2023, Additional history exists VITAMIN D LEVEL ONCE IN A LIFETIME-USE SMARTSET# 17298 Completed 06/22/2022, 03/09/2022, 08/06/2021, Additional history exists GARDASIL-HPV IMMUNIZATION SERIES Aged Out No longer eligible based on patient's age to complete this topic Hepatitis B Aged Out No longer eligi ble based on patient's age to complete this topic MENINGOCOCCAL (MENACTRA/MENVEO) Aged Out No longer eligible based on patient's age to complete this topic documented as of this encounter Medical Devices Implanted Type Area Melt House Centrifugal Operator Device Identifier Shelf Expiration Date Model / Serial / Lot Ring Triad [id number] - [id number] Implanted:Qty: 1 on 05/27/2015 by Morro Alexander MD at [place] [facility] [place] N/A: Heart Medtrol 10/24/2019 [id number] / / [id number] documented as of this encounter Visit Diagnoses Diagnosis Kidney disease, chronic, stage III (GFR 30-59 ml/min) (HCC)- Primary Chronic kidney disease, Stage III (moderate) Chronic atrial fibrillation (HCC) Atrial fibrillation Heart valve transplanted Heart valve replaced by transplant documented in this encounter Advance Directives Latest Code Status on File Code Status Date Activated Date Inactivated Comments Full Code 05/27/2015 8:33 PM 06/01/2015 4:29 PM This order reflects the patients wishes and were consensually agreed upon. Care Teams Plating Operator Relationship Specialty Start Date End Date Loida Saldivar MD [address] [place] [address] [place] [address] PCP - General Internal Medicine 10/01/22 documented as of this encounter
--- OUTSIDE RECORDS SUMMARY | 2023-07-14 10:01 | External Medical Summary ---
Author Name Unknown Address Unknown Organization K01:LABORATORY [facility] [place] [address] [place] [address] Laboratory Report Ordering Provider Test Date Status MONIKA GIBBS 06/09/2023 13:53:41 Final Warfarin Therapy
INR: 2 .0-3.0 conventional anticoagulation
INR: 2.5- 3.5 high intensity anticoagulation Observation Date Value Abnormality Reference (Units ) Status PT 06/09/2023 13:53:41 22.9 Above high normal 11 .6-15.2 (seconds) Final INR 06/09/2023 13:53:41 2.0 Above high normal 0. 8-1.2 Final Performing Location LABORATORY [facility] [place] - [address] [place] [address]
--- OUTSIDE RECORDS SUMMARY | 2023-07-14 10:01 | External Medical Summary ---
Author Name Unknown Address Unknown Organization K01:[facility]ATORY [facility] - [address] [facility] [address] [place] [address] Laboratory Report Ordering Provider Test Date Status SAIMONIKA 06/09/2023 13:53:41 Final Observation Date Value Abnormality Reference (Units ) Status T3, Free 06/09/2023 13:53:41 2.7 2.5-4.3 (p g/mL) Final Performing Location LAB[facility] - [address] [place] [address]
--- OUTSIDE RECORDS SUMMARY | 2023-07-14 10:01 | External Medical Summary | Summary of Care ---
Author Name Unknown Organization [facility] Address [address] [facility] [place] [address] Phone [phone] Care Team Providers Care Airport Utility Worker Name Role Phone Loida Saldivar MD Primary Care Provider [phone] Reason for Visit * Reason Comments Outpatient Testing Encounter Details Date Type Department Care Team Description 04/29/2023 Laboratory Laboratory [address] [place] [phone] [place] [phone] Kidney disease, chronic, stage III (GFR 30-59 ml/min) ([facility])*; Chronic atrial fibrillation (HCC); Heart valve transplanted [...] 130/80 08/08/2002 Mitral valve regurgitation 08/08/2002 POLIO [id number] 08/08/2002 Spinal stenosis documented as of this [...] Dermatology Valeriano Schroeder MD [address] [place] [address] 06/08/2023 Cardiac Studies Cardiology [facility], Pacer [facility] [address] [place] [address] 08/19/2023 Office Visit Cardiology Shobha Rascon PA-C [address] [place] [address] 11/03/2023 Office Visit Dermatology Ofelia Grider PA-C [address] [place] [address] [place] [address] Pending Results Name Type Priority Associated Diagnoses Date /Time BASIC METABOLIC PANEL Lab Routine Kidney disease, chronic, stage III (GFR 30-59 ml/min) ([facility]) 04/29/2023 12:13 PM EDT PT INR Lab Routine Chronic atrial fibrillation ([facility]) Heart valve transplanted 04/29/2023 12:21 PM EDT Scheduled Orders Name Type Priority Associated Diagnoses Orde r Schedule BASIC METABOLIC PANEL Lab Routine Kidney disease, chronic, stage III (GFR 30-59 ml/min) ([facility]) Expected: 04/29/2023, Expires: 04/29/2024 Health Maintenance Due Date Last Done Comments Pneumococcal Vaccine: 65+ Years (1 - PCV) 1942 Depression Screening 1948 Albumin/Creatinine Ratio 1954 CKD PHOS USE SMARTSET 60773 1954 DTaP,Tdap,and Td Vaccines (1 - Tdap) 1955 Zoster Vaccines (1 of 2) 1986 DXA Scan 07/04/2021 07/04/2019, 12/0 12/2016, 08/01/2014, Additional history exists COVID-19 Vaccine ( - 2022- season) 2023 02/24/2022, 06/22/2021, 09/19/2020, Additional history exists Influenza Vaccine (FLU shot) (#1) 2023 05/06/2015 TSH 02/06/2024 02/05/2023, 07/26, 01/29/2022, Additional history exists CKD HGB USE SMARTSET 58158 02/09/202402/08, 02/06/2023, 02/05/2023, Additional history exists VITAMIN D LEVEL ONCE IN A LIFETIME-USE SMARTSET# 16938 Completed 06/22/2022, 03/09/2022, 08/06/2021, Additional history exists [...] this encounter Medical Devices Implanted Type Area Biological Photographer Device Identifier Shelf Expiration Date Model / Serial / Lot Ring Triad [id number] - [id number] Implanted:Qty: 1 on 05/27/2015 by Morro Alexander MD at [place] [facility] [place]/A: Heart Medtrol 10/24/2019 [id number] / / [id number] documented as of this encounter Visit Diagnoses [...] and were consensually agreed upon. Care Teams Airport Utility Worker Relationship Specialty Start Date End Date Loida Saldivar MD [address] [place] [address] [place] [address] PCP - General Internal Medicine 10/01/22 documented as of this encounter
--- OUTSIDE RECORDS SUMMARY | 2023-07-14 10:01 | External Medical Summary | Summary of Care ---
Author Name Unknown Organization [facility] Address [address] [facility] [place] [address] Phone [phone] Care Team Providers Care Dog Licenser Name Role Phone Loida Saldivar MD Primary Care Provider [phone] Reason for Visit * Reason Onset Date Comments Appointment 06/07/2023 Encounter Details Date Type Department Care Team (Late st Contact Info) Description 06/07/2023 Telephone Cardiology, [facility] [address] [facility] [place] [address] Janette Jaime [facility] [address] Appointment Allergies Active Allergy Reactions Criticality Noted Date Comments Sulfamethoxazole-Trimetho prim 05/22/2015 Kidney function/ nausea Sulfa based medications Cefaclor 04/08/2021 Generally did not feel well. documented as of this encounter (statuses as of 06/08/2023) Medications Medication Sig Dispensed Refills Start Date [...] as of this encounter (statuses as of 06/08/2023) Active Problems Problem Noted Date Diagnosed Date [...] 130/80 08/08/2002 Mitral valve regurgitation 08/08/2002 POLIO [id number] 08/08/2002 Spinal stenosis documented as of this encounter (statuses as of 06/08/2023) Resolved Problems Problem Noted Date Diagnosed Date Resolved Date SCC (squamous cell carcinoma), leg, right 10/26/2018 09/27/2019 Osteoporosis 08/08/2002 11/18/2018 documented as of this encounter (statuses as of 06/08/2023) Social History Tobacco Use Types Packs/Day Years [...] on file documented as of this encounter Miscellaneous Notes * Telephone Encounter - Sneha Martines OSA - 06/08/2023 8:03 AM EST Scheduled. * Telephone Encounter - Shona Carney OSA - 06/07/2023 4:47 PM EST Pt called to confirm she will attend the appt WedJune 09 at 1:15. I was unable to schedule. Thank you, JOSE Solo * Telephone Encounter - Teresa Fontenot RN - 06/07/2023 1:39 PM EST Called, left message for patient to return call. Need to cancel/reschedule device clinic appointment for 06/08/23 due to tech/rep being unavailable. Upon return call, please see if patient able to go to [facility] on 06/09/23 at 1:15pm instead for when rep will be available. documented in this encounter Plan of Treatment Upcoming Encounters Date Type Department Care Team (Late st Contact Info) Description 06/09/2023 1:15 PM EST Cardiac Studies Cardiology [address] [place] [address] [place] [address] [place] [address] 08/19/2023 10:30 AM EST Office Visit Cardiology [address] [place] [address] Shobha Rascon PA-C [address] [place] [address] 11/03/2023 11:20 AM EDT Office Visit Dermatology [address] [place] [address] Ofelia Grider PA-C [address] [place] [address] [place] [address] Health Maintenance Due Date Last Done Comments Depression Screening 1947 Albumin/Creatinine Ratio 1954 CKD PHOS USE SMARTSET 48434 1954 DTaP,Tdap,and Td Vaccines (1 - Tdap) 1955 Zoster Vaccines (1 of 2) 1986 Hepatitis B (2 of 3 - 19+ 3-dose series) 07/04/2004 06/06/2004 Pneumococcal Vaccine: 65+ Years (2 - PCV) 06/18/2015 06/18/2014 DXA Scan 07/04/2021 07/04/2019, 12/2016, 08/01/2014, Additional history exists COVID-19 Vaccine (2022- season) 2023 02/24/2022, 06/22/2021, 09/19/2020, Additional history exists Influenza Vaccine (FLU shot) (#1) 2023 05/06/2015 TSH 02/06/2024 02/05/2023, 07/26, 01/29/2022, Additional history exists CKD HGB USE SMARTSET 73857 05/17/202405/17, 02/08/2023, 02/06/2023, Additional history exists VITAMIN D LEVEL ONCE IN A LIFETIME-USE SMARTSET# 84996 Completed 06/22/2022, 03/09/2022, 08/06/2021, Additional history exists GARDASIL-HPV IMMUNIZATION SERIES Aged Out No longer eligible based on patient's age to complete this topic MENINGOCOCCAL (MENACTRA/MENVEO) Aged Out No longer eligible based on patient's age to complete this topic documented as of this encounter Medical Devices Implanted Type Area Creative Guru Device Identifier Shelf Expiration Date Model / Serial / Lot Ring Triad [id number] - [id number] Implanted:Qty: 1 on 05/27/2015 by Morro Alexander MD at [place] [facility] [place]/A: Heart Medtrol 10/24/2019 [id number] / / [id number] documented as of this encounter Advance Directives Latest Code Status on File Code Status Date Activated Date Inactivated Comments Full Code 05/27/2015 8:33 PM 06/01/2015 4:29 PM This order reflects the patients wishes and were consensually agreed upon. Care Teams Dog Licenser Relationship Specialty Start Date End Date Loida Saldivar MD [address] [place] [address] [place] [address] PCP - General Internal Medicine 10/01/22 documented as of this encounter
--- OUTSIDE RECORDS SUMMARY | 2023-07-14 10:01 | External Medical Summary ---
Author Name Unknown Address Unknown Organization [id number]:[facility] [place] [facility] [address] Laboratory Report Ordering Provider Test Date Status MONIKA GIBBS 06/09/2023 13:53:41 Final Observation Date Value Abnormality Reference (Units ) Status WBC, Total 06/09/2023 13:53:41 5.14 4.00-10.80 (K/uL) Final RBC 06/09/2023 13:53:41 3.95 3.85-5.15 (M/uL) Final Hemoglobin 06/09/2023 13:53:41 11.2 Below low normal 12.0-15.3 (g/dL) Final HCT 06/09/2023 13:53:41 36.3 36.0-45.2 (%) Final MCV 06/09/2023 13:53:41 91.9 81.5-97.5 (fL) Final MCH 06/09/2023 13:53:41 28.4 27.0-34.0 (pg) Final MCHC 06/09/2023 13:53:41 30.9 32.0-36.0 (g/dL) Final RDW 06/09/2023 13:53:41 14.2 11.5-15.5 (%) Final Platelets 06/09/2023 13:53:41 258 140-400 (K/uL) Final MPV 06/09/2023 13:53:41 10.5 6.6-11.1 (fL) Final Nucleated erythrocytes/100 leukocytes [Ratio] in Blood by Automated count 06/09/2023 13:53:41 0 <=0 (/100 WBCs) Final Performing Location [facility] [place] [address] [facility] [address]
--- OUTSIDE RECORDS SUMMARY | 2023-07-14 10:01 | External Medical Summary ---
Author Name Unknown Address Unknown Organization [id number]:[facility] [place] - [facility] [address] Laboratory Report Ordering Provider Test Date Status MONIKA GIBBS 05/17/2023 14:16:08 Final Observation Date Value Abnormality Reference (Units ) Status WBC, Total 05/17/2023 14:16:08 5.27 4.00-10.80 (K/uL) Final RBC 05/17/2023 14:16:08 4.10 3.85-5.15 (M/uL) Final Hemoglobin 05/17/2023 14:16:08 11.7 Below low normal 12.0-15.3 (g/dL) Final HCT 05/17/2023 14:16:08 37.9 36.0-45.2 (%) Final MCV 05/17/2023 14:16:08 92.4 81.5-97.5 (fL) Final MCH 05/17/2023 14:16:08 28.5 27.0-34.0 (pg) Final MCHC 05/17/2023 14:16:08 30.9 32.0-36.0 (g/dL) Final RDW 05/17/2023 14:16:08 13.7 11.5-15.5 (%) Final Platelets 05/17/2023 14:16:08 249 140-400 (K/uL) Final MPV 05/17/2023 14:16:08 10.3 6.6-11.1 (fL) Final Nucleated erythrocytes/100 leukocytes [Ratio] in Blood by Automated count 05/17/2023 14:16:08 0 <=0 (/100 WBCs) Final Performing Location [facility]ORY [facility] [place] - [address] [facility] [address]
--- OUTSIDE RECORDS SUMMARY | 2023-07-14 10:01 | External Medical Summary ---
Author Name Unknown Address Unknown Organization [id number]:[facility] [place] [address] [place] [address] [address] Laboratory Report Ordering Provider Test Date Status SAI,MONIKA 06/09/2023 13:53:41 Final Observation Date Value Abnormality Reference (Units ) Status TSH 06/09/2023 13:53:41 3.03 0.27-4.20 (uIU/mL) Final Performing Location LABORATORY [facility] - [address] [place] [address]
--- OUTSIDE RECORDS SUMMARY | 2023-07-14 10:01 | External Medical Summary ---
Author Name Unknown Address Unknown Organization [id number]:[facility] [place] [address] [place] [address] Laboratory Report Ordering Provider Test Date Status MONIKA GIBBS 06/09/2023 13:53:41 Final Observation Date Value Abnormality Reference (Units ) Status BUN 06/09/2023 13:53:41 31 Above high normal 6-20 (mg/dL) Final Creatinine 06/09/2023 13:53:41 1.2 Above high normal 0.5-1.0 (mg/dL) Final Glomerular filtration rate/1.73 sq M.predicted [Volume Rate/Area] in Serum, Plasma or Blood by Creatinine-based formula (CKD-EPI) 06/09/2023 13:53:41 46 Below low normal >=60 (mL/min) Final eGFR is calculated based on the CKD-EPI 2020 equation SODIUM 06/09/2023 13:53:41 133 Below low normal 135 -146 (mmol/L) Final Potassium 06/09/2023 13:53:41 4.2 3.5-5.1 (m mol/L) Final Cl 06/09/2023 13:53:41 95 Below low normal 98- 107 (mmol/L) Final CO2 06/09/2023 13:53:41 30 22-32 (mmo l/L) Final Anion gap 06/09/2023 13:53:41 8 7-15 (mmol /L) Final Glucose 06/09/2023 13:53:41 146 Above high normal 70 -120 (mg/dL) Final Albumin 06/09/2023 13:53:41 4.2 3.8-5.0 (g /dL) Final AST (Aspartate aminotransferase) 06/09/2023 13:53:41 27 10-35 (U/L) Fin al Alk Phos 06/09/2023 13:53:41 88 35-130 (U/ L) Final Bilirubin, Total 06/09/2023 13:53:41 0.6 <=1 .2 (mg/dL) Final Calcium 06/09/2023 13:53:41 9.6 8.4-10.2 ( mg/dL) Final Protein 06/09/2023 13:53:41 6.5 6.0-8.3 (g /dL) Final ALT (Alanine aminotransferase) 06/09/2023 13:53:41 14 10-35 (U/L) Cruz white Performing Location [facility] [place] [address] [facility] [address]
--- OUTSIDE RECORDS SUMMARY | 2023-07-14 10:01 | External Medical Summary ---
Author Name Unknown Address Unknown Organization K01:[facility] [place] [facility] [address] [facility] [address] Laboratory Report Ordering Provider Test Date Status MONIKA GIBBS 04/29/2023 12:13:42 Final Observation Date Value Abnormality Reference (Units ) Status BUN 04/29/2023 12:13:42 19 6-20 (mg/dL) Final Creatinine 04/29/2023 12:13:42 1.1 Above high normal 0.5-1.0 (mg/dL) Final Glomerular filtration rate/1.73 sq M.predicted [Volume Rate/Area] in Serum, Plasma or Blood by Creatinine-based formula (CKD-EPI) 04/29/2023 12:13:42 51 Below low normal >=60 (mL/min) Final eGFR is calculated based on the CKD-EPI 2020 equation SODIUM 04/29/2023 12:13:42 131 Below low normal 135 -146 (mmol/L) Final Potassium 04/29/2023 12:13:42 4.1 3.5-5.1 (m mol/L) Final Cl 04/29/2023 12:13:42 90 Below low normal 98- 107 (mmol/L) Final CO2 04/29/2023 12:13:42 30 22-32 (mmo l/L) Final Anion gap 04/29/2023 12:13:42 11 7-15 (mmol /L) Final Glucose 04/29/2023 12:13:42 94 70-120 (mg /dL) Final Calcium 04/29/2023 12:13:42 9.7 8.4-10.2 ( mg/dL) Final Performing Location [facility] [place] [address] [facility] [address]
--- OUTSIDE RECORDS SUMMARY | 2023-07-14 10:01 | External Medical Summary ---
Author Name Unknown Address Unknown Organization K01:[facility] [place] [address] [place] [address] Laboratory Report Ordering Provider Test Date Status MONIKA GIBBS 04/29/2023 12:21:17 Final Warfarin Therapy
INR: 2 .0-3.0 conventional anticoagulation
INR: 2.5- 3.5 high intensity anticoagulation Observation Date Value Abnormality Reference (Units ) Status PT 04/29/2023 12:21:17 23.6 Above high normal 11 .6-15.2 (seconds) Final INR 04/29/2023 12:21:17 2.1 Above high normal 0. 8-1.2 Final Performing Location [facility] [place] [facility] [address] [facility] [address]
--- OUTSIDE RECORDS SUMMARY | 2023-07-14 10:01 | External Medical Summary | Summary of Care ---
Author Name Unknown Organization [facility] Address [address] [place] [address] Phone [phone] Care Team Providers Care Compressor Stations Superintendent Name Role Phone Loida Saldivar MD Primary Care Provider [phone] Reason for Visit * Reason Comments Mohs Surgery Pt presents today fo r Mohs surgery on R anterior thigh * Evaluate & Treat - Unlimited Visits (Within 10 days (routine)) - Pending Review Specialty Diagnoses / Procedures Referred By Mague vázquez Referred To Contact Dermatology Diagnoses Squamous cell carcinoma of right thigh Ofelia Grider PA-[address] [place] [address] Referral ID Status Reason Start Date Expiration Date Visits Requested Visits Authorized [id number] Pending Review Specialty Services Required 04/27/2023 1 1 Encounter Details Date Type Department Care Team Description 05/14/2023 Office Visit [facility]ya [place] [address] [facility] [address] Valeriano Schroeder MD [address] [place] [address] Squamous cell carcinoma of right thigh* Allergies Active Allergy Reactions Severity Noted Date Comments Sulfamethoxazole-Trimethop rim 05/22/2015 Kidney function/ nausea Sulfa based medications Cefaclor 04/08/2021 Generally did not feel well. documented as of this encounter (statuses as of 05/14/2023) Medications Medication Sig Dispensed Refills Start Date [...] by mouth every morning. 0 12/07/2022 Active Doxycycline Monohydrate 100 MG Oral Capsule Take 1 Capsule by mouth in the morning and 1 Capsule before bedtime. Do all this for 7 days. 14 Capsule 0 05/14/2023 05/21/2023 Active documented as of this encounter (statuses as of 05/14/2023) Active Problems Problem Noted Date Hyponatremia 08/14/2021 [...] 130/80 08/08/2002 Mitral valve regurgitation 08/08/2002 POLIO [id number] 08/08/2002 Spinal stenosis documented as of this encounter (statuses as of 05/14/2023) Resolved Problems Problem Noted Date Resolved Date SCC (squamous cell carcinoma), leg, right 201809/27/2019 Osteoporosis 08/08/2002 11/18/2018 documented as of this encounter (statuses as of 05/14/2023) Social History Tobacco Use Types Packs/Day Years Used Date Smoking Tobacco: Never Smokeless Tobacco: Never Alcohol Use Standard Drinks/Week Comments No 0 (1 standard drink = 0.6 oz pur e alcohol) Sex Assigned at Date Recorded Not on file Job Start Date Occupation Industry Not on file Not on file Not on file documented as of this encounter Last Filed Vital Signs Vital Sign Reading Time Taken Comments Blood Pressure - - Pulse - - Temperature 36.3 C (97.3 F) 05/14/2023 10:32 AM E DT Respiratory Rate - - Oxygen Saturation - - Inhaled Oxygen Concentration - - Weight 57.6 kg (127 lb) 05/14/2023 10:32 AM EDT Height - - Body Mass Index 23.98 07/04/2021 9:38 AM EST documented in this encounter Progress Notes * Valeriano Schroeder MD - 05/14/2023 12:50 PM EDT History: Geena Kay is a 87 year old year old patient seen at the request for consultation by [place] Gupta for evaluation and management of SCC, right anterior thigh. Outpatient Medications Marked as Taking for the 05/14/23 encounter (Office Visit) with Valeriano Schroeder MD Medication Sig Doxycycline Monohydrate 100 MG Oral Capsule Take 1 Capsule by mouth in the morning and 1 Capsule before bedtime. Do all this for 7 days. Review of patient's allergies indicates: Allergen Reactions Bactrim [Sulfamethoxazole-Trimethoprim] Kidney function/ nausea Sulfa based medications Ceclor [Cefaclor] Generally did not feel well. ROS: The patient feels generally well and has no other skin complaints. Exam: Patient is alert, oriented and in no distress. Exam is of the skin and mucosa of right leg. The patient is alert and oriented and appears generally well. The patient's skin is remarkable for an atrophic healing biopsy site measuring 1.5 cm right anterior thigh. (site confirmed with photo taken at time of biopsy). Impression: 1. SCC, right anterior thigh Plan: 1. Plan for Mohs surgery today. Risks, benefits and alternatives discussed with patient. Risks suchas (but not limited to) scar, infection, bleeding, hematoma, and recurrence disussed. Questions answered. Informed consent form discussed and signed. Photograph obtained of lesion for medical record. Patient identified, procedure verified, site identified and verified. Time out completed. Surgical removal of the lesion discussed with the patient (risks and benefits, including possibility of scarring, infection, recurrence or potential for further treatment). I have specifically identified the site with the patient. I have discussed the fact that the patient will have a scar after the procedure regardless of granulation or repair with sutures. I have discussed that the repair options can range from granulation in some cases to linear or curvilinear closures to larger flaps or grafts. There are sometimes flaps or grafts used that require multiple stages of surgery and will not be completed today , rather be completed over a series of appointments. I have discussed that occasionally due to location , size or depth of the lesion I may recommend consultation with and transfer of care for further removal or the the reconstruction to another provider such as ophthalmology surgery , plastic surgery, ENT surgery or surgical oncology. There are cases in which other testing such as imaging with MRI or CT scan or testing of lymph nodes is recommended because of the nature/ depth/ location of tumor seen during the removal. There is a risk of injury to nerves causing temporary or permanent numbness or the inability to move muscles fully such as the inability to lift eyebrows. Questions answered and verbal and written consent was obtained. Mohs resection today. Tumor cleared in 1 stage . Repaired with an intermediate layered repair. See operative report for complete details. Althea Schroeder MD Associate, Department of Dermatology documented in this encounter Nursing Notes * Eun PuentesMADELINE - 05/14/2023 10:33 AM EDT Chief Complaint Patient presents with Mohs Surgery Pt presents today for Mohs surgery on R anterior thigh Referral Doctor: LINDSEY Grider Hypertension History: Yes, refer to medication information for treatment. Diabetes History: No Thyroid History: Yes, refer to medication information for treatment. Bleeding Tendency: Yes, refer to medication information for treatment. Artificial Valve or Joint: Yes, No SBE Prophylaxis Required Pacemaker: yes Defibrillator: yes Hepatitis/HIV Exposure: No Smoking: no Consent signed yes documented in this encounter Plan of Treatment Upcoming Encounters Date Type Specialty Care Team Description 05/24/2023 Nurse Only Dermatology Radha II, Nurse Scenery [address] [place] [address] 06/08/2023 Cardiac Studies Cardiology Addison [facility] [address] [place] [address] 08/19/2023 Office Visit Cardiology Shobha Rascon PA-C [address] [place] [address] 11/03/2023 Office Visit Dermatology Ofelia Grider PA-C [address] [place] [address] [place] [address] Health Maintenance Due Date Last Done Comments Pneumococcal Vaccine: 65+ Years (1 - PCV) 1942 Depression Screening 1948 Albumin/Creatinine Ratio 1954 CKD PHOS USE SMARTSET 58038 1954 DTaP,Tdap,and Td Vaccines (1 - Tdap) 1955 Zoster Vaccines (1 of 2) 1986 DXA Scan 07/04/2021 07/04/2019, 12/2016, 08/01/2014, Additional history exists COVID-19 Vaccine (2022- season) 2023 02/24/2022, 06/22/2021, 09/19/2020, Additional history exists Influenza Vaccine (FLU shot) (#1) 2023 05/06/2015 TSH 02/06/2024 02/05/2023, 07/26, 01/29/2022, Additional history exists CKD HGB USE SMARTSET 69927 02/09/202402/08, 02/06/2023, 02/05/2023, Additional history exists VITAMIN D LEVEL ONCE IN A LIFETIME-USE SMARTSET# 82384 Completed 06/22/2022, 03/09/2022, 08/06/2021, Additional history exists [...] this encounter Medical Devices Implanted Type Area Crtts Device Identifier Shelf Expiration Date Model / Serial / Lot Ring Triad [id number] - [id number] Implanted:Qty: 1 on 05/27/2015 by Morro Alexander MD at [place] [facility] [place] N/A: Heart Medtrol 10/24/2019 [id number] / / [id number] documented as of this encounter Visit Diagnoses Diagnosis Squamous cell carcinoma of right thigh- Primary documented in this encounter Advance Directives Latest Code Status on File Code Status Date Activated Date Inactivated Comments Full Code 05/27/2015 8:33 PM 06/01/2015 4:29 PM This order reflects the patients wishes and were consensually agreed upon. Care Teams Compressor Stations Superintendent Relationship Specialty Start Date End Date Loida Saldivar MD [address] [place] [address] [place] [phone] PCP - General Internal Medicine 10/01/22 documented as of this encounter
--- OUTSIDE RECORDS SUMMARY | 2023-07-14 10:01 | External Medical Summary ---
Author Name Unknown Address Unknown Organization K01:[facility] [place] [address] [facility] [address] Laboratory Report Ordering Provider Test Date Status MONIKA GIBBS 05/17/2023 14:16:08 Final Observation Date Value Abnormality Reference (Units ) Status BUN 05/17/2023 14:16:08 22 Above high normal 6-20 (mg/dL) Final Creatinine 05/17/2023 14:16:08 1.2 Above high normal 0.5-1.0 (mg/dL) Final Glomerular filtration rate/1.73 sq M.predicted [Volume Rate/Area] in Serum, Plasma or Blood by Creatinine-based formula (CKD-EPI) 05/17/2023 14:16:08 46 Below low normal >=60 (mL/min) Final eGFR is calculated based on the CKD-EPI 2020 equation SODIUM 05/17/2023 14:16:08 132 Below low normal 135 -146 (mmol/L) Final Potassium 05/17/2023 14:16:08 3.9 3.5-5.1 (m mol/L) Final Cl 05/17/2023 14:16:08 94 Below low normal 98- 107 (mmol/L) Final CO2 05/17/2023 14:16:08 29 22-32 (mmo l/L) Final Anion gap 05/17/2023 14:16:08 9 7-15 (mmol /L) Final Glucose 05/17/2023 14:16:08 90 70-120 (mg /dL) Final Albumin 05/17/2023 14:16:08 4.2 3.8-5.0 (g /dL) Final AST (Aspartate aminotransferase) 05/17/2023 14:16:08 26 10-35 (U/L) Fin al Alk Phos 05/17/2023 14:16:08 83 35-130 (U/ L) Final Bilirubin, Total 05/17/2023 14:16:08 0.5 <=1 .2 (mg/dL) Final Calcium 05/17/2023 14:16:08 10.0 8.4-10.2 ( mg/dL) Final Protein 05/17/2023 14:16:08 6.4 6.0-8.3 (g /dL) Final ALT (Alanine aminotransferase) 05/17/2023 14:16:08 13 10-35 (U/L) Cruz white Performing Location [facility]ORY [facility] [place] [address] [facility] [address]
--- OUTSIDE RECORDS SUMMARY | 2023-07-14 10:01 | External Medical Summary | Summary of Care ---
Author Name Unknown Organization [facility] Address [address] [place] [address] Phone [phone] Care Team Providers Care Dealer Development Manager Name Role Phone Loida Saldivar MD Primary Care Provider [phone] Reason for Visit * Reason Comments Outpatient Testing Encounter Details Date Type Department Care Team (Late st Contact Info) Description 05/17/2023 2:10 PM EDT Laboratory Laboratory [address] [place] [phone] [place] [address] Uremic pericarditis; Anemia; Chronic atrial fibrillation (HCC) Allergies Active Allergy Reactions Criticality Noted Date Comments Sulfamethoxazole-Trimetho prim 05/22/2015 Kidney function/ nausea Sulfa based medications Cefaclor 04/08/2021 Generally did not feel well. documented as of this encounter (statuses as of 05/17/2023) Medications Medication Sig Dispensed Refills Start Date [...] as of this encounter (statuses as of 05/17/2023) Active Problems Problem Noted Date Diagnosed Date [...] 130/80 08/08/2002 Mitral valve regurgitation 08/08/2002 POLIO [id number] 08/08/2002 Spinal stenosis documented as of this encounter (statuses as of 05/17/2023) Resolved Problems Problem Noted Date Diagnosed Date Resolved Date SCC (squamous cell carcinoma), leg, right 10/26/2018 09/27/2019 Osteoporosis 08/08/2002 11/18/2018 documented as of this encounter (statuses as of 05/17/2023) Social History Tobacco Use Types Packs/Day Years [...] Care Team (Late st Contact Info) Description 05/24/2023 1:30 PM EDT Nurse Only [facility] [place] Ghazal Garcia [address] [place] [address] Radha KESSLER, Nurse [address] [place] [address] 06/08/2023 1:30 PM EST Cardiac Studies Cardiology [address] [place] [address] [facility] [address] [place] [address] 08/19/2023 10:30 AM EST Office Visit Cardiology [address] [place] [address] Shobha Rascon PA-C [address] [place] [address] 11/03/2023 11:20 AM EDT Office Visit Dermatology [address] [place] [address] Ofelia Grider PA-C [address] [place] [address] [place] [address] Pending Results Name Type Priority Associated Diagnoses Date /Time CBC Lab Routine Uremic pericarditis Anemia 05/17/2023 2:16 PM EDT COMPREHENSIVE METABOLIC PANEL Lab Routine Uremic pericarditis Anemia 05/17/2023 2:16 PM EDT PT INR Lab Routine Chronic atrial fibrillation (HCC) 05/17/2023 2:21 PM EDT Health Maintenance Due Date Last Done Comments Pneumococcal Vaccine: 65+ Years (1 - PCV) 1942 Depression Screening 1948 Albumin/Creatinine Ratio 1954 CKD PHOS USE SMARTSET 38520 1954 DTaP,Tdap,and Td Vaccines (1 - Tdap) 1955 Zoster Vaccines (1 of 2) 1986 DXA Scan 07/04/2021 07/04/2019, 12/2016, 08/01/2014, Additional history exists COVID-19 Vaccine (2022- season) 2023 02/24/2022, 06/22/2021, 09/19/2020, Additional history exists Influenza Vaccine (FLU shot) (#1) 2023 05/06/2015 TSH 02/06/2024 02/05/2023, 07/26, 01/29/2022, Additional history exists CKD HGB USE SMARTSET 14856 02/09/202402/08, 02/06/2023, 02/05/2023, Additional history exists VITAMIN D LEVEL ONCE IN A LIFETIME-USE SMARTSET# 57362 Completed 06/22/2022, 03/09/2022, 08/06/2021, Additional history exists [...] this encounter Medical Devices Implanted Type Area Fabrication Technician Device Identifier Shelf Expiration Date Model / Serial / Lot Ring Triad [id number] - [id number] Implanted:Qty: 1 on 05/27/2015 by Morro Alexander MD at OR [facility] N/A: Heart Medtrol 10/24/2019 [id number] / / [id number] documented as of this encounter Visit Diagnoses Diagnosis Uremic pericarditis Chronic kidney disease, unspecified Anemia Anemia, unspecified Chronic atrial fibrillation (HCC) Atrial fibrillation documented in this encounter Advance Directives Latest Code Status on File Code Status Date Activated Date Inactivated Comments Full Code 05/27/2015 8:33 PM 06/01/2015 4:29 PM This order reflects the patients wishes and were consensually agreed upon. Care Teams Dealer Development Manager Relationship Specialty Start Date End Date Loida Saldivar MD [address] [place] [address] [place] [address] PCP - General Internal Medicine 10/01/22 documented as of this encounter
--- OUTSIDE RECORDS SUMMARY | 2023-07-14 10:01 | External Medical Summary | Summary of Care ---
Author Name Unknown Organization [facility] Address [address] [facility] [place] [place] [address] Phone [phone] Care Team Providers Care Lion Tamer Name Role Phone Loida Saldivar MD Primary Care Provider + [phone] Reason for Referral * Evaluate & Treat - Unlimited Visits (Within 10 days (routine)) - Pending Review Specialty Diagnoses / Procedures Referred By Mague vázquez Referred To Contact Dermatology Diagnoses Squamous cell carcinoma of right thigh Ofelia Grider PA-C [address] [place] [address] [place] [address] Referral ID Status Reason Start Date Expiration Date Visits Requested Visits Authorized [id number] Pending Review Specialty Services Required 04/27/2023 1 1 Question Answer Referral Priority Within 10 days (routine) Are you referring the patient for Mohs Surgery and have a current positive skin cancer biopsy result? Yes Type of Procedure MOHS Surgery Comments A. Skin, R anterior thigh, shave: Well-differentiated invasive squamous cell carcinoma. Reason for Visit * Reason Onset Date Comments Appointment 04/27/2023 Encounter Details Date Type Department Care Team Description 04/27/2023 Telephone [address] [place] [address] Ofelia Grider PA-C [address] [place] [address] [place] [address] Appointment Allergies Active Allergy Reactions Severity Noted Date Comments Sulfamethoxazole-Trimethop rim 05/22/2015 Kidney function/ nausea Sulfa based medications Cefaclor 04/08/2021 Generally did not feel well. documented as of this encounter (statuses as of 04/28/2023) Medications Medication Sig Dispensed Refills Start Date [...] as of this encounter (statuses as of 04/28/2023) Active Problems Problem Noted Date Hyponatremia 08/14/2021 [...] 130/80 08/08/2002 Mitral valve regurgitation 08/08/2002 POLIO [id number] 08/08/2002 Spinal stenosis documented as of this encounter (statuses as of 04/28/2023) Resolved Problems Problem Noted Date Resolved Date SCC (squamous cell carcinoma), leg, right 201809/27/2019 Osteoporosis 08/08/2002 11/18/2018 documented as of this encounter (statuses as of 04/28/2023) Social History Tobacco Use Types Packs/Day Years [...] encounter Miscellaneous Notes * Telephone Encounter - JOSE Romo - 04/28/2023 10:49 AM EDT Spoke to patient and scheduled for mohs with DR Schroeder for 05-03 at 1pm. * Telephone Encounter - JOSE Romo - 04/28/2023 8:[address] Schroeder in the past, is this ok for a 1pm mohs spot? * Telephone Encounter - Ofelia Grider PA-C - 04/27/2023 12:20 PM EDT Spoke to pt regarding bx result. SCC, plan on Mohs in [place]. Pt is aware she will be calledto schedule the appt. Ofelia Grider SLINDSEY A. Skin, R anterior thigh, shave: Well-differentiated invasive squamous cell carcinoma. documented in this encounter Plan of Treatment Upcoming Encounters Date Type Specialty Care Team Description 05/03/2023 Office Visit Dermatology Valeriano Schroeder MD [address] [place], [place] [address] 06/08/2023 Cardiac Studies Cardiology [facility], Pacer [facility] [address] [place] [address] 08/19/2023 Office Visit Cardiology Shobha Rascon PA-C [address] [place] [address] 11/03/2023 Office Visit Dermatology Ofelia Grider PA-C [address] [place] [address] [place] [address] Scheduled Referrals Name Type Priority Associated Diagnoses Orde r Schedule MOHS SURGERY REFERRAL OP Referral Within 10 days (routine) Squamous cell carcinoma of right thigh Ordered: 04/27/2023 Health Maintenance Due Date Last Done Comments Pneumococcal Vaccine: 65+ Years (1 - PCV) 1942 Depression Screening 1948 Albumin/Creatinine Ratio 1954 CKD PHOS USE SMARTSET 86491 1954 DTaP,Tdap,and Td Vaccines (1 - Tdap) 1955 Zoster Vaccines (1 of 2) 1986 DXA Scan 07/04/2021 07/04/2019, 12/2016, 08/01/2014, Additional history exists COVID-19 Vaccine (2022- season) 2023 02/24/2022, 06/22/2021, 09/19/2020, Additional history exists Influenza Vaccine (FLU shot) (#1) 2023 05/06/2015 TSH 02/06/2024 02/05/2023, 07/26, 01/29/2022, Additional history exists CKD HGB USE SMARTSET 22346 02/09/202402/08, 02/06/2023, 02/05/2023, Additional history exists VITAMIN D LEVEL ONCE IN A LIFETIME-USE SMARTSET# 38357 Completed 06/22/2022, 03/09/2022, 08/06/2021, Additional history exists [...] this encounter Medical Devices Implanted Type Area Wellness Rn Device Identifier Shelf Expiration Date Model / Serial / Lot Ring Triad [id number] - [id number] Implanted:Qty: 1 on 05/27/2015 by Morro Alexander [place] [facility]/A: Heart Medtrol 10/24/2019 [id number] / / [id number] documented as of this encounter Visit Diagnoses Diagnosis Squamous cell carcinoma of right thigh- Primary documented in this encounter Advance Directives Latest Code Status on File Code Status Date Activated Date Inactivated Comments Full Code 05/27/2015 8:33 PM 06/01/2015 4:29 PM This order reflects the patients wishes and were consensually agreed upon. Care Teams Lion Tamer Relationship Specialty Start Date End Date Loida Saldivar MD [address] [place] [address] [place] [address] PCP - General Internal Medicine 10/01/22 documented as of this encounter
--- OUTSIDE RECORDS SUMMARY | 2023-07-14 10:02 | External Medical Summary | Summary of Care ---
Author Name Unknown Organization [facility] Address [address] [place] [address] Phone [phone] Care Team Providers Care Psychology Teacher Name Role Phone Loida Saldivar MD Primary Care Provider [phone] Encounter Details Date Type Department Care Team Description 02/18/2023 Result Scan Unspecified Department Octaviano Blankenship, DO [address] [place] [address] <No scans attached> Allergies Active Allergy Reactions Severity Noted Date Comments Sulfamethoxazole-Trimethop rim 05/22/2015 Kidney function/ nausea Sulfa based medications Cefaclor 04/08/2021 Generally did not feel well. documented as of this encounter (statuses as of 02/18/2023) Medications Medication Sig Dispensed Refills Start Date [...] as of this encounter (statuses as of 02/18/2023) Active Problems Problem Noted Date Hyponatremia 08/14/2021 [...] L pretibial region 12/2019, L upper arm 03/2020), nonmelanoma skin cancers (L chest and L [...] 130/80 08/08/2002 Mitral valve regurgitation 08/08/2002 POLIO [id number] 08/08/2002 Spinal stenosis documented as of this encounter (statuses as of 02/18/2023) Resolved Problems Problem Noted Date Resolved Date SCC (squamous cell carcinoma), leg, right 201809/27/2019 Osteoporosis 08/08/2002 11/18/2018 documented as of this encounter (statuses as of 02/18/2023) Social History Tobacco Use Types Packs/Day Years [...] Encounters Date Type Specialty Care Team Description 04/15/2023 Office Visit Cardiology Shobha Rascon PA-C [address] [place] [address] 04/21/2023 Office Visit Dermatology Ofelia Grider PA-C [address] [place] [address] [place] [address] 06/08/2023 Cardiac Studies Cardiology [facility] [address] [facility] [place] [address] Health Maintenance Due Date Last Done Comments Pneumococcal Vaccine: 65+ Years (1 - PCV) 1942 Depression Screening, Annual for Pts 12 and Over 1948 Albumin/Creatinine Ratio 1954 CKD PHOS USE SMARTSET 49263 1954 DTaP,Tdap,and Td Vaccines (1 - Tdap) 1955 Zoster Vaccines (1 of 2) 1986 DXA Scan 07/04/2021 07/04/2019, 12/2016, 08/01/2014, Additional history exists COVID-19 Vaccine (2 - Pfizer series) 04/21/2022 02/24/2022, 06/22/2021, 09/19/2020, Additional history exists Influenza Vaccine (FLU shot) (#1) 2023 05/06/2015 TSH 02/06/2024 02/05/2023, 07/26, 01/29/2022, Additional history exists CKD HGB USE SMARTSET 74185 02/09/202402/08, 02/06/2023, 02/05/2023, Additional history exists VITAMIN D LEVEL ONCE IN A LIFETIME-USE SMARTSET# 05195 Completed 06/22/2022, 03/09/2022, 08/06/2021, Additional history exists [...] this encounter Medical Devices Implanted Type Area Customer Relations Representative Device Identifier Shelf Expiration Date Model / Serial / Lot Ring Triad [id number] - [id number] Implanted:Qty: 1 on 05/27/2015 by Morro Alexander MD at [place] [facility] N/A: Heart Medtrol 10/24/2019 [id number] / / [id number] documented as of this encounter Procedures Procedure Name Priority Date/Time Associated Diagnosis Comments CARDIOLOGY SCANNED RESULT 02/18/2023 documented in this encounter Results * CARDIOLOGY SCANNED RESULT (02/18/2023) 02/18/2023 Octaviano WYMAN documented in this encounter Advance Directives Latest Code Status on File Code Status Date Activated Date Inactivated Comments Full Code 05/27/2015 8:33 PM 06/01/2015 4:29 PM This order reflects the patients wishes and were consensually agreed upon. Care Teams Psychology Teacher Relationship Specialty Start Date End Date Loida Saldivar MD [address] [place] [address] [place] [address] PCP - General Internal Medicine 10/01/22 documented as of this encounter
--- OUTSIDE RECORDS SUMMARY | 2023-07-14 10:02 | External Medical Summary | Summary of Care ---
Author Name Unknown Organization [facility] Address [address] [place] [facility] [place] [address] Phone [phone] Care Team Providers Care Federal Aid Coordinator Name Role Phone Loida Saldivar MD Primary Care Provider [phone] Reason for Visit * Reason Onset Date Comments Appointment 04/21/2023 Pt needs 6 m ret urn. Encounter Details Date Type Department Care Team Description 04/21/2023 Telephone Dermat[address] [place] [address] Ofelia Grider MD Appointment (Pt needs 6 m return.) Allergies Active Allergy Reactions Severity Noted Date Comments Sulfamethoxazole-Trimethop rim 05/22/2015 Kidney function/ nausea Sulfa based medications Cefaclor 04/08/2021 Generally did not feel well. documented as of this encounter (statuses as of 04/22/2023) Medications Medication Sig Dispensed Refills Start Date [...] as of this encounter (statuses as of 04/22/2023) Active Problems Problem Noted Date Hyponatremia 08/14/2021 [...] 130/80 08/08/2002 Mitral valve regurgitation 08/08/2002 POLIO [id number] 08/08/2002 Spinal stenosis documented as of this encounter (statuses as of 04/22/2023) Resolved Problems Problem Noted Date Resolved Date SCC (squamous cell carcinoma), leg, right 201809/27/2019 Osteoporosis 08/08/2002 11/18/2018 documented as of this encounter (statuses as of 04/22/2023) Social History Tobacco Use Types Packs/Day Years [...] Miscellaneous Notes * Telephone Encounter - JOSE Matson - 04/22/2023 9:30 AM EDT I mailed appt to pt. * Telephone Encounter - Mendy Cheung LPN - 04/22/2023 9:24 AM EDT Wednesday at 11:20 AM - please mail to patient * Telephone Encounter - JOSE Disla - 04/21/2023 12:00 PM EDT This is to go to Derm Nurse as they can give a date and time we have the same scheduling access as you. Sent to Derm Nurse. Derm Nurse: Please provide date and time for a 6 month return. This is a [place] Patient. 04/21/2023 * Telephone Encounter - Juanita Claros - 04/21/2023 11:56 AM EDT Patient needs 6 m return with Ofelia Grider, There are no appts available. Could someone please callthis pt to schedule? documented in this encounter Plan of Treatment Upcoming Encounters Date Type Specialty Care Team Description 06/08/2023 Cardiac Studies [facility]iology [facility] [facility] [address] [place] [address] 08/19/2023 Office Visit Cardiology Shobha Rascon PA-C [address] [place] [address] 11/03/2023 Office Visit Dermatology Ofelia Grider PA-C [address] [place] [address] [place] [address] Health Maintenance Due Date Last Done Comments Pneumococcal Vaccine: 65+ Years (1 - PCV) 1942 Depression Screening 1948 Albumin/Creatinine Ratio 1954 CKD PHOS USE SMARTSET 95772 1954 DTaP,Tdap,and Td Vaccines (1 - Tdap) 1955 Zoster Vaccines (1 of 2) 1986 DXA Scan 07/04/2021 07/04/2019, 12/12/2016, 08/01/2014, Additional history exists COVID-19 Vaccine (2 - Pfizer series) 04/21/2022 02/24/2022, 06/22/2021, 09/19/2020, Additional history exists Influenza Vaccine (FLU shot) (#1) 2023 05/06/2015 TSH 02/06/2024 02/05/2023, 07/26, 01/29/2022, Additional history exists CKD HGB USE SMARTSET 28356 02/09/202402/08, 02/06/2023, 02/05/2023, Additional history exists VITAMIN D LEVEL ONCE IN A LIFETIME-USE SMARTSET# 75551 Completed 06/22/2022, 03/09/2022, 08/06/2021, Additional history exists [...] this encounter Medical Devices Implanted Type Area Hoop Riveting Machine Operator Device Identifier Shelf Expiration Date Model / Serial / Lot Ring Triad [id number] - [id number] Implanted:Qty: 1 on 05/27/2015 by Morro Alexander MD at [place] [facility] N/A: Heart Medtrol 10/24/2019 [id number] / / [id number] documented as of this encounter Advance Directives Latest Code Status on File Code Status Date Activated Date Inactivated Comments Full Code 05/27/2015 8:33 PM 06/01/2015 4:29 PM This order reflects the patients wishes and were consensually agreed upon. Care Teams Federal Aid Coordinator Relationship Specialty Start Date End Date Loida Saldivar MD [address] [place] [address] [place] [address] PCP - General Internal Medicine 10/01/22 documented as of this encounter
--- OUTSIDE RECORDS SUMMARY | 2023-07-14 10:02 | External Medical Summary ---
Author Name Unknown Address Unknown Organization [facility] [place] [address] Laboratory Report Ordering Provider Test Date Status HY,DEPAMPHILIS 02/09/2023 06:00:00 Final Warfarin Therapy
INR: 2 .0-3.0 conventional anticoagulation
INR: 2.5- 3.5 high intensity anticoagulation Observation Date Value Abnormality Reference (Units ) Status PT 02/09/2023 06:00:00 28.1 Above high normal 11 .6-15.2 (seconds) Final INR 02/09/2023 06:00:00 2.6 Above high normal 0. 8-1.2 Final Performing Location [facility] [place] [address]
--- OUTSIDE RECORDS SUMMARY | 2023-07-14 10:02 | External Medical Summary ---
Author Name Unknown Address Unknown Organization [facility] [address] Laboratory Report Ordering Provider Test Date Status NIESHA UREÑA 02/05/2023 05:40:00 Final Observation Date Value Abnormality Reference (Units ) Status WBC, Total 02/05/2023 05:40:00 7.99 4.00-10.8 0 (K/uL) Final RBC 02/05/2023 05:40:00 2.95 3.85-5.15 (M/uL) Final Hemoglobin 02/05/2023 05:40:00 8.7 Below low normal 12 .0-15.3 (g/dL) Final HCT 02/05/2023 05:40:00 28.3 Below low normal 36. 0-45.2 (%) Final MCV 02/05/2023 05:40:00 95.9 81.5-97.5 (fL) Final MCH 02/05/2023 05:40:00 29.5 27.0-34.0 (pg) Final MCHC 02/05/2023 05:40:00 30.7 32.0-36.0 (g/dL) Final RDW 02/05/2023 05:40:00 15.4 11.5-15.5 (%) Final Platelets 02/05/2023 05:40:00 368 140-400 (K /uL) Final MPV 02/05/2023 05:40:00 9.7 6.6-11.1 ( fL) Final Performing Location [facility] [place] [address]
--- OUTSIDE RECORDS SUMMARY | 2023-07-14 10:02 | External Medical Summary | Summary of Care ---
Author Name Unknown Organization [facility] Address [address] [facility] [address] Phone [phone] Care Team Providers Care Parquetry Layer Name Role Phone Loida Saldivar MD Primary Care Provider [phone] Reason for Visit * Reason Comments Follow Up 6 months for full sk in exam, no new concerns Encounter Details Date Type Department Care Team Description 04/21/2023 Office Visit Dermatology [address] [place] [address] Ofelia Grider PA-C [address] [place] [address] [place] [address] Hx of nonmelanoma skin cancer*; Seborrheic keratosis; Multiple nevi; Lentigines; Skin exam, screening for cancer; Hx of actinic keratosis; Scar condition and fibrosis of skin; Neoplasm of uncertain behavior of skin Allergies Active Allergy Reactions Severity Noted Date Comments Sulfamethoxazole-Trimethop rim 05/22/2015 Kidney function/ nausea Sulfa based medications Cefaclor 04/08/2021 Generally did not feel well. documented as of this encounter (statuses as of 04/21/2023) Medications Medication Sig Dispensed Refills Start Date [...] as of this encounter (statuses as of 04/21/2023) Active Problems Problem Noted Date Hyponatremia 08/14/2021 [...] 130/80 08/08/2002 Mitral valve regurgitation 08/08/2002 POLIO [id number] 08/08/2002 Spinal stenosis documented as of this encounter (statuses as of 04/21/2023) Resolved Problems Problem Noted Date Resolved Date SCC (squamous cell carcinoma), leg, right 201809/27/2019 Osteoporosis 08/08/2002 11/18/2018 documented as of this encounter (statuses as of 04/21/2023) Social History Tobacco Use Types Packs/Day Years Used Date Smoking Tobacco: Never Smokeless Tobacco: Never Alcohol Use Standard Drinks/Week Comments No 0 (1 standard drink = 0.6 oz pur e alcohol) Sex Assigned at Date Recorded Not on file Job Start Date Occupation Industry Not on file Not on file Not on file documented as of this encounter Patient Instructions * Patient Instructions* Ofelia Grider PA-C - 04/21/2023 11:29 AM EDT SUNSCREEN USE AND SUN PROTECTION: 1. The best protection is sun avoidance. Seek shade if you can, especially between 10am to 4pm (peak sun hours). 2. Use sunscreen with an SPF (Sun Protection Factor - the number on most sunscreen bottles) of 30 or more that protects from Ultraviolet A (UVA) and Ultraviolet B (UVB) wavelength light (strongly recommend SPF 50). This is referred to as broad spectrum sun protection because it protects from most wa velengths in both spectrums of UVA and UVB light. Unfortunately, even though the protection is broad it is not complete, therefore making sun avoidance the best protection. UVB and UVA have both beenimplicated in causing skin cancers. Older sunscreens only protected from UVB and sunscreens with added UVA protection should contain Titanium dioxide, Zinc oxide, or Avobenzone. Other oil free, non-comedogenic lotion with SPF 30 or greater is fine. 3. Use sun protection if outside for 15 minutes or more. Apply 20-30 minutes before going out and reapply every 1-2 hours. No sunscreen is truly water ''proof'' and it will wash away with sweat, swimming and rubbing. 4. Wear tightly woven, loose fitting (cooler) long sleeved clothing, UV-blocking sun glasses (eyes need protection as well) and wide-brimmed hatwear (no straw hats with holes because light still getsthrough). Strongly recommended *Neutrogena Pure and Free Baby SPF 60 (have separate face and body lotions) orCeraVe AM facial lotion (with SPF 30). If looking for non toxic alternatives-look for non-brendan particle zinc. Product examples; Think sport, Think baby, [place], Babo botanicalThinkSuit, [employer]end[employer], [place] baby. "Baby" products can be used for all ages. documented in this encounter Progress Notes * Ofelia Grider PA-C - 04/21/2023 11:27 AM EDT SUBJECTIVE: History of Present Illness: Geena Kay is a 87 year old female seen today for follow up of full skin exam. Previous office visit: 04/22/2022 Last attempted treatments include: bx and curettage of BCC on back No vulvar exams performed, no vulvar discoloration and/or lesions to be assessed per pt. No new or changing lesions, per pt. Recent scratches to face, per pt- not long standing. Wide Load Escort Documentation Patient offered campaign associate and declined. REVIEW OF SYSTEMS: SKIN: No other new or changing moles. HEME/LYMPH: No new or enlarging lumps or bumps. CONSTITUTIONAL: No nausea, vomiting, fevers, chills, diarrhea. No recent unintended weight loss, night sweats, appetite or malaise. RESP: negative MSK/EXT: Negative or as per HPI GI: negative CV: Negative or as per HPI Rest of systems are negative or as per HPI SKIN CANCER HX: squamous cell carcinoma (R lateral calf 09/2018, L pretibial region 12/2019, L upper arm), nonmelanoma skin cancers (L chest and L anterior thigh) , squamous cell carcinoma in situ (R medial patella, R lateral calf, L lateral cheek), hyperkeratotic actinic keratoses, actinic keratoses (Efudex-face 05/07, lowerlip 02/2017, face/chest/forearms/hands 10/10, legs 01/2020, face 04/2020) Reviewed, same day as visit, [facility] Dermatology lab work(s)/pathology report(s) as well as those sent by referring provider prior to seeing pt. MEDICA TIONS: Current Outpatient Medications Medication Sig Dispense Refill SIMVASTATIN 10 MG PO TABS one tab by mouth daily 30 Tab Acetaminophen ER 650 MG Oral Tablet Extended Release 1 Tablet every 8 hours as needed. aspirin 81 MG chewable tablet Take 1 Tab by mouth daily. 31 Tab 3 warfarin sodium (COUMADIN) 5 MG Tablet Adjust dose as directed 30 Tab 0 Diclofenac Sodium 1 % gel Apply 2 g topically to affected area every 4 hours as needed. 1 Cholecalciferol (VITAMIN D) 2000 UNITS Capsule Take 2,000 Units by mouth daily. spironolactone (ALDACTONE) 25 MG Tablet Take 1 Tablet by mouth in the morning. HYDROcodone-acetaminophen 5-325 mg per tab 5-325 MG per tablet TAKE ONE HALF (1/2) TO 1 TABLET BY MOUTH 3 TIMES A DAY NEEDED FOR PAIN 0 Alendronate Sodium (BINOSTO) 70 MG TBEF Take 70 mg by mouth once a week. 4 Tab 12 gabapentin (NEURONTIN) 100 MG Capsule Take 1 Capsule by mouth at bedtime. cycloSPORINE 0.05 % Ophthalmic Emulsion (RESTASIS) 1 Drop in the morning and 1 Drop before bedtime. One-A-Day Womens 50+ Advantage Oral Tablet Take 1 Tablet by mouth in the morning. Torsemide 20 MG Oral Tablet (Demadex) Take 1 tablet daily. Take 2 tablets on Wednesday, Wednesday, andWednesday 120 Tablet 3 Gentamicin Sulfate 0.1 % External Ointment Apply ointment to wound under unna boot at office visit (this coming Wednesday04/29/22) (Patient not taking: Reported on 12/10/2022) 30 g 2 Carvedilol 25 MG Oral Tablet (Coreg) Take 1 Tablet by mouth 2 times a day with morning and evening meals. Levothyroxine Sodium 75 MCG Oral Capsule (Tirosint) Take 75 mcg by mouth every morning. No current facility-administered medications for this visit. ALLERG IES: Bactrim [sulfamethoxazole-trimethoprim] and Ceclor [cefaclor] OBJECT LOYD: GEN: alert, no distress, appears oriented, pleasant and cooperative. SKIN: Detailed exam of hair, face including lids and lips, neck, chest, abdomen, back, bilateral upper ext. (arm, hand, fingers), bilateral lower ext. (leg, foot, toes), palpation of scalp, fingernails, toenails, inguinal areas, groin (mons pubis), buttocks and anus completed: 1A. R anterior thigh-8x8mm pink firm papulonodule. 2. R central mid back-white circular atrophic scar. 3. Lower legs-Well and ill defined pink and pink-red shiny and slightly scaly papule and plaques with many post inflammatory erythematous/white circular papules and plaques. 4. Face/trunk/bilat arms and legs-Extensive 4-8mm well defined light to medium brown homogenous stellate macules. 5. Trunk- About 15 3-5mm light and medium brown macules. 6. Face/trunk/bilat arms and legs-Some sharply defined, variegated brown, waxy flat papules with velvety to finely verrucous surfaces. ASSESS MENT/PLAN: 1A. SCC on R anterior thigh-Tangential biopsy of the lesion noted above to confirm diagnosis. The procedure, risks (to include but not limited to pain, bleeding, infection and scarring), benefits, alternatives and expected outcomes were discussed with the patient and verbal consent was obtained. Time out called. Patient identified, procedure verified, site identified and verified. Patient and staff present in agreement. Area prepped with alcohol and anesthetized using 2cc of Ropivicaine 0.2% concentration. Tangential biopsy of lesion performed. 20% AlCl and bandaging applied. Specimen sent topathology. Patient instructed in routine post-op care and given a wound care pamphlet. 2. Scar s/p basal cell carcinoma on R central mid back-No sign of recurrence. 3. Nonmelanoma skin cancers and scarring on lower legs-No symptomatic and overt carcinomas, will continue to monitor more closely and pt will alert me to any new or changing lesions to re-evaluate sooner. Wounds post Mohs have taken up to 8 months to heal and pt isn't interested in having every single lesion biopsied and treated. -Pt wanted to cryo the lesions to see if they improved before considering biopsies. 4. Lentigines on face/trunk/bilat arms and legs- no tx needed, pt given reassurance. 5. Nevi on trunk- no tx needed, pt given reassurance and written education about diagnosis. Skin cancer brochure given at previous office visit and ABCDE's discussed with patient. Annual fullbody skin examination (unless I recommended otherwise), self-examination, and sun protection (SPF 30+ daily to sun exposed areas, with reapplication every 1-2 hours when out in sun for long periods of time) advised and discussed. Recommended sooner follow up for new or changing lesions. These changes include rapid enlargement, changes in color or shape or symptoms, bleeding, or other concerns. The common features and behavior of non-melanoma skin cancers (e.g. BCC/SCC) as well as the ABCDEs andugly duckling features of melanoma were also reviewed. 6. Seborrheic/Benign Keratosis(-es) on face/trunk/bilat arms and legs-no tx needed, pt given reassurance. Patient alone today. Photo(s) of #1-6 taken, pt verbally consented to having photo(s) taken. Follow-up: 6 months for full skin exam Contact patient via home phone Ok to leave results on message: Yes Able to speak to none Applicable photos (if any) and chart reviewed by Dr. Jonathan Pete. Presumed diagnoses, expected natural histories, and management options discussed with the patient at length. Questions were addressed and anticipatory guidance provided. They were instructed to contact me if additional questions, concerns, or problems develop in the interim. -There were no barriers to learning and no other pain was related to today's visit. The patient and/or person accompanying patient demonstrates understanding of the visit and treatment. Ofelia Grider PA-C 04/21/2023 11:27 AM Dermatology [address] [place] [address] documented in this encounter Nursing Notes * Mendy Cheung LPN - 04/21/2023 11:26 AM EDT Patient identified by full name and date of . Chief Complaint Patient presents with Follow Up 6 months for full skin exam, no new concerns documented in this encounter Plan of Treatment Upcoming Encounters Date Type Specialty Care Team Description 06/08/2023 Cardiac Studies Cardiology [place] [address] [place] [address] 08/19/2023 Office Visit Cardiology Shobha Rascon PA-C [address] [place] [address] Pending Results Name Type Priority Associated Diagnoses Date /Time SURGICAL PATHOLOGY Pathology Routine Neoplasm of uncertain behavior of skin 04/21/2023 11:39 AM EDT Health Maintenance Due Date Last Done Comments Pneumococcal Vaccine: 65+ Years (1 - PCV) 1942 Depression Screening 1948 Albumin/Creatinine Ratio 1954 CKD PHOS USE SMARTSET 30547 1954 DTaP,Tdap,and Td Vaccines (1 - Tdap) 1955 Zoster Vaccines (1 of 2) 1986 DXA Scan 07/04/2021 07/04/2019, 12/2016, 08/01/2014, Additional history exists COVID-19 Vaccine (2 - Pfizer series) 04/21/2022 02/24/2022, 06/22/2021, 09/19/2020, Additional history exists Influenza Vaccine (FLU shot) (#1) 2023 05/06/2015 TSH 02/06/2024 02/05/2023, 07/26, 01/29/2022, Additional history exists CKD HGB USE SMARTSET 58559 02/09/202402/08, 02/06/2023, 02/05/2023, Additional history exists VITAMIN D LEVEL ONCE IN A LIFETIME-USE SMARTSET# 36488 Completed 06/22/2022, 03/09/2022, 08/06/2021, Additional history exists [...] this encounter Medical Devices Implanted Type Area Sand Wheeler Device Identifier Shelf Expiration Date Model / Serial / Lot Ring Triad [id number] - [id number] Implanted:Qty: 1 on 05/27/2015 by Morro Alexander MD [place] [facility] [place] Heart Medtrol 10/24/2019 [id number] / / [id number] documented as of this encounter Procedures Procedure Name Priority Date/Time Associated Diagnosis Comments DERM IMAGE (SITE) Routine 04/21/2023 Hx of nonmelanoma skin cancer Seborrheic keratosis Multiple nevi Lentigines Skin exam, screening for cancer Hx of actinic keratosis Scar condition and fibrosis of skin documented in this encounter Results * DERM IMAGE (SITE) (04/21/2023) 04/21/2023 Ofelia Grider PA-C DIGITAL PHOTOG DINA documented in this encounter Visit Diagnoses Diagnosis Hx of nonmelanoma skin cancer- Primary Personal history of other malignant neoplasm of skin Seborrheic keratosis Other seborrheic keratosis Multiple nevi Benign neoplasm of skin, site unspecified Lentigines Other dyschromia Skin exam, screening for cancer Screening for malignant neoplasm of the skin Hx of actinic keratosis Personal history of diseases of skin and subcutaneous tissue Scar condition and fibrosis of skin Neoplasm of uncertain behavior of skin documented in this encounter Advance Directives Latest Code Status on File Code Status Date Activated Date Inactivated Comments Full Code 05/27/2015 8:33 PM 06/01/2015 4:29 PM This order reflects the patients wishes and were consensually agreed upon. Care Teams Parquetry Layer Relationship Specialty Start Date End Date Loida Saldivar MD [address] [place] [address] [place] [phone] PCP - General Internal Medicine 10/01/22 documented as of this encounter
--- OUTSIDE RECORDS SUMMARY | 2023-07-14 10:02 | External Medical Summary ---
Author Name Unknown Address Unknown Organization [facility] [address] [place] [address] Laboratory Report Ordering Provider Test Date Status JAIME NEVAREZ 02/06/2023 08:55:19 Final Observation Date Value Abnormality Reference (Units ) Status BUN 02/06/2023 08:55:19 26 Above high normal 6-20 (mg/dL) Final Creatinine 02/06/2023 08:55:19 1.0 0.5-1.0 (mg/dL) Final Glomerular filtration rate/1.73 sq M.predicted [Volume Rate/Area] in Serum, Plasma or Blood by Creatinine-based formula (CKD-EPI) 02/06/2023 08:55:19 56 Below low normal >=60 (mL/min) Final eGFR is calculated based on the CKD-EPI 2020 equation SODIUM 02/06/2023 08:55:19 135 135-146 (m mol/L) Final Potassium 02/06/2023 08:55:19 3.7 3.5-5.1 (m mol/L) Final Cl 02/06/2023 08:55:19 97 Below low normal 98- 107 (mmol/L) Final CO2 02/06/2023 08:55:19 29 22-32 (mmo l/L) Final Anion gap 02/06/2023 08:55:19 9 7-15 (mmol /L) Final Glucose 02/06/2023 08:55:19 100 70-120 (mg /dL) Final Calcium 02/06/2023 08:55:19 8.6 8.4-10.2 ( mg/dL) Final Performing Location [facility] [address] [place] [address]
--- OUTSIDE RECORDS SUMMARY | 2023-07-14 10:02 | External Medical Summary ---
Author Name Unknown Address Unknown Organization K[facility] [place] [address] Laboratory Report Ordering Provider Test Date Status HY,DEPAMPHILIS 02/08/2023 05:50:00 Final Observation Date Value Abnormality Reference (Units ) Status WBC, Total 02/08/2023 05:50:00 6.77 4.00-10.8 0 (K/uL) Final RBC 02/08/2023 05:50:00 2.85 3.85-5.15 (M/uL) Final Hemoglobin 02/08/2023 05:50:00 8.5 Below low normal 12 .0-15.3 (g/dL) Final HCT 02/08/2023 05:50:00 27.8 Below low normal 36. 0-45.2 (%) Final MCV 02/08/2023 05:50:00 97.5 81.5-97.5 (fL) Final MCH 02/08/2023 05:50:00 29.8 27.0-34.0 (pg) Final MCHC 02/08/2023 05:50:00 30.6 32.0-36.0 (g/dL) Final RDW 02/08/2023 05:50:00 15.9 11.5-15.5 (%) Final Platelets 02/08/2023 05:50:00 347 140-400 (K /uL) Final MPV 02/08/2023 05:50:00 9.4 6.6-11.1 ( fL) Final Performing Location [facility] [place] [address]
--- OUTSIDE RECORDS SUMMARY | 2023-07-14 10:02 | External Medical Summary ---
Author Name Unknown Address Unknown Organization [facility] [place] [place] [address] Laboratory Report Ordering Provider Test Date Status HY,DEPAMPHILIS 02/08/2023 05:50:00 Final Warfarin Therapy
INR: 2 .0-3.0 conventional anticoagulation
INR: 2.5- 3.5 high intensity anticoagulation Observation Date Value Abnormality Reference (Units ) Status PT 02/08/2023 05:50:00 32.8 Above high normal 11 .6-15.2 (seconds) Final INR 02/08/2023 05:50:00 3.2 Above high normal 0. 8-1.2 Final Performing Location [facility] [place] [address]
--- OUTSIDE RECORDS SUMMARY | 2023-07-14 10:02 | External Medical Summary ---
Author Name Unknown Address Unknown Organization [facility] [place] [address] Laboratory Report Ordering Provider Test Date Status HY,DEPAMPHILIS 02/08/2023 05:50:00 Final Observation Date Value Abnormality Reference (Units ) Status BUN 02/08/2023 05:50:00 27 Above high normal 6-20 (mg/dL) Final Creatinine 02/08/2023 05:50:00 1.1 Above high normal 0.5-1.0 (mg/dL) Final Glomerular filtration rate/1.73 sq M.predicted [Volume Rate/Area] in Serum, Plasma or Blood by Creatinine-based formula (CKD-EPI) 02/08/2023 05:50:00 49 Below low normal >=60 (mL/min) Final eGFR is calculated based on the CKD-EPI 2020 equation SODIUM 02/08/2023 05:50:00 133 Below low normal 135 -146 (mmol/L) Final Potassium 02/08/2023 05:50:00 4.2 3.5-5.1 (m mol/L) Final Cl 02/08/2023 05:50:00 95 Below low normal 98- 107 (mmol/L) Final CO2 02/08/2023 05:50:00 30 22-32 (mmo l/L) Final Anion gap 02/08/2023 05:50:00 8 7-15 (mmol /L) Final Glucose 02/08/2023 05:50:00 108 70-120 (mg /dL) Final Calcium 02/08/2023 05:50:00 8.7 8.4-10.2 ( mg/dL) Final Performing Location [facility] [place] [address]
--- OUTSIDE RECORDS SUMMARY | 2023-07-14 10:02 | External Medical Summary | Summary of Care ---
Author Name Unknown Organization [facility] Address [address] [facility] [place] [address] Phone [phone] Care Team Providers Care Soft Work Wrapper Layer And Examiner Name Role Phone Loida Saldivar MD Primary Care Provider + [phone] Reason for Referral * Evaluate & Treat - Unlimited Visits (Within 10 days (routine)) - Pending Review Specialty Diagnoses / Procedures Referred By Mague vázquez Referred To Contact Dermatology Diagnoses Squamous cell carcinoma of right thigh Ofelia Grider PA-C [address] [place] [address] [place] [address] Referral ID Status Reason Start Date Expiration Date Visits Requested Visits Authorized [id number] Pending Review Specialty Services Required 04/27/2023 1 [...] Department Care Team Description 04/27/2023 Telephone [address] [place] [address] Ofelia Grider PA-C [address] [place] [address] [place] [address] Appointment Allergies Active Allergy Reactions Severity Noted Date Comments Sulfamethoxazole-Trimethop rim 05/22/2015 Kidney function/ nausea Sulfa based medications Cefaclor 04/08/2021 Generally did not feel well. documented as of this encounter (statuses as of 04/27/2023) Medications Medication Sig Dispensed Refills Start Date [...] as of this encounter (statuses as of 04/27/2023) Active Problems Problem Noted Date Hyponatremia 08/14/2021 [...] 130/80 08/08/2002 Mitral valve regurgitation 08/08/2002 POLIO [id number] 08/08/2002 Spinal stenosis documented as of this encounter (statuses as of 04/27/2023) Resolved Problems Problem Noted Date Resolved Date SCC (squamous cell carcinoma), leg, right 201809/27/2019 Osteoporosis 08/08/2002 11/18/2018 documented as of this encounter (statuses as of 04/27/2023) Social History Tobacco Use Types Packs/Day Years [...] encounter Miscellaneous Notes * Telephone Encounter - Ofelia Grider PA-C - 04/27/2023 12:20 PM EDT Spoke to pt regarding bx result. SCC, plan on Mohs in [place]. Pt is aware she will be calledto schedule the appt. [facility]. Skin, R anterior thigh, shave: Well-differentiated invasive squamous cell carcinoma. documented in this encounter Plan of Treatment Upcoming Encounters Date Type Specialty Care Team Description 06/08/2023 Cardiac Studies Cardiology [place] [address] [place] [address] 08/19/2023 Office Visit Cardiology Shobha Rascon PA-C [address] [place] [address] 11/03/2023 Office Visit Dermatology Ofelia Grider PA-C [address] [place] [address] [place] [address] Scheduled Referrals Name Type Priority Associated Diagnoses Orde r Schedule MOHS SURGERY REFERRAL OP Referral Within 10 days (routine) Squamous cell carcinoma of right thigh Ordered: 04/27/2023 Health Maintenance Due Date Last Done Comments Pneumococcal Vaccine: 65+ Years (1 - PCV) 1942 Depression Screening 1948 Albumin/Creatinine Ratio 1954 CKD PHOS USE SMARTSET 36600 1954 DTaP,Tdap,and Td Vaccines (1 - Tdap) 1955 Zoster Vaccines (1 of 2) 1986 DXA Scan 07/04/2021 07/04/2019, 12/12/2016, 08/01/2014, Additional history exists COVID-19 Vaccine ( season) 2023 02/24/2022, 06/22/2021, 09/19/2020, Additional history exists Influenza Vaccine (FLU shot) (#1) 2023 05/06/2015 TSH 02/06/2024 02/05/2023, 07/26, 01/29/2022, Additional history exists CKD HGB USE SMARTSET 60154 02/09/202402/08, 02/06/2023, 02/05/2023, Additional history exists VITAMIN D LEVEL ONCE IN A LIFETIME-USE SMARTSET# 53352 Completed 06/22/2022, 03/09/2022, 08/06/2021, Additional history exists [...] this encounter Medical Devices Implanted Type Area Wireless Construction Manager Device Identifier Shelf Expiration Date Model / Serial / Lot Ring Triad [id number] - [id number] Implanted:Qty: 1 on 05/27/2015 by Morro Alexander MD at [place] [facility] [place]: Heart Medtrol 10/24/2019 [id number] / / [id number] documented as of this encounter Visit Diagnoses Diagnosis Squamous cell carcinoma of right thigh- Primary documented in this encounter Advance Directives Latest Code Status on File Code Status Date Activated Date Inactivated Comments Full Code 05/27/2015 8:33 PM 06/01/2015 4:29 PM This order reflects the patients wishes and were consensually agreed upon. Care Teams Soft Work Wrapper Layer And Examiner Relationship Specialty Start Date End Date Loida Saldivar MD [address] [place] [address] [place] [address] PCP - General Internal Medicine 10/01/22 documented as of this encounter
--- OUTSIDE RECORDS SUMMARY | 2023-07-14 10:02 | External Medical Summary ---
Author Name Unknown Address Unknown Organization [facility] [address] [place] [address] Laboratory Report Ordering Provider Test Date Status JAIME NEVAREZ 02/06/2023 08:55:19 Final Observation Date Value Abnormality Reference (Units ) Status WBC, Total 02/06/2023 08:55:19 7.43 4.00-10.8 0 (K/uL) Final RBC 02/06/2023 08:55:19 2.78 3.85-5.15 (M/uL) Final Hemoglobin 02/06/2023 08:55:19 8.2 Below low normal 12 .0-15.3 (g/dL) Final HCT 02/06/2023 08:55:19 26.6 Below low normal 36. 0-45.2 (%) Final MCV 02/06/2023 08:55:19 95.7 81.5-97.5 (fL) Final MCH 02/06/2023 08:55:19 29.5 27.0-34.0 (pg) Final MCHC 02/06/2023 08:55:19 30.8 32.0-36.0 (g/dL) Final RDW 02/06/2023 08:55:19 15.4 11.5-15.5 (%) Final Platelets 02/06/2023 08:55:19 348 140-400 (K /uL) Final MPV 02/06/2023 08:55:19 9.5 6.6-11.1 ( fL) Final Performing Location [facility] [address] [place] [address]
--- OUTSIDE RECORDS SUMMARY | 2023-07-14 10:02 | External Medical Summary | Summary of Care ---
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 Providers see scanned report in scans tab. Return in 3 moths for an DC visit at [facility]. Talia: Ben Gutierrez III Cad Drafter: Dr. Blankenship documented in this encounter Plan of Treatment Upcoming Encounters Date Type Specialty Care Team Description 04/15/2023 Office Visit Cardiology Shobha Rascon PA-C [address] [place] [address] 04/21/2023 Office Visit Dermatology Ofelia Grider PA-C [address] [place] [address] [place] [address] 06/08/2023 Cardiac Studies Cardiology [place] [address] [place] [address] Scheduled Orders Name Type Priority Associated Diagnoses Orde r Schedule MULTI-LEAD DEFIBRILLATOR + REPROGRAM Procedures Routine Chronic atrial fibrillation (HCC) Nonischemic cardiomyopathy (HCC) Biventricular implantable cardioverter-defibrillat or in situ Ordered: 02/18/2023 Health Maintenance Due Date Last Done Comments Pneumococcal Vaccine: 65+ Years (1 - PCV) 1942 Depression Screening, Annual for Pts 12 and Over 1948 Albumin/Creatinine Ratio 1954 CKD PHOS USE SMARTSET 56682 1954 DTaP,Tdap,and Td Vaccines (1 - Tdap) 1955 Zoster Vaccines (1 of 2) 1986 DXA Scan 07/04/2021 07/04/2019, 1212/2016, 08/01/2014, Additional history exists COVID-19 Vaccine (2 - Pfizer series) 04/21/2022 02/24/2022, 06/22/2021, 09/19/2020, Additional history exists Influenza Vaccine (FLU shot) (#1) 2023 05/06/2015 TSH 02/06/2024 02/05/2023, 07/26, 01/29/2022, Additional history exists CKD HGB USE SMARTSET 77467 02/09/202402/08, 02/06/2023, 02/05/2023, Additional history exists VITAMIN D LEVEL ONCE IN A LIFETIME-USE SMARTSET# 27767 Completed 06/22/2022, 03/09/2022, 08/06/2021, Additional history exists [...] this encounter Medical Devices Implanted Type Area Licensed Clinical Social Worker Device Identifier Shelf Expiration Date Model / Serial / Lot Ring Triad [id number] - [id number] Implanted:Qty: 1 on 05/27/2015 by Morro Alexander MD at OR [facility] [place] N/A: Heart Medtrol 10/24/2019 [id number] / / [id number] documented as of this encounter Visit Diagnoses Diagnosis Nonischemic cardiomyopathy (HCC)- Primary Other primary cardiomyopathies Chronic atrial fibrillation (HCC) Atrial fibrillation Biventricular implantable cardioverter-defibrillator in situ documented in this encounter Advance Directives Latest Code Status on File Code Status Date Activated Date Inactivated Comments Full Code 05/27/2015 8:33 PM 06/01/2015 4:29 PM This order reflects the patients wishes and were consensually agreed upon. Care Teams Test Kitchen Home Economist Relationship Specialty Start Date End Date Loida Saldivar MD [address] [place] [address] [place] [address] PCP - General Internal Medicine 10/01/22 documented as of this encounter
--- OUTSIDE RECORDS SUMMARY | 2023-07-14 10:02 | External Medical Summary ---
Author Name Unknown Address Unknown Organization K01:[facility] - [address] [place] [facility] [place] [address] Laboratory Report Ordering Provider Test Date Status CRISTI YAN 02/05/2023 05:40:00 Final Observation Date Value Abnormality Reference (Units ) Status T4, Free 02/05/2023 05:40:00 1.6 0.9-1.7 (n g/dL) Final Performing Location [facility] - [address] [place] [address]
--- OUTSIDE RECORDS SUMMARY | 2023-07-14 10:02 | External Medical Summary | Summary of Care ---
Author Name Unknown Organization [facility] Address [address] [facility] [place] [place] [address] Phone [phone] Care Team Providers Care Unit Tender Name Role Phone Loida Saldivar MD Primary Care Provider + [phone] Reason for Referral * Evaluate & Treat - Unlimited Visits (Within 10 days (routine)) - Pending Review Specialty Diagnoses / Procedures Referred By Mague vázquez Referred To Contact Dermatology Diagnoses Squamous cell carcinoma of right thigh Ofelia Grider PA-C [address] [place] [address] [place] [address] Referral ID Status Reason Start Date Expiration Date Visits Requested Visits Authorized [id number] Pending Review Specialty Services Required 04/27/2023 1 [...] Department Care Team Description 04/27/[address] [place] [address] Ofelia Grider PA-C [address] [place] [address] [place] [address] Appointment Allergies Active Allergy Reactions Severity Noted [...] 130/80 08/08/2002 Mitral valve regurgitation 08/08/2002 POLIO [id number] 08/08/2002 Spinal stenosis documented as of this [...] bx result. SCC, plan on Mohs in [place]. Pt is aware she will be calledto schedule the appt. Ofelia Grider [place] C[place] A. Skin, R anterior thigh, shave: Well-differentiated invasive squamous cell carcinoma. documented in this encounter Plan of Treatment Upcoming Encounters Date Type Specialty Care Team Description 06/08/2023 Cardiac Studies Cardiology [facility] [address] [place] [address] 08/19/2023 Office Visit Cardiology Shobha Rascon PA-C [address] [place] [address] 11/03/2023 Office Visit Dermatology Ofelia Grider PA-C [address] [place] [address] [place] [address] Scheduled Referrals Name Type Priority Associated Diagnoses Orde r Schedule MOHS SURGERY REFERRAL OP Referral Within 10 days (routine) Squamous cell carcinoma of right thigh Ordered: 04/27/2023 Health Maintenance Due Date Last Done Comments Pneumococcal Vaccine: 65+ Years (1 - PCV) 1942 Depression Screening 1948 Albumin/Creatinine Ratio 1954 CKD PHOS USE SMARTSET 21891 1954 DTaP,Tdap,and Td Vaccines (1 - Tdap) 1955 Zoster Vaccines (1 of 2) 1986 DXA Scan 07/04/2021 07/04/2019, 12/2016, 08/01/2014, Additional history exists COVID-19 Vaccine ( season) 2023 02/24/2022, 06/22/2021, 09/19/2020, Additional history exists Influenza Vaccine (FLU shot) (#1) 2023 05/06/2015 TSH 02/06/2024 02/05/2023, 07/26, 01/29/2022, Additional history exists CKD HGB USE SMARTSET 58164 02/09/202402/08, 02/06/2023, 02/05/2023, Additional history exists VITAMIN D LEVEL ONCE IN A LIFETIME-USE SMARTSET# [id number] Completed 06/22/2022, 03/09/2022, 08/06/2021, Additional history exists [...] this encounter Medical Devices Implanted Type Area Supervisor [employer] Device Identifier Shelf Expiration Date Model / Serial / Lot Ring Triad [id number] - [id number] Implanted:Qty: 1 on 05/27/2015 by Morro Alexander MD at [facility] N/A: Heart Medtrol 10/24/2019 [id number] / / [id number] documented as of this encounter Visit Diagnoses Diagnosis Squamous cell carcinoma of right thigh- Primary documented in this encounter Advance Directives Latest Code Status on File Code Status Date Activated Date Inactivated Comments Full Code 05/27/2015 8:33 PM 06/01/2015 4:29 PM This order reflects the patients wishes and were consensually agreed upon. Care Teams Unit Tender Relationship Specialty Start Date End Date Loida Saldivar MD [address] [place] [address] [place] [address] PCP - General Internal Medicine 10/01/22 documented as of this encounter
--- OUTSIDE RECORDS SUMMARY | 2023-07-14 10:02 | External Medical Summary ---
Author Name Unknown Address Unknown Organization K09:[facility] [place] [address] Laboratory Report Ordering Provider Test Date Status HY,DEPAMPHILIS 02/11/2023 05:55:00 Final Warfarin Therapy
INR: 2 .0-3.0 conventional anticoagulation
INR: 2.5- 3.5 high intensity anticoagulation Observation Date Value Abnormality Reference (Units ) Status PT 02/11/2023 05:55:00 22.6 Above high normal 11 .6-15.2 (seconds) Final INR 02/11/2023 05:55:00 2.0 Above high normal 0. 8-1.2 Final Performing Location [facility] [place] [address]
--- OUTSIDE RECORDS SUMMARY | 2023-07-14 10:02 | External Medical Summary ---
Author Name Unknown Address Unknown Organization K01:[facility] - [address] [place] [address] Laboratory Report Ordering Provider Test Date Status CRISTI YAN 02/05/2023 05:40:00 Final Observation Date Value Abnormality Reference (Units ) Status TSH 02/05/2023 05:40:00 6.50 Above high normal 0. 27-4.20 (uIU/mL) Final Performing Location [facility] - [address] [place] [address]
--- OUTSIDE RECORDS SUMMARY | 2023-07-14 10:02 | External Medical Summary | Summary of Care ---
Author Name Unknown Organization [facility] Address [address] [facility] [address] Phone [phone] Care Team Providers Care Bowstring Maker Name Role Phone Loida Saldivar MD Primary Care Provider [phone] Reason for Visit * Reason Comments Follow Up 6 months for full sk in exam, no new concerns Encounter Details Date Type Department Care Team Description 04/21/2023 Office Visit Dermatology [address] [place] [address] Ofelia Grider PA-C [address] [place] [address] [place] [address] Hx of nonmelanoma skin cancer*; Seborrheic keratosis; [...] 130/80 08/08/2002 Mitral valve regurgitation 08/08/2002 POLIO [id number] 08/08/2002 Spinal stenosis documented as of this [...] examples; Think sport, Think baby, [place], Babo botanicalAskBot, [employer], [place] baby. "Baby" products can be used for all ages. documented in this encounter Progress Notes * Jonathan Pete MD - 04/21/2023 3:55 PM EDT I have seen and examined the patient via teledermatology review of chart note and photos with Ofelia Grider PA-C. I have reviewed and agree with the assessment and plan. * Ofelia Grider PA-C - 04/21/2023 11:27 [...] to face, per pt- not long standing. Psychiatric Mental Health Nurse Documentation Patient offered cooker operator and declined. REVIEW OF SYSTEMS: SKIN: No [...] 04/2020) Reviewed, same day as visit, 0 [facility] Dermatology lab work(s)/pathology report(s) as well [...] Ofelia Grider PA-C 04/21/2023 11:27 AM Dermatology [address] [place] [address] documented in this encounter Nursing Notes * Mendy Cheung LPN - 04/21/2023 11:26 AM EDT Patient identified by full name and date of . Chief Complaint Patient presents with Follow Up 6 months for full skin exam, no new concerns documented in this encounter Plan of Treatment Upcoming Encounters Date Type Specialty Care Team Description 06/08/2023 Cardiac Studies Cardiology [facility] [address] [place] [address] 08/19/2023 Office Visit Cardiology Shobha Rascon PA-C [address] [place] [address] Pending Results Name Type Priority Associated Diagnoses Date /Time SURGICAL PATHOLOGY Pathology Routine Neoplasm of uncertain behavior of skin 04/21/2023 11:39 AM EDT Health Maintenance Due Date Last Done Comments Pneumococcal Vaccine: 65+ Years (1 - PCV) 1942 Depression Screening 1948 Albumin/Creatinine Ratio 1954 CKD PHOS USE SMARTSET 45386 1954 DTaP,Tdap,and Td Vaccines (1 - Tdap) 1955 Zoster Vaccines (1 of 2) 1986 DXA Scan 07/04/2021 07/04/2019, 1212/2016, 08/01/2014, Additional history exists COVID-19 Vaccine (2 - Pfizer series) 04/21/2022 02/24/2022, 06/22/2021, 09/19/2020, Additional history exists Influenza Vaccine (FLU shot) (#1) 2023 05/06/2015 TSH 02/06/2024 02/05/2023, 07/26, 01/29/2022, Additional history exists CKD HGB USE SMARTSET 30173 02/09/202402/08, 02/06/2023, 02/05/2023, Additional history exists VITAMIN D LEVEL ONCE IN A LIFETIME-USE SMARTSET# 80349 Completed 06/22/2022, 03/09/2022, 08/06/2021, Additional history exists [...] this encounter Medical Devices Implanted Type Area Telegraphic Instrument Supervisor Device Identifier Shelf Expiration Date Model / Serial / Lot Ring Triad [id number] - [id number] Implanted:Qty: 1 on 05/27/2015 by Morro Alexander [place] [facility] [place]: Heart Medtrol 10/24/2019 [id number] / / [id number] documented as of this encounter Procedures Procedure [...] and were consensually agreed upon. Care Teams Bowstring Maker Relationship Specialty Start Date End Date Loida Saldivar MD [address] [place] [address] [place] [address] PCP - General Internal Medicine 10/01/22 documented as of this encounter
--- OUTSIDE RECORDS SUMMARY | 2023-07-14 10:03 | External Medical Summary ---
Author Name Unknown Address Unknown Organization K09:[facility] [place] [place] [address] Laboratory Report Ordering Provider Test Date Status NIESHA UREÑA 02/02/2023 06:00:00 Final Observation Date Value Abnormality Reference (Units ) Status SYNC LEUKOCYTES IN BLOOD BY AUTOMATED COUNT 02/02/2023 06:00:00 15.32 Above high normal 4.00-10.80 (K/uL) Final Segs 02/02/2023 06:00:00 90.9 Above high normal 40.0-75.0 (%) Final Lymphs % 02/02/2023 06:00:00 3.7 Below low normal 18.0-42.0 (%) Final Monos 02/02/2023 06:00:00 5.2 1.0-11.0 (%) Final Eosinophils 02/02/2023 06:00:00 0.1 0.0-6.0 (%) Final Basos 02/02/2023 06:00:00 0.1 0.0-2.0 (%) Final Absolute Segs 02/02/2023 06:00:00 13.93 Above high normal 1.80-7.70 (K/uL) Final Lymphs, absolute 02/02/2023 06:00:00 0.56 Below low normal 1.00-4.80 (K/ul) Final Monos, Abs 02/02/2023 06:00:00 0.80 0.00-1.10 (K/uL) Final Eos, Abs 02/02/2023 06:00:00 0.02 0.00-0.70 (K/uL) Final Basos, Abs 02/02/2023 06:00:00 0.01 0.00-0.20 (K/uL) Final Performing Location [facility] [place] [place] [address]
--- OUTSIDE RECORDS SUMMARY | 2023-07-14 10:03 | External Medical Summary ---
Author Name Unknown Address Unknown Organization K0G:[facility] [address] - [address] [place] [address] Laboratory Report Ordering Provider Test Date Status HY,DEPAMPHILIS 01/30/2023 06:15:00 Final Warfarin Therapy
INR: 2 .0-3.0 conventional anticoagulation
INR: 2.5- 3.5 high intensity anticoagulation Observation Date Value Abnormality Reference (Units ) Status PT 01/30/2023 06:15:00 25.1 Above high normal 11 .6-15.2 (seconds) Final INR 01/30/2023 06:15:00 2.3 Above high normal 0. 8-1.2 Final Performing Location [facility] [address] - [address] [place] [address]
--- OUTSIDE RECORDS SUMMARY | 2023-07-14 10:03 | External Medical Summary ---
Author Name Unknown Address Unknown Organization K0G:[facility] [address] - [address] [place] [address] Laboratory Report Ordering Provider Test Date Status JAIME NEVAREZ 01/30/2023 06:15:00 Final Observation Date Value Abnormality Reference (Units ) Status WBC, Total 01/30/2023 06:15:00 10.17 4.00-10.8 0 (K/uL) Final RBC 01/30/2023 06:15:00 2.91 3.85-5.15 (M/uL) Final Hemoglobin 01/30/2023 06:15:00 8.5 Below low normal 12 .0-15.3 (g/dL) Final HCT 01/30/2023 06:15:00 27.0 Below low normal 36. 0-45.2 (%) Final MCV 01/30/2023 06:15:00 92.8 81.5-97.5 (fL) Final MCH 01/30/2023 06:15:00 29.2 27.0-34.0 (pg) Final MCHC 01/30/2023 06:15:00 31.5 32.0-36.0 (g/dL) Final RDW 01/30/2023 06:15:00 14.1 11.5-15.5 (%) Final Platelets 01/30/2023 06:15:00 308 140-400 (K /uL) Final MPV 01/30/2023 06:15:00 9.9 6.6-11.1 ( fL) Final Performing Location [facility] [address] - [address] [place] [address]
--- OUTSIDE RECORDS SUMMARY | 2023-07-14 10:03 | External Medical Summary ---
Author Name Unknown Address Unknown Organization K09:[facility] [place] [address] Laboratory Report Ordering Provider Test Date Status NIESHA UREÑA 02/02/2023 06:00:00 Final Observation Date Value Abnormality Reference (Units ) Status BUN 02/02/2023 06:00:00 33 Above high normal 6-20 (mg/dL) Final Creatinine 02/02/2023 06:00:00 1.0 0.5-1.0 (mg/dL) Final Glomerular filtration rate/1.73 sq M.predicted [Volume Rate/Area] in Serum, Plasma or Blood by Creatinine-based formula (CKD-EPI) 02/02/2023 06:00:00 54 Below low normal >=60 (mL/min) Final eGFR is calculated based on the CKD-EPI 2020 equation SODIUM 02/02/2023 06:00:00 134 Below low normal 135 -146 (mmol/L) Final Potassium 02/02/2023 06:00:00 3.4 Below low normal 3.5 -5.1 (mmol/L) Final Cl 02/02/2023 06:00:00 98 98-107 (mm ol/L) Final CO2 02/02/2023 06:00:00 26 22-32 (mmo l/L) Final Anion gap 02/02/2023 06:00:00 10 7-15 (mmol /L) Final Glucose 02/02/2023 06:00:00 111 70-120 (mg /dL) Final Calcium 02/02/2023 06:00:00 8.3 Below low normal 8.4 -10.2 (mg/dL) Final Performing Location [facility] [place] [address]
--- OUTSIDE RECORDS SUMMARY | 2023-07-14 10:03 | External Medical Summary ---
Author Name Unknown Address Unknown Organization K09:[facility] [place] [address] Laboratory Report Ordering Provider Test Date Status NIESHA UREÑA 02/01/2023 12:00:00 Final Observation Date Value Abnormality Reference (Units ) Status Color of Urine by Auto 02/01/2023 12:00:00 Yellow Colorless, Light Yellow, Yellow, Dark Yellow Final Clarity, Urine 02/01/2023 12:00:00 Slightly Cloudy Abnormal Clear Final Glucose [Mass/volume] in Urine by Automated test strip 02/01/2023 12:00:00 Negative Negative (mg/dL) Final Bilirubin.total [Presence] in Urine by Automated test strip 02/01/2023 12:00:00 Negative Negative Final Ketones [Mass/volume] in Urine by Automated test strip 02/01/2023 12:00:00 Negative Negative (mg/dL) Final Specific gravity, Urine 02/01/2023 12:00:00 1.015 1.003-1.030 Final Hemoglobin [Presence] in Urine by Automated test strip 02/01/2023 12:00:00 Negative Negative Final pH, Urine 02/01/2023 12:00:00 6.0 5.0-7.5 (Units) Final Protein [Mass/volume] in Urine by Automated test strip 02/01/2023 12:00:00 Negative Negative (mg/dL) Final Urobilinogen [Mass/volume] in Urine by Automated test strip 02/01/2023 12:00:00 0.2 0.2, 1.0 (mg/dL) Final Nitrite [Presence] in Urine by Automated test strip 02/01/2023 12:00:00 Negative Negative Final Leukocyte esterase [Presence] in Urine by Automated test strip 02/01/2023 12:00:00 Moderate Abnormal Negative Final Performing Location [facility] [place] [address]
--- OUTSIDE RECORDS SUMMARY | 2023-07-14 10:03 | External Medical Summary ---
Author Name Unknown Address Unknown Organization K09:[facility] [place] [place] [address] Laboratory Report Ordering Provider Test Date Status HY,DEPAMPHILIS 02/01/2023 07:30:00 Final Observation Date Value Abnormality Reference (Units ) Status SYNC LEUKOCYTES IN BLOOD BY AUTOMATED COUNT 02/01/2023 07:30:00 18.53 Above high normal 4.00-10.80 (K/uL) Final Segs 02/01/2023 07:30:00 92.2 Above high normal 40.0-75.0 (%) Final Lymphs % 02/01/2023 07:30:00 3.2 Below low normal 18.0-42.0 (%) Final Monos 02/01/2023 07:30:00 4.4 1.0-11.0 (%) Final Eosinophils 02/01/2023 07:30:00 0.1 0.0-6.0 (%) Final Basos 02/01/2023 07:30:00 0.1 0.0-2.0 (%) Final Absolute Segs 02/01/2023 07:30:00 17.09 Above high normal 1.80-7.70 (K/uL) Final Lymphs, absolute 02/01/2023 07:30:00 0.59 Below low normal 1.00-4.80 (K/ul) Final Monos, Abs 02/01/2023 07:30:00 0.82 0.00-1.10 (K/uL) Final Eos, Abs 02/01/2023 07:30:00 0.02 0.00-0.70 (K/uL) Final Basos, Abs 02/01/2023 07:30:00 0.01 0.00-0.20 (K/uL) Final Performing Location [facility] [place] [address]
--- OUTSIDE RECORDS SUMMARY | 2023-07-14 10:03 | External Medical Summary | Summary of Care ---
Author Name Unknown Organization [facility] Address [address] [facility] [address] Phone [phone] Care Team Providers Care Shield Operator Name Role Phone Loida Saldivar MD Primary Care Provider [phone] Reason for Visit * Reason Onset Date Comments Test Results 01/08/2023 Encounter Details Date Type Department Care Team Description 01/08/2023 Telephone Cardiology, [facility] [address] [place] [address] Shobha Rascon, LINDSEY [address] [place] [address] Test Results Allergies Active Allergy Reactions Severity Noted Date Comments Sulfamethoxazole-Trimethop rim 05/22/2015 Kidney function/ nausea Sulfa based medications Cefaclor 04/08/2021 Generally did not feel well. documented as of this encounter (statuses as of 01/21/2023) Medications Medication Sig Dispensed Refills Start Date [...] as of this encounter (statuses as of 01/21/2023) Active Problems Problem Noted Date Hyponatremia 08/14/2021 [...] 130/80 08/08/2002 Mitral valve regurgitation 08/08/2002 POLIO [id number] 08/08/2002 Spinal stenosis documented as of this encounter (statuses as of 01/21/2023) Resolved Problems Problem Noted Date Resolved Date SCC (squamous cell carcinoma), leg, right 201809/27/2019 Osteoporosis 08/08/2002 11/18/2018 documented as of this encounter (statuses as of 01/21/2023) Social History Tobacco Use Types Packs/Day Years [...] encounter Miscellaneous Notes * Telephone Encounter - Desiree Garcia LPN - 01/21/2023 1:38 PM EDT [employer] message sent Shobha Rascon PA-C 12/25/2022 3:39 PM EDT Back to [facility] Labs reviewed. Renal function is stable. Sodium levels continue to improve. Good news. Continue current dose of diuretic and other medicaitons * Telephone Encounter - Aminata Driver LPN - 01/08/2023 10:16 AM EDT Attempt to call patient unsuccessful; left message on patient's home/work/mobile phone to call back. Upon return call please review labs documented in this encounter Plan of Treatment Upcoming Encounters Date Type Specialty Care Team Description 02/16/2023 Cardiac Studies Cardiology Janette Jaime [facility] [address] [place] [address] 04/15/2023 Office Visit Cardiology Shobha Rascon PA-C [address] [place] [address] 04/21/2023 Office Visit Dermatology Ofelia Grider PA-C [address] [place] [address] [place] [address] Health Maintenance Due Date Last Done Comments Pneumococcal Vaccine: 65+ Years (1 - PCV) 1941 Depression Screening, Annual for Pts 12 and Over 1948 Albumin/Creatinine Ratio 1954 CKD PHOS USE SMARTSET 76914 1954 DTaP,Tdap,and Td Vaccines (1 - Tdap) 1955 Zoster Vaccines (1 of 2) 1986 DXA Scan 07/04/2021 07/04/2019, 12/0 12/2016, 08/01/2014, Additional history exists COVID-19 Vaccine (2 - Pfizer series) 04/21/2022 02/24/2022, 06/22/2021, 09/19/2020, Additional history exists Influenza Vaccine (FLU shot) (Season Ended) 2023 05/06/2015 TSH 08/11/2023 08/11/2022, 07/0 01/2022, 10/29/2021, Additional history exists CKD HGB USE SMARTSET 48134 11/18/202311/17, 08/11/2022, 07/14/2022, Additional history exists VITAMIN D LEVEL ONCE IN A LIFETIME-USE SMARTSET# 67152 Completed 06/22/2022, 03/09/2022, 08/06/2021, Additional history exists [...] this encounter Medical Devices Implanted Type Area Wire Wheeler Device Identifier Shelf Expiration Date Model / Serial / Lot Ring Triad [id number] - [id number] Implanted:Qty: 1 on 05/27/2015 by Morro Alexander MD [place] [facility] [place]A: Heart Medtrol 10/24/2019 [id number] / / [id number] documented as of this encounter Advance Directives Latest Code Status on File Code Status Date Activated Date Inactivated Comments Full Code 05/27/2015 8:33 PM 06/01/2015 4:29 PM This order reflects the patients wishes and were consensually agreed upon. Care Teams Shield Operator Relationship Specialty Start Date End Date Loida Saldivar MD [address] [place] [address] [place] [address] PCP - General Internal Medicine 10/01/22 documented as of this encounter
--- OUTSIDE RECORDS SUMMARY | 2023-07-14 10:03 | External Medical Summary ---
Author Name Unknown Address Unknown Organization [id number]:LABORATORY [facility] [place] - [address] [facility] [address] Laboratory Report Ordering Provider Test Date Status NIESAH UREÑA 02/01/2023 11:40:00 Final 2 sets from different locati ons

Aerobic bottle no growth. Observation Date Value Abnormality Reference (Units ) Status Bacteria identified in Unspecified specimen by Culture 02/01/2023 11:40:00 [id number]^ACINE TOBACTER LWOFFI Very abnormal Final Anaerobic bottle Acinetobact er lwoffi Gram Stain 02/01/2023 11:40:00 Anaerobic corie ttle Gram negative bacilli Very abnormal Final This is an appended report. These results have been appended to a previously preliminary verified report. Performing Location LABORATORY [facility] - [address] [facility] [address] Ordering Provider Test Date Status NIESHA UREÑA 02/01/2023 11:40:00 Final Observation Date Value Abnormality Reference (Units ) Status Amoxicillin+Sulbactam [Susceptibility] 02/01/2023 11:40:00 1 Susceptible Susceptible <16 , Intermediate >=16 , Resistant >=32 Final Cefepime susceptibility 02/01/2023 11:40:00 1 Susceptible Susceptible <16 , Intermediate >=16 , Resistant >=32 Final Gentamicin susceptibility 02/01/2023 11:40:00 0.125 Susceptible Susceptible <8 , Intermediate >=8 , Resistant >=16 Final Meropenem [Susceptibility] 02/01/2023 11:40:00 0.125 Susceptible Susceptible <4 , Intermediate >=4 , Resistant >=8 Final Test: Culture, Blood
Spe cimen Type: Blood
Specimen Date: 02/01/2023 11:40 AM
Result Date: 02/07/2023 9:46 AM
Result Status: Final result
Abnormal: Yes
Resulting Lab: LABORATORY [facility]
[address]
[facility] [address]

CULTURE

Anaerobic bottle Acinetobacter lwoffi (Panic)

Aerobic bottle no growth.

STAIN

Anaerobic bottle Gram negative bacilli

This is an appended report. These results have been appended to a
previously preliminary verified report.

SUSCEPTIBILITY

Acinetobacter
lwoffi
METHOD ETEST

AMPICILLIN/SULBACTAM 1 Susceptible
CEFEPIME 1 Susceptible
GENTAMICIN 0.125 Susceptible
MEROPENEM 0.125 Susceptible

null Performing Location LABORATORY [facility] - [address] [facility] [address]
--- OUTSIDE RECORDS SUMMARY | 2023-07-14 10:03 | External Medical Summary ---
Author Name Unknown Address Unknown Organization [id number]:LAB[facility]ATORY [place] [address] Laboratory Report Ordering Provider Test Date Status HY,DEPAMPHILIS 02/01/2023 07:30:00 Final Observation Date Value Abnormality Reference (Units ) Status Nucleated erythrocytes/100 leukocytes [Ratio] in Blood by Automated count 02/01/2023 07:30:00 Final Performing Location [facility] [place] [address]
--- OUTSIDE RECORDS SUMMARY | 2023-07-14 10:03 | External Medical Summary ---
Author Name Unknown Address Unknown Organization K01:LABORATORY [facility] [place] - [facility] [address] [facility] [address] Laboratory Report Ordering Provider Test Date Status NIESHA UREÑA 02/01/2023 11:40:00 Final 2 sets from different locati ons Observation Date Value Abnormality Reference (Units ) Status Blood pathogens panel by PRANAY with non-probe detection in Positive blood culture 02/01/2023 11:40:00 Negative for all bacterial targets and resistance genes. Final This assay detects: Enteroco ccus faecalis,Enterococcus faecium, Listeria monocytogenes,Staphylococcus,Staphylococcus aureus,Staphylococcus epidermidis,Staphylococcus lugdunensis, Streptococcus,Streptococcus agalactiae, Streptococcus pneumoniae,Streptococcus pyogenes, Acinetobacter calcoaceticus-baumannii complex,Bacteriodes fragilis,Stenotrophomonas maltophilia,Enterobacteriaceae,Enterobacter cloacae complex,Escherichia coli, Klebsiella oxytoca,Klebsiella pneumoniae,Klebsiella aerogenes,Proteus, Serratia marcescens,Salmonella spp.,Haemophilus influenzae, Neisseria meningitidis, Pseudomonas aeruginosa,Leatha albicans,Leatha auris,Leatha glabrata,Leatha krusei,Leatha parapsilosis,Leatha tropicalis,Cryptococcus neoformans/jane, KPC carbapenem resistance gene, mecA/C resistance gene,mecA/C MREJ (MRSA)resistance gene,Orlin/B vancomycin resistance gene,VIM resistance gene, OXA-48-like resistance gene, NDM resistance gene,MCR-1 resistance gene, IMP resistance gene and CTX-M resistance gene.

The validation of this specimen type for this assay was developed and performance characteristics determined by [employer]. It has not been cleared or approved by the U.S. Food and Drug Administration (FDA). The FDA has determined that such clearance or approval is not necessary. Performing Location LABORATORY [facility] [place] - [address] [facility] [address]
--- OUTSIDE RECORDS SUMMARY | 2023-07-14 10:03 | External Medical Summary ---
Author Name Unknown Address Unknown Organization K01:LABORATORY [facility] [place] - [address] [facility] [address] Laboratory Report Ordering Provider Test Date Status NIESHA UREÑA 02/01/2023 12:00:00 Final <10,000 colonies/ml mixed no rmal araceli Observation Date Value Abnormality Reference (Units ) Status Bacteria identified in Unspecified specimen by Culture 02/01/2023 12:00:00 [id number]^PSEUDOMON AERUGINOSA Abnormal Final >100,000 colonies/mL Pseudom onas aeruginosa
This bacterial species is known to produce a chromosomal AmpC inducible beta lactamase. Penicillin or cephalosporin use, with the exception of cefepime, may result in resistance. Performing Location [facility]ATORY [facility] [place] - [address] [facility] [address] Ordering Provider Test Date Status NIESHA UREÑA 02/01/2023 12:00:00 Final Observation Date Value Abnormality Reference (Units ) Status Cefepime susceptibility 02/01/2023 12:00:00 1 Susceptible Susceptible <16 , Intermediate >=16 , Resistant >=32 Final Ceftazidime susceptibility 02/01/2023 12:00:00 0.5 Susceptible Susceptible <16 , Intermediate >=16 , Resistant >=32 Final Ciprofloxacin 02/01/2023 12:00:00 0.32 Susceptible Susceptible <1 , Intermediate >=1 , Resistant >=2 Final Due to serious side effects, the FDA has advised against using Ciprofloxacin to treat uncomplicated UTIs and respiratory tract infections unless there are no alternative treatment options. Meropenem [Susceptibility] 02/01/2023 12:00:00 0.25 Susceptible Susceptible <4 , Intermediate >=4 , Resistant >=8 Final Tobramycinsusceptibility 02/01/2023 12:00:00 0.25 Susceptible Susceptible <8 , Intermediate >=8 , Resistant >=16 Final Performing Location LAB[facility]ATORY [facility] [place] - [address] [facility] [address] Ordering Provider Test Date Status NIESHA UREÑA 02/01/2023 12:00:00 Final Observation Date Value Abnormality Reference (Units ) Status Piperacillin + Tazobactamsusceptibility 02/01/2023 12:00:00 33 Susceptible Susceptible >21 , Intermediate <=21 , Resistant <=17 Final Test: Culture, Urine, Quanti tative
Specimen Source: Urine, Clean Catch
Specimen Type: Urine
Specimen Date: 02/01/2023 12:00 PM
Result Date: 02/03/2023 1:46 PM
Result Status: Final result
Abnormal: Yes
Resulting Lab: [facility]ORY [facility] [place]
[address]
[place] [id number]

CULTURE

>100,000 colonies/mL Pseudomonas aeruginosa (Abnormal)

This bacterial species is known to produce a chromosomal AmpC inducible
beta lactamase. Penicillin or cephalosporin use, with the exception of
cefepime, may result in resistance.

<10,000 colonies/ml mixed normal araceli

SUSCEPTIBILITY

Pseudomonas Pseudomonas
aeruginosa aeruginosa
METHOD ETEST LEE GREY

CEFEPIME 1 Susceptible
CEFTAZIDIME 0.5 Susceptible
CIPROFLOXACIN 0.32 Susceptible [1]
MEROPENEM 0.25 Susceptible
PIPERACILLIN TAZOBACTAM 33 Susceptible
TOBRAMYCIN 0.25 Susceptible

[1] Due to serious side effects, the FDA has advised against using
Ciprofloxacin to treat uncomplicated UTIs and respiratory tract infections
unless there are no alternative treatment options.

null Performing Location LAB[facility]ATORY [facility] [place] - [address] [place] [id number]
--- OUTSIDE RECORDS SUMMARY | 2023-07-14 10:03 | External Medical Summary ---
Author Name Unknown Address Unknown Organization K09:[facility]ATORY [place] [address] Laboratory Report Ordering Provider Test Date Status HY,DEPAMPHILIS 02/02/2023 06:00:00 Final Warfarin Therapy
INR: 2 .0-3.0 conventional anticoagulation
INR: 2.5- 3.5 high intensity anticoagulation Observation Date Value Abnormality Reference (Units ) Status PT 02/02/2023 06:00:00 27.0 Above high normal 11 .6-15.2 (seconds) Final INR 02/02/2023 06:00:00 2.5 Above high normal 0. 8-1.2 Final Performing Location LAB[facility]ATORY [place] [address]
--- OUTSIDE RECORDS SUMMARY | 2023-07-14 10:03 | External Medical Summary ---
Author Name Unknown Address Unknown Organization K09:LAB[facility]ATORY [place] [address] Laboratory Report Ordering Provider Test Date Status HY,DEPAMPHILIS 02/01/2023 07:30:00 Final Observation Date Value Abnormality Reference (Units ) Status WBC, Total 02/01/2023 07:30:00 18.53 Above high normal 4 .00-10.80 (K/uL) Final RBC 02/01/2023 07:30:00 2.94 3.85-5.15 (M/uL) Final Hemoglobin 02/01/2023 07:30:00 8.7 Below low normal 12 .0-15.3 (g/dL) Final HCT 02/01/2023 07:30:00 27.8 Below low normal 36. 0-45.2 (%) Final MCV 02/01/2023 07:30:00 94.6 81.5-97.5 (fL) Final MCH 02/01/2023 07:30:00 29.6 27.0-34.0 (pg) Final MCHC 02/01/2023 07:30:00 31.3 32.0-36.0 (g/dL) Final RDW 02/01/2023 07:30:00 15.0 11.5-15.5 (%) Final Platelets 02/01/2023 07:30:00 334 140-400 (K /uL) Final MPV 02/01/2023 07:30:00 9.7 6.6-11.1 ( fL) Final Performing Location [facility]ATORY [place] [address]
--- OUTSIDE RECORDS SUMMARY | 2023-07-14 10:03 | External Medical Summary ---
Author Name Unknown Address Unknown Organization K09:LAB[facility]ATORY [place] [address] Laboratory Report Ordering Provider Test Date Status NIESHA UREÑA 02/03/2023 05:30:00 Final Observation Date Value Abnormality Reference (Units ) Status WBC, Total 02/03/2023 05:30:00 10.40 4.00-10.8 0 (K/uL) Final RBC 02/03/2023 05:30:00 2.61 3.85-5.15 (M/uL) Final Hemoglobin 02/03/2023 05:30:00 7.7 Below low normal 12 .0-15.3 (g/dL) Final HCT 02/03/2023 05:30:00 25.1 Below low normal 36. 0-45.2 (%) Final MCV 02/03/2023 05:30:00 96.2 81.5-97.5 (fL) Final MCH 02/03/2023 05:30:00 29.5 27.0-34.0 (pg) Final MCHC 02/03/2023 05:30:00 30.7 32.0-36.0 (g/dL) Final RDW 02/03/2023 05:30:00 15.2 11.5-15.5 (%) Final Platelets 02/03/2023 05:30:00 314 140-400 (K /uL) Final MPV 02/03/2023 05:30:00 9.7 6.6-11.1 ( fL) Final Performing Location [facility]ORY [place] [address]
--- OUTSIDE RECORDS SUMMARY | 2023-07-14 10:03 | External Medical Summary ---
Author Name Unknown Address Unknown Organization K0G:LABORATORY [place] [address] [place] [address] Laboratory Report Ordering Provider Test Date Status JAIME NEVAREZ 01/30/2023 06:15:00 Final Observation Date Value Abnormality Reference (Units ) Status BUN 01/30/2023 06:15:00 46 Above high normal 6-20 (mg/dL) Final Creatinine 01/30/2023 06:15:00 1.1 Above high normal 0.5-1.0 (mg/dL) Final Glomerular filtration rate/1.73 sq M.predicted [Volume Rate/Area] in Serum, Plasma or Blood by Creatinine-based formula (CKD-EPI) 01/30/2023 06:15:00 49 Below low normal >=60 (mL/min) Final eGFR is calculated based on the CKD-EPI 2020 equation SODIUM 01/30/2023 06:15:00 134 Below low normal 135 -146 (mmol/L) Final Potassium 01/30/2023 06:15:00 4.6 3.5-5.1 (m mol/L) Final Cl 01/30/2023 06:15:00 97 Below low normal 98- 107 (mmol/L) Final CO2 01/30/2023 06:15:00 27 22-32 (mmo l/L) Final Anion gap 01/30/2023 06:15:00 10 7-15 (mmol /L) Final Glucose 01/30/2023 06:15:00 99 70-120 (mg /dL) Final Calcium 01/30/2023 06:15:00 8.7 8.4-10.2 ( mg/dL) Final Performing Location LABORATORY [place] [address] [place] [address]
--- OUTSIDE RECORDS SUMMARY | 2023-07-14 10:03 | External Medical Summary ---
Author Name Unknown Address Unknown Organization K09:LABORATORY [place] [address] Laboratory Report Ordering Provider Test Date Status ADELITANIESHA 02/01/2023 12:00:00 Final Observation Date Value Abnormality Reference (Units ) Status RBC, Urine 02/01/2023 12:00:00 0-2 0-2 (/HPF) Final WBC, Urine 02/01/2023 12:00:00 20-29 Abnormal 0-2 (/HPF) Final Bacteria [#/area] in Urine sediment by Microscopy high power field 02/01/2023 12:00:00 101-150 Abnormal 0-25 (/HPF) Final Performing Location [facility]ATORY [place] [address]
--- OUTSIDE RECORDS SUMMARY | 2023-07-14 10:03 | External Medical Summary ---
Author Name Unknown Address Unknown Organization K09:[facility]ATORY [place] [address] Laboratory Report Ordering Provider Test Date Status NIESHA UREÑA 02/01/2023 11:40:00 Final Observation Date Value Abnormality Reference (Units ) Status BUN 02/01/2023 11:40:00 32 Above high normal 6-20 (mg/dL) Final Creatinine 02/01/2023 11:40:00 0.9 0.5-1.0 (mg/dL) Final Glomerular filtration rate/1.73 sq M.predicted [Volume Rate/Area] in Serum, Plasma or Blood by Creatinine-based formula (CKD-EPI) 02/01/2023 11:40:00 65 >=60 (mL/min) Final eGFR is calculated based on the CKD-EPI 2020 equation SODIUM 02/01/2023 11:40:00 133 Below low normal 135 -146 (mmol/L) Final Potassium 02/01/2023 11:40:00 3.4 Below low normal 3.5 -5.1 (mmol/L) Final Cl 02/01/2023 11:40:00 95 Below low normal 98- 107 (mmol/L) Final CO2 02/01/2023 11:40:00 27 22-32 (mmo l/L) Final Anion gap 02/01/2023 11:40:00 11 7-15 (mmol /L) Final Glucose 02/01/2023 11:40:00 106 70-120 (mg /dL) Final Calcium 02/01/2023 11:40:00 8.3 Below low normal 8.4 -10.2 (mg/dL) Final Performing Location [facility]ORY [place] [address]
--- OUTSIDE RECORDS SUMMARY | 2023-07-14 10:03 | External Medical Summary ---
Author Name Unknown Address Unknown Organization K09:LABORATORY [place] [address] Laboratory Report Ordering Provider Test Date Status NIESHA UREÑA 02/03/2023 05:30:00 Final Observation Date Value Abnormality Reference (Units ) Status BUN 02/03/2023 05:30:00 32 Above high normal 6-20 (mg/dL) Final Creatinine 02/03/2023 05:30:00 0.9 0.5-1.0 (mg/dL) Final Glomerular filtration rate/1.73 sq M.predicted [Volume Rate/Area] in Serum, Plasma or Blood by Creatinine-based formula (CKD-EPI) 02/03/2023 05:30:00 61 >=60 (mL/min) Final eGFR is calculated based on the CKD-EPI 2020 equation SODIUM 02/03/2023 05:30:00 135 135-146 (m mol/L) Final Potassium 02/03/2023 05:30:00 3.7 3.5-5.1 (m mol/L) Final Cl 02/03/2023 05:30:00 100 98-107 (mm ol/L) Final CO2 02/03/2023 05:30:00 27 22-32 (mmo l/L) Final Anion gap 02/03/2023 05:30:00 8 7-15 (mmol /L) Final Glucose 02/03/2023 05:30:00 105 70-120 (mg /dL) Final Calcium 02/03/2023 05:30:00 8.5 8.4-10.2 ( mg/dL) Final Performing Location [facility]ORY [place] [address]
--- OUTSIDE RECORDS SUMMARY | 2023-07-14 10:03 | External Medical Summary ---
Author Name Unknown Address Unknown Organization K09:LAB[facility]ATORY [place] [address] Laboratory Report Ordering Provider Test Date Status NIESHA UREÑA 02/02/2023 06:00:00 Final Observation Date Value Abnormality Reference (Units ) Status WBC, Total 02/02/2023 06:00:00 15.32 Above high normal 4 .00-10.80 (K/uL) Final RBC 02/02/2023 06:00:00 2.77 3.85-5.15 (M/uL) Final Hemoglobin 02/02/2023 06:00:00 8.3 Below low normal 12 .0-15.3 (g/dL) Final HCT 02/02/2023 06:00:00 26.5 Below low normal 36. 0-45.2 (%) Final MCV 02/02/2023 06:00:00 95.7 81.5-97.5 (fL) Final MCH 02/02/2023 06:00:00 30.0 27.0-34.0 (pg) Final MCHC 02/02/2023 06:00:00 31.3 32.0-36.0 (g/dL) Final RDW 02/02/2023 06:00:00 15.2 11.5-15.5 (%) Final Platelets 02/02/2023 06:00:00 333 140-400 (K /uL) Final MPV 02/02/2023 06:00:00 9.9 6.6-11.1 ( fL) Final Performing Location [facility] [place] [address]
--- OUTSIDE RECORDS SUMMARY | 2023-07-14 10:03 | External Medical Summary ---
Author Name Unknown Address Unknown Organization K01:LABORATORY [facility] [place] - [address] [place] [id number] Laboratory Report Ordering Provider Test Date Status NIESHA UREÑA 02/01/2023 13:00:00 Final Observation Date Value Abnormality Reference (Units ) Status Bacteria identified in Unspecified specimen by Culture 02/01/2023 13:00:00 No growth Final Test: Culture, Blood
Enmanuel valentine Source: Blood, Venous
Specimen Type: Blood
Specimen Date: 02/01/2023 1:00 PM
Result Date: 02/06/2023 5:01 PM
Result Status: Final result
Resulting Lab: LABORATORY [facility]
[address]
[place] [id number]

CULTURE

No growth

null Performing Location LABORATORY [facility] [place] - [address] [facility] [address]
--- OUTSIDE RECORDS SUMMARY | 2023-07-14 10:03 | External Medical Summary ---
Author Name Unknown Address Unknown Organization K09:[facility]ORY [place] [address] Laboratory Report Ordering Provider Test Date Status HY,DEPAMPHILIS 02/05/2023 05:40:00 Final Warfarin Therapy
INR: 2 .0-3.0 conventional anticoagulation
INR: 2.5- 3.5 high intensity anticoagulation Observation Date Value Abnormality Reference (Units ) Status PT 02/05/2023 05:40:00 30.3 Above high normal 11 .6-15.2 (seconds) Final INR 02/05/2023 05:40:00 2.9 Above high normal 0. 8-1.2 Final Performing Location [facility] [place] [address]
--- OUTSIDE RECORDS SUMMARY | 2023-07-14 10:03 | External Medical Summary ---
Author Name Unknown Address Unknown Organization K0G:[facility] [place] [address] [place] [address] Laboratory Report Ordering Provider Test Date Status HY,DEPAMPHILIS 01/31/2023 05:20:00 Final Warfarin Therapy
INR: 2 .0-3.0 conventional anticoagulation
INR: 2.5- 3.5 high intensity anticoagulation Observation Date Value Abnormality Reference (Units ) Status PT 01/31/2023 05:20:00 28.4 Above high normal 11 .6-15.2 (seconds) Final INR 01/31/2023 05:20:00 2.6 Above high normal 0. 8-1.2 Final Performing Location [facility] [place] [address] [place] [address]
--- NOTE | 2023-07-14 10:06 | CT Scan Report ---
CT OF THE HEAD WITHOUT CONTRAST CLINICAL HISTORY: Syncope. COMPARISON STUDY: Head CT May 17, 2022. TECHNIQUE: Helical axial images of the head were obtained without IV contrast. Automated exposure con trol was utilized for the study. A dose lowering technique was utilized adhering to the principles o f ALARA. FINDINGS: No acute intracranial hemorrhage, midline shift or mass effect is present. White matter hyp odensities are unchanged and favor small vessel disease. The ventricular system is unremarkable. The basal cisterns are patent. No extra-axial collections are present. There are no findings to suggest a cute dural sinus thrombosis or acute territorial infarct. No significant calvarial abnormalities are present. Visualized portions of the sinuses and mastoid air cells are clear. IMPRESSION: No acute intracranial findings. No change in appearance of the brain. ACT 112: Negative or not required by law. Electronically signed by: Philip Huitron M.D. 07/14/2023 10:05 AM
--- NOTE | 2023-07-14 10:14 | CT Scan Report ---
CERVICAL SPINE CT CT DOSE: 1085.32 mGy.cm HISTORY: fall TECHNIQUE: Multiaxial CT images of the cervical spine were performed and reformatted in the sagittal and coronal plane without the use of contrast. A dose lowering technique was utilized adhering to th e principles of ALARA. COMPARISON: Cervical spine CT 02/18/2021. FINDINGS: No fractures. No subluxation. Prevertebral soft tissues and the C1-C2 interval are intact. No pneumothorax. Straightening the cervical spine. Moderate to severe disc space narrowing and endpla te osteophytes seen throughout the cervical spine. IMPRESSION: No fractures within the cervical spine. ACT 112: Negative or not required by law. Electronically signed by: Jerel Villar M.D. 07/14/2023 10:12 AM
[2023-07-14 10:30] LABS: Basophils # (auto) 0.05 K/uL (0.00-0.20); Basophils % (auto) 0.8 %; Eosinophils # (auto) 0.03 K/uL (0.00-0.50); Eosinophils % (auto) 0.5 %; Hematocrit (blood only) 34.3 % (37.0-47.0); Hemoglobin 11.3 g/dl (12.0-16.0); Immature Granulocytes # (auto) 0.03 K/uL (0.01-0.20); Immature Granulocytes % (auto) 0.5 %; Lymphocytes # (auto) 0.48 K/uL (1.20-3.40); Lymphocytes % (auto) 7.8 %; Mean Corpuscular Hemoglobin 27.6 pg (25.0-34.0); Mean Corpuscular Hgb Conc 32.9 g/dL (32.0-36.0); Mean Corpuscular Volume 83.7 fL (80.0-100.0); Mean Platelet Volume 10.8 fL (9.4-12.4); Monocytes # (auto) 0.23 K/uL (0.11-0.59); Monocytes % (auto) 3.8 %; Neutrophils % (auto) 86.6 %; Platelet Count 193 K/uL (130-400); RDW Standard Deviation 48.8 fL (36.4-46.3); White Blood Count 6.12 K/ul (4.8-10.8)
[2023-07-14 10:37] LABS: Albumin Level 3.5 gm/dl (3.4-5.0); Bilirubin,Total 1.2 mg/dl (0.2-1.0); Calcium 10.1 mg/dl (8.6-10.3); Magnesium 2.1 mg/dl (1.7-2.4); Potassium 3.8 mmol/L (3.5-5.1)
[2023-07-14 10:44] LABS: Albumin Globulin Ratio 1.3 (0.9-2); BUN Creatinine Ratio 27.8 (10-20); Creatinine Clr Calc Pharmacy 34.6 ml/min; Est GFR (African American) 61.3 ml/min; Est GFR (Non-African American) 52.9 ml/min; Globulin 2.8 gm/dl (2.5-4.0); Total Protein 6.3 gm/dl (6.0-8.3)
[2023-07-14 11:06] LABS: Troponin I High Sensitivity 17.8 pg/ml (0-14)
[2023-07-14 11:15] LABS: INR 4.4 (0.9-1.1); Partial Thromboplastin Ratio 1.5; Partial Thromboplastin Time 42 Seconds (21-31); Prothrombin Time 44.2 Seconds (9.0-12.0); Thyroid Stimulating Hormone 4.633 uIu/ml (0.300-4.500)
[2023-07-14] MEDS ORDERED: ACETAMINOPHEN 325 MG TAB PO STA (11:26)
[2023-07-14 13:10] LABS: T4 Free Thyroxine 2.08 ng/dl (0.61-1.60)
[2023-07-14] MEDS ORDERED: FUROSEMIDE INJ 20 MG/2 ML VIAL IV ONE (14:18)
--- NOTE | 2023-07-14 14:18 | History & Physical Report ---
Date of Service July 14, 2023 Assessment & Plan (1) Fall: (2) Weakness: (3) Acute hyponatremia: (4) NICM (nonischemic cardiomyopathy): (5) Permanent atrial fibrillation: (6) AICD (automatic cardioverter/defibrillator) present: (7) manager terminal current use of anticoagulant: (8) CKD (chronic kidney disease) stage 3, GFR 30-59 ml/min: Plan Ms. 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 Patient notes she does not recall the fall and awoke the following morning on the ground. Duplex was obtained of BL carotids in 2019 with less than 50% stenosis at that time. She does not have her blood pressure recorded to determine if these events were truly hypotensive while at home. Patient has notable cardiac history, therefore it would be prudent to rule out cardiogenic cause for events leading up to presentation. #?Syncopal fall # NICM, Heart Failure with recovered ejection fraction(25% 2015-55% 2022) s/p AICD -Follows Dr Blankenship; however, recent medication adjustments by PCP -Stopped coreg ~1 week and torsemide ~3 days -Orthostats negative in ED -s/p IV lasix in ED for BNP 397 -ECHO: stable EF 55% -Cardiology consulted for device check and further medication management -Monitor on telemetry #ambulatory dysfunction #History of mechanical falls Fall precautions hold gabapentin given somnolence during daytime PT/OT #Acute on chronic hyponatremia -Hypotonic, potentially related to holding home lasix -Trend BMP (baselin 131-133) s/p IV lasix #Transaminitis slight elevation in AST 55, ALP 132, T Bili 1.2 -Trend CMP, consider US if uptrending (asymptomatic on exam) #chronic atrial fibrillation #Supratherapeutic INR s/p ablation in 2007 INR 4.4 on admission Hold home Coumadin, trend AM INR #CKDIII stable, at baseline #Hypothyroidism -Continue home Synthroid #Osteoporosis -On home alendronate and raloxifene -Hold in setting of elevated LFTS, resume when stable DVT hold iso supratherapuetic INR Heart healthy diet Admit tele I spent a total of 65 minutes coordinating, documenting, and providing care for this patient excluding time spent in the performance of separately billed services. History of Present Illness Chief Complaint: Fall, Weakness Primary Care Provider: Faith Saldivar Ms. 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 Patient states she has been managing her falls/weakness by discussing medication management with her PCP, Dr. Saldivar. Patient reports a likely fall on (07/08) that she states she must've sustained that night as she awoke on Wednesday on the floor next to her bed. She does not endorse any prodromal symptoms, like dizziness, lightheadedness when standing, diaphoresis, chest pain, fading of vision, or other notable concerns outside of "sleeping all the time." She states that since that fall/being on the ground, she has not taken her carvedilol. She did follow with PCP to discuss medications on Wednesday (07/12), but states that she was hesitant to take any further medications and thus even stopped her torsemide to see if that helps. Her weakness progressed, prompting presentation to the ED She denies any sick contact or other acute concerns. In the ED, vital signs ranged from 98-150s SBP, HR in 70s, afebrile and saturating well on room air. She was given tylenol 650mg. Orthostatic pending Labs notable for trop of 17.8, BNP 397, CK 18, ALP 132, AST 55, Sodium 129 (serum osmo 276) EKG fairly similar to prior from 12/2022, paced, no signs of ischemia/ST changes Allergies Allergy/AdvReac Type Severity Reaction Status Date / Time Sulfa (Sulfonamide AdvReac Severe GI Unverified 01/21/23 23:07 Antibiotics) SYMPTOMS;kidney function compromised ciprofloxacin [From Cipro] AdvReac nausea/vomi Verified 01/21/23 23:07 ting Home Medications Medication Instructions Recorded Confirmed Type alendronate 70 mg tablet 0 mg PO WK 02/18/21 07/14/23 History aspirin 81 mg tablet,delayed 81 mg PO QAM 02/18/21 07/14/23 History release cholecalciferol (vitamin D3) 25 2,000 unit PO DAILY 02/18/21 07/14/23 History mcg (1,000 unit) tablet (Vitamin D3) gabapentin 100 mg capsule 100 mg PO HS 02/18/21 07/14/23 History multivitamin (Multiple Vitamins 1 tab PO QAM 02/18/21 07/14/23 History tablet) simvastatin 10 mg tablet 10 mg PO HS 02/18/21 07/14/23 History warfarin 5 mg tablet 2.5 mg PO . MONWEDTHURFRISUN 02/18/21 07/14/23 History levothyroxine 75 mcg capsule 75 mcg PO DAILY 02/14/22 07/14/23 History lifitegrast 5 % eye drops in a 1 drp OPB HS 02/14/22 07/14/23 History dropperette (Xiidra) sennosides 8.6 mg tablet (senna) 25.8 mg PO DAILY 02/14/22 07/14/23 History warfarin 5 mg tablet 5 mg PO .Wednesday02/14/22 07/14/23 History acetaminophen 325 mg tablet 650 mg (2 x 325 mg) PO Q4H PRN 02/25/22 07/14/23 Rx fever or pain #30 tabs polyethylene glycol 3350 17 gram 17 g PO Q6 PRN constipation #30 ea 02/25/22 07/14/23 Rx oral powder packet (Miralax) torsemide 20 mg tablet 20 mg PO QAM #30 tabs 01/29/23 07/14/23 Rx carvedilol 3.125 mg tablet 3.125 mg PO DAILY 07/14/23 07/14/23 History cyclosporine 0.05 % eye drops in a 1 drp ophthalmic (eye) BID PRN 07/14/23 07/14/23 History dropperette (Restasis) .uses sometimes raloxifene 60 mg tablet 0 mg PO DIRECTED 07/14/23 07/14/23 History Past Med/Surg History Medical History (Updated 07/14/23 @ 17:44 by Oksana Goldstein MD) Fall Spinal stenosis HTN (hypertension) CKD (chronic kidney disease) stage 3, GFR 30-59 ml/min Chronic heart failure with preserved ejection fraction (HFpEF) Permanent atrial fibrillation Chronic hyponatremia Hypokalemia Subcapital fracture of left femur Hx of cardiac pacemaker HLD (hyperlipidemia) H/O: HTN (hypertension) Hypothyroid Osteoporosis Surgical History Hx of atrioventricular node ablation Hx of tricuspid valve repair Hx of mitral valve replacement S/P cardiac pacemaker procedure Social History Smoking Status: Never smoker Hx Alcohol Use: No Hx Substance Use: No Preferred Language: Citizen Of [place] Communication Ability: Effective Finance Executive Required: No Beliefs That Will Affect Care: None Current Living Situation: Alone Feels Safe at Home: Yes Assistive Devices: Cane Review of Systems Constitutional: + malaise and + daytime sleepiness Eyes: no worsening vision Respiratory: no cough, no chest congestion and no dyspnea on exertion Cardiovascular: + syncope and + edema; no chest pain, no chest pain at rest, no dyspnea, no orthopnea and no palpitations Physical Exam Constitutional: WD/WN, vitals as above Respiratory: normal respiratory effort, lungs clear to auscultation Cardiovascular: irregular rhythm, BLE 2+ on R > L Gastrointestinal (Abdomen): normal bowel sounds, soft, nontender, no hepatosplenomegaly Results & Data Results & Data Vital Signs (Past 12 Hours) Vital Signs Temp Pulse Pulse Resp BP BP Pulse Ox 07/14/23 13:03 75 07/14/23 13:00 74 25 H 98/48 L 95 07/14/23 12:00 73 26 H 125/65 94 07/14/23 11:30 74 26 H 152/85 H 94 07/14/23 11:00 75 32 H 07/14/23 09:15 07/14/23 09:04 73 07/14/23 08:54 36.5 C 73 16 110/71 96 O2 Del Method 07/14/23 13:03 07/14/23 13:00 Room Air 07/14/23 12:00 Room Air 07/14/23 11:30 Room Air 07/14/23 11:00 07/14/23 09:15 Room Air 07/14/23 09:04 07/14/23 08:54 Room Air Laboratory Results Short CBC 07/14/23 Range/Units 10:05 WBC 6.12 (4.8-10.8) K/ul Hgb 11.3 L (12.0-16.0) g/dl Hct 34.3 L (37.0-47.0) % Plt Count 193 (130-400) K/uL BMP 07/14/23 10:05 Sodium 129 L Potassium 3.8 Chloride 95 L Carbon Dioxide 27 BUN 27 H Creatinine 0.97 Glucose 98 Calcium 10.1 Cardiac Enzymes 07/14/23 Range/Units 10:05 Total Creatine Kinase 18 L (26-192) U/L Liver Function 07/14/23 Range/Units 10:05 Total Bilirubin 1.2 H (0.2-1.0) mg/dl AST 55 H (13-39) U/L ALT 34 (7-52) U/L Alkaline Phosphatase 132 H (34-104) U/L Albumin 3.5 (3.4-5.0) gm/dl Labs from admission reviewed Diagnostic Findings Chest X-Ray 07/14/23 09:15 XR chest 1V portable HISTORY: fall COMPARISON: Chest 01/21/2023. FINDINGS: No pneumothorax. No pleural effusions. The heart remains enlarged. There is a left-sided pacemaker/defibrillator again noted. Stable linear scarlike density within the right midlung zone. No new focal lung consolidations to suggest a pneumonia. Mild interstitial thickening is again noted. No evidence for pulmonary edema. Scoliosis, unchanged. No acute fractures identified. IMPRESSION: No significant change compared to the prior study. No acute process. ACT 112: Negative or not required by law. Electronically signed by: Jerel Villar M.D. 07/14/2023 9:45 AM Pelvis X-Ray 07/14/23 09:15 XR pelvis 1-2V routine CLINICAL HISTORY: fall COMPARISON: Right hip radiographs January 22, 2023. Pelvis and right hip radiographs January 21, 2023. FINDINGS: Sacroiliac joints and symphysis pubis are intact. There is no acute fracture within the pelvis or hips. Partial interval healing of the intertrochanteric fracture of the right femur is noted status post internal fixation. Visualized portions of the hardware are intact. Alignment is unchanged. Left hip arthroplasty is noted. Old right pubic ring fractures are present. IMPRESSION: 1. No acute fracture within the pelvis or hips. 2. Status post internal fixation of the intertrochanteric fracture of the right femur. No change in alignment with partial interval healing. 3. Visualized portions of the left hip arthroplasty intact. ACT 112: Negative or not required by law. Electronically signed by: Philip Huitron M.D. 07/14/2023 9:[address] 07/14/23 09:[address] DOSE: 1085.32 mGy.cm HISTORY: fall TECHNIQUE: Multiaxial CT images of the cervical spine were performed and reformatted in the sagittal and coronal plane without the use of contrast. A dose lowering technique was utilized adhering to the principles of ALARA. COMPARISON: Cervical spine CT 02/18/2021. FINDINGS: No fractures. No subluxation. Prevertebral soft tissues and the C1-C2 interval are intact. No pneumothorax. Straightening the cervical spine. Moderate to severe disc space narrowing and endplate osteophytes seen throughout the cervical spine. IMPRESSION: No fractures within the cervical spine. ACT 112: Negative or not required by law. Electronically signed by: Jerel Villar M.D. 07/14/2023 10:[address] 07/14/23 09:16 CT OF THE HEAD WITHOUT CONTRAST CLINICAL HISTORY: Syncope. COMPARISON STUDY: Head CT May 17, 2022. TECHNIQUE: Helical axial images of the head were obtained without IV contrast. Automated exposure control was utilized for the study. A dose lowering technique was utilized adhering to the principles of ALARA. FINDINGS: No acute intracranial hemorrhage, midline shift or mass effect is present. White matter hypodensities are unchanged and favor small vessel disease. The ventricular system is unremarkable. The basal cisterns are patent. No extra-axial collections are present. There are no findings to suggest acute dural sinus thrombosis or acute territorial infarct. No significant calvarial abnormalities are present. Visualized portions of the sinuses and mastoid air cells are clear. IMPRESSION: No acute intracranial findings. No change in appearance of the brain. ACT 112: Negative or not required by law. Electronically signed by: Philip Huitron M.D. 07/14/2023 10:05 AM Duplex 11/2021 OP reviewed: Impression: Right carotid artery duplex examination indicates evidence of less than 50% stenosis of the internal carotid artery. Left carotid artery duplex examination indicates evidence of less than 50% stenosis of the internal carotid artery. Medications Administered Home Medications Medication Instructions Recorded Confirmed Last Taken alendronate 70 mg tablet 0 mg PO WK 02/18/21 07/14/23 01/15/23 aspirin 81 mg tablet,delayed 81 mg PO QAM 02/18/21 07/14/23 Unknown release cholecalciferol (vitamin D3) 25 2,000 unit PO DAILY 02/18/21 07/14/23 Unknown mcg (1,000 unit) tablet (Vitamin D3) gabapentin 100 mg capsule 100 mg PO HS 02/18/21 07/14/23 Unknown multivitamin (Multiple Vitamins 1 tab PO QAM 02/18/21 07/14/23 Unknown tablet) simvastatin 10 mg tablet 10 mg PO HS 02/18/21 07/14/23 Unknown warfarin 5 mg tablet 2.5 mg PO . MONWEDTHURFRISUN 02/18/21 07/14/23 Unknown levothyroxine 75 mcg capsule 75 mcg PO DAILY 02/14/22 07/14/23 Unknown lifitegrast 5 % eye drops in a 1 drp OPB HS 02/14/22 07/14/23 Unknown dropperette (Xiidra) sennosides 8.6 mg tablet (senna) 25.8 mg PO DAILY 02/14/22 07/14/23 Unknown warfarin 5 mg tablet 5 mg PO .Wednesday02/14/22 07/14/23 01/20/23 acetaminophen 325 mg tablet 650 mg (2 x 325 mg) PO Q4H PRN 02/25/22 07/14/23 Unknown fever or pain #30 tabs polyethylene glycol 3350 17 gram 17 g PO Q6 PRN constipation #30 ea 02/25/22 07/14/23 Unknown oral powder packet (Miralax) torsemide 20 mg tablet 20 mg PO QAM #30 tabs 01/29/23 07/14/23 Unknown carvedilol 3.125 mg tablet 3.125 mg PO DAILY 07/14/23 07/14/23 Unknown cyclosporine 0.05 % eye drops in a 1 drp ophthalmic (eye) BID PRN 07/14/23 07/14/23 Unknown dropperette (Restasis) .uses sometimes raloxifene 60 mg tablet 0 mg PO DIRECTED 07/14/23 07/14/23 Unknown Code Status & VTE Plan VTE Prophylaxis Plan VTE Prophylaxis will be ordered: Yes
[2023-07-14 15:55] LABS: Appearance Urine Clear (Clear); Bacteria Urine Automated Negative (Negative); Bilirubin Urine Negative (Negative); Blood Urine Negative (Negative); Color Urine Yellow; Epithelial Cell Urine Auto >30 /lpf (0-5); Glucose Urine UA Negative (Negative); Ketones Urine Trace (Negative); Leukocyte Esterase Urine 2+ (Negative); Nitrite Urine Negative (Negative); Protein Urine Trace (Negative); RBC Urine Automated 0-4 /hpf (0-4); Urobilinogen Urine Negative (Negative); pH Urine 5.5 (4.5-7.5)
[2023-07-14] MEDS ORDERED: POLYETHYLENE (MIRALAX) 17 GM PACK PO PRN (16:31)
[2023-07-14] MEDS: SIMVASTATIN 10 MG TAB PO SCH (20:41)
[2023-07-14] MEDS: ACETAMINOPHEN 325 MG TAB PO PRN (20:45)
[2023-07-15] MEDS: ACETAMINOPHEN 325 MG TAB PO PRN ×3 (03:49→17:27)
[2023-07-15] MEDS: LEVOTHYROXINE SODIUM 75 MCG TABLET PO SCH (05:38)
[2023-07-15 06:44] LABS: Hematocrit (blood only) 29.4 % (37.0-47.0); Hemoglobin 10.2 g/dl (12.0-16.0); Mean Corpuscular Hemoglobin 27.9 pg (25.0-34.0); Mean Corpuscular Hgb Conc 34.7 g/dL (32.0-36.0); Mean Corpuscular Volume 80.3 fL (80.0-100.0); Mean Platelet Volume 10.2 fL (9.4-12.4); Platelet Count 182 K/uL (130-400); RDW Coefficient of Variation 16.4 % (11.5-14.5); RDW Standard Deviation 47.6 fL (36.4-46.3); Red Blood Count 3.66 M/uL (4.20-5.40); White Blood Count 5.97 K/ul (4.8-10.8)
[2023-07-15 07:16] LABS: Albumin Globulin Ratio 1.4 (0.9-2); BUN Creatinine Ratio 28.1 (10-20); Bilirubin,Total 1.1 mg/dl (0.2-1.0); Calcium 8.9 mg/dl (8.6-10.3); Creatinine Clr Calc Pharmacy 31.7 ml/min; Est GFR (African American) 62.1 ml/min; Est GFR (Non-African American) 53.6 ml/min; Globulin 2.2 gm/dl (2.5-4.0); Magnesium 1.9 mg/dl (1.7-2.4); Phosphorus 2.5 mg/dl (2.5-4.9); Potassium 3.8 mmol/L (3.5-5.1); Total Protein 5.2 gm/dl (6.0-8.3)
[2023-07-15 07:34] LABS: INR 4.5 (0.9-1.1); Prothrombin Time 44.7 Seconds (9.0-12.0)
--- NOTE | 2023-07-15 08:25 | Cardiology Consultation ---
Date of Consultation July 15, 2023 Assessment & Plan (1) Weakness: (2) Fall: (3) Biventricular cardiac pacemaker in situ: (4) History of mitral valve replacement with bioprosthetic valve: (5) Hypotension: Plan Patient admitted with recurrent falls/generalized weakness. Possibly syncopal episode last weekend in setting of severe hypotension noted at home (BP 70/30's) Patient's outpatient medications had been reduced including carvedilol and torsemide. Patient stopped carvedilol last week due to hypotension. She had not taken diuretics in several days. Device interrogated today and was without arrhythmias contributing to her symptoms. Would hold carvedilol for now. She appears clinically dry. Hold torsemide for now. Orthostatic vital signs requested. If she has ongoing hypotension, consider midodrine. Echo with preserved EF, normal gradients of mitral valve prosthesis. Troponin minimally elevated, but flat at 19-20. No symptoms to suggest ACS. PT/OT recommended. Would consider rehab upon discharge. Case discussed with Dr. Blankenship I spent a total of 45 minutes on the date of service in preparation, delivery, and documentation of the care provided to this patient, excluding any time spent in the performance of separately billed services. Shobha Rascon PA-C Department of Cardiology, [facility] This chart was completed in part utilizing Speech Voice Recognition Software. Grammatical errors, random word insertions, pronoun errors, and incomplete sentences are an occasional consequence of this system due to software limitations, ambient noise, and hardware issues. Any formal questions or concerns about the content, text, or information contained within the body of this dictation should be directly addressed to the provider for clarification. Supervising Physician Co-Signing Physician Notes Supervising Physician Attestation: I have personally performed a history and physical examination on the patient. I agree with the physician life science research assistant's findings and plan as documented with the following additions. Subjective: Patient notes recent complaints of overall weakness and fatigue. Exam: Cardiovascular regular rhythm, no murmurs, chronic venous stasis changes noted in the lower extremities. Edema status much improved her usual outpatient baseline compared to previous outpatient visits with me. In the past she had significant lower extremity edema Left infraclavicular device pocket clean dry and intact, no erythema. Data: EKG performed 07/14/2023 and interpreted independently: Ventricular paced rhythm at 71 bpm. Her Saint Jun biventricular pacemaker AICD was interrogated remotely. Results discussed with customer response representative. Normal device function. Assessment and Plan: Easy fatigability, hypotension. Coagulopathy, INR 4.5In the setting of chronic atrial fibrillation * Hold diuretics and carvedilol. Liberalize oral intake * Hold Coumadin DVT prophylaxis: INR 4.5 , coumadin on hold I spent a total of 20 minutes on the date of service in preparation, delivery, and documentation of the care provided to this patient, excluding any time spent in the performance of separately billed services. Octaviano Blankenship, DO History of Present Illness Reason for Consultation: Syncope Requesting Physician: Dr. Goldstein Attending Physician: Dr. Blankenship History of Present Illness Patient is a 87 year old female known to [facility] Cardiology, Dr. Blankenship/Ray for complex history includin.Nonischemic cardiomyopathy, left ventricular ejection fraction of 25-30% per echo in [place] in January,, improved to 45-49% after cardiac resynchronization therapy based on repeat echocardiogram a [facility] July,, and then 55-59% in 03/2018, 50% 12/2019, 50% 2020 2.History of minimally invasive mitral valve replacement utilizing a [address] Jun Epic bioprosthesis and TV repair with 30 mm Triad ring, 05/27/15 at [facility], Dr Alexander 3.Residual moderate aortic valve regurgitation 4.History of permanent atrial fibrillation, AV junction ablation 2007 5.Permanent pacemaker initially placed in 2006, generator change 2010, upgrade to biventricular AICD May, 6.Stage III chronic kidney disease 7.Hypothyroidism Patient was admitted to [facility] with recurrent falls/weakness and possible episode of syncope this past weekend. Patient reports her BP has been very low at home, often in the 90/50 range. PCP reduced carvedilol to 3.125 mg BID. Patient admits she was just not even taking carvedilol over the last few weeks. Last week on , patient's sister came to get her for a jewish luncheon. While at the jewish, patient was not able to stay awake. Her sister took her home. Patient remembers checking her BP at home and readings were in the 70's. The next thing she recalls is awakening Wednesday morning on the floor in her house. The next day her sister came and the patient was awake and alert but did not recall the events of night. she felt her ribs were sore. Over the next few days patient had several additional falls. feels her "legs won't work". No recurrent syncope/near syncope. Just feels generally weak. No chest pain. No dyspnea. She did not take her diuretics for several days. Her family brought her to ER yesterday. Sodium levels 129, similar to past findings. BP was borderline low. Troponin minimally elevated at 19 and flat. She was given one dose IV Lasix upon admission due to mild SOB. Head CT was negative for acute findings. Echo upon admission with preserved LVEF, dilated RV, normal gradients of mitral valve prosthesis. At time of consult, patient resting in bed comfortably. Eating breakfast. She is feeling ok, but has not been out of bed yet. no dizziness or lightheadedness. No chest pain or dyspnea. Edema improved. No orthopnea, PND. Allergies Allergy/AdvReac Type Severity Reaction Status Date / Time Sulfa (Sulfonamide AdvReac Severe GI Unverified 01/21/23 23:07 Antibiotics) SYMPTOMS;kidney function compromised ciprofloxacin [From Cipro] AdvReac nausea/vomi Verified 01/21/23 23:07 ting Home Medications Medication Instructions Recorded Confirmed Type alendronate 70 mg tablet 0 mg PO WK 02/18/21 07/14/23 History aspirin 81 mg tablet,delayed 81 mg PO QAM 02/18/21 07/14/23 History release cholecalciferol (vitamin D3) 25 2,000 unit PO DAILY 02/18/21 07/14/23 History mcg (1,000 unit) tablet (Vitamin D3) gabapentin 100 mg capsule 100 mg PO HS 02/18/21 07/14/23 History multivitamin (Multiple Vitamins 1 tab PO QAM 02/18/21 07/14/23 History tablet) simvastatin 10 mg tablet 10 mg PO HS 02/18/21 07/14/23 History warfarin 5 mg tablet 2.5 mg PO . MONWEDTHURFRISUN 02/18/21 07/14/23 History levothyroxine 75 mcg capsule 75 mcg PO DAILY 02/14/22 07/14/23 History lifitegrast 5 % eye drops in a 1 drp OPB HS 02/14/22 07/14/23 History dropperette (Xiidra) sennosides 8.6 mg tablet (senna) 25.8 mg PO DAILY 02/14/22 07/14/23 History warfarin 5 mg tablet 5 mg PO .Wednesday02/14/22 07/14/23 History acetaminophen 325 mg tablet 650 mg (2 x 325 mg) PO Q4H PRN 02/25/22 07/14/23 Rx fever or pain #30 tabs polyethylene glycol 3350 17 gram 17 g PO Q6 PRN constipation #30 ea 02/25/22 07/14/23 Rx oral powder packet (Miralax) torsemide 20 mg tablet 20 mg PO QAM #30 tabs 01/29/23 07/14/23 Rx carvedilol 3.125 mg tablet 3.125 mg PO DAILY 07/14/23 07/14/23 History cyclosporine 0.05 % eye drops in a 1 drp ophthalmic (eye) BID PRN 07/14/23 07/14/23 History dropperette (Restasis) .uses sometimes raloxifene 60 mg tablet 0 mg PO DIRECTED 07/14/23 07/14/23 History Patient History Medical History (Updated 07/15/23 @ 10:26 by Shobha Rascon PA-C) Fall Spinal stenosis HTN (hypertension) CKD (chronic kidney disease) stage 3, GFR 30-59 ml/min Chronic heart failure with preserved ejection fraction (HFpEF) Permanent atrial fibrillation Chronic hyponatremia Hypokalemia Subcapital fracture of left femur Hx of cardiac pacemaker HLD (hyperlipidemia) H/O: HTN (hypertension) Hypothyroid Osteoporosis Surgical History Hx of atrioventricular node ablation Hx of tricuspid valve repair Hx of mitral valve replacement S/P cardiac pacemaker procedure Social History Smoking Status: Never smoker Do You Dip or Chew Tobacco: No; Hx Alcohol Use: No Hx Substance Use: No Preferred Language: Czech Communication Ability: Effective Manager Community Development Required: No Beliefs That Will Affect Care: None Current Living Situation: Alone Other Information That Helps Us Care for You: No Feels Safe at Home: Yes Assistive Devices: None Review of Systems Review of Systems: All systems reviewed & are unremarkable except as noted in HPI & below Physical Exam Constitutional: WD/WN, vitals as above well nourished; no acute distress Respiratory: normal respiratory effort Auscultation: + rales (faint rales b/l) Cardiovascular: Rate/Rhythm: regular rate and regular rhythm Heart Sounds: + murmur (I/ systolic murmur ) Vessels: no JVD Extremities: no edema Gastrointestinal (Abdomen): normal bowel sounds, soft, nontender, no hepatosplenomegaly Musculoskeletal: no cyanosis or clubbing, extremities motor strength 5/5 Neurologic: PERRL, EOMI, accommodation nl, no face palsy, no dysarthria Results & Data Vital Signs (Past 12 Hours) Vital Signs Temp Pulse Pulse Resp BP Pulse Ox O2 Del Method 07/15/23 07:59 36.7 C 68 16 105/63 94 Room Air 07/15/23 07:16 76 07/15/23 04:10 36.7 C 84 18 141/64 H 94 Room Air 07/14/23 23:32 37 C 71 16 97/55 L 94 Room Air 07/14/23 22:00 76 Laboratory Results Cardiac Enzymes 07/14/23 07/14/23 07/14/23 Range/Units 10:05 10:39 16:46 AST 55 H (13-39) U/L Troponin I High Sens 17.8 H 18.9 H (0-14) pg/ml B-Natriuretic Peptide 397 H (0-100) pg/ml 07/14/23 07/15/23 Range/Units 21:03 06:00 AST 94 H (13-39) U/L Troponin I High Sens 19.8 H (0-14) pg/ml B-Natriuretic Peptide (0-100) pg/ml Coagulation 07/14/23 07/14/23 07/15/23 Range/Units 10:05 10:39 06:00 PT 44.2 H 44.7 H (9.0-12.0) Seconds APTT 42 H (21-31) Seconds B-Natriuretic Peptide 397 H (0-100) pg/ml CBC 07/14/23 07/15/23 Range/Units 10:05 06:00 WBC 6.12 5.97 (4.8-10.8) K/ul RBC 4.10 L 3.66 L (4.20-5.40) M/uL Hgb 11.3 L 10.2 L (12.0-16.0) g/dl Hct 34.3 L 29.4 L (37.0-47.0) % Plt Count 193 182 (130-400) K/uL Neut # (Auto) 5.30 (1.40-6.50) K/uL Lymph # (Auto) 0.48 L (1.20-3.40) K/uL [place] # (Auto) 0.23 (0.11-0.59) K/uL Eos # (Auto) 0.03 (0.00-0.50) K/uL Baso # (Auto) 0.05 (0.00-0.20) K/uL Comprehensive Metabolic Panel 07/14/23 07/15/23 Range/Units 10:05 06:00 Sodium 129 L 131 L (136-145) mmol/L Potassium 3.8 3.8 (3.5-5.1) mmol/L Chloride 95 L 99 (98-107) mmol/L Carbon Dioxide 27 25 (21-32) mmol/L BUN 27 H 27 H (6-23) mg/dl Creatinine 0.97 0.96 (0.6-1.2) mg/dl Glucose 98 98 (70-99(Fasting)) mg/dl Calcium 10.1 8.9 (8.6-10.3) mg/dl AST 55 H 94 H (13-39) U/L ALT 34 57 H (7-52) U/L Alkaline Phosphatase 132 H 121 H (34-104) U/L Total Protein 6.3 5.2 L (6.0-8.3) gm/dl Albumin 3.5 3.0 L (3.4-5.0) gm/dl Intake and Output 07/14/23 07/15/23 07/15/23 22:59 06:59 14:59 Intake Total 320 / 620 300 / 620 Output Total 400 / 400 Balance 320 / 220 -100 / 220 Intake: Oral 320 / 620 300 / 620 Output: Urine 400 / 400 Other: # Unmeasured Voids 2 Weight 55.8 kg 57.2 kg Weight Measurement Method Standing Scale Built in [employer] [facility] Diagnostic Findings Telemetry reviewed: Underlying atrial paced with chronic ventricular pacing. Occ PVC Device interrogation, per [employer] Rep: appropriate function and battery life Echo results reviewed from yesterday 07/14/23: Mild concentric LVH Small inferior wall motion abnormality in the basal segement of the inferior wall. LVEF 55-60% RV is not well visualized but appears dilated LA is severely dilated RA is severely dilated Aortic valve is mildly calcified Aortic stenosis is absent Bioprosthetic mitral valve. No prosthetic regurgitation Prosthetic mitral valve peak or mean gradients are normal. Doppler findings do not suggest pulm hypertension Head CT on admission reviewed: No acute intracranial findings. No change in appearance of the brain. Chest xray report reviewed on admission: IMPRESSION: No significant change compared to the prior study. No acute process. Medications Administered Current Inpatient Medications Acetaminophen (Acetaminophen 325 Mg Tab) 650 mg PO Q6H PRN PRN Reason: Pain Stop: 08/13/23 20:41 Last Admin: 07/15/23 09:50 Dose: 650 mg Aspirin (Aspirin 81 Mg Ectab) 81 mg PO QAM [facility] Stop: 08/14/23 08:59 Last Admin: 07/15/23 09:51 Dose: 81 mg Levothyroxine Sodium (Levothyroxine Sodium 75 Mcg Tablet) 75 mcg PO DAILYBB [facility] Stop: 08/14/23 06:29 Last Admin: 07/15/23 05:38 Dose: 75 mcg Multivitamins (Multivitamin Tab) 1 tab PO QAM [facility] Stop: 08/14/23 08:59 Last Admin: 07/15/23 09:51 Dose: 1 tab Polyethylene Glycol (Polyethylene (Miralax) 17 Gm Pack) 17 gm PO Q6 PRN PRN Reason: constipation Stop: 08/13/23 16:30 Sennosides (Senna 8.6 Mg Tab) 25.8 mg PO DAILY [facility] Stop: 08/14/23 08:59 Last Admin: 07/15/23 09:51 Dose: 25.8 mg Simvastatin (Simvastatin 10 Mg Tab) 10 mg PO HS [facility] Stop: 08/13/23 20:59 Last Admin: 07/14/23 20:41 Dose: 10 mg (2) Fall Encounter type: initial encounter Qualified Code(s): W19.XXXA - Unspecified fall, initial encounter (5) Hypotension Hypotension type: hypotension due to hypovolemia Qualified Code(s): E86.1 - Hypovolemia
--- NOTE | 2023-07-15 09:05 | Hospitalist Progress Note ---
Date of Service July 15, 2023 Assessment & Plan (1) Fall: (2) Weakness: (3) Acute hyponatremia: (4) NICM (nonischemic cardiomyopathy): (5) Permanent atrial fibrillation: (6) AICD (automatic cardioverter/defibrillator) present: (7) skilled nursing current use of anticoagulant: (8) CKD (chronic kidney disease) stage 3, GFR 30-59 ml/min: Plan Ms. 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 Patient notes she does not recall the fall and awoke the following morning on the ground. Duplex was obtained of BL carotids in 2019 with less than 50% stenosis at that time. She does not have her blood pressure recorded to determine if these events were truly hypotensive while at home. Patient has notable cardiac history, therefore it would be prudent to rule out cardiogenic cause for events leading up to presentation. 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 There is a small sized inferior wall motion abnormality with akinesis of the basal segment of the inferior wall. LV systolic function is normal. LVEF 55 to 60%. RV is not well-visualized but appears dilated on limited visualization. LA is severely dilated. RA is severely dilated. Aortic valve is mildly calcified. Aortic stenosis is absent. There is a bioprosthetic mitral valve. There is no significant prosthetic regurg. Prosthetic mitral valve peak/mean gradients are normal. Doppler findings do not suggest pulmonary hypertension. Cardiology consulted - Her Saint Jun biventricular pacemaker AICD was interrogated remotely. Results discussed with inbound call center representative. Normal device function. Recommend to * Hold diuretics and carvedilol. Liberalize oral intake * Hold Coumadin as INR is supratherapeutic. Ambulatory dysfunction History of mechanical falls Fall precautions hold gabapentin given somnolence during daytime PT/OT Acute on chronic hyponatremia -Hypotonic, potentially related to holding home lasix -Trend BMP (baseline 131-133) s/p IV lasix in ED Transaminitis slight elevation in AST 55, ALP 132, T Bili 1.2 cont. to be elevated -Trend CMP, consider US if uptrending (asymptomatic on exam) Chronic atrial fibrillation Supratherapeutic INR s/p ablation in 2007 INR 4.5 Hold home Coumadin, monitor INR CKD III stable, at baseline Hypothyroidism -Continue home Synthroid Osteoporosis -On home alendronate and raloxifene -Hold in setting of elevated LFTS, resume when stable DVT ppx: hold coumadin for supratherapuetic INR Admission and Anticipated Discharge Date Admission Date: July 14, 2023 Subjective Pt seen in follow up of fall/ syncope Cardiology also consulted Currently laying in bed in NAD says she does not feel well, feels weak no chest pain, palpitations, shortness of breath. no abd. pain, n/v Review of Systems Review of Systems: All systems reviewed & are unremarkable except as noted in Subjective Physical Exam Physical Exam: Constitutional: WD/WN, elderly F i n NAD Respiratory: normal respiratory effort, CTAB, no wheezing Cardiovascular: Rate/Rhythm: regul ar rate and regula r rhythm, no murmu r Vessels: no JVD Extremities: tra ce LE edema, chron ic venous stasis c hanges Gastrointestinal ( Abdomen): normal bowel sound s, soft, nontender Musculoskeletal: NC/AT, moves extre mities Neurologic: awake, alert, orie nted, answers appr opriately, PERRL, EOMI, no face pals y, no dysarthria, moves extremities Results & Data Results & Data Vital Signs (Past 12 Hours) Vital Signs Temp Pulse Pulse Resp BP Pulse Ox O2 Del Method 07/15/23 07:59 36.7 C 68 16 105/63 94 Room Air 07/15/23 07:16 76 07/15/23 04:10 36.7 C 84 18 141/64 H 94 Room Air 07/14/23 23:32 37 C 71 16 97/55 L 94 Room Air 07/14/23 22:00 76 Laboratory Results 07/15/23 07/14/23 07/14/23 Range/Units 06:00 21:03 16:46 WBC 5.97 (4.8-10.8) K/ul RBC 3.66 L (4.20-5.40) M/uL Hgb 10.2 L (12.0-16.0) g/dl Hct 29.4 L (37.0-47.0) % MCV 80.3 (80.0-100.0) fL MCH 27.9 (25.0-34.0) pg MCHC 34.7 (32.0-36.0) g/dL RDW Std Deviation 47.6 H (36.4-46.3) fL RDW Coeff of Fabricio 16.4 H (11.5-14.5) % Plt Count 182 (130-400) K/uL MPV 10.2 (9.4-12.4) fL Immature Gran % (Auto) % Neut % (Auto) % Lymph % (Auto) % [place] % (Auto) % Eos % (Auto) % Baso % (Auto) % Neut # (Auto) (1.40-6.50) K/uL Lymph # (Auto) (1.20-3.40) K/uL [place] # (Auto) (0.11-0.59) K/uL Eos # (Auto) (0.00-0.50) K/uL Baso # (Auto) (0.00-0.20) K/uL Immature Gran # (Auto) (0.01-0.20) K/uL PT 44.7 H (9.0-12.0) Seconds INR 4.5 H (0.9-1.1) APTT (21-31) Seconds PTT Ratio Sodium 131 L (136-145) mmol/L Potassium 3.8 (3.5-5.1) mmol/L Chloride 99 (98-107) mmol/L Carbon Dioxide 25 (21-32) mmol/L Anion Gap 7 (3-11) BUN 27 H (6-23) mg/dl Creatinine 0.96 (0.6-1.2) mg/dl Est Cr Clr Drug Dosing 31.7 ml/min Est GFR ( Amer) 62.1 ml/min Est GFR (Non-Af Amer) 53.6 ml/min BUN/Creatinine Ratio 28.1 H (10-20) Glucose 98 (70-99(Fasting)) mg/dl Osmolality (280-300) mOsm/kg Calcium 8.9 (8.6-10.3) mg/dl Phosphorus 2.5 (2.5-4.9) mg/dl Magnesium 1.9 (1.7-2.4) mg/dl Total Bilirubin 1.1 H (0.2-1.0) mg/dl AST 94 H (13-39) U/L ALT 57 H (7-52) U/L Alkaline Phosphatase 121 H (34-104) U/L Total Creatine Kinase (26-192) U/L Troponin I High Sens 19.8 H 18.9 H (0-14) pg/ml B-Natriuretic Peptide (0-100) pg/ml Total Protein 5.2 L (6.0-8.3) gm/dl Albumin 3.0 L (3.4-5.0) gm/dl Globulin 2.2 L (2.5-4.0) gm/dl Albumin/Globulin Ratio 1.4 (0.9-2) Lipase (11-82) U/L TSH (0.300-4.500) uIu/ml Free T4 (0.61-1.60) ng/dl Random Cortisol mcg/dl Urine Color Urine Appearance (Clear) Urine pH (4.5-7.5) Ur Specific [place] (1.000-1.030) Urine Protein (Negative) Urine Glucose (UA) (Negative) Urine Ketones (Negative) Urine Blood (Negative) Urine Nitrite (Negative) Urine Bilirubin (Negative) Urine Urobilinogen (Negative) Ur Leukocyte Esterase (Negative) Urine WBC (Auto) (0-5) /hpf Urine RBC (Auto) (0-4) /hpf U Hyaline Cast (Auto) (0-5) /lpf U Epithel Cells (Auto) (0-5) /lpf Urine Bacteria (Auto) (Negative) Urine Yeast Urine Osmolality (500-800) mOsm/kg Ur Random Sodium mmol/L 07/14/23 07/14/23 07/14/23 Range/Units 15:44 10:39 10:05 WBC 6.12 (4.8-10.8) K/ul RBC 4.10 L (4.20-5.40) M/uL Hgb 11.3 L (12.0-16.0) g/dl Hct 34.3 L (37.0-47.0) % MCV 83.7 (80.0-100.0) fL MCH 27.6 (25.0-34.0) pg MCHC 32.9 (32.0-36.0) g/dL RDW Std Deviation 48.8 H (36.4-46.3) fL RDW Coeff of Fabricio 16.0 H (11.5-14.5) % Plt Count 193 (130-400) K/uL MPV 10.8 (9.4-12.4) fL Immature Gran % (Auto) 0.5 % Neut % (Auto) 86.6 % Lymph % (Auto) 7.8 % [place] % (Auto) 3.8 % Eos % (Auto) 0.5 % Baso % (Auto) 0.8 % Neut # (Auto) 5.30 (1.40-6.50) K/uL Lymph # (Auto) 0.48 L (1.20-3.40) K/uL [place] # (Auto) 0.23 (0.11-0.59) K/uL Eos # (Auto) 0.03 (0.00-0.50) K/uL Baso # (Auto) 0.05 (0.00-0.20) K/uL Immature Gran # (Auto) 0.03 (0.01-0.20) K/uL PT 44.2 H (9.0-12.0) Seconds INR 4.4 H (0.9-1.1) APTT 42 H (21-31) Seconds PTT Ratio 1.5 Sodium 129 L (136-145) mmol/L Potassium 3.8 (3.5-5.1) mmol/L Chloride 95 L (98-107) mmol/L Carbon Dioxide 27 (21-32) mmol/L Anion Gap 7 (3-11) BUN 27 H (6-23) mg/dl Creatinine 0.97 (0.6-1.2) mg/dl Est Cr Clr Drug Dosing 34.6 ml/min Est GFR ( Amer) 61.3 ml/min Est GFR (Non-Af Amer) 52.9 ml/min BUN/Creatinine Ratio 27.8 H (10-20) Glucose 98 (70-99(Fasting)) mg/dl Osmolality 276 L (280-300) mOsm/kg Calcium 10.1 (8.6-10.3) mg/dl Phosphorus (2.5-4.9) mg/dl Magnesium 2.1 (1.7-2.4) mg/dl Total Bilirubin 1.2 H (0.2-1.0) mg/dl AST 55 H (13-39) U/L ALT 34 (7-52) U/L Alkaline Phosphatase 132 H (34-104) U/L Total Creatine Kinase 18 L (26-192) U/L Troponin I High Sens 17.8 H (0-14) pg/ml B-Natriuretic Peptide 397 H (0-100) pg/ml Total Protein 6.3 (6.0-8.3) gm/dl Albumin 3.5 (3.4-5.0) gm/dl Globulin 2.8 (2.5-4.0) gm/dl Albumin/Globulin Ratio 1.3 (0.9-2) Lipase 15 (11-82) U/L TSH 4.633 H (0.300-4.500) uIu/ml Free T4 2.08 H (0.61-1.60) ng/dl Random Cortisol 23.98 mcg/dl Urine Color Yellow Urine Appearance Clear (Clear) Urine pH 5.5 (4.5-7.5) Ur Specific [place] 1.020 (1.000-1.030) Urine Protein Trace H (Negative) Urine Glucose (UA) Negative (Negative) Urine Ketones Trace H (Negative) Urine Blood Negative (Negative) Urine Nitrite Negative (Negative) Urine Bilirubin Negative (Negative) Urine Urobilinogen Negative (Negative) Ur Leukocyte Esterase 2+ H (Negative) Urine WBC (Auto) 1-5 (0-5) /hpf Urine RBC (Auto) 0-4 (0-4) /hpf U Hyaline Cast (Auto) 1-5 (0-5) /lpf U Epithel Cells (Auto) >30 H (0-5) /lpf Urine Bacteria (Auto) Negative (Negative) Urine Yeast Not Reportable Urine Osmolality 509 (500-800) mOsm/kg Ur Random Sodium 15 mmol/L Medications Administered Current Inpatient Medications Acetaminophen (Acetaminophen 325 Mg Tab) 650 mg PO Q6H PRN PRN Reason: Pain Stop: 08/13/23 20:41 Last Admin: 07/15/23 03:49 Dose: 650 mg Aspirin (Aspirin 81 Mg Ectab) 81 mg PO QAM [facility] Stop: 08/14/23 08:59 Levothyroxine Sodium (Levothyroxine Sodium 75 Mcg Tablet) 75 mcg PO DAILYBB [facility] Stop: 08/14/23 06:29 Last Admin: 07/15/23 05:38 Dose: 75 mcg Multivitamins (Multivitamin Tab) [facility] [place] [facility] Stop: 08/14/23 08:59 Polyethylene Glycol (Polyethylene (Miralax) 17 Gm Pack) 17 gm PO Q6 PRN PRN Reason: constipation Stop: 08/13/23 16:30 Sennosides (Senna 8.6 Mg Tab) 25.8 mg PO DAILY [facility] Stop: 08/14/23 08:59 Simvastatin (Simvastatin 10 Mg Tab) 10 mg PO HS [facility] Stop: 08/13/23 20:59 Last Admin: 07/14/23 20:41 Dose: 10 mg
[2023-07-15] MEDS: SENNA 8.6 MG TAB PO SCH (09:51)
[2023-07-15] MEDS: ASPIRIN 81 MG ECTAB PO SCH (09:51)
[2023-07-15] MEDS: MULTIVITAMIN TAB PO SCH (09:51)
[2023-07-15] MEDS: SIMVASTATIN 10 MG TAB PO SCH (20:41)
[2023-07-16] MEDS: LEVOTHYROXINE SODIUM 75 MCG TABLET PO SCH (05:55)
[2023-07-16] MEDS: ACETAMINOPHEN 325 MG TAB PO PRN ×2 (06:03→14:11)
--- NOTE | 2023-07-16 08:41 | Hospitalist Progress Note ---
Date of Service July 16, 2023 Assessment & Plan (1) Fall: (2) Weakness: (3) Acute hyponatremia: (4) NICM (nonischemic cardiomyopathy): (5) Permanent atrial fibrillation: (6) AICD (automatic cardioverter/defibrillator) present: (7) [facility] current use of anticoagulant: (8) CKD (chronic kidney disease) stage 3, GFR 30-59 ml/min: Plan Ms. 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 Patient notes she does not recall the fall and awoke the following morning on the ground. Duplex was obtained of BL carotids in 2019 with less than 50% stenosis at that time. She does not have her blood pressure recorded to determine if these events were truly hypotensive while at home. Patient has notable cardiac history, therefore it would be prudent to rule out cardiogenic cause for events leading up to presentation. 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 There is a small sized inferior wall motion abnormality with akinesis of the basal segment of the inferior wall. LV systolic function is normal. LVEF 55 to 60%. RV is not well-visualized but appears dilated on limited visualization. LA is severely dilated. RA is severely dilated. Aortic valve is mildly calcified. Aortic stenosis is absent. There is a bioprosthetic mitral valve. There is no significant prosthetic regurg. Prosthetic mitral valve peak/mean gradients are normal. Doppler findings do not suggest pulmonary hypertension. Cardiology consulted - Her [employer] biventricular pacemaker AICD was interrogated remotely. Results discussed with termite control representative. Normal device function. Recommend to * Hold diuretics and carvedilol. Liberalize oral intake. on discharge -> will stop coreg., decrease torsemide dose / prn * Hold Coumadin as INR is supratherapeutic. Ambulatory dysfunction History of mechanical falls Fall precautions hold gabapentin given somnolence during daytime PT/OT Acute on chronic hyponatremia -Hypotonic, potentially related to holding home lasix -Trend BMP (baseline 131-133) s/p IV lasix in ED Transaminitis slight elevation in AST 55, ALP 132, T Bili 1.2 cont. to be elevated initially, now trending down -Trend CMP, consider US if uptrending (asymptomatic on exam) Chronic atrial fibrillation Supratherapeutic INR s/p ablation in 2007 INR 4.5 Hold home Coumadin, monitor INR CKD III stable, at baseline Hypothyroidism -Continue home Synthroid Osteoporosis -On home alendronate and raloxifene -Hold in setting of elevated LFTS, resume when stable DVT ppx: hold coumadin for supratherapuetic INR Admission and Anticipated Discharge Date Admission Date: July 14, 2023 Subjective Pt seen in follow up of fall/ syncope Cardiology also consulted Currently sitting up in NAD, eating lunch, pt's sister at the bedside visiting Feels better today, not as sleepy no chest pain, palpitations, shortness of breath. no abd. pain, n/v Review of Systems Review of Systems: All systems reviewed & are unremarkable except as noted in Subjective Physical Exam Physical Exam: Constitutional: WD/WN, elderly F i n NAD Respiratory: normal respiratory effort, CTAB, no wheezing Cardiovascular: Rate/Rhythm: regul ar rate and regula r rhythm, no murmu r Vessels: no JVD Extremities: tra ce LE edema, chron ic venous stasis c hanges Gastrointestinal ( Abdomen): normal bowel sound s, soft, nontender Musculoskeletal: NC/AT, moves extre mities Neurologic: awake, alert, orie nted, answers appr opriately, PERRL, EOMI, no face pals y, no dysarthria, moves extremities Results & Data Results & Data Vital Signs (Past 12 Hours) Vital Signs Temp Pulse Pulse Resp BP Pulse Ox O2 Del Method 07/16/23 07:55 36.5 C 76 16 109/69 95 Room Air 07/16/23 05:58 79 07/16/23 04:46 36.9 C 73 17 158/78 H 92 Room Air 07/16/23 01:14 77 07/15/23 23:17 37.2 C 66 18 149/77 H 95 Room Air Laboratory Results 07/16/23 07/16/23 07/15/23 Range/Units 09:32 08:14 20:52 WBC 7.22 (4.8-10.8) K/ul RBC 3.86 L (4.20-5.40) M/uL Hgb 10.6 L (12.0-16.0) g/dl Hct 30.5 L (37.0-47.0) % MCV 79.0 L (80.0-100.0) fL MCH 27.5 (25.0-34.0) pg MCHC 34.8 (32.0-36.0) g/dL RDW Std Deviation 46.7 H (36.4-46.3) fL RDW Coeff of Fabricio 16.7 H (11.5-14.5) % Plt Count 217 (130-400) K/uL MPV 10.0 (9.4-12.4) fL PT 34.3 H (9.0-12.0) Seconds INR 3.4 H (0.9-1.1) Sodium 130 L (136-145) mmol/L Potassium 3.7 (3.5-5.1) mmol/L Chloride 98 (98-107) mmol/L Carbon Dioxide 24 (21-32) mmol/L Anion Gap 8 (3-11) BUN 18 (6-23) mg/dl Creatinine 0.87 (0.6-1.2) mg/dl Est Cr Clr Drug Dosing 38.4 ml/min Est GFR ( Amer) 69.9 ml/min Est GFR (Non-Af Amer) 60.3 ml/min BUN/Creatinine Ratio 20.7 H (10-20) Glucose 113 H (70-99(Fasting)) mg/dl POC Glucose 119 H (70-99) mg/dl Calcium 8.7 (8.6-10.3) mg/dl Phosphorus 2.6 (2.5-4.9) mg/dl Magnesium 2.0 (1.7-2.4) mg/dl Total Bilirubin 1.6 H (0.2-1.0) mg/dl AST 68 H (13-39) U/L ALT 54 H (7-52) U/L Alkaline Phosphatase 137 H (34-104) U/L Total Protein 5.7 L (6.0-8.3) gm/dl Albumin 3.0 L (3.4-5.0) gm/dl Globulin 2.7 (2.5-4.0) gm/dl Albumin/Globulin Ratio 1.1 (0.9-2) Whole Bld Vitamin B1 Pending Vitamin B12 1341 H (180-914) pg/ml Medications Administered Current Inpatient Medications Acetaminophen (Acetaminophen 325 Mg Tab) 650 mg PO Q6H PRN PRN Reason: Pain Stop: 08/13/23 20:41 Last Admin: 07/16/23 06:03 Dose: 650 mg Aspirin (Aspirin 81 Mg Ectab) [facility] [place] Stop: 08/14/23 08:59 Last Admin: 07/15/23 09:51 Dose: 81 mg Levothyroxine Sodium (Levothyroxine Sodium 75 Mcg Tablet) 75 mcg PO DAILYBB [facility] Stop: 08/14/23 06:29 Last Admin: 07/16/23 05:55 Dose: 75 mcg Multivitamins (Multivitamin Tab) 1 tab PO QAM [facility] Stop: 08/14/23 08:59 Last Admin: 07/15/23 09:51 Dose: 1 tab Polyethylene Glycol (Polyethylene (Miralax) 17 Gm Pack) 17 gm PO Q6 PRN PRN Reason: constipation Stop: 08/13/23 16:30 Sennosides (Senna 8.6 Mg Tab) 25.8 mg PO DAILY [facility] Stop: 08/14/23 08:59 Last Admin: 07/15/23 09:51 Dose: 25.8 mg Simvastatin (Simvastatin 10 Mg Tab) 10 mg PO HS [facility] Stop: 08/13/23 20:59 Last Admin: 07/15/23 20:41 Dose: 10 mg (1) Fall Encounter type: initial encounter Qualified Code(s): W19.XXXA - Unspecified fall, initial encounter
--- NOTE | 2023-07-16 08:46 | Cardiology Progress Note ---
Date of Service July 16, 2023 Assessment & Plan (1) Weakness: (2) Fall: (3) Biventricular cardiac pacemaker in situ: (4) History of mitral valve replacement with bioprosthetic valve: (5) Hypotension: Plan Patient admitted with recurrent falls/generalized weakness. Possibly syncopal episode last weekend in setting of severe hypotension noted at home (BP 70/30's) Patient's outpatient medications had been reduced including carvedilol and torsemide. Patient stopped carvedilol last week due to hypotension. She had not taken diuretics in several days. Device interrogated and was without arrhythmias contributing to her symptoms. Upon admission she was hypotensive and likely volume depleted. Carvedilol on hold Torsemide held. Chronic hyponatremia noted. Stable. Would consider lower dose diuretic if needed to maintain sodium levels. Consider midodrine Echo with preserved EF, normal gradients of mitral valve prosthesis. Troponin minimally elevated, but flat at 19-20. No symptoms to suggest ACS. PT/OT recommended. Would consider rehab upon discharge. Patient very tearful about her condition. Likely depression playing a role in her symptoms and not eating/drinking. Consider psych evaluation. Case discussed with Dr. Blankenship I spent a total of 25 minutes on the date of service in preparation, delivery, and documentation of the care provided to this patient, excluding any time spent in the performance of separately billed services. Shobha Rascon PA-C Department of Cardiology, [facility] This chart was completed in part utilizing Speech Voice Recognition Software. Grammatical errors, random word insertions, pronoun errors, and incomplete sentences are an occasional consequence of this system due to software limitations, ambient noise, and hardware issues. Any formal questions or concerns about the content, text, or information contained within the body of this dictation should be directly addressed to the provider for clarification. Admission and Anticipated Discharge Date Admission Date: July 14, 2023 Supervising Physician Co-Signing Physician Notes Supervising Physician Attestation: I have personally performed a history and physical examination on the patient. I agree with the physician journeyman operator assistant's findings and plan as documented with the following additions. Subjective: Patient notes recent complaints of overall weakness and fatigue. Exam: Cardiovascular regular rhythm, no murmurs, chronic venous stasis changes noted in the lower extremities. Edema status much improved her usual outpatient baseline compared to previous outpatient visits with me. In the past she had significant lower extremity edema Left infraclavicular device pocket clean dry and intact, no erythema. Data: Her [employer] biventricular pacemaker AICD was interrogated remotely. Results discussed with visitor services representative. Normal device function. Assessment and Plan: Easy fatigability, hypotension. Coagulopathy, INR 4.5-->3.4 In the setting of chronic atrial fibrillation * Hold diuretics and carvedilol. Liberalize oral intake * Hold Coumadin, jedisha resume 07/17/23 for goal INR of 2-3 * At DC consider stopping coreg altogether, and utilizing torsemide PRN. I spent a total of 20 minutes on the date of service in preparation, delivery, and documentation of the care provided to this patient, excluding any time spent in the performance of separately billed services. Octaviano Blankenship, DO Subjective Patient was sleeping upon entering exam room. Awakened easily. Reports she is frustrated that "all She does is sleep". She notes ongoing weakness and generalized fatigue. No dizziness or lightheadedness upon ambulation. No chest pain or dyspnea. BP has been better since yesterday. No orthopnea, PND or edema. She became quite tearful this morning when she found out she was sleeping when they brought her breakfast tray. She admits to not eating/drinking as she should. She is agreeable to getting out of bed and eating her breakfast. Review of Systems 2 Review of Systems: All systems reviewed & are unremarkable except as noted in HPI & below Physical Exam Constitutional: WD/WN, vitals as above well nourished; no acute distress Respiratory: normal respiratory effort Auscultation: + rales (faint rales b/l) Cardiovascular: Rate/Rhythm: regular rate and regular rhythm Heart Sounds: + murmur (I/ systolic murmur ) Vessels: no JVD Extremities: no edema Gastrointestinal (Abdomen): normal bowel sounds, soft, nontender, no hepa tosplenomegaly Musculoskeletal: no cyanosis or clubbing, extremities motor strength 5/5 Neurologic: patellar DTR's 2+ bilat, sensation intact and PERRL, EOMI, accommodation nl, no face palsy, no dysarthria Results & Data Vital Signs (Past 12 Hours) Vital Signs Temp Pulse Pulse Resp BP Pulse Ox O2 Del Method 07/16/23 07:55 36.5 C 76 16 109/69 95 Room Air 07/16/23 05:58 79 07/16/23 04:46 36.9 C 73 17 158/78 H 92 Room Air 07/16/23 01:14 77 07/15/23 23:17 37.2 C 66 18 149/77 H 95 Room Air Laboratory Results Cardiac Enzymes 07/16/23 Range/Units 08:14 AST 68 H (13-39) U/L Coagulation 07/16/23 Range/Units 09:32 PT 34.3 H (9.0-12.0) Seconds CBC 07/16/23 Range/Units 08:14 WBC 7.22 (4.8-10.8) K/ul RBC 3.86 L (4.20-5.40) M/uL Hgb 10.6 L (12.0-16.0) g/dl Hct 30.5 L (37.0-47.0) % Plt Count 217 (130-400) K/uL Comprehensive Metabolic Panel 07/16/23 Range/Units 08:14 Sodium 130 L (136-145) mmol/L Potassium 3.7 (3.5-5.1) mmol/L Chloride 98 (98-107) mmol/L Carbon Dioxide 24 (21-32) mmol/L BUN 18 (6-23) mg/dl Creatinine 0.87 (0.6-1.2) mg/dl Glucose 113 H (70-99(Fasting)) mg/dl Calcium 8.7 (8.6-10.3) mg/dl AST 68 H (13-39) U/L ALT 54 H (7-52) U/L Alkaline Phosphatase 137 H (34-104) U/L Total Protein 5.7 L (6.0-8.3) gm/dl Albumin 3.0 L (3.4-5.0) gm/dl Intake and Output 07/15/23 07/16/23 07/16/23 22:59 06:59 14:59 Output Total 2 / 2 Balance - Output: # Bowel Movements 2 / 2 Other: # Unmeasured Voids 5 1 Weight 59.2 kg Weight Measurement Method Built in [facility] Diagnostic Findings Telemetry reviewed: Underlying atrial fib, chronic V paced. Occ PVC's Medications Administered Current Inpatient Medications Acetaminophen (Acetaminophen 325 Mg Tab) 650 mg PO Q6H PRN PRN Reason: Pain Stop: 08/13/23 20:41 Last Admin: 07/16/23 06:03 Dose: 650 mg Aspirin (Aspirin 81 Mg Ectab) 81 mg PO QAM [facility] Stop: 08/14/23 08:59 Last Admin: 07/16/23 09:36 Dose: 81 mg Levothyroxine Sodium (Levothyroxine Sodium 75 Mcg Tablet) 75 mcg PO DAILYBB [facility] Stop: 08/14/23 06:29 Last Admin: 07/16/23 05:55 Dose: 75 mcg Multivitamins (Multivitamin Tab) 1 tab PO QAM [facility] Stop: 08/14/23 08:59 Last Admin: 07/16/23 09:36 Dose: 1 tab Polyethylene Glycol (Polyethylene (Miralax) 17 Gm Pack) 17 gm PO Q6 PRN PRN Reason: constipation Stop: 08/13/23 16:30 Sennosides (Senna 8.6 Mg Tab) 25.8 mg PO DAILY [facility] Stop: 08/14/23 08:59 Last Admin: 07/16/23 09:36 Dose: 25.8 mg Simvastatin (Simvastatin 10 Mg Tab) 10 mg PO HS [facility] Stop: 08/13/23 20:59 Last Admin: 07/15/23 20:41 Dose: 10 mg (2) Fall Encounter type: initial encounter Qualified Code(s): W19.XXXA - Unspecified fall, initial encounter (5) Hypotension Hypotension type: hypotension due to hypovolemia Qualified Code(s): E86.1 - Hypovolemia
[2023-07-16 08:55] LABS: Hematocrit (blood only) 30.5 % (37.0-47.0); Hemoglobin 10.6 g/dl (12.0-16.0); Mean Corpuscular Hemoglobin 27.5 pg (25.0-34.0); Mean Corpuscular Hgb Conc 34.8 g/dL (32.0-36.0); Platelet Count 217 K/uL (130-400); RDW Coefficient of Variation 16.7 % (11.5-14.5); RDW Standard Deviation 46.7 fL (36.4-46.3); Red Blood Count 3.86 M/uL (4.20-5.40); White Blood Count 7.22 K/ul (4.8-10.8)
[2023-07-16 09:12] LABS: Albumin Globulin Ratio 1.1 (0.9-2); BUN Creatinine Ratio 20.7 (10-20); Bilirubin,Total 1.6 mg/dl (0.2-1.0); Calcium 8.7 mg/dl (8.6-10.3); Creatinine Clr Calc Pharmacy 38.4 ml/min; Est GFR (African American) 69.9 ml/min; Est GFR (Non-African American) 60.3 ml/min; Globulin 2.7 gm/dl (2.5-4.0); Phosphorus 2.6 mg/dl (2.5-4.9); Potassium 3.7 mmol/L (3.5-5.1); Total Protein 5.7 gm/dl (6.0-8.3)
[2023-07-16] MEDS: MULTIVITAMIN TAB PO SCH (09:36)
[2023-07-16] MEDS: ASPIRIN 81 MG ECTAB PO SCH (09:36)
[2023-07-16] MEDS: SENNA 8.6 MG TAB PO SCH (09:36)
[2023-07-16 10:42] LABS: INR 3.4 (0.9-1.1); Prothrombin Time 34.3 Seconds (9.0-12.0)
--- NOTE | 2023-07-16 18:45 | Electrocardiogram Report ---
Test Reason : Blood Pressure : / mmHG Vent. Rate : 071 BPM Atrial Rate : 060 BPM P-R Int : 000 ms QRS Dur : 150 ms QT Int : 454 ms P-R-T Axes : 000 108 -42 degrees QTc Int : 493 ms Ventricular-paced rhythm with occasional Premature ventricular complexes Abnormal ECG When compared with ECG of 21-JAN-2023 22:38, Premature ventricular complexes are now Present Confirmed by Tomy Obrien ([id number]) on 07/16/2023 6:45:10 PM Referred By: Confirmed By:Tomy Obrien
[2023-07-16] MEDS: SIMVASTATIN 10 MG TAB PO SCH (20:07)
[2023-07-17] MEDS: LEVOTHYROXINE SODIUM 75 MCG TABLET PO SCH (05:59)
[2023-07-17] MEDS: ASPIRIN 81 MG ECTAB PO SCH (08:12)
[2023-07-17] MEDS: SENNA 8.6 MG TAB PO SCH (08:12)
[2023-07-17] MEDS: MULTIVITAMIN TAB PO SCH (08:12)
[2023-07-17] MEDS: ACETAMINOPHEN 325 MG TAB PO PRN (08:27)
[2023-07-17 08:29] LABS: Albumin Level 2.8 gm/dl (3.4-5.0); BUN Creatinine Ratio 23.3 (10-20); Bilirubin,Total 1.4 mg/dl (0.2-1.0); Calcium 8.6 mg/dl (8.6-10.3); Creatinine Clr Calc Pharmacy 36.7 ml/min; Est GFR (African American) 67.1 ml/min; Est GFR (Non-African American) 57.9 ml/min; Globulin 2.7 gm/dl (2.5-4.0); Phosphorus 2.2 mg/dl (2.5-4.9); Potassium 3.9 mmol/L (3.5-5.1); Total Protein 5.5 gm/dl (6.0-8.3)
--- NOTE | 2023-07-17 14:46 | Hospitalist Progress Note ---
Date of Service July 17, 2023 Assessment & Plan (1) Fall: (2) Weakness: (3) Acute hyponatremia: (4) NICM (nonischemic cardiomyopathy): (5) Permanent atrial fibrillation: (6) AICD (automatic cardioverter/defibrillator) present: (7) [facility] current use of anticoagulant: (8) CKD (chronic kidney disease) stage 3, GFR 30-59 ml/min: Plan Ms. 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 Patient notes she does not recall the fall and awoke the following morning on the ground. Duplex was obtained of BL carotids in 2019 with less than 50% stenosis at that time. She does not have her blood pressure recorded to determine if these events were truly hypotensive while at home. Patient has notable cardiac history, therefore it would be prudent to rule out cardiogenic cause for events leading up to presentation. 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 There is a small sized inferior wall motion abnormality with akinesis of the basal segment of the inferior wall. LV systolic function is normal. LVEF 55 to 60%. RV is not well-visualized but appears dilated on limited visualization. LA is severely dilated. RA is severely dilated. Aortic valve is mildly calcified. Aortic stenosis is absent. There is a bioprosthetic mitral valve. There is no significant prosthetic regurg. Prosthetic mitral valve peak/mean gradients are normal. Doppler findings do not suggest pulmonary hypertension. Cardiology consulted - Her [employer] biventricular pacemaker AICD was interrogated remotely. Results discussed with printing supplies sales representative. Normal device function. Recommend to * Hold diuretics and carvedilol. Liberalize oral intake. on discharge -> will stop coreg., decrease torsemide dose / prn * Hold Coumadin as INR is supratherapeutic. Ambulatory dysfunction History of mechanical falls Fall precautions hold gabapentin given somnolence during daytime PT/OT Acute on chronic hyponatremia -Hypotonic, potentially related to holding home lasix -Trend BMP (baseline 131-133) s/p IV lasix in ED Transaminitis slight elevation in AST 55, ALP 132, T Bili 1.2 cont. to be elevated initially, now trending down -Trend CMP, consider US if uptrending (asymptomatic on exam) Chronic atrial fibrillation Supratherapeutic INR s/p ablation in 2007 INR has been supratherapeutic Hold home Coumadin, monitor INR CKD III stable, at baseline Hypothyroidism -Continue home Synthroid Osteoporosis -On home alendronate and raloxifene -Hold in setting of elevated LFTS, resume when stable DVT ppx: hold coumadin for supratherapuetic INR Admission and Anticipated Discharge Date Admission Date: July 14, 2023 Subjective Pt seen in follow up of fall/ syncope Cardiology also consulted Currently sitting up in chair in NAD Feels better today no chest pain, palpitations, shortness of breath. no abd. pain, n/v . Does not feel dizzy or lightheaded. Review of Systems Review of Systems: All systems reviewed & are unremarkable except as noted in Subjective Physical Exam Physical Exam: Constitutional: WD/WN, elderly F i n NAD Respiratory: normal respiratory effort, CTAB, no wheezing Cardiovascular: Rate/Rhythm: regul ar rate and regula r rhythm, no murmu r Vessels: no JVD Extremities: tra ce LE edema, chron ic venous stasis c hanges Gastrointestinal ( Abdomen): normal bowel sound s, soft, nontender Musculoskeletal: NC/AT, moves extre mities Neurologic: awake, alert, orie nted, answers appr opriately, PERRL, EOMI, no face pals y, no dysarthria, moves extremities Results & Data Results & Data Vital Signs (Past 12 Hours) Vital Signs Temp Pulse Resp BP Pulse Ox O2 Del Method 07/17/23 11:54 36.4 C L 68 18 133/65 95 Room Air 07/17/23 07:44 36.9 C 78 18 133/82 93 Room Air 07/17/23 04:59 37.8 C H 79 20 134/76 93 Room Air Laboratory Results 07/17/23 Range/Units 06:57 Sodium 130 L (136-145) mmol/L Potassium 3.9 (3.5-5.1) mmol/L Chloride 100 (98-107) mmol/L Carbon Dioxide 24 (21-32) mmol/L Anion Gap 6 (3-11) BUN 21 (6-23) mg/dl Creatinine 0.90 (0.6-1.2) mg/dl Est Cr Clr Drug Dosing 36.7 ml/min Est GFR ( Amer) 67.1 ml/min Est GFR (Non-Af Amer) 57.9 ml/min BUN/Creatinine Ratio 23.3 H (10-20) Glucose 110 H (70-99(Fasting)) mg/dl Calcium 8.6 (8.6-10.3) mg/dl Phosphorus 2.2 L (2.5-4.9) mg/dl Magnesium 2.0 (1.7-2.4) mg/dl Total Bilirubin 1.4 H (0.2-1.0) mg/dl AST 40 H (13-39) U/L ALT 37 (7-52) U/L Alkaline Phosphatase 128 H (34-104) U/L Total Protein 5.5 L (6.0-8.3) gm/dl Albumin 2.8 L (3.4-5.0) gm/dl Globulin 2.7 (2.5-4.0) gm/dl Albumin/Globulin Ratio 1.0 (0.9-2) Medications Administered Current Inpatient Medications Acetaminophen (Acetaminophen 325 Mg Tab) 650 mg PO Q6H PRN PRN Reason: Pain Stop: 08/13/23 20:41 Last Admin: 07/17/23 08:27 Dose: 650 mg Aspirin (Aspirin 81 Mg Ectab) [facility] [place] Stop: 08/14/23 08:59 Last Admin: 07/17/23 08:12 Dose: 81 mg Levothyroxine Sodium (Levothyroxine Sodium 75 Mcg Tablet) 75 mcg PO DAILYBB [facility] Stop: 08/14/23 06:29 Last Admin: 07/17/23 05:59 Dose: 75 mcg Multivitamins (Multivitamin Tab) 1 tab [facility] [place] Stop: 08/14/23 08:59 Last Admin: 07/17/23 08:12 Dose: 1 tab Polyethylene Glycol (Polyethylene (Miralax) 17 Gm Pack) 17 gm PO Q6 PRN PRN Reason: constipation Stop: 08/13/23 16:30 Sennosides (Senna 8.6 Mg Tab) 25.8 mg PO DAILY [facility] Stop: 08/14/23 08:59 Last Admin: 07/17/23 08:12 Dose: 25.8 mg Simvastatin (Simvastatin 10 Mg Tab) 10 mg PO HS [facility] Stop: 08/13/23 20:59 Last Admin: 07/16/23 20:07 Dose: 10 mg (1) Fall Encounter type: initial encounter Qualified Code(s): W19.XXXA - Unspecified fall, initial encounter
[2023-07-17] MEDS: SIMVASTATIN 10 MG TAB PO SCH (20:16)
[2023-07-18] MEDS: LEVOTHYROXINE SODIUM 75 MCG TABLET PO SCH (05:48)
[2023-07-18] MEDS: ACETAMINOPHEN 325 MG TAB PO PRN (05:53)
[2023-07-18 07:14] LABS: BUN Creatinine Ratio 25.3 (10-20); Calcium 8.8 mg/dl (8.6-10.3); Creatinine Clr Calc Pharmacy 38.6 ml/min; Est GFR (African American) 78.6 ml/min; Est GFR (Non-African American) 67.8 ml/min; Magnesium 2.1 mg/dl (1.7-2.4); Phosphorus 2.4 mg/dl (2.5-4.9); Potassium 3.7 mmol/L (3.5-5.1)
[2023-07-18 07:26] LABS: INR 1.9 (0.9-1.1); Prothrombin Time 20.4 Seconds (9.0-12.0)
[2023-07-18] MEDS: SENNA 8.6 MG TAB PO SCH ×3 (08:47→21:08)
[2023-07-18] MEDS: MULTIVITAMIN TAB PO SCH (08:47)
[2023-07-18] MEDS: ASPIRIN 81 MG ECTAB PO SCH (08:47)
[2023-07-18] MEDS ORDERED: Nursing to Pharmacy Communication SCH (10:00)
--- NOTE | 2023-07-18 11:52 | Hospitalist Progress Note ---
Date of Service July 18, 2023 Assessment & Plan (1) Fall: (2) Weakness: (3) Acute hyponatremia: (4) NICM (nonischemic cardiomyopathy): (5) Permanent atrial fibrillation: (6) AICD (automatic cardioverter/defibrillator) present: (7) [facility] current use of anticoagulant: (8) CKD (chronic kidney disease) stage 3, GFR 30-59 ml/min: Plan Ms. 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 Patient notes she does not recall the fall and awoke the following morning on the ground. Duplex was obtained of BL carotids in 2019 with less than 50% stenosis at that time. She does not have her blood pressure recorded to determine if these events were truly hypotensive while at home. Patient has notable cardiac history, therefore it would be prudent to rule out cardiogenic cause for events leading up to presentation. 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 There is a small sized inferior wall motion abnormality with akinesis of the basal segment of the inferior wall. LV systolic function is normal. LVEF 55 to 60%. RV is not well-visualized but appears dilated on limited visualization. LA is severely dilated. RA is severely dilated. Aortic valve is mildly calcified. Aortic stenosis is absent. There is a bioprosthetic mitral valve. There is no significant prosthetic regurg. Prosthetic mitral valve peak/mean gradients are normal. Doppler findings do not suggest pulmonary hypertension. Cardiology consulted - Her [employer] biventricular pacemaker AICD was interrogated remotely. Results discussed with outside industrial sales representative. Normal device function. Recommend to * Hold diuretics and carvedilol. Liberalize oral intake. on discharge -> will stop coreg., decrease torsemide dose / prn Ambulatory dysfunction History of mechanical falls Fall precautions hold gabapentin given somnolence during daytime PT/OT Acute on chronic hyponatremia -Hypotonic, potentially related to holding home lasix -Trend BMP (baseline 131-133) s/p IV lasix in ED Transaminitis slight elevation in AST 55, ALP 132, T Bili 1.2 cont. to be elevated initially, now trending down/ normalized Chronic atrial fibrillation Supratherapeutic INR s/p ablation in 2007 INR has been supratherapeutic, held coumadin Now INR 1.9, coumadin resumed, monitor INR CKD III stable, at baseline Hypothyroidism -Continue home Synthroid Osteoporosis -On home alendronate and raloxifene -Held in setting of elevated LFTS, resume when stable DVT ppx: coumadin Admission and Anticipated Discharge Date Admission Date: July 14, 2023 Subjective Pt seen in follow up of fall/ syncope Cardiology also consulted Currently laying in bed in NAD Feels better overall no chest pain, palpitations, shortness of breath. no abd. pain, n/v . Does not feel dizzy or lightheaded. Review of Systems Review of Systems: All systems reviewed & are unremarkable except as noted in Subjective Physical Exam Physical Exam: Constitutional: WD/WN, elderly F i n NAD Respiratory: normal respiratory effort, CTAB, no wheezing Cardiovascular: Rate/Rhythm: regul ar rate and regula r rhythm, no murmu r Vessels: no JVD Extremities: tra ce LE edema, chron ic venous stasis c hanges Gastrointestinal ( Abdomen): normal bowel sound s, soft, nontender Musculoskeletal: NC/AT, moves extre mities Neurologic: awake, alert, orie nted, answers appr opriately, PERRL, EOMI, no face pals y, no dysarthria, moves extremities Results & Data Results & Data Vital Signs (Past 12 Hours) Vital Signs Temp Pulse Pulse Resp BP Pulse Ox O2 Del Method 07/18/23 11:38 36.4 C L 76 16 110/66 96 Room Air 07/18/23 07:19 75 07/18/23 03:56 36.5 C 72 18 147/76 H 97 Room Air Laboratory Results 07/18/23 Range/Units 05:24 PT 20.4 H (9.0-12.0) Seconds INR 1.9 H (0.9-1.1) Sodium 130 L (136-145) mmol/L Potassium 3.7 (3.5-5.1) mmol/L Chloride 98 (98-107) mmol/L Carbon Dioxide 26 (21-32) mmol/L Anion Gap 6 (3-11) BUN 20 (6-23) mg/dl Creatinine 0.79 (0.6-1.2) mg/dl Est Cr Clr Drug Dosing 38.6 ml/min Est GFR ( Amer) 78.6 ml/min Est GFR (Non-Af Amer) 67.8 ml/min BUN/Creatinine Ratio 25.3 H (10-20) Glucose 95 (70-99(Fasting)) mg/dl Calcium 8.8 (8.6-10.3) mg/dl Phosphorus 2.4 L (2.5-4.9) mg/dl Magnesium 2.1 (1.7-2.4) mg/dl Medications Administered Current Inpatient Medications Acetaminophen (Acetaminophen 325 Mg Tab) 650 mg PO Q6H PRN PRN Reason: Pain Stop: 08/13/23 20:41 Last Admin: 07/18/23 05:53 Dose: 650 mg Aspirin (Aspirin 81 Mg Ectab) 81 mg PO [facility] Stop: 08/14/23 08:59 Last Admin: 07/18/23 08:47 Dose: 81 mg Levothyroxine Sodium (Levothyroxine Sodium 75 Mcg Tablet) [facility] Stop: 08/14/23 06:29 Last Admin: 07/18/23 05:48 Dose: 75 mcg Multivitamins (Multivitamin Tab) [facility] Stop: 08/14/23 08:59 Last Admin: 07/18/23 08:47 Dose: 1 tab Polyethylene Glycol (Polyethylene (Miralax) 17 Gm Pack) 17 gm PO Q6 PRN PRN Reason: constipation Stop: 08/13/23 16:30 Sennosides (Senna 8.6 Mg Tab) 25.8 mg PO PM [facility] Stop: 08/17/23 20:59 Simvastatin (Simvastatin 10 Mg Tab) 10 mg PO HS [facility] Stop: 08/13/23 20:59 Last Admin: 07/17/23 20:16 Dose: 10 mg Warfarin Sodium (Warfarin Sod 2.5 Mg Tab) 2.5 mg PO . [facility] Stop: 08/17/23 11:59 Warfarin Sodium (Warfarin Sod 5 Mg Tab) 5 mg PO .Wednesday [facility] Stop: 08/17/23 11:59 (1) Fall Encounter type: initial encounter Qualified Code(s): W19.XXXA - Unspecified fall, initial encounter
[2023-07-18] MEDS: WARFARIN SOD 2.5 MG TAB PO SCH (17:49)
[2023-07-18] MEDS: SIMVASTATIN 10 MG TAB PO SCH (21:08)
[2023-07-19] MEDS: LEVOTHYROXINE SODIUM 75 MCG TABLET PO SCH (06:01)
[2023-07-19 07:52] LABS: Hematocrit (blood only) 31.5 % (37.0-47.0); Hemoglobin 10.5 g/dl (12.0-16.0); Mean Corpuscular Hemoglobin 27.5 pg (25.0-34.0); Mean Corpuscular Hgb Conc 33.3 g/dL (32.0-36.0); Mean Corpuscular Volume 82.5 fL (80.0-100.0); Mean Platelet Volume 9.9 fL (9.4-12.4); Platelet Count 267 K/uL (130-400); RDW Coefficient of Variation 17.1 % (11.5-14.5); RDW Standard Deviation 49.6 fL (36.4-46.3); Red Blood Count 3.82 M/uL (4.20-5.40); White Blood Count 9.26 K/ul (4.8-10.8)
[2023-07-19 08:17] LABS: BUN Creatinine Ratio 19.8 (10-20); Calcium 8.7 mg/dl (8.6-10.3); Creatinine Clr Calc Pharmacy 38.3 ml/min; Est GFR (African American) 70.9 ml/min; Est GFR (Non-African American) 61.2 ml/min; Magnesium 2.1 mg/dl (1.7-2.4); Phosphorus 2.5 mg/dl (2.5-4.9); Potassium 3.9 mmol/L (3.5-5.1)
[2023-07-19 08:20] LABS: INR 1.9 (0.9-1.1); Prothrombin Time 19.8 Seconds (9.0-12.0)
--- NOTE | 2023-07-19 08:46 | Hospitalist Progress Note ---
Date of Service July 19, 2023 Assessment & Plan (1) Fall: (2) Weakness: (3) Acute hyponatremia: (4) NICM (nonischemic cardiomyopathy): (5) Permanent atrial fibrillation: (6) AICD (automatic cardioverter/defibrillator) present: (7) nursing home current use of anticoagulant: (8) CKD (chronic kidney disease) stage 3, GFR 30-59 ml/min: Plan Ms. 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 Patient notes she does not recall the fall and awoke the following morning on the ground. Duplex was obtained of BL carotids in 2019 with less than 50% stenosis at that time. She does not have her blood pressure recorded to determine if these events were truly hypotensive while at home. Patient has notable cardiac history, therefore it would be prudent to rule out cardiogenic cause for events leading up to presentation. 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 There is a small sized inferior wall motion abnormality with akinesis of the basal segment of the inferior wall. LV systolic function is normal. LVEF 55 to 60%. RV is not well-visualized but appears dilated on limited visualization. LA is severely dilated. RA is severely dilated. Aortic valve is mildly calcified. Aortic stenosis is absent. There is a bioprosthetic mitral valve. There is no significant prosthetic regurg. Prosthetic mitral valve peak/mean gradients are normal. Doppler findings do not suggest pulmonary hypertension. Cardiology consulted - Her [employer] biventricular pacemaker AICD was interrogated remotely. Results discussed with business services representative. Normal device function. Recommend to * Hold diuretics and carvedilol. Liberalize oral intake. on discharge -> will stop coreg., decrease torsemide dose / prn Ambulatory dysfunction History of mechanical falls Fall precautions hold gabapentin given somnolence during daytime PT/OT Acute on chronic hyponatremia -Hypotonic, potentially related to holding home lasix -Trend BMP (baseline 131-133) s/p IV lasix in ED Transaminitis slight elevation in AST 55, ALP 132, T Bili 1.2 cont. to be elevated initially, now trending down/ normalized Chronic atrial fibrillation Supratherapeutic INR s/p ablation in 2007 INR has been supratherapeutic, held coumadin Now INR 1.9, coumadin resumed, monitor INR CKD III stable, at baseline Hypothyroidism -Continue home Synthroid Osteoporosis -On home alendronate and raloxifene -Held in setting of elevated LFTS, resume when stable DVT ppx: coumadin Admission and Anticipated Discharge Date Admission Date: July 14, 2023 Subjective Pt seen in follow up of fall/ syncope Cardiology also consulted Currently sitting up in bed, having lunch, in NAD Feels better overall no chest pain, palpitations, shortness of breath. no abd. pain, n/v . Does not feel dizzy or lightheaded. Review of Systems Review of Systems: All systems reviewed & are unremarkable except as noted in Subjective Physical Exam Physical Exam: Constitutional: WD/WN, elderly F i n NAD Respiratory: normal respiratory effort, CTAB, no wheezing Cardiovascular: Rate/Rhythm: regul ar rate and regula r rhythm, no murmu r Vessels: no JVD Extremities: tra ce LE edema, chron ic venous stasis c hanges Gastrointestinal ( Abdomen): normal bowel sound s, soft, nontender Musculoskeletal: NC/AT, moves extre mities Neurologic: awake, alert, orie nted, answers appr opriately, PERRL, EOMI, no face pals y, no dysarthria, moves extremities Results & Data Results & Data Vital Signs (Past 12 Hours) Vital Signs Temp Pulse Pulse Resp BP BP Pulse Ox 07/19/23 07:58 37.0 C 75 16 125/72 95 07/19/23 07:36 77 07/19/23 04:15 36.7 C 76 18 132/76 95 07/19/23 00:43 36.5 C 73 20 133/76 95 07/18/23 22:01 72 O2 Del Method 07/19/23 07:58 Room Air 12/25/23 07:36 07/19/23 04:15 Room Air 07/19/23 00:43 Room Air 07/18/23 22:01 Laboratory Results 07/19/23 Range/Units 07:11 WBC 9.26 (4.8-10.8) K/ul RBC 3.82 L (4.20-5.40) M/uL Hgb 10.5 L (12.0-16.0) g/dl Hct 31.5 L (37.0-47.0) % MCV 82.5 (80.0-100.0) fL MCH 27.5 (25.0-34.0) pg MCHC 33.3 (32.0-36.0) g/dL RDW Std Deviation 49.6 H (36.4-46.3) fL RDW Coeff of Fabricio 17.1 H (11.5-14.5) % Plt Count 267 (130-400) K/uL MPV 9.9 (9.4-12.4) fL PT 19.8 H (9.0-12.0) Seconds INR 1.9 H (0.9-1.1) Sodium 130 L (136-145) mmol/L Potassium 3.9 (3.5-5.1) mmol/L Chloride 100 (98-107) mmol/L Carbon Dioxide 24 (21-32) mmol/L Anion Gap 6 (3-11) BUN 17 (6-23) mg/dl Creatinine 0.86 (0.6-1.2) mg/dl Est Cr Clr Drug Dosing 38.3 ml/min Est GFR ( Amer) 70.9 ml/min Est GFR (Non-Af Amer) 61.2 ml/min BUN/Creatinine Ratio 19.8 (10-20) Glucose 95 (70-99(Fasting)) mg/dl Calcium 8.7 (8.6-10.3) mg/dl Phosphorus 2.5 (2.5-4.9) mg/dl Magnesium 2.1 (1.7-2.4) mg/dl Medications Administered Current Inpatient Medications Acetaminophen (Acetaminophen 325 Mg Tab) 650 mg PO Q6H PRN PRN Reason: Pain Stop: 08/13/23 20:41 Last Admin: 07/18/23 05:53 Dose: 650 mg Aspirin (Aspirin 81 Mg Ectab) 81 mg PO Q[facility] Stop: 08/14/23 08:59 Last Admin: 07/18/23 08:47 Dose: 81 mg Levothyroxine Sodium (Levothyroxine Sodium 75 Mcg Tablet) 75 mcg PO DAILYBB [facility] Stop: 08/14/23 06:29 Last Admin: 07/19/23 06:01 Dose: 75 mcg Multivitamins (Multivitamin Tab) 1 tab PO QAM [facility] Stop: 08/14/23 08:59 Last Admin: 07/18/23 08:47 Dose: 1 tab Polyethylene Glycol (Polyethylene (Miralax) 17 Gm Pack) 17 gm PO Q6 PRN PRN Reason: constipation Stop: 08/13/23 16:30 Sennosides (Senna 8.6 Mg Tab) 25.8 mg PO PM [facility] Stop: 08/17/23 20:59 Last Admin: 07/18/23 21:08 Dose: 25.8 mg Simvastatin (Simvastatin 10 Mg Tab) 10 mg PO HS [facility] Stop: 08/13/23 20:59 Last Admin: 07/18/23 21:08 Dose: 10 mg Warfarin Sodium (Warfarin Sod 2.5 Mg Tab) 2.5 mg PO [email or web address] [facility] Stop: 08/17/23 15:59 Last Admin: 07/18/23 17:49 Dose: 2.5 mg Warfarin Sodium (Warfarin Sod 5 Mg Tab) 5 mg PO [id number]@1600 [facility] Stop: 08/19/23 15:59 (1) Fall Encounter type: initial encounter Qualified Code(s): W19.XXXA - Unspecified fall, initial encounter
[2023-07-19] MEDS: MULTIVITAMIN TAB PO SCH (09:15)
[2023-07-19] MEDS: ASPIRIN 81 MG ECTAB PO SCH (09:15)
[2023-07-19] MEDS: ACETAMINOPHEN 325 MG TAB PO PRN (16:06)
[2023-07-19] MEDS: WARFARIN SOD 2.5 MG TAB PO SCH (16:07)
[2023-07-19] MEDS: SENNA 8.6 MG TAB PO SCH (20:22)
[2023-07-19] MEDS: SIMVASTATIN 10 MG TAB PO SCH (20:22)
[2023-07-20] MEDS: LEVOTHYROXINE SODIUM 75 MCG TABLET PO SCH (05:33)
[2023-07-20 07:42] LABS: Prothrombin Time 20.7 Seconds (9.0-12.0)
[2023-07-20] MEDS: ASPIRIN 81 MG ECTAB PO SCH (08:04)
[2023-07-20] MEDS: MULTIVITAMIN TAB PO SCH (08:04)
[2023-07-20] MEDS: ACETAMINOPHEN 325 MG TAB PO PRN ×3 (08:07→21:05)
[2023-07-20] MEDS ORDERED: WARFARIN SOD 5 MG TAB PO SCH (16:00)
--- NOTE | 2023-07-20 19:29 | Hospitalist Progress Note ---
Date of Service July 20, 2023 Assessment & Plan (1) Fall: (2) Weakness: (3) Acute hyponatremia: (4) NICM (nonischemic cardiomyopathy): (5) Permanent atrial fibrillation: (6) AICD (automatic cardioverter/defibrillator) present: (7) detention current use of anticoagulant: (8) CKD (chronic kidney disease) stage 3, GFR 30-59 ml/min: Plan Ms. 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 Patient notes she does not recall the fall and awoke the following morning on the ground. Duplex was obtained of BL carotids in 2019 with less than 50% stenosis at that time. She does not have her blood pressure recorded to determine if these events were truly hypotensive while at home. Patient has notable cardiac history, therefore it would be prudent to rule out cardiogenic cause for events leading up to presentation. 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 There is a small sized inferior wall motion abnormality with akinesis of the basal segment of the inferior wall. LV systolic function is normal. LVEF 55 to 60%. RV is not well-visualized but appears dilated on limited visualization. LA is severely dilated. RA is severely dilated. Aortic valve is mildly calcified. Aortic stenosis is absent. There is a bioprosthetic mitral valve. There is no significant prosthetic regurg. Prosthetic mitral valve peak/mean gradients are normal. Doppler findings do not suggest pulmonary hypertension. Cardiology consulted - Her [employer] biventricular pacemaker AICD was interrogated remotely. Results discussed with financial representative. Normal device function. Recommend to * Hold diuretics and carvedilol. Liberalize oral intake. on discharge -> will stop coreg., decrease torsemide dose / prn Ambulatory dysfunction History of mechanical falls Fall precautions hold gabapentin given somnolence during daytime PT/OT Acute on chronic hyponatremia -Hypotonic, potentially related to holding home lasix -Trend BMP (baseline 131-133) s/p IV lasix in ED Transaminitis slight elevation in AST 55, ALP 132, T Bili 1.2 cont. to be elevated initially, now trending down/ normalized Chronic atrial fibrillation Supratherapeutic INR initially and coumadin held, now resumed s/p ablation in 2007 cont coumadin, monitor INR CKD III stable, at baseline Hypothyroidism -Continue home Synthroid Osteoporosis -On home alendronate and raloxifene -Held in setting of elevated LFTS, resume when stable DVT ppx: coumadin Admission and Anticipated Discharge Date Admission Date: July 14, 2023 Subjective Pt seen in follow up of fall/ syncope Cardiology also consulted Currently sitting up in bed, having lunch, in NAD Feels better overall no chest pain, palpitations, shortness of breath. no abd. pain, n/v . Does not feel dizzy or lightheaded. Plan to DC to rehab. Review of Systems Review of Systems: All systems reviewed & are unremarkable except as noted in Subjective Physical Exam Physical Exam: Constitutional: WD/WN, elderly F i n NAD Respiratory: normal respiratory effort, CTAB, no wheezing Cardiovascular: Rate/Rhythm: regul ar rate and regula r rhythm, no murmu r Vessels: no JVD Extremities: tra ce LE edema, chron ic venous stasis c hanges Gastrointestinal ( Abdomen): normal bowel sound s, soft, nontender Musculoskeletal: NC/AT, moves extre mities Neurologic: awake, alert, orie nted, answers appr opriately, PERRL, EOMI, no face pals y, no dysarthria, moves extremities Results & Data Results & Data Vital Signs (Past 12 Hours) Vital Signs Temp Pulse Pulse Resp BP BP Pulse Ox 07/20/23 15:26 71 07/20/23 15:21 36.4 C L 78 19 116/73 98 07/20/23 11:39 36.9 C 76 18 108/62 96 07/20/23 07:56 37.9 C H 78 20 108/83 92 07/20/23 07:48 72 O2 Del Method 07/20/23 15:26 07/20/23 15:21 Room Air 07/20/23 11:39 Room Air 07/20/23 07:56 Room Air 07/20/23 07:48 Medications Administered Current Inpatient Medications Acetaminophen (Acetaminophen 325 Mg Tab) 650 mg PO Q6H PRN PRN Reason: Pain Stop: 08/13/23 20:41 Last Admin: 07/20/23 15:33 Dose: 650 mg Aspirin (Aspirin 81 Mg Ectab) 81 mg PO QAM [facility] Stop: 08/14/23 08:59 Last Admin: 07/20/23 08:04 Dose: 81 mg Levothyroxine Sodium (Levothyroxine Sodium 75 Mcg Tablet) 75 mcg PO DAILYBB [facility] Stop: 08/14/23 06:29 Last Admin: 07/20/23 05:33 Dose: 75 mcg Multivitamins (Multivitamin Tab) 1 tab PO QAM [facility] Stop: 08/14/23 08:59 Last Admin: 07/20/23 08:04 Dose: 1 tab Polyethylene Glycol (Polyethylene (Miralax) 17 Gm Pack) 17 gm PO Q6 PRN PRN Reason: constipation Stop: 08/13/23 16:30 Sennosides (Senna 8.6 Mg Tab) 25.8 mg PO PM [facility] Stop: 08/17/23 20:59 Last Admin: 07/19/23 20:22 Dose: 25.8 mg Simvastatin (Simvastatin 10 Mg Tab) 10 mg PO HS [facility] Stop: 08/13/23 20:59 Last Admin: 07/19/23 20:22 Dose: 10 mg Warfarin Sodium (Warfarin Sod 2.5 Mg Tab) 2.5 mg PO [id number] [facility] Stop: 08/17/23 15:59 Last Admin: 07/19/23 16:07 Dose: 2.5 mg Warfarin Sodium (Warfarin Sod 5 Mg Tab) 5 mg PO [id number]@1600 [facility] Stop: 08/19/23 15:59 Last Admin: 07/20/23 15:34 Dose: 5 mg (1) Fall Encounter type: initial encounter Qualified Code(s): W19.XXXA - Unspecified fall, initial encounter
[2023-07-20] MEDS: SENNA 8.6 MG TAB PO SCH (19:49)
[2023-07-20] MEDS: SIMVASTATIN 10 MG TAB PO SCH (19:49)
[2023-07-21] MEDS: LEVOTHYROXINE SODIUM 75 MCG TABLET PO SCH (04:52)
[2023-07-21] MEDS: ASPIRIN 81 MG ECTAB PO SCH (08:03)
[2023-07-21] MEDS: MULTIVITAMIN TAB PO SCH (08:03)
[2023-07-21] MEDS: ACETAMINOPHEN 325 MG TAB PO PRN ×2 (08:09→21:00)
[2023-07-21 08:35] LABS: INR 2.9 (0.9-1.1); Prothrombin Time 29.8 Seconds (9.0-12.0)
--- NOTE | 2023-07-21 13:14 | Hospitalist Progress Note ---
Date of Service July 21, 2023 Assessment & Plan (1) Fall: (2) Weakness: (3) Acute hyponatremia: (4) NICM (nonischemic cardiomyopathy): (5) Permanent atrial fibrillation: (6) AICD (automatic cardioverter/defibrillator) present: (7) [facility] current use of anticoagulant: (8) CKD (chronic kidney disease) stage 3, GFR 30-59 ml/min: Plan Ms. 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 Patient notes she does not recall the fall and awoke the following morning on the ground. Duplex was obtained of BL carotids in 2019 with less than 50% stenosis at that time. She does not have her blood pressure recorded to determine if these events were truly hypotensive while at home. Patient has notable cardiac history, therefore it would be prudent to rule out cardiogenic cause for events leading up to presentation. 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 There is a small sized inferior wall motion abnormality with akinesis of the basal segment of the inferior wall. LV systolic function is normal. LVEF 55 to 60%. RV is not well-visualized but appears dilated on limited visualization. LA is severely dilated. RA is severely dilated. Aortic valve is mildly calcified. Aortic stenosis is absent. There is a bioprosthetic mitral valve. There is no significant prosthetic regurg. Prosthetic mitral valve peak/mean gradients are normal. Doppler findings do not suggest pulmonary hypertension. Cardiology consulted - Her [employer] biventricular pacemaker AICD was interrogated remotely. Results discussed with financial service representative. Normal device function. Recommend to * Hold diuretics and carvedilol. Liberalize oral intake. on discharge -> will stop coreg., decrease torsemide dose / prn Ambulatory dysfunction History of mechanical falls Fall precautions hold gabapentin given somnolence during daytime PT/OT Acute on chronic hyponatremia -Hypotonic, potentially related to holding home lasix -Trend BMP (baseline 131-133) s/p IV lasix in ED - Na while inpt has been 130 Transaminitis slight elevation in AST 55, ALP 132, T Bili 1.2 cont. to be elevated initially, now trending down/ normalized Chronic atrial fibrillation Supratherapeutic INR initially and coumadin held, now resumed s/p ablation in 2007 cont coumadin, monitor INR CKD III stable, at baseline Hypothyroidism -Continue home Synthroid Osteoporosis -On home alendronate and raloxifene -Held in setting of elevated LFTS, resume when stable DVT ppx: coumadin Admission and Anticipated Discharge Date Admission Date: July 14, 2023 Subjective Pt seen in follow up of fall/ syncope Cardiology also consulted Currently sitting up in bed, in NAD Feels better overall no chest pain, palpitations, shortness of breath. no abd. pain, n/v . Does not feel dizzy or lightheaded. Plan to DC to [facility] rw or wednesday Review of Systems Review of Systems: All systems reviewed & are unremarkable except as noted in Subjective Physical Exam Physical Exam: Constitutional: WD/WN, elderly F i n NAD Respiratory: normal respiratory effort, CTAB, no wheezing Cardiovascular: Rate/Rhythm: regul ar rate and regula r rhythm, no murmu r Vessels: no JVD Extremities: tra ce LE edema, chron ic venous stasis c hanges Gastrointestinal ( Abdomen): normal bowel sound s, soft, nontender Musculoskeletal: NC/AT, moves extre mities Neurologic: awake, alert, orie nted, answers appr opriately, PERRL, EOMI, no face pals y, no dysarthria, moves extremities Results & Data Results & Data Vital Signs (Past 12 Hours) Vital Signs Temp Pulse Pulse Resp BP Pulse Ox O2 Del Method 07/21/23 12:06 36.2 C L 78 15 95/60 L 93 Room Air 07/21/23 09:10 36.3 C L 68 17 129/73 94 Room Air 07/21/23 06:55 76 07/21/23 02:54 36.5 C 76 12 118/72 94 Room Air Medications Administered Current Inpatient Medications Acetaminophen (Acetaminophen 325 Mg Tab) 650 mg PO Q6H PRN PRN Reason: Pain Stop: 08/13/23 20:41 Last Admin: 07/21/23 08:09 Dose: 650 mg Aspirin (Aspirin 81 Mg Ectab) 81 mg PO QAM [facility] Stop: 08/14/23 08:59 Last Admin: 07/21/23 08:03 Dose: 81 mg Levothyroxine Sodium (Levothyroxine Sodium 75 Mcg Tablet) 75 mcg PO DAILYBB [facility] Stop: 08/14/23 06:29 Last Admin: 07/21/23 04:52 Dose: 75 mcg Multivitamins (Multivitamin Tab) 1 tab PO QAWW [facility] Stop: 08/14/23 08:59 Last Admin: 07/21/23 08:03 Dose: 1 tab Polyethylene Glycol (Polyethylene (Miralax) 17 Gm Pack) 17 gm PO Q6 PRN PRN Reason: constipation Stop: 08/13/23 16:30 Sennosides (Senna 8.6 Mg Tab) 25.8 mg PO PM [facility] Stop: 08/17/23 20:59 Last Admin: 07/20/23 19:49 Dose: 25.8 mg Simvastatin (Simvastatin 10 Mg Tab) 10 mg PO HS [facility] Stop: 08/13/23 20:59 Last Admin: 07/20/23 19:49 Dose: 10 mg Warfarin Sodium (Warfarin Sod 2.5 Mg Tab) 2.5 mg PO [id number]@1600 [facility] Stop: 08/17/23 15:59 Last Admin: 07/19/23 16:07 Dose: 2.5 mg Warfarin Sodium (Warfarin Sod 5 Mg Tab) 5 mg PO TuSa@1600 [facility] Stop: 08/19/23 15:59 Last Admin: 07/20/23 15:34 Dose: 5 mg (1) Fall Encounter type: initial encounter Qualified Code(s): W19.XXXA - Unspecified fall, initial encounter
[2023-07-21] MEDS: WARFARIN SOD 2.5 MG TAB PO SCH (15:21)
[2023-07-21] MEDS: SENNA 8.6 MG TAB PO SCH (20:59)
[2023-07-21] MEDS: SIMVASTATIN 10 MG TAB PO SCH (20:59)
[2023-07-22] MEDS: LEVOTHYROXINE SODIUM 75 MCG TABLET PO SCH (06:27)
[2023-07-22 07:45] LABS: INR 4.2 (0.9-1.1); Prothrombin Time 41.9 Seconds (9.0-12.0)
[2023-07-22] MEDS: MULTIVITAMIN TAB PO SCH (09:36)
[2023-07-22] MEDS: ASPIRIN 81 MG ECTAB PO SCH (09:36)
--- NOTE | 2023-07-22 16:26 | Hospitalist Progress Note ---
Date of Service July 22, 2023 Assessment & Plan (1) Fall: (2) Weakness: (3) Acute hyponatremia: (4) NICM (nonischemic cardiomyopathy): (5) Permanent atrial fibrillation: (6) AICD (automatic cardioverter/defibrillator) present: (7) [facility] current use of anticoagulant: (8) CKD (chronic kidney disease) stage 3, GFR 30-59 ml/min: Plan Ms. 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 Patient notes she does not recall the fall and awoke the following morning on the ground. Duplex was obtained of BL carotids in 2019 with less than 50% stenosis at that time. She does not have her blood pressure recorded to determine if these events were truly hypotensive while at home. Patient has notable cardiac history, therefore it would be prudent to rule out cardiogenic cause for events leading up to presentation. Fall Suspected due to Syncope resulting from significant Hypotension H/O recurrent falls Device interrogated and showed no arrhythmias Carvedilol, torsemide discontinued Appreciate cardiology input Blood pressure variable Will consider midodrine if needed Continue PT OT Fall precautions Plan to discharge to rehab facility as able Monitor volume status while off torsemide. Will consider torsemide as needed if edema worsens Ambulatory dysfunction Generalized weakness Will need rehab placement Patient will benefit from expedited insurance authorization, delay in placement to rehab will likely compromise care given limited PT while hospitalization. 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 There is a small sized inferior wall motion abnormality with akinesis of the basal segment of the inferior wall. LV systolic function is normal. LVEF 55 to 60%. RV is not well-visualized but appears dilated on limited visualization. LA is severely dilated. RA is severely dilated. Aortic valve is mildly calcified. Aortic stenosis is absent. There is a bioprosthetic mitral valve. There is no significant prosthetic regurg. Prosthetic mitral valve peak/mean gradients are normal. Doppler findings do not suggest pulmonary hypertension. -- Appreciate cardiology input --Her [employer] biventricular pacemaker AICD was interrogated remotely. Results discussed with banking representative. Normal device function. Cardiology Recommends to * Hold diuretics and carvedilol. Liberalize oral intake. on discharge -> will stop coreg., decrease torsemide dose to prn Suspected delirium Poor sleep likely contributing Reorient frequently Will consider CT imaging if remains delirious tomorrow Check sodium levels as well Continue to hold gabapentin for now Avoid sedative medications Repeat thyroid function test Acute on chronic hyponatremia Diuretics discontinued Monitor sodium levels Check BMP tomorrow Transaminitis Slight elevation in AST 55, ALP 132, T Bili 1.2 Trended down monitor Chronic atrial fibrillation Supratherapeutic INR s/p ablation in 2007 Hold Coumadin today Monitor INR CKD III Cr at baseline Monitor renal function Hypothyroidism -Continue levothyroxine Needs repeat thyroid function test as outpatient Osteoporosis -On home alendronate and raloxifene -Held in setting of elevated LFTS, resume when stable DVT Px: Supratherapeutic INR Coumadin--held Disposition Rehab when accepted Admission and Anticipated Discharge Date Admission Date: July 14, 2023 Subjective Patient is seen and examined at bedside States having generalized weakness Reports poor sleep overnight Slow to respond but follows simple commands Denies any chest pain, dyspnea, dizziness, nausea, abdominal pain No other complaints Updated patient's daughter over the phone Review of Systems Review of Systems: All systems reviewed & are unremarkable except as noted in Subjective Physical Exam Physical Exam: Physical Exam: Vitals signs as noted above General Appearance: Thin, frail, elderly, no apparent distress Head: normocephalic, Atraumatic Eyes: normal inspection, EOMI Neck: supple, Trachea midline Respiratory/Chest: Normal breath sounds, CTA, No accessory muscle use Cardiovascular: S1, S2, +Pacer, +murmur Abdomen/GI:Soft, Non tender, Bowel sounds present Extremities/Musculoskeletal:normal inspection, 1+ B/L LE edema, + venous stasis changes Neurologic/Psych:AAOX2, grossly no focal neurological deficits Skin: normal color, warm Results & Data Results & Data Vital Signs (Past 12 Hours) Vital Signs Temp Pulse Pulse Resp BP Pulse Ox O2 Del Method 07/22/23 15:52 36.9 C 77 16 103/61 93 Room Air 07/22/23 14:17 Room Air 07/22/23 11:25 36.6 C 72 19 131/70 72 L Room Air 07/22/23 09:46 73 07/22/23 07:07 36.6 C 70 16 150/75 H 95 Room Air 07/22/23 04:53 36.6 C 72 18 134/81 95 Room Air (1) Fall Encounter type: initial encounter Qualified Code(s): W19.XXXA - Unspecified fall, initial encounter
[2023-07-22] MEDS: SENNA 8.6 MG TAB PO SCH (21:26)
[2023-07-22] MEDS: SIMVASTATIN 10 MG TAB PO SCH (21:26)
[2023-07-23] MEDS: LEVOTHYROXINE SODIUM 75 MCG TABLET PO SCH (05:34)
[2023-07-23 06:34] LABS: Hematocrit (blood only) 30.7 % (37.0-47.0); Hemoglobin 10.8 g/dl (12.0-16.0); Mean Corpuscular Hemoglobin 28.1 pg (25.0-34.0); Mean Corpuscular Hgb Conc 35.2 g/dL (32.0-36.0); Mean Corpuscular Volume 79.9 fL (80.0-100.0); Mean Platelet Volume 10.2 fL (9.4-12.4); Platelet Count 243 K/uL (130-400); RDW Coefficient of Variation 17.8 % (11.5-14.5); RDW Standard Deviation 49.5 fL (36.4-46.3); Red Blood Count 3.84 M/uL (4.20-5.40); White Blood Count 17.25 K/ul (4.8-10.8)
[2023-07-23 06:56] LABS: BUN Creatinine Ratio 22.8 (10-20); Calcium 8.7 mg/dl (8.6-10.3); Creatinine Clr Calc Pharmacy 32.6 ml/min; Est GFR (African American) 58.4 ml/min; Est GFR (Non-African American) 50.4 ml/min; Potassium 3.9 mmol/L (3.5-5.1)
[2023-07-23 07:11] LABS: Thyroid Stimulating Hormone 3.882 uIu/ml (0.300-4.500)
[2023-07-23 07:20] LABS: INR 4.3 (0.9-1.1); Prothrombin Time 43.4 Seconds (9.0-12.0)
[2023-07-23] MEDS ORDERED: SODIUM CHLORIDE 0.9% 1,000 ML IV SCH (08:00)
--- NOTE | 2023-07-23 08:25 | XRay Report ---
XR chest 1V portable HISTORY: 87 years-old Female Leukocytosis COMPARISON: Chest radiograph 07/14/2023 TECHNIQUE: AP view of the chest FINDINGS: Cardiac silhouette is enlarged. Cardiac valvular prosthesis. Left subclavian pacer/AICD. Atherosclero sis of aorta. Chronic interstitial coarsening. No pneumothorax. Small left pleural effusion with mild left basilar consolidation is new from prior. Degenerative changes of the shoulders and spine with s igmoidal scoliosis. IMPRESSION: 1. Cardiomegaly with chronic interstitial coarsening. 2. There is a new small left pleural effusion with left basilar consolidation suggestive of atelectas is versus pneumonia.. ACT 112: Negative or not required by law. The above report was generated using voice recognition software. It may contain grammatical, syntax o r spelling errors. Electronically signed by: Marino Baeza M.D. 07/23/2023 8:24 AM
[2023-07-23 08:38] LABS: Appearance Urine Turbid (Clear); Bacteria Urine Automated 2+ (Negative); Blood Urine 1+ (Negative); Color Urine Dark Yellow; Epithelial Cell Urine Auto >30 /lpf (0-5); Glucose Urine UA Negative (Negative); Ketones Urine Trace (Negative); Leukocyte Esterase Urine 3+ (Negative); Nitrite Urine Positive (Negative); Protein Urine 1+ (Negative); Specific Gravity Urine 1.023 (1.000-1.030); Urobilinogen Urine Negative (Negative); WBC Urine Automated >30 /hpf (0-5); pH Urine 5.5 (4.5-7.5)
--- NOTE | 2023-07-23 08:39 | CT Scan Report ---
CT SCAN OF THE BRAIN WITHOUT IV CONTRAST CLINICAL HISTORY: Change in mental status. COMPARISON STUDY: CT of the brain dated 07/14/2023. TECHNIQUE: Unenhanced axial CT scan of the brain is performed from the vertex to the skull base. A do se lowering technique was utilized adhering to the principles of ALARA. CT DOSE: 625.8 mGy.cm FINDINGS: Brain parenchyma: There is age-related involutional change noting moderate subcortical and periventri cular microangiopathic disease. There is no hemorrhage, mass effect, or evidence of acute territorial ischemia by CT criteria. Best-white matter differentiation is preserved. No extra-axial fluid collec tion is seen. Ventricles, sulci, cisterns: Prominent secondary to involutional change. Intracranial vasculature: There is atherosclerotic calcification of the cavernous carotid and vertebr al arteries. Calvarium: Unremarkable. Sinuses and mastoids: The paranasal sinuses are clear. The mastoid air cells are well pneumatized. Orbits: The bony orbits are grossly intact. There are bilateral ocular lens implants. IMPRESSION: There is no hemorrhage, mass effect, or evidence of acute territorial ischemia by CT [facility]. ACT 112: Negative or not required by law. Electronically signed by: John Joseph M.D. 07/23/2023 8:38 AM
[2023-07-23 08:50] LABS: Bilirubin Urine 1+ (Negative)
[2023-07-23] MEDS: ASPIRIN 81 MG ECTAB PO SCH (09:08)
[2023-07-23] MEDS: MULTIVITAMIN TAB PO SCH (09:08)
[2023-07-23] MEDS: ADVANCED PROBIOTIC 1250 MG CAPSULE PO SCH (11:05)
[2023-07-23] MEDS: cefTRIAXone SODIUM 1,000 MG in DEXTROSE 5 % MINI-B 50 ML IV SCH (11:05)
[2023-07-23] MEDS: DOXYCYCLINE HYCLATE 100 MG CAP PO SCH ×2 (16:59→19:52)
--- NOTE | 2023-07-23 19:08 | Hospitalist Progress Note ---
Date of Service July 23, 2023 Assessment & Plan (1) Fall: (2) Weakness: (3) Acute hyponatremia: (4) NICM (nonischemic cardiomyopathy): (5) Permanent atrial fibrillation: (6) AICD (automatic cardioverter/defibrillator) present: (7) long-term current use of anticoagulant: (8) CKD (chronic kidney disease) stage 3, GFR 30-59 ml/min: Plan Ms. 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 Patient notes she does not recall the fall and awoke the following morning on the ground. Duplex was obtained of BL carotids in 2019 with less than 50% stenosis at that time. She does not have her blood pressure recorded to determine if these events were truly hypotensive while at home. Patient has notable cardiac history, therefore it would be prudent to rule out cardiogenic cause for events leading up to presentation. Fall Suspected due to Syncope resulting from significant Hypotension H/O recurrent falls Device interrogated and showed no arrhythmias Carvedilol, torsemide discontinued Appreciate cardiology input Blood pressure variable Will consider midodrine if needed Continue PT OT Fall precautions Plan to discharge to rehab facility as able Monitor volume status while off torsemide. Will consider torsemide as needed if edema worsens Ambulatory dysfunction Generalized weakness Will need rehab placement Patient will benefit from expedited insurance authorization, delay in placement to rehab will likely compromise care given limited PT while hospitalization. Continue PT OT while hospitalized Case management to help with discharge planning Change in mental status Suspected delirium Poor sleep likely contributing DD: Encephalopathy secondary to infection Abnormal urinalysis--possible UTI Chest x-ray showed signs of possible pneumonia --CT head:There is no hemorrhage, mass effect, or evidence of acute territorial ischemia by CT criteria. 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 There is a small sized inferior wall motion abnormality with akinesis of the basal segment of the inferior wall. LV systolic function is normal. LVEF 55 to 60%. RV is not well-visualized but appears dilated on limited visualization. LA is severely dilated. RA is severely dilated. Aortic valve is mildly calcified. Aortic stenosis is absent. There is a bioprosthetic mitral valve. There is no significant prosthetic regurg. Prosthetic mitral valve peak/mean gradients are normal. Doppler findings do not suggest pulmonary hypertension. -- Appreciate cardiology input --Her [employer] biventricular pacemaker AICD was interrogated remotely. Results discussed with medical field representative. Normal device function. Cardiology Recommends to * Hold diuretics and carvedilol. Liberalize oral intake. on discharge -> will stop coreg., decrease torsemide dose to prn Acute on chronic hyponatremia Diuretics discontinued Monitor sodium levels Check BMP tomorrow Transaminitis Slight elevation in AST 55, ALP 132, T Bili 1.2 Trended down monitor Chronic atrial fibrillation Supratherapeutic INR s/p ablation in 2007 Hold Coumadin today Monitor INR: 4.3 today CKD III Cr at baseline Monitor renal function Hypothyroidism -Continue levothyroxine Needs repeat thyroid function test as outpatient Osteoporosis -On home alendronate and raloxifene -Held in setting of elevated LFTS, resume when stable DVT Px: Supratherapeutic INR Coumadin--held Disposition Rehab as able Admission and Anticipated Discharge Date Admission Date: July 14, 2023 Subjective Patient is seen and examined at bedside Oriented x 2 during my encounter this morning Minimal cough but otherwise no complaints Urinalysis suggestive of UTI Poor historian Denies any chest pain, dyspnea, dizziness, nausea, abdominal pain Review of Systems Review of Systems: All systems reviewed & are unremarkable except as noted in Subjective Physical Exam Physical Exam: Physical Exam: Vitals signs as noted above General Appearance: Thin, frail, elderly, no apparent distress Head: normocephalic, Atraumatic Eyes: normal inspection, EOMI Neck: supple, Trachea midline Respiratory/Chest: Normal breath sounds, CTA, No accessory muscle use Cardiovascular: S1, S2, +Pacer, +murmur Abdomen/GI:Soft, Non tender, Bowel sounds present Extremities/Musculoskeletal:normal inspection, 1+ B/L LE edema, + venous stasis changes Neurologic/Psych:AAOX2, grossly no focal neurological deficits Skin: normal color, warm Results & Data Results & Data Vital Signs (Past 12 Hours) Vital Signs Temp Pulse Pulse Resp BP Pulse Ox O2 Del Method 07/23/23 15:32 36.7 C 75 16 119/83 97 Room Air 07/23/23 14:51 76 07/23/23 11:42 36.5 C 70 14 98/58 L 94 Room Air 07/23/23 11:21 Room Air 07/23/23 08:03 73 07/23/23 07:28 36.6 C 76 20 146/73 H 96 Room Air Laboratory Results Short CBC 07/23/23 Range/Units 05:55 WBC 17.25 H (4.8-10.8) K/ul Hgb 10.8 L (12.0-16.0) g/dl Hct 30.7 L (37.0-47.0) % Plt Count 243 (130-400) K/uL BMP 07/23/23 05:55 Sodium 129 L Potassium 3.9 Chloride 98 Carbon Dioxide 22 BUN 23 Creatinine 1.01 Glucose 137 H Calcium 8.7 Urine 07/23/23 Range/Units 08:19 Urine Color Dark Yellow Urine Appearance Turbid A (Clear) Urine pH 5.5 (4.5-7.5) Ur Specific [place] 1.023 (1.000-1.030) Urine Protein 1+ H (Negative) Urine Glucose (UA) Negative (Negative) (1) Fall Encounter type: initial encounter Qualified Code(s): W19.XXXA - Unspecified fall, initial encounter
[2023-07-23] MEDS: SIMVASTATIN 10 MG TAB PO SCH (19:52)
[2023-07-23] MEDS: SENNA 8.6 MG TAB PO SCH (19:52)
[2023-07-24 07:47] LABS: Hematocrit (blood only) 28.3 % (37.0-47.0); Hemoglobin 9.7 g/dl (12.0-16.0); Mean Corpuscular Hemoglobin 27.6 pg (25.0-34.0); Mean Corpuscular Hgb Conc 34.3 g/dL (32.0-36.0); Mean Corpuscular Volume 80.4 fL (80.0-100.0); Mean Platelet Volume 10.6 fL (9.4-12.4); Platelet Count 155 K/uL (130-400); RDW Standard Deviation 50.9 fL (36.4-46.3); Red Blood Count 3.52 M/uL (4.20-5.40)
[2023-07-24 08:06] LABS: BUN Creatinine Ratio 33.3 (10-20); Calcium 7.9 mg/dl (8.6-10.3); Est GFR (African American) 69.9 ml/min; Est GFR (Non-African American) 60.3 ml/min; Potassium 3.6 mmol/L (3.5-5.1)
[2023-07-24 08:09] LABS: INR 3.8 (0.9-1.1); Prothrombin Time 37.8 Seconds (9.0-12.0)
[2023-07-24 08:12] LABS: Basophils # (auto) 0.05 K/uL (0.00-0.20); Basophils % (auto) 0.3 %; Dohle Bodies 1+; Echinocytes 1+; Eosinophils # (auto) 0.05 K/uL (0.00-0.50); Eosinophils % (auto) 0.3 %; Immature Granulocytes # (auto) 0.26 K/uL (0.01-0.20); Immature Granulocytes % (auto) 1.4 %; Lymphocytes # (auto) 0.42 K/uL (1.20-3.40); Lymphocytes % (auto) 2.3 %; Monocytes # (auto) 0.94 K/uL (0.11-0.59); Monocytes % (auto) 5.1 %; Neutrophils # (auto) 16.58 K/uL (1.40-6.50); Neutrophils % (auto) 90.6 %; Polychromasia 1+
[2023-07-24] MEDS: ADVANCED PROBIOTIC 1250 MG CAPSULE PO SCH (09:27)
[2023-07-24] MEDS: LEVOTHYROXINE SODIUM 75 MCG TABLET PO SCH (09:27)
[2023-07-24] MEDS: ASPIRIN 81 MG ECTAB PO SCH (09:27)
[2023-07-24] MEDS: DOXYCYCLINE HYCLATE 100 MG CAP PO SCH ×2 (09:27→21:58)
[2023-07-24] MEDS: MULTIVITAMIN TAB PO SCH (09:28)
[2023-07-24] MEDS: cefTRIAXone SODIUM 1,000 MG in DEXTROSE 5 % MINI-B 50 ML IV SCH (11:18)
--- NOTE | 2023-07-24 17:48 | Hospitalist Progress Note ---
Date of Service July 24, 2023 Assessment & Plan (1) Fall: (2) Weakness: (3) Acute hyponatremia: (4) NICM (nonischemic cardiomyopathy): (5) Permanent atrial fibrillation: (6) AICD (automatic cardioverter/defibrillator) present: (7) alf current use of anticoagulant: (8) CKD (chronic kidney disease) stage 3, GFR 30-59 ml/min: Plan Ms. 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 Patient notes she does not recall the fall and awoke the following morning on the ground. Duplex was obtained of BL carotids in 2019 with less than 50% stenosis at that time. She does not have her blood pressure recorded to determine if these events were truly hypotensive while at home. Patient has notable cardiac history, therefore it would be prudent to rule out cardiogenic cause for events leading up to presentation. Fall Suspected due to Syncope resulting from significant Hypotension H/O recurrent falls Device interrogated and showed no arrhythmias Carvedilol, torsemide discontinued Appreciate cardiology input Blood pressure variable Will consider midodrine if needed Continue PT OT Fall precautions Plan to discharge to rehab facility as able Monitor volume status while off torsemide. Will consider torsemide as needed if edema worsens Ambulatory dysfunction Generalized weakness Will need rehab placement Patient will benefit from expedited insurance authorization, delay in placement to rehab will likely compromise care given limited PT while hospitalization. Continue PT OT while hospitalized Case management to help with discharge planning Change in mental status Suspected delirium/acute metabolic encephalopathy Poor sleep likely contributing DD: Encephalopathy secondary to infection Abnormal urinalysis--possible UTI Chest x-ray showed signs of possible pneumonia --CT head:There is no hemorrhage, mass effect, or evidence of acute territorial ischemia by CT criteria. 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 There is a small sized inferior wall motion abnormality with akinesis of the basal segment of the inferior wall. LV systolic function is normal. LVEF 55 to 60%. RV is not well-visualized but appears dilated on limited visualization. LA is severely dilated. RA is severely dilated. Aortic valve is mildly calcified. Aortic stenosis is absent. There is a bioprosthetic mitral valve. There is no significant prosthetic regurg. Prosthetic mitral valve peak/mean gradients are normal. Doppler findings do not suggest pulmonary hypertension. -- Appreciate cardiology input --Her [employer] biventricular pacemaker AICD was interrogated remotely. Results discussed with denial management representative. Normal device function. Cardiology Recommends to * Hold diuretics and carvedilol. Liberalize oral intake. on discharge -> will stop coreg., decrease torsemide dose to prn Acute on chronic hyponatremia Diuretics discontinued Monitor sodium levels Sodium 129 today Transaminitis Slight elevation in AST 55, ALP 132, T Bili 1.2 Trended down monitor Chronic atrial fibrillation Supratherapeutic INR s/p ablation in 2007 Hold Coumadin today Monitor INR: 3.8 today CKD III Cr at baseline Monitor renal function Hypothyroidism -Continue levothyroxine Needs repeat thyroid function test as outpatient Osteoporosis -On home alendronate and raloxifene -Held in setting of elevated LFTS, resume when stable DVT Px: Supratherapeutic INR Coumadin--held Disposition Rehab as able Admission and Anticipated Discharge Date Admission Date: July 14, 2023 Subjective Patient is seen and examined at bedside More alert, awake this morning during my encounter Sitting in chair comfortably Admits to have some cough but otherwise feels very weak No other complaints Denies any chest pain, dyspnea, dizziness, nausea, abdominal pain Persistent leukocytosis Review of Systems Review of Systems: All systems reviewed & are unremarkable except as noted in Subjective Physical Exam Physical Exam: Physical Exam: Vitals signs as noted above General Appearance: Thin, frail, elderly, no apparent distress Head: normocephalic, Atraumatic Eyes: normal inspection, EOMI Neck: supple, Trachea midline Respiratory/Chest: Normal breath sounds, +basal crackles, No accessory muscle use Cardiovascular: S1, S2, +Pacer, +murmur Abdomen/GI:Soft, Non tender, Bowel sounds present Extremities/Musculoskeletal:normal inspection, 1+ B/L LE edema, + venous stasis changes Neurologic/Psych:AAOX2, grossly no focal neurological deficits Skin: normal color, warm Results & Data Results & Data Vital Signs (Past 12 Hours) Vital Signs Temp Pulse Resp BP Pulse Ox O2 Del Method 07/24/23 15:57 36.8 C 80 16 100/66 95 Room Air 07/24/23 12:38 37.0 C 75 16 102/70 90 Room Air 07/24/23 08:06 36.4 C L 70 16 107/69 94 Room Air 07/24/23 08:00 Room Air Laboratory Results Short CBC 07/24/23 Range/Units 07:22 WBC 18.30 H (4.8-10.8) K/ul Hgb 9.7 L (12.0-16.0) g/dl Hct 28.3 L (37.0-47.0) % Plt Count 155 (130-400) K/uL BMP 07/24/23 07:22 Sodium 129 L Potassium 3.6 Chloride 102 Carbon Dioxide 19 L BUN 29 H Creatinine 0.87 Glucose 128 H Calcium 7.9 L (1) Fall Encounter type: initial encounter Qualified Code(s): W19.XXXA - Unspecified fall, initial encounter
[2023-07-24] MEDS: SIMVASTATIN 10 MG TAB PO SCH (21:58)
[2023-07-24] MEDS: ACETAMINOPHEN 325 MG TAB PO PRN (21:58)
[2023-07-24] MEDS: SENNA 8.6 MG TAB PO SCH ×2 (21:58→22:05)
[2023-07-25] MEDS: LEVOTHYROXINE SODIUM 75 MCG TABLET PO SCH (05:41)
[2023-07-25 06:26] LABS: Hematocrit (blood only) 28.7 % (37.0-47.0); Hemoglobin 9.6 g/dl (12.0-16.0); Mean Corpuscular Hemoglobin 27.3 pg (25.0-34.0); Mean Corpuscular Hgb Conc 33.4 g/dL (32.0-36.0); Mean Corpuscular Volume 81.5 fL (80.0-100.0); Mean Platelet Volume 11.4 fL (9.4-12.4); Platelet Count 136 K/uL (130-400); RDW Coefficient of Variation 18.7 % (11.5-14.5); RDW Standard Deviation 53.5 fL (36.4-46.3); Red Blood Count 3.52 M/uL (4.20-5.40); White Blood Count 16.44 K/ul (4.8-10.8)
[2023-07-25 06:39] LABS: BUN Creatinine Ratio 39.4 (10-20); Calcium 8.2 mg/dl (8.6-10.3); Creatinine Clr Calc Pharmacy 30.8 ml/min; Est GFR (African American) 59.8 ml/min; Est GFR (Non-African American) 51.6 ml/min; Potassium 3.6 mmol/L (3.5-5.1)
[2023-07-25 06:45] LABS: Prothrombin Time 84.5 Seconds (9.0-12.0)
[2023-07-25 06:50] LABS: Basophils # (auto) 0.06 K/uL (0.00-0.20); Basophils % (auto) 0.4 %; Echinocytes 1+; Eosinophils # (auto) 0.08 K/uL (0.00-0.50); Eosinophils % (auto) 0.5 %; Immature Granulocytes # (auto) 0.22 K/uL (0.01-0.20); Immature Granulocytes % (auto) 1.3 %; Lymphocytes # (auto) 0.44 K/uL (1.20-3.40); Lymphocytes % (auto) 2.7 %; Monocytes # (auto) 1.15 K/uL (0.11-0.59); Neutrophils # (auto) 14.49 K/uL (1.40-6.50); Neutrophils % (auto) 88.1 %; Polychromasia 1+
[2023-07-25 07:09] LABS: INR 8.9 (0.9-1.1)
[2023-07-25] MEDS ORDERED: PHYTONADIONE 5 MG TAB PO ONE (08:00)
[2023-07-25] MEDS: DOXYCYCLINE HYCLATE 100 MG CAP PO SCH ×2 (08:23→21:15)
[2023-07-25] MEDS: ADVANCED PROBIOTIC 1250 MG CAPSULE PO SCH (08:24)
[2023-07-25] MEDS: MULTIVITAMIN TAB PO SCH (08:24)
[2023-07-25] MEDS: ASPIRIN 81 MG ECTAB PO SCH ×2 (08:25→11:54)
[2023-07-25 10:16] LABS: Adenovirus PCR Not Detected (NotDetected); Bordetella parapertussis PCR Not Detected (NotDetected); Bordetella pertussis PCR Not Detected (NotDetected); Chlamydia pneumoniae PCR Not Detected (NotDetected); Coronavirus 229E PCR Not Detected (NotDetected); Coronavirus CoV-2 (COVID19)PCR Not Detected (NotDetected); Coronavirus HKU1 PCR Not Detected (NotDetected); Coronavirus NL63 PCR Not Detected (NotDetected); Coronavirus OC43PCR Not Detected (NotDetected); Human Metapneumovirus PCR Not Detected (NotDetected); Influenza A PCR Not Detected (NotDetected); Influenza B PCR Not Detected (NotDetected); Mycoplasma pneumoniae PCR Not Detected (NotDetected); Parainfluenza Virus 1 PCR Not Detected (NotDetected); Parainfluenza Virus 2 PCR Not Detected (NotDetected); Parainfluenza Virus 3 PCR Not Detected (NotDetected); Parainfluenza Virus 4 PCR Not Detected (NotDetected); Respiratory Syncytial VirusPCR Not Detected (NotDetected); Rhinovirus/Enterovirus PCR Not Detected (NotDetected)
[2023-07-25] MEDS: cefTRIAXone SODIUM 1,000 MG in DEXTROSE 5 % MINI-B 50 ML IV SCH (11:53)
--- NOTE | 2023-07-25 17:22 | Hospitalist Progress Note ---
Date of Service July 25, 2023 Assessment & Plan (1) Fall: (2) Weakness: (3) Acute hyponatremia: (4) NICM (nonischemic cardiomyopathy): (5) Permanent atrial fibrillation: (6) AICD (automatic cardioverter/defibrillator) present: (7) shelter current use of anticoagulant: (8) CKD (chronic kidney disease) stage 3, GFR 30-59 ml/min: Plan Ms. 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 Patient notes she does not recall the fall and awoke the following morning on the ground. Duplex was obtained of BL carotids in 2019 with less than 50% stenosis at that time. She does not have her blood pressure recorded to determine if these events were truly hypotensive while at home. Patient has notable cardiac history, therefore it would be prudent to rule out cardiogenic cause for events leading up to presentation. Fall Suspected due to Syncope resulting from significant Hypotension H/O recurrent falls Device interrogated and showed no arrhythmias Carvedilol, torsemide discontinued Appreciate cardiology input Blood pressure variable Will consider midodrine if needed Continue PT OT Fall precautions Plan to discharge to rehab facility as able Monitor volume status while off torsemide. Will consider torsemide as needed if edema worsens Ambulatory dysfunction Generalized weakness Will need rehab placement Patient will benefit from expedited insurance authorization, delay in placement to rehab will likely compromise care given limited PT while hospitalization. Continue PT OT while hospitalized Case management to help with discharge planning Change in mental status Suspected delirium/acute metabolic encephalopathy Poor sleep likely contributing DD: Encephalopathy secondary to infection Abnormal urinalysis--possible UTI Chest x-ray showed signs of possible pneumonia --CT head:There is no hemorrhage, mass effect, or evidence of acute territorial ischemia by CT criteria. 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 There is a small sized inferior wall motion abnormality with akinesis of the basal segment of the inferior wall. LV systolic function is normal. LVEF 55 to 60%. RV is not well-visualized but appears dilated on limited visualization. LA is severely dilated. RA is severely dilated. Aortic valve is mildly calcified. Aortic stenosis is absent. There is a bioprosthetic mitral valve. There is no significant prosthetic regurg. Prosthetic mitral valve peak/mean gradients are normal. Doppler findings do not suggest pulmonary hypertension. -- Appreciate cardiology input --Her [employer] biventricular pacemaker AICD was interrogated remotely. Results discussed with graphic art sales representative. Normal device function. Cardiology Recommends to * Hold diuretics and carvedilol. Liberalize oral intake. on discharge -> will stop coreg., decrease torsemide dose to prn Acute on chronic hyponatremia Diuretics discontinued Monitor sodium levels Sodium 129 today Transaminitis Slight elevation in AST 55, ALP 132, T Bili 1.2 Trended down monitor Chronic atrial fibrillation Supratherapeutic INR s/p ablation in 2007 Hold Coumadin today Monitor INR: 8.9 today Currently no obvious bleeding issues CKD III Cr at baseline Monitor renal function Hypothyroidism -Continue levothyroxine Needs repeat thyroid function test as outpatient Osteoporosis -On home alendronate and raloxifene -Held in setting of elevated LFTS, resume when stable DVT Px: Supratherapeutic INR Coumadin--held Disposition Rehab as able Admission and Anticipated Discharge Date Admission Date: July 14, 2023 Subjective Patient is seen and examined at bedside States having chills during my encounter Also reports feeling weak Admits to have minimal cough some pleuritic pain Appetite slowly improving Saturating well on room air INR supratherapeutic, no bleeding issues Denies any chest pain, dyspnea, dizziness, nausea, abdominal pain Review of Systems Review of Systems: All systems reviewed & are unremarkable except as noted in Subjective Physical Exam Physical Exam: Physical Exam: Vitals signs as noted above General Appearance: Thin, frail, elderly, no apparent distress Head: normocephalic, Atraumatic Eyes: normal inspection, EOMI Neck: supple, Trachea midline Respiratory/Chest: Normal breath sounds, +basal crackles, No accessory muscle use Cardiovascular: S1, S2, +Pacer, +murmur Abdomen/GI:Soft, Non tender, Bowel sounds present Extremities/Musculoskeletal:normal inspection, 1+ B/L LE edema, + venous stasis changes Neurologic/Psych:AAOX2, grossly no focal neurological deficits Skin: normal color, warm Results & Data Results & Data Vital Signs (Past 12 Hours) Vital Signs Temp Pulse Resp BP Pulse Ox O2 Del Method 07/25/23 15:03 37.6 C H 74 16 102/59 L 91 Room Air 07/25/23 12:16 36.5 C 60 16 109/52 L 96 Room Air 07/25/23 08:00 Room Air 07/25/23 07:55 36.3 C L 72 16 106/67 95 Room Air (1) Fall Encounter type: initial encounter Qualified Code(s): W19.XXXA - Unspecified fall, initial encounter
[2023-07-25] MEDS: SIMVASTATIN 10 MG TAB PO SCH (21:13)
[2023-07-25] MEDS: SENNA 8.6 MG TAB PO SCH (21:14)
[2023-07-26 03:24] LABS: A calco-baum cmplx NotReported Not Detected (NotDetected); Bact fragilis Not Reported Not Detected (NotDetected); Blood Culture Id Panel See PCR Comment (NotDetected); C auris Not Reported Not Detected (NotDetected); Calbicans Not Reported Not Detected (NotDetected); Candida glabrata Not Reported Not Detected (NotDetected); Candida krusei Not Reported Not Detected (NotDetected); Cneoformans/gatti Not Reported Not Detected (NotDetected); Cparapsilosis Not Reported Not Detected (NotDetected); E cloacae compx Not Reported Not Detected (NotDetected); Efaecalis Not Reported Not Detected (NotDetected); Efaecium Not Reported Not Detected (NotDetected); Enterobacterales Not Reported Not Detected (NotDetected); Escherichia coli Not Reported Not Detected (NotDetected); H influenzae Not Reported Not Detected (NotDetected); K aerogenes Not Reported Not Detected (NotDetected); Koxytoca Not Reported Not Detected (NotDetected); Kpneumoniae grp Not Reported Not Detected (NotDetected); Lmonocyt Not Reported Not Detected (NotDetected); N meningitidis Not Reported Not Detected (NotDetected); P aeruginosa Not Reported Not Detected (NotDetected); Proteus spp Not Reported Not Detected (NotDetected); Salmonella spp Not Reported Not Detected (NotDetected); Smarcescens Not Reported Not Detected (NotDetected); Staph lugdunensis Not Reported Not Detected (NotDetected); Staph spp. Not Reported DETECTED (NotDetected); Staphaureus Not Reported DETECTED (NotDetected); Staphepi Not Reported Not Detected (NotDetected); Staphylococcus spp. DETECTED (NotDetected); Stenmaltophilia Not Reported Not Detected (NotDetected); Strep agal(GrpB) Not Reported Not Detected (NotDetected); Strep pneum Not Reported Not Detected (NotDetected); Strep pyog (GrpA) Not Reported Not Detected (NotDetected); Strep spp Not Reported Not Detected (NotDetected)
[2023-07-26 03:31] LABS: mecAC+MREJ Resistant Gene MRSA DETECTED (NotDetected)
[2023-07-26] MEDS ORDERED: VANCOMYCIN HCL 1,500 MG in SODIUM CHLORIDE 0.9% 500 ML IV ONE (03:51)
[2023-07-26] MEDS ORDERED: VANCOMYCIN CONSULT ACTIVE PRN (03:51)
[2023-07-26] MEDS ORDERED: VANCOMYCIN HCL 1,250 MG in SODIUM CHLORIDE 0.9% 250 ML IV STA (03:57)
[2023-07-26] MEDS ORDERED: VANCOMYCIN HCL 750 MG in SODIUM CHLORIDE 0.9% 500 ML IV SCH (04:00)
[2023-07-26] MEDS: LEVOTHYROXINE SODIUM 75 MCG TABLET PO SCH (05:44)
[2023-07-26] MEDS: ACETAMINOPHEN 325 MG TAB PO PRN (08:36)
[2023-07-26] MEDS: ASPIRIN 81 MG ECTAB PO SCH (08:36)
[2023-07-26] MEDS: ADVANCED PROBIOTIC 1250 MG CAPSULE PO SCH (08:36)
[2023-07-26] MEDS: MULTIVITAMIN TAB PO SCH (08:37)
[2023-07-26 08:54] LABS: Hematocrit (blood only) 27.3 % (37.0-47.0); Hemoglobin 9.6 g/dl (12.0-16.0); Mean Corpuscular Hemoglobin 27.7 pg (25.0-34.0); Mean Corpuscular Hgb Conc 35.2 g/dL (32.0-36.0); Mean Corpuscular Volume 78.9 fL (80.0-100.0); Platelet Count 126 K/uL (130-400); RDW Coefficient of Variation 18.1 % (11.5-14.5); RDW Standard Deviation 49.6 fL (36.4-46.3); Red Blood Count 3.46 M/uL (4.20-5.40); White Blood Count 15.83 K/ul (4.8-10.8)
[2023-07-26 09:00] LABS: BUN Creatinine Ratio 43.9 (10-20); Calcium 8.2 mg/dl (8.6-10.3); Creatinine Clr Calc Pharmacy 31.1 ml/min; Est GFR (African American) 60.5 ml/min; Est GFR (Non-African American) 52.2 ml/min; Potassium 3.7 mmol/L (3.5-5.1)
[2023-07-26 09:07] LABS: INR 1.4 (0.9-1.1); Prothrombin Time 15.2 Seconds (9.0-12.0)
[2023-07-26] MEDS ORDERED: SODIUM CHLORIDE 0.9% 1,000 ML IV ONE (09:08)
[2023-07-26] MEDS: cefTRIAXone SODIUM 1,000 MG in DEXTROSE 5 % MINI-B 50 ML IV SCH (10:54)
--- NOTE | 2023-07-26 11:55 | Pharmacy Report ---
Pharmacy PK ABX Note - Date of Service July 26, 2023 - Assessment and Plan Assessment 87 year old F receiving ceftriaxone and vancomycin for treatment of MRSA bacteremia. Pertinent microbiologic data includes: aerobic bottles of 2/2 blood cultures with GPC in clusters. BCID2 indicates MRSA SCr stable. Elderly women of lower body weight sometimes clear vancomycin at rates faster than anticipated by population-based PK. Will obtain an early level. Plan Vancomycin * Loading dose: 1250 mg IV x 1 * Maintenance dose: 750 mg IV every 24 hours * Regimen is predicted to achieve target AUC/MARYCRUZ of 400-600 mg/L.hr per [employer] software * Random level ordered for 1/2 AM Pharmacy will continue to follow and will adjust dose/frequency as necessary. Thank you. Pharmacy has transitioned to AUC monitoring for vancomycin. AUC/MARYCRUZ is the preferred PK/PD target and is associated with decreased risk of nephrotoxicity compared to traditional trough targets.
[2023-07-26] MEDS ORDERED: VANCOMYCIN HCL 750 MG in SODIUM CHLORIDE 0.9% 250 ML IV SCH (14:00)
--- NOTE | 2023-07-26 17:14 | Hospitalist Progress Note ---
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 Patient notes she does not recall the fall and awoke the following morning on the ground. Duplex was obtained of BL carotids in 2019 with less than 50% stenosis at that time. She does not have her blood pressure recorded to determine if these events were truly hypotensive while at home. Patient has notable cardiac history, therefore it would be prudent to rule out cardiogenic cause for events leading up to presentation. Fall Suspected due to Syncope resulting from significant Hypotension H/O recurrent falls Device interrogated and showed no arrhythmias Carvedilol, torsemide discontinued Appreciate cardiology input Blood pressure variable Will consider midodrine if needed Continue PT OT Fall precautions Plan to discharge to rehab facility as able Monitor volume status while off torsemide. Will consider torsemide as needed if edema worsens Ambulatory dysfunction Generalized weakness Will need rehab placement Patient will benefit from expedited insurance authorization, delay in placement to rehab will likely compromise care given limited PT while hospitalization. Continue PT OT while hospitalized Case management to help with discharge planning Acute metabolic encephalopathy Encephalopathy secondary to infection Abnormal urinalysis--possible UTI Chest x-ray showed signs of possible pneumonia Suspected Bacteremia --CT head:There is no hemorrhage, mass effect, or evidence of acute territorial ischemia by CT criteria. 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 There is a small sized inferior wall motion abnormality with akinesis of the basal segment of the inferior wall. LV systolic function is normal. LVEF 55 to 60%. RV is not well-visualized but appears dilated on limited visualization. LA is severely dilated. RA is severely dilated. Aortic valve is mildly calcified. Aortic stenosis is absent. There is a bioprosthetic mitral valve. There is no significant prosthetic regurg. Prosthetic mitral valve peak/mean gradients are normal. Doppler findings do not suggest pulmonary hypertension. -- Appreciate cardiology input --Her [employer] biventricular pacemaker AICD was interrogated remotely. Results discussed with construction sales representative. Normal device function. Cardiology Recommends to * Hold diuretics and carvedilol. Liberalize oral intake. on discharge -> will stop coreg., decrease torsemide dose to prn Acute on chronic hyponatremia Diuretics discontinued Monitor sodium levels Sodium 128 today Transaminitis Slight elevation in AST 55, ALP 132, T Bili 1.2 Trended down monitor Chronic atrial fibrillation Supratherapeutic INR s/p ablation in 2007 Received vitamin K Monitor INR: 8.9>1.4 Currently no obvious bleeding issues Resume Coumadin today CKD III Cr at baseline Monitor renal function Hypothyroidism -Continue levothyroxine Needs repeat thyroid function test as outpatient Osteoporosis -On home alendronate and raloxifene -Held in setting of elevated LFTS, resume when stable DVT Px: Coumadin Disposition Rehab as able Admission and Anticipated Discharge Date Admission Date: July 14, 2023 Subjective Patient is seen and examined at bedside Feels a lot better today Sitting in chair during my encounter Denies any cough today Chills resolved Saturating well on room air Denies any chest pain, dyspnea, dizziness, nausea, abdominal pain Blood cultures growing gram-positive cocci in clusters Review of Systems Review of Systems: All systems reviewed & are unremarkable except as noted in Subjective Physical Exam Physical Exam: Physical Exam: Vitals signs as noted above General Appearance: Thin, frail, elderly, no apparent distress Head: normocephalic, Atraumatic Eyes: normal inspection, EOMI Neck: supple, Trachea midline Respiratory/Chest: Normal breath sounds, +basal crackles, No accessory muscle use Cardiovascular: S1, S2, +Pacer, +murmur Abdomen/GI:Soft, Non tender, Bowel sounds present Extremities/Musculoskeletal:normal inspection, 1+ B/L LE edema, + venous stasis changes Neurologic/Psych:AAOX2, grossly no focal neurological deficits Skin: normal color, warm Results & Data Results & Data Vital Signs (Past 12 Hours) Vital Signs Temp Pulse Resp BP Pulse Ox O2 Del Method 07/26/23 15:35 75 20 102/66 99 Room Air 07/26/23 11:48 36.3 C L 68 20 98/64 L 96 Room Air 07/26/23 08:00 Room Air 07/26/23 07:43 36.2 C L 64 20 95/61 L 95 Room Air Laboratory Results Short CBC 07/26/23 Range/Units 07:58 WBC 15.83 H (4.8-10.8) K/ul Hgb 9.6 L (12.0-16.0) g/dl Hct 27.3 L (37.0-47.0) % Plt Count 126 L (130-400) K/uL BMP 07/26/23 07:58 Sodium 128 L Potassium 3.7 Chloride 100 Carbon Dioxide 20 L BUN 43 H Creatinine 0.98 Glucose 105 H Calcium 8.2 L (1) Fall Encounter type: initial encounter Qualified Code(s): W19.XXXA - Unspecified fall, initial encounter
[2023-07-26] MEDS: WARFARIN SOD 2.5 MG TAB PO SCH (18:28)
[2023-07-26] MEDS: SENNA 8.6 MG TAB PO SCH (20:25)
[2023-07-26] MEDS: SIMVASTATIN 10 MG TAB PO SCH (20:25)
[2023-07-27] MEDS: LEVOTHYROXINE SODIUM 75 MCG TABLET PO SCH (05:46)
[2023-07-27 09:07] LABS: Hematocrit (blood only) 28.5 % (37.0-47.0); Hemoglobin 9.9 g/dl (12.0-16.0); Mean Corpuscular Hemoglobin 27.2 pg (25.0-34.0); Mean Corpuscular Hgb Conc 34.7 g/dL (32.0-36.0); Mean Corpuscular Volume 78.3 fL (80.0-100.0); Mean Platelet Volume 12.2 fL (9.4-12.4); Platelet Count 129 K/uL (130-400); RDW Coefficient of Variation 18.6 % (11.5-14.5); Red Blood Count 3.64 M/uL (4.20-5.40); White Blood Count 18.22 K/ul (4.8-10.8)
[2023-07-27 09:20] LABS: BUN Creatinine Ratio 48.5 (10-20); Calcium 8.7 mg/dl (8.6-10.3); Creatinine Clr Calc Pharmacy 34.5 ml/min; Est GFR (African American) 59.8 ml/min; Est GFR (Non-African American) 51.6 ml/min; Potassium 4.3 mmol/L (3.5-5.1)
[2023-07-27 09:27] LABS: INR 1.4 (0.9-1.1); Prothrombin Time 15.3 Seconds (9.0-12.0)
[2023-07-27] MEDS: ASPIRIN 81 MG ECTAB PO SCH (09:47)
[2023-07-27] MEDS: cefTRIAXone SODIUM 1,000 MG in DEXTROSE 5 % MINI-B 50 ML IV SCH (09:47)
[2023-07-27] MEDS: ADVANCED PROBIOTIC 1250 MG CAPSULE PO SCH (09:47)
[2023-07-27] MEDS: MULTIVITAMIN TAB PO SCH (09:48)
[2023-07-27] MEDS ORDERED: VANCOMYCIN HCL 750 MG in SODIUM CHLORIDE 0.9% 250 ML IV SCH (10:00)
--- NOTE | 2023-07-27 10:01 | Pharmacy Report ---
Pharmacy PK ABX Note - Date of Service July 27, 2023 - Assessment and Plan Assessment 07/27: * Vancomycin day 2 (ABX day 5): Reviewed vancomycin level, predicted to achieve a therapeutic level with a probability of 72%. WBC increased slightly today, will increase maintenance frequency to achieve a greater probability of reaching goal AUC/MARYCRUZ. Blood culture final identification and sensitivities pending, 3/4 bottles GPCs. Blood culture #1 07/25 identified as MRSA Vanc MARYCRUZ=2. Blood cultures repeated today. 07/26: * 87 year old F receiving ceftriaxone and vancomycin for treatment of MRSA bacteremia. * Pertinent microbiologic data includes: aerobic bottles of 2/2 blood cultures w ith GPC in clusters. BCID2 indicates MRSA * SCr stable. * Elderly women of lower body weight sometimes clear vancomycin at rates faster than anticipated by population-based PK. Will obtain an early level. Plan Vancomycin * Maintenance dose: 750 mg IV every 18 hours * Regimen is predicted to achieve target AUC/MARYCRUZ of 400-600 mg/L.hr per [employer] software * Random level ordered for 1/4 AM Pharmacy will continue to follow and will adjust dose/frequency as necessary. Thank you. Pharmacy has transitioned to AUC monitoring for vancomycin. AUC/MARYCRUZ is the preferred PK/PD target and is associated with decreased risk of nephrotoxicity compared to traditional trough targets.
[2023-07-27] MEDS: ACETAMINOPHEN 325 MG TAB PO PRN (10:07)
--- NOTE | 2023-07-27 12:48 | Cardiology Consultation ---
Date of Consultation July 27, 2023 Assessment & Plan (1) Bacteremia: (2) Weakness: (3) History of mitral valve replacement with bioprosthetic valve: (4) NICM (nonischemic cardiomyopathy): (5) Acute on chronic diastolic heart failure with preserved ejection fraction: (6) HTN (hypertension): Plan Assessment: 87 year-old female initially admitted with recurrent falls and generalized weakness now with mental status change and new evidence of bacteremia. Plan: 1. Bacteremia: -in the setting of positive UTI and new echocardiogram findings suggestive of possible vegetation on both the aortic valve as well as the bioprosthetic mitral valve. -Continue with IV Antibiotics. -Cautious hydration as patient now appears hypervolumic and will need diuresed. -Will need VEENA. Discussed with patient today and will consider possible VEENA tomorrow for further investigation if her breathing status improves. -NPO after midnight. -If vegetation is confirmed, will need to discuss transfer for further evaluation by CT surgery given her advanced age, current status, and knowledge of prior bioprosthetic valve. 2. Weakness -Likely in the setting of sepsis. -Continued management per primary team with IV antibiotics and close monitoring of fluid status. 3. History of mitral valve replacement with bioprosthetic valve -concern for vegetation on valve. Will need VEENA. -If confirmed, will need to discuss possible transfer for further evaluation and possible intervention. 4. NICM: 5. Acute on Chronic diastolic heart failure with preserved EF -s/p ICD, normal device function per most recent interrogation. - most recent echocardiogram has demonstrated normal LVEF. -patient demonstrates modest fluid overload on physical exam -Obtain stat Chest x-ray and administer furosemide 40mg IV x1 dose now. -Monitor renal function and electrolytes closely. -Will reassess fluid status in the AM to determine if further diuresis is appropriate. Cautious diureses in the setting of sepsis 6. Hypertension: -Above target at this time. will likely improve with IV diuresis dosing. -Continue to monitor closely as patient has had several medication adjustments and recent syncopal episode related to hypotension. Case has been discussed with Dr. Gomez. Further recommendations regarding plan of care as per his assessment. I spent a total of 30 minutes on the date of service in preparation, delivery, documentation of the care provided to the patient excluding any time spent in the performance of separately billed services. LESVIA Galloway [facility] Supervising Physician Co-Signing Physician Notes Patient seen and personally examined. Assessment and plan as well outlined above. Patient is a an 87-year-old female on day 13 of hospitalization after presenting with weakness and fatigue. Underlying medical issues as noted above include past nonischemic cardiomyopathy with return to near normal LV function. Prior mitral valve replacement with bioprosthesis 2014, indwelling biventricular pacemaker Patient during hospitalization began experiencing symptoms of chills and malaise. Subsequent laboratory studies notable for elevated white cell count and blood cultures positive for MRSA 2 bottles Echocardiogram today suspicious for prosthetic valve endocarditis involving mitral valve prosthesis and possible [place] valve endocarditis involving aortic valve Physical examination: Mildly breathless frail appearing female denying acute complaint Oral: Edentulous with dentures in place Neck thin mild jugular venous cyst Lungs: Fine crackles with diminished breath sounds left base Cardiovascular exam: Paced rhythm with a grade 2 or 6 systolic murmur Mild peripheral edema Impression: Frail 87-year-old female presenting with acute weakness and fatigue and subsequent positive blood cultures elevated white cell counts. Echocardiogram suspicious for prosthetic valve endocarditis\ Will tentatively schedule transesophageal echocardiogram tomorrow. N.p.o. after midnight. Single dose of IV furosemide given for optimization of volume status ID consult pending Discussed with patient. History of Present Illness Reason for Consultation: Possible infective endocarditis, MRSA bacteremia Requesting Physician: Tia Hospitalist Attending Physician: Gutierrez Trevino MD History of Present Illness Patient is a 87 year old female with complex past medical history as noted below that presented to the ED for recurrent falls and generalized weakness. Possible syncopal episode likely secondary to severe hypotension at home (BP 70/s/30's). During the course of hospitalization, patient shows a sudden spike in WBC counts on 07/23/23, elevated Lactate, worsening mental status changes, with suspicion for Bacteremia. Blood cultures as of 07/25/23 are positive for MRSA bacteremia. Repeat echocardiogram has been ordered for further investigation given the presence of a bioprosthetic mitral valve. Patient was seen and examined today. She is quite fatigued, but appropriate in her responses. Nursing staff states that while her mentation is still not at baseline, this is an improvement in comparison to approx 4 days prior. She is alert to person and time. Unsure of location. She can recall some of the events that led to her hospitalization, but not all. She demonstrates increased work of breathing, with complaints of mild dyspnea. Denies chest pain, pressure, or palpitations. Denies any lightheadedness or dizziness, but has not been out of bed. She does note increased swelling of her lower extremties. Telemetry demonstrates Paced, occasional PVC's and couplets. Rate 70's. No acute events overnight. Primary [employer] Cutter Hand: Dr. Blankenship/Shobha Rascon PA-C. Last seen in the office 12/10/22 Cardiac problem list: 1. Nonischemic cardiomyopathy, left ventricular ejection fraction of 25-30% per echo in [place] in January,, improved to 45-49% after cardiac resynchronization therapy [facility] and then 55-59% in 03/2018, 50% 12/2019, 50% 2020 2. History of minimally invasive mitral valve replacement utilizing a [address] Jun Epic bioprosthesis and TV repair with 30 mm Triad ring, 05/27/15 at [facility], Dr Alexander 3. Residual moderate aortic valve regurgitation 4. History of permanent atrial fibrillation, AV junction ablation 2007 5. Permanent pacemaker initially placed in 2006, generator change 2010, upgrade to biventricular AICD May, 6. Stage III chronic kidney disease 7. Hypothyroidism Allergies Allergy/AdvReac Type Severity Reaction Status Date / Time Sulfa (Sulfonamide AdvReac Severe GI Unverified 01/21/23 23:07 Antibiotics) SYMPTOMS;kidney function compromised ciprofloxacin [From Cipro] AdvReac nausea/vomi Verified 01/21/23 23:07 ting Home Medications Medication Instructions Recorded Confirmed Type alendronate 70 mg tablet 0 mg PO WK 02/18/21 07/14/23 History aspirin 81 mg tablet,delayed 81 mg PO QAM 02/18/21 07/14/23 History release cholecalciferol (vitamin D3) 25 2,000 unit PO DAILY 02/18/21 07/14/23 History mcg (1,000 unit) tablet (Vitamin D3) gabapentin 100 mg capsule 100 mg PO HS 02/18/21 07/14/23 History multivitamin (Multiple Vitamins 1 tab PO QAM 02/18/21 07/14/23 History tablet) simvastatin 10 mg tablet 10 mg PO HS 02/18/21 07/14/23 History warfarin 5 mg tablet 2.5 mg PO . YVONHURFRISUN 02/18/21 07/14/23 History levothyroxine 75 mcg capsule 75 mcg PO DAILY 02/14/22 07/14/23 History lifitegrast 5 % eye drops in a 1 drp OPB HS 02/14/22 07/14/23 History dropperette (Xiidra) sennosides 8.6 mg tablet (senna) 25.8 mg PO DAILY 02/14/22 07/14/23 History warfarin 5 mg tablet 5 mg PO .Wednesday02/14/22 07/14/23 History acetaminophen 325 mg tablet 650 mg (2 x 325 mg) PO Q4H PRN 02/25/22 07/14/23 Rx fever or pain #30 tabs polyethylene glycol 3350 17 gram 17 g PO Q6 PRN constipation #30 ea 02/25/22 07/14/23 Rx oral powder packet (Miralax) torsemide 20 mg tablet 20 mg PO QAM #30 tabs 01/29/23 07/14/23 Rx carvedilol 3.125 mg tablet 3.125 mg PO DAILY 07/14/23 07/14/23 History cyclosporine 0.05 % eye drops in a 1 drp ophthalmic (eye) BID PRN 07/14/23 07/14/23 History dropperette (Restasis) .uses sometimes raloxifene 60 mg tablet 0 mg PO DIRECTED 07/14/23 07/14/23 History Patient History Medical History (Updated 07/27/23 @ 15:10 by Shelia Pelletier MD) Fall Spinal stenosis HTN (hypertension) CKD (chronic kidney disease) stage 3, GFR 30-59 ml/min Chronic heart failure with preserved ejection fraction (HFpEF) Permanent atrial fibrillation Chronic hyponatremia Hypokalemia Subcapital fracture of left femur Hx of cardiac pacemaker HLD (hyperlipidemia) H/O: HTN (hypertension) Hypothyroid Osteoporosis Surgical History Hx of atrioventricular node ablation Hx of tricuspid valve repair Hx of mitral valve replacement S/P cardiac pacemaker procedure Social History Smoking Status: Never smoker Do You Dip or Chew Tobacco: No; Hx Alcohol Use: No Hx Substance Use: No Preferred Language: Rwandan Communication Ability: Effective Can Machine Operator Required: No Beliefs That Will Affect Care: None Current Living Situation: Alone Other Information That Helps Us Care for You: No Feels Safe at Home: Yes Assistive Devices: Cane, Glasses and Walker Review of Systems Review of Systems: All systems reviewed & are unremarkable except as noted in HPI & below Physical Exam Constitutional: + ill appearing and + lethargic Neck: normal visual inspection and trachea midline Respiratory: + tachypneic Auscultation: + diminish ed lung sounds (throughout) and + crackles (Right lung base ) Cardiovascular: Rate/Rhythm: regular rate and regular rhythm Vessels: + JVD Extremities: + edema (+ 1 BLE edema. Left arm edema, prior IV site) Skin: no rashes, warm and dry + ecchymosis Psychiatric: Orientation: alert, oriented to person, oriented to time and cooperative Apperance: appropriately dressed and appropriately groomed Speech: normal rate/rhythm/volume of speech Affect: euthymic affect Results & Data Vital Signs (Past 12 Hours) Vital Signs Temp Pulse Pulse Resp BP Pulse Ox O2 Del Method 07/27/23 12:15 97 07/27/23 11:14 36.1 C L 70 20 153/78 H 97 Room Air 07/27/23 07:55 36.4 C L 71 20 109/70 97 Nasal Cannula 07/27/23 07:39 71 07/27/23 04:16 36.3 C L 80 22 114/56 L 93 Nasal Cannula O2 Flow Rate 07/27/23 12:15 07/27/23 11:14 07/27/23 07:55 1 07/27/23 07:39 07/27/23 04:16 2 Laboratory Results Coagulation 07/27/23 Range/Units 08:28 PT 15.3 H (9.0-12.0) Seconds CBC 07/27/23 Range/Units 08:28 WBC 18.22 H (4.8-10.8) K/ul RBC 3.64 L (4.20-5.40) M/uL Hgb 9.9 L (12.0-16.0) g/dl Hct 28.5 L (37.0-47.0) % Plt Count 129 L (130-400) K/uL Comprehensive Metabolic Panel 07/27/23 Range/Units 08:28 Sodium 131 L (136-145) mmol/L Potassium 4.3 (3.5-5.1) mmol/L Chloride 104 (98-107) mmol/L Carbon Dioxide 21 (21-32) mmol/L BUN 48 H (6-23) mg/dl Creatinine 0.99 (0.6-1.2) mg/dl Glucose 120 H (70-99(Fasting)) mg/dl Calcium 8.7 (8.6-10.3) mg/dl Intake and Output 07/26/23 07/27/23 07/27/23 22:59 06:59 14:59 Intake Total 265 / 1435 1000 / 1435 315 / 315 Output Total 175 / 175 Balance 265 / 1260 825 / 1260 315 / 315 Intake: IV 265 / 1315 1000 / 1315 315 / 315 Sodium Chloride 0.9% 1,000 ml @ 1000 / 1000 80 mls/hr IV .[id number] [facility] Rx#: [id number] Vancomycin HCl 750 mg In Sodium 265 / 265 265 / 265 Chloride 0.9% 250 ml @ 200 mls /hr IV Q18H [facility] Rx#:[id number] cefTRIAXone SODIUM 1,000 mg In 50 / 50 Dextrose 5 % Mini-B 50 ml @ 100 mls/hr IV TODAY@1000 [facility] Rx#: [id number] Oral 0 / 120 Output: Urine Amount (Catheter) 175 / 175 External 175 / 175 Other: Other Intake Source Sips # Unmeasured Voids 1 Weight 62.4 kg Weight Measurement Method Built in [facility] Diagnostic Findings Echocardiogram Today Left ventricle is normal in size Moderate concentric left ventricular hypertrophy small sized inferior wall motion abnormality with akinesis of the basal segment of the inferior/posterior wall. All other wall segments contract normally. LVEF 55-60% Aortic valve sclerosis moderate without significant stenosis Cannnot exclude aortic valvular vegetation Moderate Aortic regurgitation Bioprosthetic mitral valve Prosthetic valve leaflets are thickened. Possible vegetation is present but can not be confirmed. (6) HTN (hypertension) Hypertension type: primary hypertension Qualified Code(s): I10 - Essential (primary) hypertension
[2023-07-27] MEDS ORDERED: DAPTOmycin 400 MG in SYRINGE 0 ML IV SCH (13:00)
[2023-07-27] MEDS ORDERED: FUROSEMIDE 40 MG/4 ML VIAL IV ONE ×2 (14:20→23:47)
--- NOTE | 2023-07-27 14:31 | XRay Report ---
XR chest 1V portable CLINICAL HISTORY: shortness of breath, concern of chf COMPARISON STUDY: Chest radiograph July 23, 2023. Chest CT January 29, 2021. FINDINGS: Left subclavian biventricular pacer/AICD is in place. Cardiomegaly is unchanged. There is a small left pleural effusion. Left basilar opacity is unchanged. No pneumothorax. Linear right lung d ensity is unchanged and favors atelectasis or scarring. Subtle interstitial thickening is similar to prior exam. IMPRESSION: 1. Cardiomegaly. Pulmonary vascular congestion with suspected mild interstitial pulmonary edema. 2. Small left pleural effusion with left basilar opacity which could reflect atelectasis or consolida tion. ACT 112: Negative or not required by law. Electronically signed by: Philip Huitron M.D. 07/27/2023 2:30 PM
--- NOTE | 2023-07-27 14:52 | Infectious Disease Consult ---
Date of Service July 27, 2023 Telehealth Information I performed this visit using a real-time telehealth connection between my location and the patients location ([facility]). After connecting through interactive tele-video, patient was identified by name and date of and/or wristband check.Patient (or authorized healthcare dental sales representative) was informed that this was a telemedicine visit and it was being conducted confidentially over secure lines. My office door was closed and no o ne else was present in the room with me.Patient (or authorized healthcare dental sales representative) provided consent to proceed with the visit, expressed an understanding of privacy and security of the telemedicine visit, and gave permission to have a hospital dental sales representative in the room in order to assist with the visit and to conduct portions of the visit, as needed. I informed the patient (or authorized healthcare dental sales representative) that I reviewed their record and presented the opportunity for them to ask any questions regarding the visit today. The patient agreed to participate. Assessment & Plan (1) Bacteremia: (2) Hx of mitral valve replacement: (3) Hx of tricuspid valve repair: Plan: (4) AICD (automatic cardioverter/defibrillator) present: Plan: (5) MRSA bacteremia: Plan: Recommend continuing daptomycin and discontinuing ceftriaxone .Patient has a prosthetic heart valve and will require a VEENA to definitively rule out endocarditis .If VEENA is negative and there is no obvious source of her MRSA bacteremia she will require at least 4 weeks of IV Plan Recommend continuing daptomycin and discontinuing ceftriaxone .Patient has a prosthetic heart valve and will require a VEENA to definitively rule out endocarditis .If VEENA is negative and there is no obvious source of her MRSA bacteremia she will require at least 4 weeks of IV antibiotics and if VEENA is positive she will require daptomycin/vancomycin for 6 weeks ,gentamicin for 2 weeks and rifampin for 6 weeks History of Present Illness History of Present Illness 87 y/o F PMHx of mitral valve replacement, HFrecEF 2/2 NICM s/p bivAICD, permnant atrial fibrillation, CKDIII, hypothyroidism, chronic hyponatremia, osteoporosis, and history of mechanical falls s/p bilateral hip arthroplasty who was admitted for evaluation and management of fall with concern for syncopal event. Patient notes she does not recall the fall and awoke the following morning on the ground.Her blood cultures have grown MRSA and she is on ceftriaxone and daptomycin .Her TTE did not reveal any vegetations and repeat blood cultures are pending from 07/27/23 Allergies Allergy/AdvReac Type Severity Reaction Status Date / Time Sulfa (Sulfonamide AdvReac Severe GI Unverified 01/21/23 23:07 Antibiotics) SYMPTOMS;kidney function compromised ciprofloxacin [From Cipro] AdvReac nausea/vomi Verified 01/21/23 23:07 ting Home Medications Medication Instructions Recorded Confirmed Type alendronate 70 mg tablet 0 mg PO WK 02/18/21 07/14/23 History aspirin 81 mg tablet,delayed 81 mg PO QAM 02/18/21 07/14/23 History release cholecalciferol (vitamin D3) 25 2,000 unit PO DAILY 02/18/21 07/14/23 History mcg (1,000 unit) tablet (Vitamin D3) gabapentin 100 mg capsule 100 mg PO HS 02/18/21 07/14/23 History multivitamin (Multiple Vitamins 1 tab PO QAM 02/18/21 07/14/23 History tablet) simvastatin 10 mg tablet 10 mg PO HS 02/18/21 07/14/23 History warfarin 5 mg tablet 2.5 mg PO . MONWEDTHURFRISUN 02/18/21 07/14/23 History levothyroxine 75 mcg capsule 75 mcg PO DAILY 02/14/22 07/14/23 History lifitegrast 5 % eye drops in a 1 drp OPB HS 02/14/22 07/14/23 History dropperette (Xiidra) sennosides 8.6 mg tablet (senna) 25.8 mg PO DAILY 02/14/22 07/14/23 History warfarin 5 mg tablet 5 mg PO .Wednesday02/14/22 07/14/23 History acetaminophen 325 mg tablet 650 mg (2 x 325 mg) PO Q4H PRN 02/25/22 07/14/23 Rx fever or pain #30 tabs polyethylene glycol 3350 17 gram 17 g PO Q6 PRN constipation #30 ea 02/25/22 07/14/23 Rx oral powder packet (Miralax) torsemide 20 mg tablet 20 mg PO QAM #30 tabs 01/29/23 07/14/23 Rx carvedilol 3.125 mg tablet 3.125 mg PO DAILY 07/14/23 07/14/23 History cyclosporine 0.05 % eye drops in a 1 drp ophthalmic (eye) BID PRN 07/14/23 07/14/23 History dropperette (Restasis) .uses sometimes raloxifene 60 mg tablet 0 mg PO DIRECTED 07/14/23 07/14/23 History Patient History Medical History (Updated 07/27/23 @ 15:10 by Shelia Pelletier MD) Fall Spinal stenosis HTN (hypertension) CKD (chronic kidney disease) stage 3, GFR 30-59 ml/min Chronic heart failure with preserved ejection fraction (HFpEF) Permanent atrial fibrillation Chronic hyponatremia Hypokalemia Subcapital fracture of left femur Hx of cardiac pacemaker HLD (hyperlipidemia) H/O: HTN (hypertension) Hypothyroid Osteoporosis Surgical History Hx of atrioventricular node ablation Hx of tricuspid valve repair Hx of mitral valve replacement S/P cardiac pacemaker procedure Social History Smoking Status: Never smoker Do You Dip or Chew Tobacco: No; Hx Alcohol Use: No Hx Substance Use: No Preferred Language: Moroccan Communication Ability: Effective Chancellor Required: No Beliefs That Will Affect Care: None Current Living Situation: Alone Other Information That Helps Us Care for You: No Feels Safe at Home: Yes Assistive Devices: Cane, Glasses and Walker Results & Data Vital Signs (Past 12 Hours) Vital Signs Temp Pulse Pulse Resp BP Pulse Ox O2 Del Method 07/27/23 13:56 Room Air 07/27/23 12:15 97 07/27/23 11:14 36.1 C L 70 20 153/78 H 97 Room Air 07/27/23 07:55 36.4 C L 71 20 109/70 97 Nasal Cannula 07/27/23 07:39 71 07/27/23 04:16 36.3 C L 80 22 114/56 L 93 Nasal Cannula O2 Flow Rate 07/27/23 13:56 07/27/23 12:15 07/27/23 11:14 07/27/23 07:55 1 07/27/23 07:39 07/27/23 04:16 2 Laboratory Results MRSA RX M.I.C. --- --------- Clindamycin R <=0.5 Daptomycin S <=0.5 Erythromycin R >4 Oxacillin R >2 Rifampin S <=1 Tetracycline S <=4 Trimeth/Sulfa S <=0.5/9.5 Vancomycin S 2 S = SENSITIVE I = INTERMEDIATE R = RESISTANT Blood Culture Anaerobic Preliminary 07/27/23-1300 No growth in Anaerobic bottle after 48 hours.
[2023-07-27] MEDS: WARFARIN SOD 2.5 MG TAB PO SCH (16:17)
--- NOTE | 2023-07-27 19:04 | Hospitalist Progress Note ---
Date of Service July 27, 2023 Assessment & Plan (1) Fall: (2) Weakness: (3) Acute hyponatremia: (4) NICM (nonischemic cardiomyopathy): (5) Permanent atrial fibrillation: (6) AICD (automatic cardioverter/defibrillator) present: (7) [employer] current use of anticoagulant: (8) CKD (chronic kidney disease) stage 3, GFR 30-59 ml/min: Plan Ms. 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 Patient notes she does not recall the fall and awoke the following morning on the ground. Duplex was obtained of BL carotids in 2019 with less than 50% stenosis at that time. She does not have her blood pressure recorded to determine if these events were truly hypotensive while at home. Patient has notable cardiac history, therefore it would be prudent to rule out cardiogenic cause for events leading up to presentation. Fall Suspected due to Syncope resulting from significant Hypotension H/O recurrent falls Device interrogated and showed no arrhythmias Carvedilol, torsemide discontinued Appreciate cardiology input Blood pressure variable Will consider midodrine if needed Continue PT OT Fall precautions Plan to discharge to rehab facility as able Monitor volume status while off torsemide. Will consider torsemide as needed if edema worsens Ambulatory dysfunction Generalized weakness Will need rehab placement Patient will benefit from expedited insurance authorization, delay in placement to rehab will likely compromise care given limited PT while hospitalization. 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 --Elevated procalcitonin --Normal TSH --Negative BioFire --Blood cultures grew MRSA; gram-positive cocci in clusters --Repeat blood cultures pending --ECHO: Moderate concentric LVH. Small sized inferior wall motion abnormality with akinesis of the basal segments of the inferior/posterior wall. EF 55 to 60%. Aortic valve sclerosis moderate, without significant stenosis. Cannot exclude aortic valvular vegetation. Moderate aortic regurgitation graded than last study. Bioprosthetic mitral valve. Prosthetic valve leaflets are thickened. Possible vegetation is present but not confirmed. Findings appear more pronounced than prior study. Recommend VEENA. 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 There is a small sized inferior wall motion abnormality with akinesis of the basal segment of the inferior wall. LV systolic function is normal. LVEF 55 to 60%. RV is not well-visualized but appears dilated on limited visualization. LA is severely dilated. RA is severely dilated. Aortic valve is mildly calcified. Aortic stenosis is absent. There is a bioprosthetic mitral valve. There is no significant prosthetic regurg. Prosthetic mitral valve peak/mean gradients are normal. Doppler findings do not suggest pulmonary hypertension. -- Appreciate cardiology input --Her [employer] biventricular pacemaker AICD was interrogated remotely. Results discussed with automotive leasing sales representative. Normal device function. Cardiology Recommends to * Hold diuretics and carvedilol. Liberalize oral intake. on discharge -> will stop coreg., decrease torsemide dose to prn Acute on chronic hyponatremia Diuretics discontinued Monitor sodium levels Sodium 131 today Transaminitis Slight elevation in AST 55, ALP 132, T Bili 1.2 Trended down monitor Chronic atrial fibrillation Supratherapeutic INR s/p ablation in 2007 Received vitamin K Monitor INR: 8.9>1.4 Currently no obvious bleeding issues Resume Coumadin today CKD III Cr at baseline Monitor renal function Hypothyroidism -Continue levothyroxine Needs repeat thyroid function test as outpatient Osteoporosis -On home alendronate and raloxifene -Held in setting of elevated LFTS, resume when stable DVT Px: Coumadin Disposition Rehab as able Admission and Anticipated Discharge Date Admission Date: July 14, 2023 Subjective Patient is seen and examined at bedside Patient reports having chills this morning as well Echo concern for endocarditis Discussed with cardiology today Cough much improved Denies any chest pain, dyspnea, dizziness, nausea, abdominal pain Review of Systems Review of Systems: All systems reviewed & are unremarkable except as noted in Subjective Physical Exam Physical Exam: Physical Exam: Vitals signs as noted above General Appearance: Thin, frail, elderly, no apparent distress Head: normocephalic, Atraumatic Eyes: normal inspection, EOMI Neck: supple, Trachea midline Respiratory/Chest: Normal breath sounds, +basal crackles, No accessory muscle use Cardiovascular: S1, S2, +Pacer, +murmur Abdomen/GI:Soft, Non tender, Bowel sounds present Extremities/Musculoskeletal:normal inspection, 1+ B/L LE edema, + venous stasis changes Neurologic/Psych:AAOX2, grossly no focal neurological deficits Skin: normal color, warm Results & Data Results & Data Vital Signs (Past 12 Hours) Vital Signs Temp Pulse Pulse Resp BP Pulse Ox O2 Del Method 07/27/23 17:02 72 07/27/23 13:56 Room Air 07/27/23 12:15 97 07/27/23 11:14 36.1 C L 70 20 153/78 H 97 Room Air 07/27/23 07:55 36.4 C L 71 20 109/70 97 Nasal Cannula 07/27/23 07:39 71 O2 Flow Rate 07/27/23 17:02 07/27/23 13:56 07/27/23 12:15 07/27/23 11:14 07/27/23 07:55 1 07/27/23 07:39 Laboratory Results Short CBC 07/27/23 Range/Units 08:28 WBC 18.22 H (4.8-10.8) K/ul Hgb 9.9 L (12.0-16.0) g/dl Hct 28.5 L (37.0-47.0) % Plt Count 129 L (130-400) K/uL BMP 07/27/23 08:28 Sodium 131 L Potassium 4.3 Chloride 104 Carbon Dioxide 21 BUN 48 H Creatinine 0.99 Glucose 120 H Calcium 8.7 (1) Fall Encounter type: initial encounter Qualified Code(s): W19.XXXA - Unspecified fall, initial encounter
[2023-07-27] MEDS: SENNA 8.6 MG TAB PO SCH (20:03)
--- NOTE | 2023-07-27 23:53 | Communication Note ---
Date of Service: July 27, 2023 Notified by nursing that pt had increased oxygen need at about 11:45PM Tremors, shakes with noted oxygen saturation from 88-92 on 2L. Chest xray from earlier in the day reviwed, noted pulm edema with pleural effusions. Had received IV Lasix 40mg at that time. Noted urine output in the purwick of about 100mls, nursing notes episodes of incontinence. Stat repeat chest XRAY ordered VBG, cbc, bmp, mag and phos Additional dose of IV Lasix 40mg ordered, up ordered for output measurements High-shantal oxygen for further repsiratory support
[2023-07-28 01:21] LABS: Base Excess VBG -6.6 mEq/L; HCO3 VBG 19 mmol/L; Oxygen Saturation VBG < 60.0 %; PCO2 VBG 35 mmHg (38-50); PO2 VBG 26 mmHg; pH VBG 7.33 (7.36-7.41)
[2023-07-28 01:37] LABS: BUN Creatinine Ratio 42.6 (10-20); Calcium 9.1 mg/dl (8.6-10.3); Creatinine Clr Calc Pharmacy 29.2 ml/min; Est GFR (African American) 49.5 ml/min; Est GFR (Non-African American) 42.7 ml/min; Magnesium 2.1 mg/dl (1.7-2.4); Phosphorus 2.8 mg/dl (2.5-4.9); Potassium 3.9 mmol/L (3.5-5.1)
[2023-07-28] MEDS ORDERED: ACETAMINOPHEN 1,000 MG/100 ML VIAL IV PRN (03:08)
[2023-07-28] MEDS: LEVOTHYROXINE SODIUM 75 MCG TABLET PO SCH (06:38)
[2023-07-28 06:44] LABS: BUN Creatinine Ratio 40.5 (10-20); Calcium 8.8 mg/dl (8.6-10.3); Creatinine Clr Calc Pharmacy 25.9 ml/min; Est GFR (African American) 44.4 ml/min; Est GFR (Non-African American) 38.3 ml/min; Potassium 3.7 mmol/L (3.5-5.1)
[2023-07-28 06:50] LABS: Hematocrit (blood only) 27.5 % (37.0-47.0); Hemoglobin 9.9 g/dl (12.0-16.0); Mean Corpuscular Hemoglobin 27.6 pg (25.0-34.0); Mean Corpuscular Volume 76.6 fL (80.0-100.0); Mean Platelet Volume 12.9 fL (9.4-12.4); Platelet Count 123 K/uL (130-400); RDW Standard Deviation 49.1 fL (36.4-46.3); Red Blood Count 3.59 M/uL (4.20-5.40); White Blood Count 27.94 K/ul (4.8-10.8)
[2023-07-28 07:00] LABS: INR 1.7 (0.9-1.1); Prothrombin Time 17.7 Seconds (9.0-12.0)
--- NOTE | 2023-07-28 07:00 | XRay Report ---
XR chest 1V portable CLINICAL HISTORY: Hypoxia. COMPARISON STUDY: Chest CT February 18, 2021. Chest radiograph July 27, 2023. FINDINGS: A left subclavian biventricular pacer/AICD remains in place. Cardiomegaly is unchanged. Sma ll left pleural effusion is again noted. There is persistent left basilar opacity. There is no pneumo thorax. Interstitial thickening and patchy opacities within lungs have progressed. IMPRESSION: 1. Progression of interstitial thickening and patchy bilateral opacities. The findings favor increasi ng pulmonary edema. An infectious process could appear similar. 2. Small left pleural effusion. ACT 112: Negative or not required by law. Electronically signed by: Philip Huitron M.D. 07/28/2023 6:58 AM
[2023-07-28] MEDS ORDERED: LACTATED RINGER'S 250 ML IV ONE (08:13)
[2023-07-28 08:58] LABS: Allen Test Pos (Pos); Base Excess ABG -4.3 mEq/L (-9-1.8); HCO3 ABG 20 mmol/L (19-24); Oxygen Saturation ABG 99.4 % (90-95); PCO2 ABG 30 mmHg (35-46); PO2 ABG 128 mmHg (80-95); pH ABG 7.42 (7.35-7.45)
[2023-07-28] MEDS: ADVANCED PROBIOTIC 1250 MG CAPSULE PO SCH (09:05)
[2023-07-28] MEDS: LACTATED RINGER'S 1,000 ML IV SCH ×2 (09:05→17:20)
[2023-07-28] MEDS: ASPIRIN 81 MG ECTAB PO SCH (09:05)
[2023-07-28] MEDS: MULTIVITAMIN TAB PO SCH (09:06)
[2023-07-28] MEDS: cefTRIAXone SODIUM 1,000 MG in DEXTROSE 5 % MINI-B 50 ML IV SCH (10:00)
[2023-07-28 10:24] LABS: Appearance Urine Clear (Clear); Bilirubin Urine Negative (Negative); Blood Urine Negative (Negative); Color Urine Dark Yellow; Glucose Urine UA Negative (Negative); Ketones Urine Negative (Negative); Leukocyte Esterase Urine Trace (Negative); Nitrite Urine Negative (Negative); Protein Urine Negative (Negative); Specific Gravity Urine 1.017 (1.000-1.030); Urobilinogen Urine Negative (Negative)
[2023-07-28 10:51] LABS: Mucus Urine Present (None Prsent); RBC Urine Automated 0-4 /hpf (0-4)
[2023-07-28 10:52] LABS: Bacteria Urine Automated 1+ (Negative)
--- NOTE | 2023-07-28 12:08 | Hospitalist Progress Note ---
Date of Service July 28, 2023 Assessment & Plan (1) Fall: (2) Weakness: (3) Acute hyponatremia: (4) NICM (nonischemic cardiomyopathy): (5) Permanent atrial fibrillation: (6) AICD (automatic cardioverter/defibrillator) present: (7) half-way current use of anticoagulant: (8) CKD (chronic kidney disease) stage 3, GFR 30-59 ml/min: Plan Ms. 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 Patient noted she did not recall the fall and awoke the following morning on the ground. Duplex was obtained of BL carotids in 2019 with less than 50% stenosis at that time. She does not have her blood pressure recorded to determine if these events were truly hypotensive while at home. Patient has notable cardiac history, therefore it would be prudent to rule out cardiogenic cause for events leading up to presentation. Patient's hospitalization was complicated by worsening delirium, then precipitous rise in white count. Infectious work up yielded positive blood cultures since 07/25. ECHO from 07/27 was inconclusive for vegetation on prosthetic leaflets. plan for VEENA today. #Acute Toxic metabolic encephalopathy -Likely multifactorial in setting of acute illness, sepsis, delirium -treat as follows, delirium precautions as appropriate #Sepsis 2/2 bacteremia #MRSA bacteremia iso prosthetic mitral valve --CT head:There is no hemorrhage, mass effect, or evidence of acute territorial ischemia by CT criteria. --Chest x-ray showed signs of possible pneumonia -Not responding to lasix, minimal saturating in high 90s on oxymask --ECHO: Moderate concentric LVH. Small sized inferior wall motion abnormality with akinesis of the basal segments of the inferior/posterior wall. EF 55 to 60%. Aortic valve sclerosis moderate, without significant stenosis. Cannot exclude aortic valvular vegetation. Moderate aortic regurgitation graded than last study. Bioprosthetic mitral valve. Prosthetic valve leaflets are thickened. Possible vegetation is present but not confirmed. Findings appear more pronounced than prior study. Recommend VEENA. --Elevated procalcitonin --Normal TSH --Negative BioFire --Infectious disease following -Repeat blood culture -continue Dapto -CK level 38 on 07/28, recheck on 08/04/2022 -Discontinue CTX -Plan for VEENA for definitive diagnosis of endocarditis #BRYANNA on CKD III likely prerenal iso sepsis/hypotension Monitor renal function, avoid nephrotoxic agents and further diuersis Trend CR #Mechanical Fall #Ambulatory dysfunction #Generalized weakness #H/O recurrent falls -Device interrogated and showed no arrhythmias -Carvedilol, torsemide discontinued -Will reassess contingent on recovery from above #NICM, 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 There is a small sized inferior wall motion abnormality with akinesis of the basal segment of the inferior wall. LV systolic function is normal. LVEF 55 to 60%. RV is not well-visualized but appears dilated on limited visualization. LA is severely dilated. RA is severely dilated. Aortic valve is mildly calcified. Aortic stenosis is absent. There is a bioprosthetic mitral valve. There is no significant prosthetic regurg. Prosthetic mitral valve peak/mean gradients are normal. Doppler findings do not suggest pulmonary hypertension. -- Appreciate cardiology input -Monitor volume status #Acute on chronic hyponatremia *stable Diuretics discontinued Monitor sodium levels Sodium 131 today #Transaminitis *resolved Slight elevation in AST 55, ALP 132, T Bili 1.2 on admission, resolved #Chronic atrial fibrillation Supratherapeutic INR s/p ablation in 2007 Received vitamin K Monitor INR: 8.9>1.4 Currently no obvious bleeding issues Resume Coumadin today #Hypothyroidism -Continue levothyroxine #Osteoporosis -On home alendronate and raloxifene, can resume upon discharge DVT Px: Coumadin Disposition PT/OT when able, contingent on course Admission and Anticipated Discharge Date Admission Date: July 14, 2023 Subjective Patient responsive lethargic and responsive to physical stimuli poor UOP, min intake Review of Systems Review of Systems: Unobtainable due to reduced consciousness Physical Exam Constitutional: weak, frail, minimally responsive, dry mucous membranes Respiratory: decreased lung sounds ,tachypneic, however saturating well with oxymask Cardiovascular: RRR, ?murmur Skin: bilateral edema lower extremities, weeping right lower extremities Results & Data Results & Data Vital Signs (Past 12 Hours) Vital Signs Temp Pulse Pulse Resp BP BP Pulse Ox 07/28/23 11:21 36.4 C L 73 20 96/60 L 99 07/28/23 11:16 100 07/28/23 10:37 36.3 C L 73 23 96/59 L 99 07/28/23 10:11 73 07/28/23 09:52 74 22 105/58 L 99 07/28/23 09:07 36.5 C 73 23 94/55 L 99 07/28/23 07:56 99 07/28/23 07:55 16 99 07/28/23 07:28 36.7 C 70 26 H 97/57 L 100 07/28/23 06:27 37.1 C 71 28 H 98/60 L 100 07/28/23 02:58 72 19 100 07/28/23 02:58 38.2 C H 74 40 H 103/59 L 100 07/28/23 00:12 77 25 H 100 O2 Del Method O2 Flow Rate FiO2 07/28/23 11:21 Oxymask 3 07/28/23 11:16 Oxymask 3 07/28/23 10:37 Oxymask 3 07/28/23 10:11 07/28/23 09:52 Oxymask 3 07/28/23 09:07 Oxymask 3 07/28/23 07:56 Oxymask 3 07/28/23 07:55 Oxymask 3 07/28/23 07:28 High Flow Nasal Cannula 30 30 07/28/23 06:27 High Flow Nasal Cannula 30 30 07/28/23 02:58 High Flow Nasal Cannula 30 30 07/28/23 02:58 High Flow Nasal Cannula 07/28/23 00:12 High Flow Nasal Cannula 30 40 Laboratory Results Short CBC 07/28/23 Range/Units 05:38 WBC 27.94 H D (4.8-10.8) K/ul Hgb 9.9 L (12.0-16.0) g/dl Hct 27.5 L (37.0-47.0) % Plt Count 123 L (130-400) K/uL BMP 07/28/23 07/28/23 00:43 05:38 Sodium 131 L 131 L Potassium 3.9 3.7 Chloride 100 102 Carbon Dioxide 18 L 17 L BUN 49 H 51 H Creatinine 1.15 1.26 H Glucose 107 H 108 H Calcium 9.1 8.8 Cardiac Enzymes 07/28/23 Range/Units 05:38 Total Creatine Kinase 38 (26-192) U/L Urine 07/28/23 Range/Units 09:55 Urine Color Dark Yellow Urine Appearance Clear (Clear) Urine pH 5.0 (4.5-7.5) Ur Specific [place] 1.017 (1.000-1.030) Urine Protein Negative (Negative) Urine Glucose (UA) Negative (Negative) Diagnostic Findings Personal Reviewed results of ECHO from 07/27/2023 Medications Administered Home Medications Medication Instructions Recorded Confirmed Last Taken alendronate 70 mg tablet 0 mg PO WK 02/18/21 07/14/23 01/15/23 aspirin 81 mg tablet,delayed 81 mg PO QAM 02/18/21 07/14/23 Unknown release cholecalciferol (vitamin D3) 25 2,000 unit PO DAILY 02/18/21 07/14/23 Unknown mcg (1,000 unit) tablet (Vitamin D3) gabapentin 100 mg capsule 100 mg PO HS 02/18/21 07/14/23 Unknown multivitamin (Multiple Vitamins 1 tab PO QAM 02/18/21 07/14/23 Unknown tablet) simvastatin 10 mg tablet 10 mg PO HS 02/18/21 07/14/23 Unknown warfarin 5 mg tablet 2.5 mg PO . MONWEDTHURFRISUN 02/18/21 07/14/23 Unknown levothyroxine 75 mcg capsule 75 mcg PO DAILY 02/14/22 07/14/23 Unknown lifitegrast 5 % eye drops in a 1 drp OPB HS 02/14/22 07/14/23 Unknown dropperette (Xiidra) sennosides 8.6 mg tablet (senna) 25.8 mg PO DAILY 02/14/22 07/14/23 Unknown warfarin 5 mg tablet 5 mg PO .Wednesday02/14/22 07/14/23 01/20/23 acetaminophen 325 mg tablet 650 mg (2 x 325 mg) PO Q4H PRN 02/25/22 07/14/23 Unknown fever or pain #30 tabs polyethylene glycol 3350 17 gram 17 g PO Q6 PRN constipation #30 ea 02/25/22 07/14/23 Unknown oral powder packet (Miralax) torsemide 20 mg tablet 20 mg PO QAM #30 tabs 01/29/23 07/14/23 Unknown carvedilol 3.125 mg tablet 3.125 mg PO DAILY 07/14/23 07/14/23 Unknown cyclosporine 0.05 % eye drops in a 1 drp ophthalmic (eye) BID PRN 07/14/23 07/14/23 Unknown dropperette (Restasis) .uses sometimes raloxifene 60 mg tablet 0 mg PO DIRECTED 07/14/23 07/14/23 Unknown Active Medications Generic Name Dose Route Start Last Admin Trade Name Freq PRN Reason Stop Dose Admin Acetaminophen 650 mg 07/14/23 20:42 07/27/23 10:07 Acetaminophen 325 Mg Tab PO 08/13/23 20:41 650 mg Q6H PRN Administration Pain Aspirin 81 mg 07/15/23 09:00 07/28/23 09:05 Aspirin 81 Mg Ectab PO 08/14/23 08:59 Not Given QAM [place] Ceftriaxone Sodium 1,000 mg/ 50 mls @ 100 mls/hr 07/23/23 10:00 07/28/23 10:37 Dextrose IV 07/29/23 10:29 Infused TODAY@1000 [place] Infusion Protocol Acetaminophen 1,000 mg in 100 mls @ 400 mls/hr 07/28/23 03:08 07/28/23 03:32 Ofirmev IV 07/31/23 03:07 Infused Q8H PRN Infusion Pain or Fever Lactated Ringer's 1,000 mls @ 125 mls/hr 07/28/23 08:15 07/28/23 09:05 Lr IV 08/27/23 08:14 125 mls/hr .Q8H [place] Administration Lactobacillus Acidophilus 2 cap 07/23/23 09:45 07/28/23 09:05 Advanced Probiotic 1250 Mg Capsule PO 08/22/23 09:44 Not Given DAILY [place] Levothyroxine Sodium 75 mcg 07/15/23 06:30 07/28/23 06:38 Levothyroxine Sodium 75 Mcg Tablet PO 08/14/23 06:29 Not Given DAILYBB [place] Multivitamins 1 tab 07/15/23 09:00 07/28/23 09:06 Multivitamin Tab PO 08/14/23 08:59 Not Given QAM [place] Sennosides 25.8 mg 07/18/23 21:00 07/27/23 20:03 Senna 8.6 Mg Tab PO 08/17/23 20:59 25.8 mg PM [place] Administration Simvastatin 10 mg 07/14/23 21:00 07/26/23 20:25 Simvastatin 10 Mg Tab PO 08/13/23 20:59 10 mg HS [place] Administration Warfarin Sodium 2.5 mg 07/26/23 16:00 07/27/23 16:17 Warfarin Sod 2.5 Mg Tab PO 08/25/23 15:59 2.5 mg DAILY@1600 [place] Administration (1) Fall Encounter type: initial encounter Qualified Code(s): W19.XXXA - Unspecified fall, initial encounter
[2023-07-28] MEDS ORDERED: BENZOCAINE/TETRACAIN/BUTAM 50 APPLN/5 GM CAN EXT ONE (13:34)
[2023-07-28 14:07] LABS: Basophils # (auto) 0.07 K/uL (0.00-0.20); Basophils % (auto) 0.2 %; Eosinophils # (auto) 0.01 K/uL (0.00-0.50); Immature Granulocytes # (auto) 0.62 K/uL (0.01-0.20); Immature Granulocytes % (auto) 2.2 %; Lymphocytes # (auto) 0.93 K/uL (1.20-3.40); Lymphocytes % (auto) 3.3 %; Monocytes # (auto) 2.19 K/uL (0.11-0.59); Monocytes % (auto) 7.8 %; Neutrophils # (auto) 24.19 K/uL (1.40-6.50); Neutrophils % (auto) 86.5 %; RBC Morphology Unremarkable
[2023-07-28] MEDS ORDERED: ATROPINE SULFATE 0.1 MG/ML 10ML SYR IV PRN (14:29)
[2023-07-28] MEDS ORDERED: ePHEDrine sulfate 50 MG/ML AMP IV PRN (14:29)
--- NOTE | 2023-07-28 14:29 | Anesthesiology Consultation ---
Date of Service July 28, 2023 Assessment & Plan Chart Review Chart Review: Acceptable Risk for Surgery and Patient NOT seen in Pre Admission Testing Consults Requested none ASA ASA4 Proposed Anesthesia Anesthesia Type: MAC Risk / Benefits Reviewed With: PT / POA / Parent / Guardian, Accepts Plan and Informed Consent Obtained History Surgery Operation Date: 07/28/23 14:00 Proposed Procedures p Transesophageal Echo w/Anesthesia - Aldo Gomez MD Height/Weight Height: 5 ft 1 in Weight: 58.6 kg Allergies Allergy/AdvReac Type Severity Reaction Status Date / Time Sulfa (Sulfonamide AdvReac Severe GI Unverified 01/21/23 23:07 Antibiotics) SYMPTOMS;kidney function compromised ciprofloxacin [From Cipro] AdvReac nausea/vomi Verified 01/21/23 23:07 ting Medications Home Medications Medication Instructions Recorded Confirmed Last Taken alendronate 70 mg tablet 0 mg PO WK 02/18/21 07/14/23 01/15/23 aspirin 81 mg tablet,delayed 81 mg PO QAM 02/18/21 07/14/23 Unknown release cholecalciferol (vitamin D3) 25 2,000 unit PO DAILY 02/18/21 07/14/23 Unknown mcg (1,000 unit) tablet (Vitamin D3) gabapentin 100 mg capsule 100 mg PO HS 02/18/21 07/14/23 Unknown multivitamin (Multiple Vitamins 1 tab PO QAM 02/18/21 07/14/23 Unknown tablet) simvastatin 10 mg tablet 10 mg PO HS 02/18/21 07/14/23 Unknown warfarin 5 mg tablet 2.5 mg PO . MONWEDTHURFRISUN 02/18/21 07/14/23 Unknown levothyroxine 75 mcg capsule 75 mcg PO DAILY 02/14/22 07/14/23 Unknown lifitegrast 5 % eye drops in a 1 drp OPB HS 02/14/22 07/14/23 Unknown dropperette (Xiidra) sennosides 8.6 mg tablet (senna) 25.8 mg PO DAILY 02/14/22 07/14/23 Unknown warfarin 5 mg tablet 5 mg PO .Wednesday02/14/22 07/14/23 01/20/23 acetaminophen 325 mg tablet 650 mg (2 x 325 mg) PO Q4H PRN 02/25/22 07/14/23 Unknown fever or pain #30 tabs polyethylene glycol 3350 17 gram 17 g PO Q6 PRN constipation #30 ea 02/25/22 07/14/23 Unknown oral powder packet (Miralax) torsemide 20 mg tablet 20 mg PO QAM #30 tabs 01/29/23 07/14/23 Unknown carvedilol 3.125 mg tablet 3.125 mg PO DAILY 07/14/23 07/14/23 Unknown cyclosporine 0.05 % eye drops in a 1 drp ophthalmic (eye) BID PRN 07/14/23 07/14/23 Unknown dropperette (Restasis) .uses sometimes raloxifene 60 mg tablet 0 mg PO DIRECTED 07/14/23 07/14/23 Unknown Active Medications Generic Name Dose Route Start Last Admin Trade Name Freq PRN Reason Stop Dose Admin Acetaminophen 650 mg 07/14/23 20:42 07/27/23 10:07 Acetaminophen 325 Mg Tab PO 08/13/23 20:41 650 mg Q6H PRN Administration Pain Aspirin 81 mg 07/15/23 09:00 07/28/23 09:05 Aspirin 81 Mg Ectab PO 08/14/23 08:59 Not Given QAM [place] Acetaminophen 1,000 mg in 100 mls @ 400 mls/hr 07/28/23 03:08 07/28/23 03:32 Ofirmev IV 07/31/23 03:07 Infused Q8H PRN Infusion Pain or Fever Lactated Ringer's 1,000 mls @ 125 mls/hr 07/28/23 08:15 07/28/23 09:05 Lr IV 08/27/23 08:14 125 mls/hr .Q8H [place] Administration Lactobacillus Acidophilus 2 cap 07/23/23 09:45 07/28/23 09:05 Advanced Probiotic 1250 Mg Capsule PO 08/22/23 09:44 Not Given DAILY [place] Levothyroxine Sodium 75 mcg 07/15/23 06:30 07/28/23 06:38 Levothyroxine Sodium 75 Mcg Tablet PO 08/14/23 06:29 Not Given DAILYBB [place] Multivitamins 1 tab 07/15/23 09:00 07/28/23 09:06 Multivitamin Tab PO 08/14/23 08:59 Not Given QAM [place] Sennosides 25.8 mg 07/18/23 21:00 07/27/23 20:03 Senna 8.6 Mg Tab PO 08/17/23 20:59 25.8 mg PM [place] Administration Simvastatin 10 mg 07/14/23 21:00 07/26/23 20:25 Simvastatin 10 Mg Tab PO 08/13/23 20:59 10 mg HS [place] Administration Warfarin Sodium 2.5 mg 07/26/23 16:00 07/27/23 16:17 Warfarin Sod 2.5 Mg Tab PO 08/25/23 15:59 2.5 mg DAILY@1600 [place] Administration NPO Date Last Intake of Fluids: 07/27/23 Time Last Intake of Fluids: 20:00 Date Last Intake of Solids: 07/27/23 Time Last Intake of Solids: 20:00 Past Medical History Medical History (Updated 07/27/23 @ 15:10 by Shelia Pelletier MD) Fall Spinal stenosis HTN (hypertension) CKD (chronic kidney disease) stage 3, GFR 30-59 ml/min Chronic heart failure with preserved ejection fraction (HFpEF) Permanent atrial fibrillation Chronic hyponatremia Hypokalemia Subcapital fracture of left femur Hx of cardiac pacemaker HLD (hyperlipidemia) H/O: HTN (hypertension) Hypothyroid Osteoporosis Exercise / Class Metabolic Activity II 4-5 Yardwork/Stairs/Walk up hill Past Surgical History Surgical History Hx of atrioventricular node ablation Hx of tricuspid valve repair Hx of mitral valve replacement S/P cardiac pacemaker procedure Past Anesthesia History No Hx of Anesthesia Complications and No Family Hx of Anesthesia Complications History of PONV No Hx of PONV and No Hx of Motion Sickness Social History Smoking Status: Never smoker Do You Dip or Chew Tobacco: No Hx Alcohol Use: No Hx Substance Use: No substance use type: does not use Physical Exam Vital Signs Last Vital Signs Temp 36.4 C L 07/28/23 11:21 Pulse 73 07/28/23 13:51 Resp 18 07/28/23 13:51 BP 105/54 L 07/28/23 13:51 Pulse Ox 100 07/28/23 13:51 O2 Del Method Nasal Cannula 07/28/23 13:51 O2 Flow Rate 2 07/28/23 13:51 FiO2 30 07/28/23 07:36 Constitutional + lethargic ENMT Mouth: + edentulous Thyromental Distance: > or= 3.5 Finger Breadths Mallampati Class: II Neck normal visual inspection Respiratory normal respiratory effort Auscultation: lungs clear to auscultation bilaterally and + diminished lung sounds Cardiovascular Rate/Rhythm: regular rate and regular rhythm Chest (Breasts) Chest: + pacemaker Psychiatric Orientation: alert Testing Laboratory Results 07/28/23 05:38 07/28/23 05:38 PT 17.7 Seconds (9.0-12.0) H 07/28/23 05:38 INR 1.7 (0.9-1.1) H 07/28/23 05:38 APTT 42 Seconds (21-31) H 07/14/23 10:05 Urine Color Dark Yellow 07/28/23 09:55 Urine Appearance Clear (Clear) 07/28/23 09:55 Urine pH 5.0 (4.5-7.5) 07/28/23 09:55 Ur Specific [place] 1.017 (1.000-1.030) 07/28/23 09:55 Urine Protein Negative (Negative) 07/28/23 09:55 Urine Glucose (UA) Negative (Negative) 07/28/23 09:55 Urine Ketones Negative (Negative) 07/28/23 09:55 Urine Nitrite Negative (Negative) 07/28/23 09:55 Ur Leukocyte Esterase Trace (Negative) H 07/28/23 09:55 Urine WBC (Auto) 1-5 /hpf (0-5) 07/28/23 09:55 Urine RBC (Auto) 0-4 /hpf (0-4) 07/28/23 09:55 U Hyaline Cast (Auto) 5-10 /lpf (0-5) H 07/28/23 09:55 U Epithel Cells (Auto) 10-20 /lpf (0-5) H 07/28/23 09:55 Urine Bacteria (Auto) 1+ (Negative) H 07/28/23 09:55 07/27/23 08:54 Aerobic Blood Culture - Preliminary Blood Staphylococcus aureus 07/27/23 08:28 Aerobic Blood Culture - Preliminary Blood Staphylococcus aureus Anaerobic Blood Culture - Preliminary No growth in Anaerobic bottle after 24 hours. 07/25/23 11:25 Aerobic Blood Culture - Preliminary Blood Staph aureus MRSA Anaerobic Blood Culture - Preliminary Gram positive cocci clusters 07/25/23 12:08 Aerobic Blood Culture - Preliminary Blood Gram positive cocci clusters Anaerobic Blood Culture - Preliminary Gram positive cocci clusters 07/23/23 08:19 Urine Culture - Final Urine,Clean Catch More than three types of organisms present, all high counts. Repeat collection recommended. No further identifications or sensitivities to follow. 07/14/23 15:44 Urine Culture - Final Urine,Clean Catch Three types of organisms present, all high counts probable skin araceli. No further identifications or sensitivities to follow.
[2023-07-28] MEDS ORDERED: PROPOFOL IV EMULSION 10 MG/ML 20 ML VIAL IV ONE (14:34)
--- NOTE | 2023-07-28 15:57 | Cardiology Progress Note ---
Date of Service July 28, 2023 Assessment & Plan (1) Bacteremia: (2) Weakness: (3) History of mitral valve replacement with bioprosthetic valve: (4) NICM (nonischemic cardiomyopathy): (5) Acute on chronic diastolic heart failure with preserved ejection fraction: (6) HTN (hypertension): (7) Endocarditis of prosthetic mitral valve: Plan Assessment: 87 year-old female initially admitted with recurrent falls and generalized weakness now with mental status change and new evidence of bacteremia. Impression/plan: 1. Prosthetic mitral valve endocarditis/MRSA bacteremia bacteremia: Patient has had measured clinical decline over the past 3 days Currently on broad-spectrum antibiotics to cover MRSA antibiotic resistant. Results of transesophageal echocardiogram discussed with hospitalist. Information relayed to patient's family wishes surgical evaluation Overall frailty noted. With significant reduced prognosis Plans for transfer being adopted Admission and Anticipated Discharge Date Admission Date: July 14, 2023 Subjective Patient was seen and examined in a.m. and both pre and post transesophageal echocardiogram Generalized weakness and decline in function capacity overnight. Lethargic this morning but answers questions Blood pressure is marginal requiring fluid resuscitation this morning Transesophageal echocardiogram as below demonstrates visible vegetations on the mitral valve prosthesis consistent with mitral valve prosthetic endocarditis Review of Systems Review of Systems: Unobtainable due to reduced consciousness Physical Exam Constitutional: + ill appearing, + frail appearing and + lethargic Eyes: PERRL, conjunctivae normal, anicteric sclerae Neck: normal visual inspection and trachea midline Respiratory: Auscultation: + diminished lung sounds (throughout) and + crackles (Right lung base ) Cardiovascular: Rate/Rhythm: regular rate and regular rhythm Heart Sounds: + murmur (I/ systolic murmur ) Vessels: + JVD Extremities: + edema (+ 1 BLE edema. ) Gastrointestinal (Abdomen): normal bowel sounds, soft, nontender, no hepatosplenomegaly Musculoskeletal: no cyanosis or clubbing, extremities motor strength 5/5 Skin: no rashes, warm and dry + ecchymosis Neurologic: patellar DTR's 2+ bilat, sensation intact and PERRL, EOMI, accommodation nl, no face palsy, no dysarthria Psychiatric: Orientation: alert, oriented to person, oriented to time and cooperative Apperance: appropriately dressed and appropriately groomed Speech: normal rate/rhythm/volume of speech Affect: euthymic affect Results & Data Vital Signs (Past 12 Hours) Vital Signs Temp Pulse Pulse Resp BP BP Pulse Ox 07/28/23 15:02 36.4 C L 73 19 108/65 96 07/28/23 14:53 73 16 98/52 L 96 07/28/23 14:48 72 16 95/47 L 97 07/28/23 14:45 70 16 84/51 L 96 07/28/23 14:32 73 16 92/43 L 96 07/28/23 13:51 73 18 105/54 L 100 07/28/23 12:35 72 19 117/70 99 07/28/23 11:36 07/28/23 11:21 36.4 C L 73 20 96/60 L 99 07/28/23 11:16 100 07/28/23 10:37 36.3 C L 73 23 96/59 L 99 07/28/23 10:11 73 07/28/23 09:52 74 22 105/58 L 99 07/28/23 09:07 36.5 C 73 23 94/55 L 99 07/28/23 07:56 99 07/28/23 07:55 16 99 07/28/23 07:36 07/28/23 07:28 36.7 C 70 26 H 97/57 L 100 07/28/23 06:27 37.1 C 71 28 H 98/60 L 100 O2 Del Method O2 Flow Rate FiO2 07/28/23 15:02 Oxymask 2 07/28/23 14:53 Oxymask 2 07/28/23 14:48 Oxymask 2 07/28/23 14:45 Oxymask 2 07/28/23 14:32 Oxymask 2 07/28/23 13:51 Nasal Cannula 2 07/28/23 12:35 Oxymask 3 07/28/23 11:36 Oxymask 3 07/28/23 11:21 Oxymask 3 07/28/23 11:16 Oxymask 3 07/28/23 10:37 Oxymask 3 07/28/23 10:11 07/28/23 09:52 Oxymask 3 07/28/23 09:07 Oxymask 3 07/28/23 07:56 Oxymask 3 07/28/23 07:55 Oxymask 3 07/28/23 07:36 High Flow Nasal Cannula 30 30 07/28/23 07:28 High Flow Nasal Cannula 30 30 07/28/23 06:27 High Flow Nasal Cannula 30 30 Laboratory Results Laboratory Results - last 24 hr 07/28/23 07/28/23 07/28/23 00:43 05:38 08:45 WBC 27.94 H D RBC 3.59 L Hgb 9.9 L Hct 27.5 L MCV 76.6 L MCH 27.6 MCHC 36.0 RDW Std Deviation 49.1 H RDW Coeff of Fabricio 19.0 H Plt Count 123 L MPV 12.9 H Immature Gran % (Auto) 2.2 Neut % (Auto) 86.5 Lymph % (Auto) 3.3 [place] % (Auto) 7.8 Eos % (Auto) 0.0 Baso % (Auto) 0.2 Neut # (Auto) 24.19 H Lymph # (Auto) 0.93 L [place] # (Auto) 2.19 H Eos # (Auto) 0.01 Baso # (Auto) 0.07 Immature Gran # (Auto) 0.62 H RBC Morphology Unremarkable PT 17.7 H INR 1.7 H ABG pH 7.42 ABG pCO2 30 L ABG pO2 128 H ABG HCO3 20 ABG O2 Saturation 99.4 H ABG Base Excess -4.3 Ajith Test Pos VBG pH 7.33 L VBG pCO2 35 L VBG pO2 26 VBG HCO3 19 VBG O2 Saturation < 60.0 VBG Base Excess -6.6 Oxygen Given 3L Sodium 131 L 131 L Potassium 3.9 3.7 Chloride 100 102 Carbon Dioxide 18 L 17 L Anion Gap 13 H 12 H BUN 49 H 51 H Creatinine 1.15 1.26 H Est Cr Clr Drug Dosing 29.2 25.9 Est GFR ( Amer) 49.5 44.4 Est GFR (Non-Af Amer) 42.7 38.3 BUN/Creatinine Ratio 42.6 H 40.5 H Glucose 107 H 108 H Calcium 9.1 8.8 Phosphorus 2.8 Magnesium 2.1 Total Creatine Kinase 38 Urine Color Urine Appearance Urine pH Ur Specific [place] Urine Protein Urine Glucose (UA) Urine Ketones Urine Blood Urine Nitrite Urine Bilirubin Urine Urobilinogen Ur Leukocyte Esterase Urine WBC (Auto) Urine RBC (Auto) U Hyaline Cast (Auto) U Epithel Cells (Auto) Urine Bacteria (Auto) Urine Mucus 07/28/23 09:55 WBC RBC Hgb Hct MCV MCH MCHC RDW Std Deviation RDW Coeff of Fabricio Plt Count MPV Immature Gran % (Auto) Neut % (Auto) Lymph % (Auto) [place] % (Auto) Eos % (Auto) Baso % (Auto) Neut # (Auto) Lymph # (Auto) [place] # (Auto) Eos # (Auto) Baso # (Auto) Immature Gran # (Auto) RBC Morphology PT INR ABG pH ABG pCO2 ABG pO2 ABG HCO3 ABG O2 Saturation ABG Base Excess Ajith Test VBG pH VBG pCO2 VBG pO2 VBG HCO3 VBG O2 Saturation VBG Base Excess Oxygen Given Sodium Potassium Chloride Carbon Dioxide Anion Gap BUN Creatinine Est Cr Clr Drug Dosing Est GFR ( Amer) Est GFR (Non-Af Amer) BUN/Creatinine Ratio Glucose Calcium Phosphorus Magnesium Total Creatine Kinase Urine Color Dark Yellow Urine Appearance Clear Urine pH 5.0 Ur Specific [place] 1.017 Urine Protein Negative Urine Glucose (UA) Negative Urine Ketones Negative Urine Blood Negative Urine Nitrite Negative Urine Bilirubin Negative Urine Urobilinogen Negative Ur Leukocyte Esterase Trace H Urine WBC (Auto) 1-5 Urine RBC (Auto) 0-4 U Hyaline Cast (Auto) 5-10 H U Epithel Cells (Auto) 10-20 H Urine Bacteria (Auto) 1+ H Urine Mucus Present A Diagnostic Findings Transesophageal echocardiogram 07/28/2023 Prosthetic mitral valve endocarditis Vegetation 1 cm friable and mobile lesion on the ventricular aspect of the anterior mitral valve annulus. Additional 4 mm vegetation attached to the anterior mitral valve leaflet on the left atrial side No valvular incompetence or abscess noted Moderate calcification and sclerosis of the aortic valve without visualized vegetation Biventricular pacemaker leads in place without visualized Tricuspid valve annulus is prominent suggesting prior annuloplasty (6) HTN (hypertension) Hypertension type: primary hypertension Qualified Code(s): I10 - Essential (primary) hypertension
[2023-07-28] MEDS: WARFARIN SOD 2.5 MG TAB PO SCH (17:21)
[2023-07-28] MEDS: ACETAMINOPHEN 325 MG TAB PO PRN (20:18)
[2023-07-28] MEDS: SENNA 8.6 MG TAB PO SCH (20:19)
[2023-07-29] MEDS: LACTATED RINGER'S 1,000 ML IV SCH (02:04)
[2023-07-29] MEDS: LEVOTHYROXINE SODIUM 75 MCG TABLET PO SCH (06:17)
[2023-07-29 06:36] LABS: Albumin Globulin Ratio 0.9 (0.9-2); Albumin Level 2.2 gm/dl (3.4-5.0); BUN Creatinine Ratio 50.5 (10-20); Calcium 8.7 mg/dl (8.6-10.3); Est GFR (African American) 56.6 ml/min; Est GFR (Non-African American) 48.8 ml/min; Globulin 2.5 gm/dl (2.5-4.0); Magnesium 2.2 mg/dl (1.7-2.4); Phosphorus 4.2 mg/dl (2.5-4.9); Potassium 3.7 mmol/L (3.5-5.1); Total Protein 4.7 gm/dl (6.0-8.3)
[2023-07-29 06:41] LABS: INR 2.5 (0.9-1.1); Prothrombin Time 25.7 Seconds (9.0-12.0)
[2023-07-29 07:03] LABS: Basophils # (auto) 0.03 K/uL (0.00-0.20); Basophils % (auto) 0.2 %; Eosinophils # (auto) 0.06 K/uL (0.00-0.50); Eosinophils % (auto) 0.3 %; Hematocrit (blood only) 24.6 % (37.0-47.0); Hemoglobin 8.7 g/dl (12.0-16.0); Immature Granulocytes # (auto) 0.39 K/uL (0.01-0.20); Immature Granulocytes % (auto) 2.2 %; Lymphocytes % (auto) 6.7 %; Mean Corpuscular Hemoglobin 27.6 pg (25.0-34.0); Mean Corpuscular Hgb Conc 35.4 g/dL (32.0-36.0); Mean Corpuscular Volume 78.1 fL (80.0-100.0); Mean Platelet Volume 12.1 fL (9.4-12.4); Monocytes # (auto) 1.42 K/uL (0.11-0.59); Monocytes % (auto) 7.9 %; Neutrophils # (auto) 14.79 K/uL (1.40-6.50); Neutrophils % (auto) 82.7 %; Platelet Count 121 K/uL (130-400); RDW Coefficient of Variation 19.5 % (11.5-14.5); RDW Standard Deviation 51.6 fL (36.4-46.3); Red Blood Count 3.15 M/uL (4.20-5.40); White Blood Count 17.89 K/ul (4.8-10.8)
[2023-07-29] MEDS ORDERED: POTASSIUM CHLORIDE CRTAB 20 MEQ TABCR PO STA (07:16)
[2023-07-29] MEDS: ASPIRIN 81 MG ECTAB PO SCH (09:57)
[2023-07-29] MEDS: ADVANCED PROBIOTIC 1250 MG CAPSULE PO SCH (09:57)
[2023-07-29] MEDS: MULTIVITAMIN TAB PO SCH (09:58)
--- NOTE | 2023-07-29 12:33 | Hospitalist Progress Note ---
Date of Service July 29, 2023 Assessment & Plan (1) Fall: (2) Weakness: (3) Acute hyponatremia: (4) NICM (nonischemic cardiomyopathy): (5) Permanent atrial fibrillation: (6) AICD (automatic cardioverter/defibrillator) present: (7) longterm current use of anticoagulant: (8) CKD (chronic kidney disease) stage 3, GFR 30-59 ml/min: Plan Ms. 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 Patient noted she did not recall the fall and awoke the following morning on the ground. Duplex was obtained of BL carotids in 2019 with less than 50% stenosis at that time. She does not have her blood pressure recorded to determine if these events were truly hypotensive while at home. Patient has notable cardiac history, therefore it would be prudent to rule out cardiogenic cause for events leading up to presentation. Patient's hospitalization was complicated by worsening delirium, then precipitous rise in white count. Infectious work up yielded positive blood cultures since 07/25. ECHO from 07/27 was inconclusive for vegetation on prosthetic leaflets. VEENA from 07/28 revealed vegetations on prosthetic mitral valve, 1cm anteriorly and 4mm on anterior leaflet. #Acute Toxic metabolic encephalopathy *improved -Likely multifactorial in setting of acute illness, sepsis, delirium -treat as follows, delirium precautions as appropriate -Seems to have improved with fluid resuscitation -CTM #Sepsis 2/2 bacteremia #MRSA bacteremia iso prosthetic mitral valve --CT head:There is no hemorrhage, mass effect, or evidence of acute territorial ischemia by CT criteria. --Chest x-ray showed signs of possible pneumonia -Not responding to lasix, minimal saturating in high 90s on oxymask --ECHO: Moderate concentric LVH. Small sized inferior wall motion abnormality with akinesis of the basal segments of the inferior/posterior wall. EF 55 to 60%. Aortic valve sclerosis moderate, without significant stenosis. Cannot exclude aortic valvular vegetation. Moderate aortic regurgitation graded than last study. Bioprosthetic mitral valve. Prosthetic valve leaflets are thickened. Possible vegetation is present but not confirmed. Findings appear more pronounced than prior study. Recommend VEENA. --Elevated procalcitonin --Normal TSH --Negative BioFire --Infectious disease following -Repeat blood culture 07/28 + MRSA, -continue Dapto q48h for renal function -CK level 38 on 07/28, recheck on 08/04/2022 -Discontinue CTX 07/28/2022 -Plan for VEENA for definitive diagnosis of endocarditis #BRYANNA on CKD III likely prerenal iso sepsis/hypotension Monitor renal function, avoid nephrotoxic agents and further diuersis Trend CR #Mechanical Fall #Ambulatory dysfunction #Generalized weakness #H/O recurrent falls -Device interrogated and showed no arrhythmias -Carvedilol, torsemide discontinued -Continue to monitor and encourage PT/OT #NICM, 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 There is a small sized inferior wall motion abnormality with akinesis of the basal segment of the inferior wall. LV systolic function is normal. LVEF 55 to 60%. RV is not well-visualized but appears dilated on limited visualization. LA is severely dilated. RA is severely dilated. Aortic valve is mildly calcified. Aortic stenosis is absent. There is a bioprosthetic mitral valve. There is no significant prosthetic regurg. Prosthetic mitral valve peak/mean gradients are normal. Doppler findings do not suggest pulmonary hypertension. -- Appreciate cardiology input -Monitor volume status #Acute on chronic hyponatremia *stable Diuretics discontinued Monitor sodium levels Sodium 133 after IVF #Transaminitis *resolved Slight elevation in AST 55, ALP 132, T Bili 1.2 on admission, resolved #Chronic atrial fibrillation Supratherapeutic INR s/p ablation in 2007 Received vitamin K Monitor INR: 8.9>1.4>2.5 Currently no obvious bleeding issues Reduce dose 50% #Hypothyroidism -Continue levothyroxine #Osteoporosis -On home alendronate and raloxifene, can resume upon discharge DVT Px: Coumadin Disposition Pending transfer to [place] Admission and Anticipated Discharge Date Admission Date: July 14, 2023 Subjective NAEO Patient states that she feels alright today, somewhat improved but cannot articulate to what degree denies any concerns this am overall. Transfer to [place] for surgical evaluation for prosthetic valve endocarditis is pending contingent on bed availability Physical Exam Constitutional: WD/WN, vitals as above Respiratory: normal respiratory effort, lungs clear to auscultation Cardiovascular: +TIKI , RRR Gastrointestinal (Abdomen): normal bowel sounds, soft, nontender, no hepatosplenomegaly Skin: few skin tear with scattered ecchymosis Results & Data Results & Data Vital Signs (Past 12 Hours) Vital Signs Temp Pulse Pulse Resp BP BP Pulse Ox 07/29/23 08:00 07/29/23 07:53 36.5 C 71 16 114/68 100 07/29/23 07:20 74 07/29/23 04:00 36.5 C 76 18 121/66 100 07/29/23 00:42 36.3 C L 74 24 111/60 100 07/29/23 00:41 36.6 C 76 20 105/65 100 O2 Del Method O2 Flow Rate 07/29/23 08:00 Room Air 07/29/23 07:53 Room Air 07/29/23 07:20 07/29/23 04:00 Nasal Cannula 2 07/29/23 00:42 Oxymask 2 07/29/23 00:41 Oxymask 2 Laboratory Results Short CBC 07/28/23 07/29/23 Range/Units 05:38 05:35 WBC 27.94 H D 17.89 H D (4.8-10.8) K/ul Hgb 9.9 L 8.7 L (12.0-16.0) g/dl Hct 27.5 L 24.6 L (37.0-47.0) % Plt Count 123 L 121 L (130-400) K/uL BMP 07/29/23 05:35 Sodium 133 L Potassium 3.7 Chloride 105 Carbon Dioxide 21 BUN 52 H Creatinine 1.03 Glucose 100 H Calcium 8.7 Liver Function 07/29/23 Range/Units 05:35 Total Bilirubin 1.0 (0.2-1.0) mg/dl AST 35 (13-39) U/L ALT 22 (7-52) U/L Alkaline Phosphatase 189 H (34-104) U/L Albumin 2.2 L (3.4-5.0) gm/dl Medications Administered Home Medications Medication Instructions Recorded Confirmed Last Taken alendronate 70 mg tablet 0 mg PO WK 02/18/21 07/14/2323 aspirin 81 mg tablet,delayed 81 mg PO QAM 02/18/21 07/14/23 Unknown release cholecalciferol (vitamin D3) 25 2,000 unit PO DAILY 02/18/21 07/14/23 Unknown mcg (1,000 unit) tablet (Vitamin D3) gabapentin 100 mg capsule 100 mg PO HS 02/18/21 07/14/23 Unknown multivitamin (Multiple Vitamins 1 tab PO QAM 02/18/21 07/14/23 Unknown tablet) simvastatin 10 mg tablet 10 mg PO HS 02/18/21 07/14/23 Unknown warfarin 5 mg tablet 2.5 mg PO . MONWEDTHURFRISUN 02/18/21 07/14/23 Unknown levothyroxine 75 mcg capsule 75 mcg PO DAILY 02/14/22 07/14/23 Unknown lifitegrast 5 % eye drops in a 1 drp OPB HS 02/14/22 07/14/23 Unknown dropperette (Xiidra) sennosides 8.6 mg tablet (senna) 25.8 mg PO DAILY 02/14/22 07/14/23 Unknown warfarin 5 mg tablet 5 mg PO .Wednesday02/14/22 07/14/23 01/20/23 acetaminophen 325 mg tablet 650 mg (2 x 325 mg) PO Q4H PRN 02/25/22 07/14/23 Unknown fever or pain #30 tabs polyethylene glycol 3350 17 gram 17 g PO Q6 PRN constipation #30 ea 02/25/22 07/14/23 Unknown oral powder packet (Miralax) torsemide 20 mg tablet 20 mg PO QAM #30 tabs 01/29/23 07/14/23 Unknown carvedilol 3.125 mg tablet 3.125 mg PO DAILY 07/14/23 07/14/23 Unknown cyclosporine 0.05 % eye drops in a 1 drp ophthalmic (eye) BID PRN 07/14/23 07/14/23 Unknown dropperette (Restasis) .uses sometimes raloxifene 60 mg tablet 0 mg PO DIRECTED 07/14/23 07/14/23 Unknown Active Medications Generic Name Dose Route Start Last Admin Trade Name Freq PRN Reason Stop Dose Admin Acetaminophen 650 mg 07/14/23 20:42 07/28/23 20:18 Acetaminophen 325 Mg Tab PO 08/13/23 20:41 650 mg Q6H PRN Administration Pain Aspirin 81 mg 07/15/23 09:00 07/29/23 09:57 Aspirin 81 Mg Ectab PO 08/14/23 08:59 81 mg QAM [place] Administration Acetaminophen 1,000 mg in 100 mls @ 400 mls/hr 07/28/23 03:08 07/28/23 03:32 Ofirmev IV 07/31/23 03:07 Infused Q8H PRN Infusion Pain or Fever Lactobacillus Acidophilus 2 cap 07/23/23 09:45 07/29/23 09:57 Advanced Probiotic 1250 Mg Capsule PO 08/22/23 09:44 2 cap DAILY [place] Administration Levothyroxine Sodium 75 mcg 07/15/23 06:30 07/29/23 06:17 Levothyroxine Sodium 75 Mcg Tablet PO 08/14/23 06:29 75 mcg DAILYBB [place] Administration Multivitamins 1 tab 07/15/23 09:00 07/29/23 09:58 Multivitamin Tab PO 08/14/23 08:59 1 tab QAM [place] Administration Sennosides 25.8 mg 07/18/23 21:00 07/28/23 20:19 Senna 8.6 Mg Tab PO 08/17/23 20:59 25.8 mg PM [place] Administration Simvastatin 10 mg 07/14/23 21:00 07/26/23 20:25 Simvastatin 10 Mg Tab PO 08/13/23 20:59 10 mg HS [place] Administration Warfarin Sodium 2.5 mg 07/26/23 16:00 07/28/23 17:21 Warfarin Sod 2.5 Mg Tab PO 08/25/23 15:59 2.5 mg DAILY@1600 [place] Administration (1) Fall Encounter type: initial encounter Qualified Code(s): W19.XXXA - Unspecified fall, initial encounter
[2023-07-29] MEDS ORDERED: DAPTOmycin 400 MG in SYRINGE 0 ML IV SCH (13:00)
[2023-07-29] MEDS: WARFARIN SOD 1.25 MG TAB PO SCH (17:07)
--- NOTE | 2023-07-29 17:52 | Discharge Summary ---
Discharge Summary Date of Service July 29, 2023 Notes For Next Care Provider MRSA bacteremia of prosthetic mitral valve Medication Changes From Visit discontinued torsemide and coreg Admission HPI Per Admitting Provider Ms. 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 Patient states she has been managing her falls/weakness by discussing medication management with her PCP, Dr. Saldivar. Patient reports a likely fall on (07/08) that she states she must've sustained that night as she awoke on Wednesday on the floor next to her bed. She does not endorse any prodromal symptoms, like dizziness, lightheadedness when standing, diaphoresis, chest pain, fading of vision, or other notable concerns outside of "sleeping all the time." She states that since that fall/being on the ground, she has not taken her carvedilol. She did follow with PCP to discuss medications on Wednesday (07/12), but states that she was hesitant to take any further medications and thus even stopped her torsemide to see if that helps. Her weakness progressed, prompting presentation to the ED She denies any sick contact or other acute concerns. In the ED, vital signs ranged from 98-150s SBP, HR in 70s, afebrile and saturating well on room air. She was given tylenol 650mg. Orthostatic pending Labs notable for trop of 17.8, BNP 397, CK 18, ALP 132, AST 55, Sodium 129 (serum osmo 276) EKG fairly similar to prior from 12/2022, paced, no signs of ischemia/ST changes Admission Exam Per Admitting Provider Constitutional: WD/WN, vitals as above Respiratory: normal respiratory effort, lungs clear to auscultation Cardiovascular: irregular rhythm, BLE 2+ on R > L Gastrointestinal (Abdomen): normal bowel sounds, soft, nontender, no hepatosplenomegaly Principal Dx & Hospital Course #1 = Principal Diagnosis (1) Fall: (2) Weakness: (3) Acute hyponatremia: (4) NICM (nonischemic cardiomyopathy): (5) Permanent atrial fibrillation: (6) AICD (automatic cardioverter/defibrillator) present: (7) custodial current use of anticoagulant: (8) CKD (chronic kidney disease) stage 3, GFR 30-59 ml/min: Plan MsSylvia Kay is an 87 yo F w/ hx of mitral valve replacement, 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 Patient noted she did not recall the fall and awoke the following morning on the ground. Duplex was obtained of BL carotids in 2019 with less than 50% stenosis at that time. She does not have her blood pressure recorded to determine if these events were truly hypotensive while at home. Patient has notable cardiac history, therefore it would be prudent to rule out cardiogenic cause for events leading up to presentation. Patient's hospitalization was complicated by worsening delirium, then precipitous rise in white count. Infectious work up yielded positive blood cultures since 07/25. ECHO from 07/27 was inconclusive for vegetation on prosthetic leaflets. VEENA from 07/28 revealed vegetations on prosthetic mitral valve, 1cm anteriorly and 4mm on anterior leaflet. #Acute Toxic metabolic encephalopathy *improved -Likely multifactorial in setting of acute illness, sepsis, delirium -treat as follows, delirium precautions as appropriate -Seems to have improved with fluid resuscitation -CTM #Sepsis 2/2 bacteremia #MRSA endocarditis #MRSA bacteremia iso prosthetic mitral valve --CT head:There is no hemorrhage, mass effect, or evidence of acute territorial ischemia by CT criteria. --Chest x-ray showed signs of possible pneumonia -Not responding to lasix, minimal saturating in high 90s on oxymask --ECHO: Moderate concentric LVH. Small sized inferior wall motion abnormality with akinesis of the basal segments of the inferior/posterior wall. EF 55 to 60%. Aortic valve sclerosis moderate, without significant stenosis. Cannot exclude aortic valvular vegetation. Moderate aortic regurgitation graded than last study. Bioprosthetic mitral valve. Prosthetic valve leaflets are thickened. Possible vegetation is present but not confirmed. Findings appear more pronounced than prior study. --VEENA from 07/28 revealed vegetations on prosthetic mitral valve, 1cm anteriorly and 4mm on anterior leaflet. --Elevated procalcitonin --Normal TSH --Negative BioFire --Infectious disease following -Repeat blood culture 07/28 + MRSA, -continue Dapto q24h for renal function -CK level 38 on 07/28, recheck on 08/04/2022 -Discontinue CTX 07/28/2022 #BRYANNA on CKD III *improved likely prerenal iso sepsis/hypotension Monitor renal function, avoid nephrotoxic agents and further diuersis Trend CR #Mechanical Fall #Ambulatory dysfunction #Generalized weakness #H/O recurrent falls -Device interrogated and showed no arrhythmias -Carvedilol, torsemide discontinued #NICM, 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 There is a small sized inferior wall motion abnormality with akinesis of the basal segment of the inferior wall. LV systolic function is normal. LVEF 55 to 60%. RV is not well-visualized but appears dilated on limited visualization. LA is severely dilated. RA is severely dilated. Aortic valve is mildly calcified. Aortic stenosis is absent. There is a bioprosthetic mitral valve. There is no significant prosthetic regurg. Prosthetic mitral valve peak/mean gradients are normal. Doppler findings do not suggest pulmonary hypertension. -- Appreciate cardiology input -Monitor volume status #Acute on chronic hyponatremia *stable Diuretics discontinued sodium to 134 #Transaminitis *resolved Slight elevation in AST 55, ALP 132, T Bili 1.2 on admission, resolved #Chronic atrial fibrillation Supratherapeutic INR s/p ablation in 2007 Received vitamin K Monitor INR: 8.9>1.4>2.5 Currently no obvious bleeding issues Reduce dose 50% #Hypothyroidism -Continue levothyroxine #Osteoporosis -On home alendronate and raloxifene, can resume upon discharge DVT Px: Coumadin Disposition Transfer to [place] Discharge Exam Constitutional frail, weak woman, less conversational today Respiratory normal respiratory effort, lungs clear to auscultation Gastrointestinal (Abdomen) normal bowel sounds, soft, nontender, no hepatosplenomegaly Skin scattered ecchymosis BLE, BLE edema--improved Updated Medication List Medication Instructions Recorded Confirmed Type alendronate 70 mg tablet 0 mg PO WK 02/18/21 07/14/23 History aspirin 81 mg tablet,delayed 81 mg PO QAM 02/18/21 07/14/23 History release cholecalciferol (vitamin D3) 25 2,000 unit PO DAILY 02/18/21 07/14/23 History mcg (1,000 unit) tablet (Vitamin D3) gabapentin 100 mg capsule 100 mg PO HS 02/18/21 07/14/23 History multivitamin (Multiple Vitamins 1 tab PO QAM 02/18/21 07/14/23 History tablet) simvastatin 10 mg tablet 10 mg PO HS 02/18/21 07/14/23 History warfarin 5 mg tablet 2.5 mg PO . [id number] 02/18/21 07/14/23 History levothyroxine 75 mcg capsule 75 mcg PO DAILY 02/14/22 07/14/23 History lifitegrast 5 % eye drops in a 1 drp OPB HS 02/14/22 07/14/23 History dropperette (Xiidra) sennosides 8.6 mg tablet (senna) 25.8 mg PO DAILY 02/14/22 07/14/23 History warfarin 5 mg tablet 5 mg PO .Wednesday02/14/22 07/14/23 History acetaminophen 325 mg tablet 650 mg (2 x 325 mg) PO Q4H PRN 02/25/22 07/14/23 Rx fever or pain #30 tabs polyethylene glycol 3350 17 gram 17 g PO Q6 PRN constipation #30 ea 02/25/22 07/14/23 Rx oral powder packet (Miralax) torsemide 20 mg tablet 20 mg PO QAM #30 tabs 01/29/23 07/14/23 Rx carvedilol 3.125 mg tablet 3.125 mg PO DAILY 07/14/23 07/14/23 History cyclosporine 0.05 % eye drops in a 1 drp ophthalmic (eye) BID PRN 07/14/23 07/14/23 History dropperette (Restasis) .uses sometimes raloxifene 60 mg tablet 0 mg PO DIRECTED 07/14/23 07/14/23 History Hospital Stay Data Consultations 07/14/23 12:44 ED Decision to Admit Stat 07/14/23 14:55 Consult Cardiology Routine 07/27/23 08:58 Consult Infectious Diseases Routine 07/27/23 11:58 Consult Cardiology Routine Procedures Performed Operation Date: 07/28/23 14:00 Actual Procedures p Echo Transesophageal - Aldo Gomez MD s Echo Color Flow - Aldo Gomez MD Diagnostic Imagining Performed 07/14/23 09:16 CT cervical spine wo con Stat CT head/brain wo con Stat 07/23/23 07:52 CT head/brain wo con Urgent Pending Results Patient Have Any Pending Studies at Discharge: No Discharge Instructions Given to Patient (Per Discharging Provider) Ms. 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 Patient noted she did not recall the fall and awoke the following morning on the ground. Duplex was obtained of BL carotids in 2019 with less than 50% stenosis at that time. She does not have her blood pressure recorded to determine if these events were truly hypotensive while at home. Patient has notable cardiac history, therefore it would be prudent to rule out cardiogenic cause for events leading up to presentation. Patient's hospitalization was complicated by worsening delirium, then precipitous rise in white count. Infectious work up yielded positive blood cultures since 07/25. ECHO from 07/27 was inconclusive for vegetation on prosthetic leaflets. VEENA revealed prosthetic valve endocarditis. Plans to transfer for surgical evaluation at request of patient and family. #Acute Toxic metabolic encephalopathy -Likely multifactorial in setting of acute illness, sepsis, delirium -treat as follows, delirium precautions as appropriate #Sepsis 2/2 bacteremia #MRSA bacteremia iso prosthetic mitral valve --CT head:There is no hemorrhage, mass effect, or evidence of acute territorial ischemia by CT criteria. --Chest x-ray showed signs of possible pneumonia -Not responding to lasix, minimal saturating in high 90s on oxymask --ECHO: Moderate concentric LVH. Small sized inferior wall motion abnormality with akinesis of the basal segments of the inferior/posterior wall. EF 55 to 60%. Aortic valve sclerosis moderate, without significant stenosis. Cannot exclude aortic valvular vegetation. Moderate aortic regurgitation graded than last study. Bioprosthetic mitral valve. Prosthetic valve leaflets are thickened. Possible vegetation is present but not confirmed. Findings appear more pronounced than prior study. Recommend VEENA. --Elevated procalcitonin --Normal TSH --Negative BioFire --Infectious disease following -Repeat blood culture -continue Dapto -CK level 38 on 07/28, recheck on 08/04/2022 #BRYANNA on CKD III likely prerenal iso sepsis/hypotension Monitor renal function, avoid nephrotoxic agents and further diuersis Trend CR #Mechanical Fall #Ambulatory dysfunction #Generalized weakness #H/O recurrent falls -Device interrogated and showed no arrhythmias -Carvedilol, torsemide discontinued -Will reassess contingent on recovery from above #NICM, 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 There is a small sized inferior wall motion abnormality with akinesis of the basal segment of the inferior wall. LV systolic function is normal. LVEF 55 to 60%. RV is not well-visualized but appears dilated on limited visualization. LA is severely dilated. RA is severely dilated. Aortic valve is mildly calcified. Aortic stenosis is absent. There is a bioprosthetic mitral valve. There is no significant prosthetic regurg. Prosthetic mitral valve peak/mean gradients are normal. Doppler findings do not suggest pulmonary hypertension. -- Appreciate cardiology input -Monitor volume status #Acute on chronic hyponatremia *stable Diuretics discontinued Monitor sodium levels Sodium 131 today #Transaminitis *resolved Slight elevation in AST 55, ALP 132, T Bili 1.2 on admission, resolved #Chronic atrial fibrillation Supratherapeutic INR s/p ablation in 2007 Received vitamin K Monitor INR: 8.9>1.4 Currently no obvious bleeding issues Resume Coumadin today #Hypothyroidism -Continue levothyroxine #Osteoporosis -On home alendronate and raloxifene, can resume upon discharge Total Time Total Time Spent Total Time Spent (In Minutes): 55
[2023-07-29] MEDS: SENNA 8.6 MG TAB PO SCH (20:46)
[2023-07-30] MEDS: LEVOTHYROXINE SODIUM 75 MCG TABLET PO SCH (05:51)
[2023-07-30 06:04] LABS: Hematocrit (blood only) 29.1 % (37.0-47.0); Hemoglobin 9.9 g/dl (12.0-16.0); Mean Corpuscular Hemoglobin 27.7 pg (25.0-34.0); Mean Corpuscular Volume 81.3 fL (80.0-100.0); Mean Platelet Volume 11.7 fL (9.4-12.4); Nucleated RBC # (auto) 0.02 K/uL (0.00-0.12); Nucleated RBC % (auto) 0.1 %; Platelet Count 150 K/uL (130-400); RDW Coefficient of Variation 20.2 % (11.5-14.5); RDW Standard Deviation 54.1 fL (36.4-46.3); Red Blood Count 3.58 M/uL (4.20-5.40); White Blood Count 18.82 K/ul (4.8-10.8)
[2023-07-30 06:22] LABS: Albumin Globulin Ratio 0.8 (0.9-2); Albumin Level 2.4 gm/dl (3.4-5.0); BUN Creatinine Ratio 49.5 (10-20); Bilirubin,Total 1.4 mg/dl (0.2-1.0); Calcium 9.2 mg/dl (8.6-10.3); Creatinine Clr Calc Pharmacy 30.8 ml/min; Est GFR (African American) 60.9 ml/min; Est GFR (Non-African American) 52.5 ml/min; Globulin 2.9 gm/dl (2.5-4.0); Magnesium 2.3 mg/dl (1.7-2.4); Phosphorus 3.9 mg/dl (2.5-4.9); Potassium 4.2 mmol/L (3.5-5.1); Total Protein 5.3 gm/dl (6.0-8.3)
[2023-07-30 06:29] LABS: INR 3.3 (0.9-1.1); Prothrombin Time 33.6 Seconds (9.0-12.0)
[2023-07-30] MEDS: ADVANCED PROBIOTIC 1250 MG CAPSULE PO SCH (07:37)
[2023-07-30] MEDS: ASPIRIN 81 MG ECTAB PO SCH (07:37)
[2023-07-30] MEDS: MULTIVITAMIN TAB PO SCH (07:37)
[2023-07-30] MEDS ORDERED: DAPTOmycin 400 MG in SYRINGE 0 ML IV SCH (12:00)
[2023-07-30] MEDS: WARFARIN SOD 1.25 MG TAB PO SCH (16:49)
== END 2023-07-30 16:48 | disposition short-term general hospital (02) | DRG 314 ==
LOC: ED 08:52 → 2N 14:15 → SUATTDRO 14:15 → 2N 16:15